=== PATIENT | female | born 1945 | race Caucasian/White ===

== ENCOUNTER → 2018-02-16 08:46 | Outpatient (CLI) | payer MEDICARE, OTHER, SELFPAY ==
--- NOTE | 2018-02-16 08:53 | XR_ITS ---
XR abdomen min 2V HISTORY: ITS.REASON: RT SIDE BACK PAIN W/SCIATICA ORDERING PHYSICIAN: Dominga Allen PATIENT AGE: 72 years COMPARISON: None TECHNIQUE: Upright and supine views of the abdomen and pelvis. FINDINGS: Nonspecific nonobstructive bowel gas pattern. No evidence of intestinal obstruction or free air. Dextroscoliosis of the thoracic lumbar spine measuring 26 degrees. Mild sclerosis left SI joint and mild degenerative changes of the hips. IMPRESSION: No acute finding
== END ==
PROVIDERS: PCP Internal Medicine Adolescent Medicine; Visit Provider Nurse Practitioner Family
DX: M54.41 Lumbago with sciatica, right side (principal)
CPT/HCPCS: 74019

== ENCOUNTER → 2018-02-24 09:32 | Outpatient (CLI) | payer MEDICARE, SELFPAY ==
[2018-02-24 12:43] LABS: Blood Urea Nitrogen 22 mg/dL (7-18); Creatinine,Serum 1.31 mg/dL (0.55-1.02); Estimated Glomerular Filt Rate 40 ml/min (>60); GFR (African American) 48 ML/MIN (>60)
== END ==
PROVIDERS: Visit Provider Nurse Practitioner Family
DX: R10.31 Right lower quadrant pain (principal)
CPT/HCPCS: 36415; 82565; 84520

== ENCOUNTER → 2018-02-26 09:38 | Outpatient (CLI) | payer MEDICARE, OTHER, SELFPAY ==
--- NOTE | 2018-02-26 10:15 | CT_ITS ---
CT abdomen pelvis w con Ordering Physician: Dominga Allen Patient Age: 72 years: Female HISTORY: ITS.REASON: RLQ pain RIGHT LOWER QUADRANT PAIN FOR 6 MONTHS TECHNIQUE: Helical CT scanning performed at abdomen/pelvis with IV contrast.. 75 cc Isovue-370. Oral contrast also utilized. Axial sagittal and coronal reconstructions performed on CT workstation. All CT scans at this facility used one or more dose reduction techniques , viz: automatic exposure control, ma/Kv adjustment per patient's size, (including targeted exam where dose matched to the indication; i.e. head); or iterative reconstruction technique COMPARISON :None available FINDINGS Lung bases. No acute findings. A 7 mm pleural-based nodular density at left CP angle axial image 15.. A 6 mm pleural-based nodular density right CP angle . These are nonspecific more likely benign lung nodules would benefit from follow-up chest within 4-6 months. Heart normal size with dense calcification mitral valve annulus Possible small slightly hiatal hernia. Abdomen. Liver. No focal lesion. Normal line liver overall but with generous right lobe measuring near 22 cm length Pancreas unremarkable. No retroperitoneal or mesenteric nor pelvic adenopathy. Gallbladder. No calcified stones but There appears to be some evident debris within the gallbladder. Possible noncalcified small stones or polyp.. Consider gallbladder ultrasound Spleen normal size. Adrenals unremarkable. Kidneys show normal enhancement. No obstruction. No calculi and Left kidney with 16 mm benign renal cyst. Also Tiny 7 mm cyst posterior upper pole left kidney. Right kidney is satisfactory. Normal right and left ureter. Pelvis. Urinary bladder unremarkable. Uterus normal size. No adnexal masses. Terminal ileum unremarkable. Appendix satisfactory. Colonic diverticulosis. Numerous small small diverticuli the sigmoid colon descending colon. Diverticulum at the right colon and near cecum with upper normal wall thickness. Most likely normal but noted Small bowel. No bowel dilatation or obstruction. Minimal fluid.. . 2 ventral hernias are seen in region of the umbilicus. When may actually be at the umbilicus with a 25 mm wide and 20 mm height hernia, abdominal wall defect seen leading towards umbilicus (or just above it in ( . The second hernia is just superior to this previously mentioned hernia. This more superior hernia abdominal wall defect, mouth measures 20 mm wide x10 millimeter high. Fat-containing hernia sac measuring 4 cm height . No inflammation or bowel loops are seen associated with these hernias. Osseous. Multilevel degenerative disc changes throughout the spine with generous levoscoliosis at the lower lumbar spine, most pronounced at L4/5 level where there is lateral offset of L4 on 5 and prominent spinal stenosis. Similar findings in 2009 but overall features have progressed. ...... IMPRESSION......... 1. No acute findings abdomen pelvis. Appendix normal. Terminal ileum unremarkable. No bowel dilatation or obstruction. 2. Gallbladder. Notable debris with possibly noncalcified stones gallbladder.-*Suggest gallbladder ultrasound 3. Diverticulosis throughout the colon. No evidence of diverticulitis. Upper normal wall thickness of the diverticuli at cecum,, but most likely normal. No significant diverticular inflammation 4. Incidental Fat-containing umbilical hernia, with a second small/moderate ventral hernia immediately above this. No inflammation. No bowel loops associated. --: Incidental observations 5. Small pleural-based nodular density right & left CP angle. Follow-up CT chest would a 6 months for these most likely benign features adequate 6... Probable benign less than 2 cm cyst at the left kid
--- NOTE | 2018-02-26 10:29 | HMH.ITSHM ---
SULFAME,HOXA,ASPRIIN,FUROSEMIDE,LOSARTIRN,FISH OIL,VITD ALLOPURIONOL,HYDROCODONE
== END ==
PROVIDERS: Family Provider Nurse Practitioner Family; PCP Internal Medicine Adolescent Medicine; Visit Provider Nurse Practitioner Family
DX: R10.31 Right lower quadrant pain (principal)
CPT/HCPCS: 74177; Q9967

== ENCOUNTER → 2018-03-05 07:31 | Outpatient (CLI) | payer MEDICARE, OTHER, SELFPAY ==
--- NOTE | 2018-03-05 08:00 | US_ITS ---
US gallbladder HISTORY: Right upper quadrant pain ITS.REASON: GB SLUDGE ORDERING PHYSICIAN: Dominga Allen PATIENT AGE: 72 years Comparison: None FINDINGS: PANCREAS: Unremarkable. No obvious mass or abnormal fluid collection. No ductal dilatation LIVER: No focal liver lesions demonstrated. Homogeneous echogenicity. No intrahepatic biliary ductal dilatation evident. There are diffuse increased echogenicity of the liver consistent with fatty liver. RIGHT KIDNEY: There is mild cortical thinning. Normal size and echogenicity. No hydronephrosis GALLBLADDER: Multiple gallstones present. No gallbladder wall thickening or pericholecystic fluid. Common bile duct is normal at 4 mm.. IMPRESSION: Cholelithiasis Fatty liver
== END ==
PROVIDERS: Family Provider Nurse Practitioner Family; PCP Internal Medicine Adolescent Medicine; Visit Provider Nurse Practitioner Family
DX: K82.8 Other specified diseases of gallbladder (principal)
CPT/HCPCS: 76705

== ENCOUNTER → 2018-03-14 10:06 | Outpatient (CLI) | payer MEDICARE, OTHER, SELFPAY ==
[2018-03-14 10:54] LABS: Basophils # 0.1 K/mm3 (0-0.2); Basophils % 1.1 % (0.1-2.0); Eosinophils # 0.3 K/mm3 (0.0-0.4); Eosinophils % 3.5 % (0.1-12.0); Hematocrit 45.9 % (37.0-47.0); Hemoglobin 14.4 g/dL (12.2-16.2); Lymphocytes # 2.1 K/mm3 (0.7-4.5); Lymphocytes % 24.6 K/mm3 (10-50); Mean Corpuscular HGB Conc 31.5 g/dL (31.8-35.4); Mean Corpuscular Hemoglobin 28.5 pg (27.0-31.2); Mean Corpuscular Volume 90.6 fl (81-99); Mean Platelet Volume 9.2 fl (7.4-10.4); Monocytes # 0.5 K/mm3 (0.1-1.0); Monocytes % 6.1 % (1.7-9.3); Neutrophils # 5.6 K/mm3 (1.8-7.8); Neutrophils % 64.7 % (37.0-80.0); Platelet Count 209 K/mm3 (142-424); Red Blood Count 5.06 M/mm3 (4.20-5.40); White Blood Count 8.6 K/mm3 (4.8-10.8)
[2018-03-14 11:04] LABS: Alanine Aminotransferase 34 U/L (12-78); Albumin Level 3.6 gm/dL (3.4-5.0); Albumin/Globulin Ratio 1.1 (1.1-1.8); Alkaline Phosphatase 101 U/L (46-116); Aspartate Amino Transferase 24 U/L (15-37); Bilirubin,Total 0.9 mg/dL (0.2-1.0); Blood Urea Nitrogen 17 mg/dL (7-18); Calcium 9.4 mg/dL (8.5-10.1); Carbon Dioxide 28 mmol/L (21.0-32.0); Chloride 107 mmol/L (98-107); Creatinine,Serum 1.08 mg/dL (0.55-1.02); Estimated Glomerular Filt Rate 50 ml/min (>60); GFR (African American) 60 ML/MIN (>60); Globulin 3.4 gm/dl (1.3-3.2); Glucose 113 mg/dL (74-106); Sodium 142 mmol/L (136-145)
== END ==
PROVIDERS: Visit Provider Surgery
DX: Z01.818 Encounter for other preprocedural examination (principal); K80.20 Calculus of gallbladder without cholecystitis without obstruction; K42.9 Umbilical hernia without obstruction or gangrene
CPT/HCPCS: 36415; 80053; 85025; 93005

== ENCOUNTER → 2018-07-12 12:14 | Outpatient (CLI) | payer MEDICARE, OTHER, SELFPAY ==
[2018-07-12 12:44] LABS: Basophils % 0.5 % (0.1-2.0); Eosinophils # 0.3 K/mm3 (0.0-0.4); Eosinophils % 3.7 % (0.1-12.0); Hematocrit 47.2 % (37.0-47.0); Hemoglobin 15.5 g/dL (12.2-16.2); Lymphocytes # 2.5 K/mm3 (0.7-4.5); Lymphocytes % 28.3 % (10-50); Mean Corpuscular HGB Conc 32.7 g/dL (31.8-35.4); Mean Corpuscular Hemoglobin 29.6 pg (27.0-31.2); Mean Corpuscular Volume 90.3 fl (81-99); Mean Platelet Volume 8.8 fl (7.4-10.4); Monocytes # 0.5 K/mm3 (0.1-1.0); Monocytes % 5.2 % (1.7-9.3); Neutrophils # 5.4 K/mm3 (1.8-7.8); Neutrophils % 62.3 % (37.0-80.0); Platelet Count 207 K/mm3 (142-424); Red Blood Count 5.23 M/mm3 (4.20-5.40); Red Cell Distribution Width 14.6 % (11.5-17.5); White Blood Count 8.7 K/mm3 (4.8-10.8)
[2018-07-12 14:10] LABS: Alanine Aminotransferase 27 U/L (12-78); Albumin Level 3.7 gm/dL (3.4-5.0); Alkaline Phosphatase 120 U/L (46-116); Amylase 60 U/L (25-125); Anion Gap 16.2 mEq/L (5-15); Aspartate Amino Transferase 24 U/L (15-37); Bilirubin,Total 0.8 mg/dL (0.2-1.0); Blood Urea Nitrogen 24 mg/dL (7-18); Calcium 9.2 mg/dL (8.5-10.1); Carbon Dioxide 27 mmol/L (21.0-32.0); Chloride 104 mmol/L (98-107); Creatinine,Serum 1.16 mg/dL (0.55-1.02); Estimated Glomerular Filt Rate 46 ml/min (>60); GFR (African American) 55 ML/MIN (>60); Globulin 3.6 gm/dl (1.3-3.2); Glucose 98 mg/dL (74-106); Lipase 214 u/L (73-393); Potassium 4.2 mmoL/L (3.5-5.1); Sodium 143 mmol/L (136-145); Total Protein,Serum 7.3 gm/dL (6.4-8.2)
== END ==
PROVIDERS: Visit Provider Nurse Practitioner Family
DX: R10.9 Unspecified abdominal pain (principal); K57.30 Diverticulosis of large intestine without perforation or abscess without bleeding
CPT/HCPCS: 36415; 80053; 82150; 83690; 85025

== ENCOUNTER → 2018-07-23 10:16 | Outpatient (CLI) | payer MEDICARE, OTHER, SELFPAY ==
--- NOTE | 2018-07-23 10:36 | CT_ITS ---
CT chest w con HISTORY: Follow-up lung nodule prior CT abdomen pelvis 02/26/2018. ITS.REASON: LUNG NODULES ORDERING PHYSICIAN: Dominga Allen PATIENT AGE: 72 years COMPARISON: 60 cc Isovue-370 IV contrast utilizing. SmartPrep. TECHNIQUE Technique: Axial images obtained. Sagittal and coronal reformatted images are also generated and reviewed. All CT scans at the facility use one or more dose reduction, viz: automated exposure control, ma/kV adjustment per patient size (including targeted exams where dose is matched to indication, i.e. head), or iterative reconstruction technique. FINDINGS: COMPARISON is made to previous CTA abdomen 02/26/2018. At the left lung base we again see a stable small 6. Remaining millimeter pleural-based nodule at the left CP angle. But no significant change. At the right lung base towards right CP angle. Again see a small 5. X 5.5 mm pleural-based nodule density. It is somewhat tapered towards its tip but I suspect it is related to scarring. No significant progression. On axial image 45 slightly more superiorly there is a tiny less than 4 mm pleural-based nodule posterior R UL. I suspect this is a stable feature as well in retrospect Continues superiorly there is a small a smaller 3.8 mm subpleural nodule anterior RML to on axial slice 38,, also seen on sagittal image 2627. May be related to scarring. The other density on this axial slice is a branching vessel and stable as well . On on axial image 29 there is a tiny 3 mm nodule superior most aspect RLL. This tiny nodule dense for size & may be partially calcified but cannot confirm calcium with density measurements. Tiny barely evident pleural-based 3 mm nodule at the periphery of the RUL axial image 29. Finally Extremely tiny densities pleural-based R UL axial image 18, & periphery of RML axial slice 42 . Central airways upper normal thickness. . Small calcified hilar nodes at posterior left sofia reflect old granulomatous disease. No significant hilar nor mediastinal adenopathy otherwise heart is normal size. There is very dense calcification in the region of the mitral valve reflecting mainly dense calcification at the mitral valve annulus. This is similar to previous study nicely seen on the CT employment law specialist view . moderate coronary artery calcification most evident throughout the LAD, with some minimal calcification at left main coronary artery. Upper abdomen. No significant findings. Partially imaged cyst mid left kidney at least 12 mm size. Adrenals unremarkable. Diffuse fatty changes liver. Osseous structures. No no lesions... Degenerative changes T-spine. Posterior midline spurring most evident at T6/7 and less evident at T4/5 , T3/4/ slightly indents thecal sac at midline.. Anterior marginal osteophytes. Mild degenerative changes throughout T-spine otherwise.Mild superior endplate cavity T11 likely reflects Schmorl's node. Other observations. There is a 12.5 mm right thyroid nodule with a small 7.2 mm left thyroid nodule thyroid gland appears more slightly enlarged perhaps towards the more generous inferior left lobe ------IMPRESSION---- 1.... The patient has scattered small pulmonary nodular densities bilaterally. Suspect Most likely small benign nodules but would benefit from a follow-up CT chest in 6 months to confirm stable. ... Previously noted lung nodules towards bases appear stable compared to CT abdomen 02/26/2018 .. The other tiny nodules seen elsewhere scattered elsewhere chest are small, measure less than 4 mm.. Some likely reflect developing granulomatous disease, with the others reflecting scarring,- but will be important to confirm stability to exclude possible more significant feature. 2.... Incidental observations: Bilateral thyroid nodules. Inf
== END ==
PROVIDERS: PCP Nurse Practitioner Family; Visit Provider Nurse Practitioner Family
DX: R91.1 Solitary pulmonary nodule (principal)
CPT/HCPCS: 71260; Q9967

== ENCOUNTER → 2018-08-10 09:58 | Outpatient (CLI) | payer MEDICARE, OTHER, SELFPAY ==
--- NOTE | 2018-08-10 10:03 | CA_ITS ---
PROCEDURE: 2-D M-mode and color Doppler study INDICATIONS FOR THE TEST: Chest pain COPD Heart Murmur Tobacco Smoking Palpitations Fatigue Syncope Edema HypertensionXDiabetes Mellitus Rheumatic Fever SOB ZIEGLER ObesityXXHyperlipidemiaX Family History HD Additional History CALCIFICATION OF MV BY CT TDS OBESITY PATIENT INFORMATION HEIGHT: 66 WEIGHT:260 GENDER: Female B/P:128/73 2-D/M-MODE INTERPRETATION: 2-D MEASUREMENTS OBSERVED VALUES IN CMS Right Ventricular Dimension (RVDd) 2.3 Interventricular Septum (Thickness)(IVsd) 1.0 Left Ventricular Internal Dimensions(LVIDd) 5.1 Left Ventricular Posterior Wall (Thickness)(LVPWd) 1.1 Aortic Root 3.4 Aortic Cusp Separation 1.1 Left Atrial Dimensions (LAD) 3.6 2D 1. Left atrium is mildly enlarged, left ventricle is normal size, mild concentric left ventricular hypertrophy, visually estimated ejection fraction over 65% with no regional wall motion abnormality. 2. The right atrium and right ventricle are normal size and contractility. 3. The aortic valve is thickened and calcified leaflet continue to display mobility. 4. The mitral valve has mitral annular calcification, which extends and both anterior and posterior mitral leaflet. 5. The tricuspid valve is grossly normal. 6. The pulmonic valve is poorly visualized. 7. No significant pericardial effusion noted. DOPPLER INTERROGATION: Doppler interrogation of the aortic, mitral and tricuspid valve is presence of mild mitral and tricuspid regurgitation, tricuspid regurgitation jet velocity is inadequate for calculation of the right ventricular systolic pressure, grade 1 diastolic dysfunction seen with tissue Doppler evidence of raised left atrial pressure. CONCLUSION: 1. Mildly enlarged left atrium, normal left ventricular size, mild concentric left ventricular hypertrophy, visually estimated ejection fraction of over 65% with no regional wall motion abnormality, grade 1 diastolic dysfunction seen with tissue Doppler evidence of raised left atrial pressure. 2. Thickened and calcified aortic valve without aortic stenosis aortic insufficiency. 3. Mild mitral and tricuspid regurgitation 4. No significant pericardial effusion noted.
--- NOTE | 2018-08-10 10:32 | US_ITS ---
US thyroid HISTORY: ITS.REASON: THYROID NODULE, feels like something stuck in the neck ORDERING PHYSICIAN: Dominga Allen PATIENT AGE: 72 years Comparison: 07/23/2018 FINDINGS: Right lobe: 4.5 x 2.5 x 1.8 cm. Nodule A, mid pole at 19 x 14 mm. There appears to be a partially calcified rim with low level echoes centrally. Left lobe: 4.5 x 2 x 1.6 cm. Small cyst in the upper pole and 5 mm. Hypoechoic nodule lower pole a 10 x 9 mm with good through transmission of sound and may be due to a complex cyst. There is some increased echogenicity along the posterior inferior aspect of this lesion consistent with a small mural nodule. Isthmus: 4 mm IMPRESSION: Mildly enlarged thyroid gland with bilateral complex nodules. 20 x 14 mm hypoechoic nodule mid polar region on the right 10 x 9 mm complex cystic nodule lower pole on the left Consider 6 month follow-up to confirm stability of the above-mentioned abnormalities
== END ==
PROVIDERS: PCP Internal Medicine Adolescent Medicine; Visit Provider Nurse Practitioner Family
DX: E04.1 Nontoxic single thyroid nodule; I34.0 Nonrheumatic mitral (valve) insufficiency
CPT/HCPCS: 76536; 93306

== ENCOUNTER → 2018-09-06 09:49 | Outpatient (CLI) | payer MEDICARE, OTHER, SELFPAY ==
--- NOTE | 2018-09-06 09:53 | US_ITS ---
FNA w guidance, US thyroid HISTORY: Dominant right thyroid nodule ITS.REASON: THYROID NODULE ORDERING PHYSICIAN: John Croft MD PATIENT AGE: 72 years COMPARISON: 08/10/2018 Prebiopsy ultrasound: Prebiopsy ultrasound performed for planning of the procedure. Appropriate site localized on the patient's neck for needle insertion. TECHNIQUE: Following obtaining informed consent, using aseptic technique and local anesthesia with buffered lidocaine, fine-needle aspiration was performed of the nodule of interest using sonographic guidance. 3 passes were made into the nodule with a 25-gauge needle. Specimen was given to cytology. The patient tolerated the procedure well without evidence of immediate complications and left the ultrasound suite in stable condition. CYTOLOGY:Negative for malignancy. Consistent with a benign follicular nodule IMPRESSION: Uneventful fine needle aspiration of the thyroid nodule on the right under sonographic guidance showing benign findings
== END ==
PROVIDERS: PCP Nurse Practitioner Family; Visit Provider Otolaryngology
DX: E04.1 Nontoxic single thyroid nodule (principal)
CPT/HCPCS: 10005; 10022; 76536; 88173

== ENCOUNTER → 2018-09-17 10:08 | Outpatient (CLI) | payer MEDICARE, OTHER, SELFPAY ==
--- NOTE | 2018-09-17 10:15 | XR_ITS ---
XR hip LT 2-3V w/pelvis HISTORY: Left hip pain ITS.REASON: ABD PAIN,OSTEOARTHRITIS ORDERING PHYSICIAN: Dominga Allen PATIENT AGE: 72 years COMPARISON: None FINDINGS: There are mild osteoarthritic changes of both hips as seen on the frontal view of the pelvis. No fracture or dislocation. No lytic or blastic change. Mild sclerosis left SI joint inferiorly IMPRESSION: Mild osteoarthritis of the hips
== END ==
PROVIDERS: PCP Internal Medicine Adolescent Medicine; Visit Provider Nurse Practitioner Family
DX: R10.32 Left lower quadrant pain (principal); M15.0 Primary generalized (osteo)arthritis
CPT/HCPCS: 73502

== ENCOUNTER → 2018-12-17 09:22 | Outpatient (CLI) | payer MEDICARE, OTHER, SELFPAY ==
[2018-12-17 09:46] LABS: Basophils # 0.1 K/mm3 (0-0.2); Basophils % 0.5 % (0.1-2.0); Eosinophils # 0.3 K/mm3 (0.0-0.4); Eosinophils % 2.7 % (0.1-12.0); Hematocrit 47.7 % (37.0-47.0); Lymphocytes # 2.1 K/mm3 (0.7-4.5); Mean Corpuscular HGB Conc 33.5 g/dL (31.8-35.4); Mean Corpuscular Hemoglobin 29.8 pg (27.0-31.2); Mean Corpuscular Volume 88.8 fl (81-99); Mean Platelet Volume 8.6 fl (7.4-10.4); Monocytes # 0.5 K/mm3 (0.1-1.0); Monocytes % 5.1 % (1.7-9.3); Neutrophils # 7.2 K/mm3 (1.8-7.8); Neutrophils % 70.7 % (37.0-80.0); Platelet Count 216 K/mm3 (142-424); Red Blood Count 5.37 M/mm3 (4.20-5.40); Red Cell Distribution Width 14.1 % (11.5-17.5); White Blood Count 10.1 K/mm3 (4.8-10.8)
[2018-12-17 12:06] LABS: Alanine Aminotransferase 27 U/L (12-78); Albumin/Globulin Ratio 1.1 (1.1-1.8); Alkaline Phosphatase 127 U/L (46-116); Anion Gap 14.6 mEq/L (5-15); Aspartate Amino Transferase 15 U/L (15-37); Bilirubin,Total 0.9 mg/dL (0.2-1.0); Blood Urea Nitrogen 28 mg/dL (7-18); Carbon Dioxide 27 mmol/L (21.0-32.0); Chloride 102 mmol/L (98-107); Chol/HDL Ratio 5.4 (1-3.5); Cholesterol 231 mg/dL (140-200); Creatinine,Serum 1.12 mg/dL (0.55-1.02); Estimated Glomerular Filt Rate 48 ml/min (>60); GFR (African American) 58 ML/MIN (>60); Globulin 3.7 gm/dl (1.3-3.2); Glucose 96 mg/dL (74-106); HDL Cholesterol 43 mg/dL (29-89); LDL Cholesterol 161 mg/dL (0-130); Potassium 4.6 mmoL/L (3.5-5.1); Sodium 139 mmol/L (136-145); Thyroid Stimulating Hormone 1.99 uIU/ml (0.358-3.740); Total Protein,Serum 7.7 gm/dL (6.4-8.2); Triglycerides 136 mg/dL (30-200); Uric Acid 4.7 mg/dL (2.6-7.2); VLDL Cholesterol 27 mg/dL (0-40)
[2018-12-19 06:57] LABS: Vitamin D 25 Hydroxy 34.6 ng/mL (30.0-100.0)
== END ==
PROVIDERS: PCP Nurse Practitioner Family; Visit Provider Nurse Practitioner Family
DX: R60.9 Edema, unspecified (principal); I10 Essential (primary) hypertension; E04.1 Nontoxic single thyroid nodule; E78.2 Mixed hyperlipidemia; E55.9 Vitamin D deficiency, unspecified; M10.9 Gout, unspecified; G47.33 Obstructive sleep apnea (adult) (pediatric)
CPT/HCPCS: 36415; 80053; 80061; 82652; 84443; 84550; 85025

== ENCOUNTER → 2019-01-09 07:55 | Outpatient (CLI) | payer MEDICARE, OTHER, SELFPAY ==
--- NOTE | 2019-01-09 08:30 | MM_ITS ---
MM Dig screening mamm BI w/CAD CAD Screening COMPARISON: None, previous mammograms have been purged. INDICATION: There is no personal or family history of breast cancer TECHNIQUE: Standard CC and MLO images were obtained. R2 CAD reviewed. FINDINGS: The breasts are composed primarily of fat with very minimal scattered fiber glandular densities in each breast. There are scattered benign-appearing microcalcifications in each breast. There is no suspicious lesion and there are no suspicious microcalcifications. IMPRESSION: Fatty type breast parenchyma with no suspicious lesion seen BI-RADS Category: 2 Benign Finding(s) RECOMMENDED FOLLOW-UP: 1YR - 1 YEAR FOLLOW-UP (A letter has been sent to the patient regarding results of the study.)
--- NOTE | 2019-01-09 09:00 | XR_ITS ---
XR DEXA axial skeleton HISTORY: ITS.REASON: POST MENOPAUSAL SCREENING ORDERING PHYSICIAN: Dominga Allen APRN PATIENT AGE: 73 years COMPARISON: 08/17/2015 FINDINGS: The BMD measured at the Left femoral neck is 0.805 g/cm squared with a T score of -1.7. This is considered Osteopenic according to the World Health Organization criteria. Fracture risk is Moderate. Treatment is advised. The L1 L4 density has a T score of 1.4 IMPRESSION: Osteopenia with moderate fracture risk. Treatment is advised. Suggest follow-up exam January 2021
== END ==
PROVIDERS: PCP Nurse Practitioner Family; Visit Provider Nurse Practitioner Family
DX: Z12.31 Encounter for screening mammogram for malignant neoplasm of breast (principal); Z13.820 Encounter for screening for osteoporosis; Z78.0 Asymptomatic menopausal state
CPT/HCPCS: 77067; 77080

== ENCOUNTER → 2019-02-28 08:37 | Outpatient (CLI) | payer MEDICARE, OTHER, SELFPAY ==
--- NOTE | 2019-02-28 08:39 | FL_ITS ---
FL barium enema ORDERING PHYSICIAN : Oli Soriano MD PATIENT AGE: 73 years GENDER: Female HISTORY:ITS.REASON: 3 mo follow up COMPARISON: None TECHNIQUE: Routine FINDINGS: Lie Detector Operator film shows right upper quadrant surgical clips from cholecystectomy and degenerative disc disease throughout the lumbar spine with marginal spurs and mild scoliosis. Barium filled the entire colon without difficulty with opacification of a normal-appearing appendix. There are scattered diverticula which are more numerous in the left side and sigmoid area. There are no areas of persistent narrowing. The willis appear to be normal and there are no filling defects. IMPRESSION: Colonic diverticulosis. Cholecystectomy. Lumbar spine chronic intervertebral osteochondrosis with secondary mild scoliosis.
== END ==
PROVIDERS: PCP Nurse Practitioner Family; Visit Provider Surgery
DX: Q43.8 Other specified congenital malformations of intestine (principal)
CPT/HCPCS: 74270

== ENCOUNTER → 2019-03-14 12:49 | Outpatient (CLI) | payer MEDICARE, OTHER, SELFPAY ==
--- NOTE | 2019-03-14 12:51 | US_ITS ---
US thyroid HISTORY: follow-up thyroid nodules ITS.REASON: Goiter ORDERING PHYSICIAN: John Croft MD PATIENT AGE: 73 years Comparison: 08/10/2018 FINDINGS: The right lobe is 3.6 x 2.4 x 2.1 cm. There is a 1. #1.3 cm somewhat ill-defined hypoechoic nodules mid aspect of the right lobe unchanged. There may be a peripheral calcified rim. A 4 mm hypoechoic nodule present in the mid polar region unchanged. The left lobe is 3.8 x 1.6 x 2.1 cm. There is a 6 mm mixed nodule in the upper pole unchanged. A subtle 15 mm nodules present in the mid polar region probably unchanged given the difference in scanning technique. 5 mm hypoechoic nodule present in the lower pole. A 10 mm mixed nodule present in the lower pole. Cannot determine if this nodule was present previously due to the difference in scanning technique. The isthmus is thickened at 8 mm. IMPRESSION: Multinodular goiter overall not significantly changed
== END ==
PROVIDERS: PCP Nurse Practitioner Family; Visit Provider Otolaryngology
DX: E01.0 Iodine-deficiency related diffuse (endemic) goiter (principal)
CPT/HCPCS: 76536

== ENCOUNTER → 2019-04-04 09:54 | Outpatient (CLI) | payer MEDICARE, OTHER, SELFPAY ==
--- NOTE | 2019-04-04 10:05 | CT_ITS ---
CT chest w con HISTORY: Follow-up lung nodule ITS.REASON: RT LUNG NODULE ORDERING PHYSICIAN: Dominga Allen APRN PATIENT AGE: 73 years COMPARISON: 07/23/2018 Technique: Contrast Used:75ml Optiray 350 Axial images were obtained. Sagittal, and coronal reformatted images are also generated and reviewed. All CT scans at the facility use one or more dose reduction, viz: automated exposure control, ma/kV adjustment per patient size (including targeted exams where dose is matched to indication, i.e. head), or iterative reconstruction technique. FINDINGS: Stable bilateral thyroid nodules. Extensive coronary artery calcification is noted. Normal heart size. No mediastinal or hilar mass. There is calcification of the mitral valve annulus. There is a small subpleural nodule in the right lower lobe laterally at 6 mm unchanged. 6 mm subpleural nodule left lung base laterally and 3 mm subpleural nodule left lung base posterior laterally unchanged. No change 4 mm nodule right middle lobe. No new nodules evident. No effusions or infiltrates. IMPRESSION: Stable small bilateral pulmonary nodules. No new nodules apparent. Coronary artery disease. Mitral valve annular calcifications
[2019-04-04 10:12] LABS: Blood Urea Nitrogen 18 mg/dL (7-18); Creatinine,Serum 0.99 mg/dL (0.55-1.02); Estimated Glomerular Filt Rate 55 ml/min (>60); GFR (African American) 66 ML/MIN (>60)
== END ==
PROVIDERS: PCP Internal Medicine Adolescent Medicine; Visit Provider Nurse Practitioner Family
DX: R91.1 Solitary pulmonary nodule (principal)
CPT/HCPCS: 36415; 71260; 82565; 84520; Q9967

== ENCOUNTER → 2019-04-15 06:17 | Outpatient (CLI) | payer MEDICARE, OTHER, SELFPAY ==
--- NOTE | 2019-04-15 06:24 | NM_ITS ---
APPROVED REPORT Furniture Mechanic: Lexiscan myocardial perfusion imaging Indication for test: Coronary artery disease, hypertension, chest pain Procedure: Patient received 0.4 mg of intravenous Lexiscan, resting heart rate was 57 bpm resting blood pressure 129/64, with Lexiscan maximum heart rate achieved was 86 bpm which is less than 85% of the maximum corrected heart rate in the blood pressure was 127/50. With Lexiscan patient denied any complaint of chest pain or shortness of breath. Electrocardiogram: Resting electrocardiogram shows sinus rhythm nonspecific ST-T changes. With Lexiscan there is less than 1.[address] segment depression noted from the baseline EKG. The EKG portion of the Lexiscan Myoview is nondiagnostic. Cardiac stress and resting SPECT images: Cardiac stress and resting SPECT images were obtained using technetium 99 Myoview 30.4 mCi at distress and 10.4 mCi at rest. Gated SPECT with analysis of segmental wall motion analysis and calculation of ejection fraction also done. Cardiac stress and resting SPECT images show uniform myocardial activity without segmental perfusion abnormality, computer derived ejection fraction is over 65% with no regional wall motion abnormality, right ventricle is normal size and contractility. Conclusion 1. The EKG portion of the Lexiscan Myoview is nondiagnostic. 2. No scintigraphic evidence of reversible ischemia seen, computer derived ejection fraction over 65% with no regional wall motion abnormality, right ventricle is normal size and contractility. 3. Normal Lexiscan Myoview study. Electronically signed by : Jean Marie Grewal, 04/18/2019 16:43:25
--- NOTE | 2019-04-15 07:09 | HMH.ITSHM ---
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 []FUROSEMIDE ALLOPURINOL LOSARTAN NORCO VITAMIN D FISH OIL ASA GAVILAX
== END ==
PROVIDERS: PCP Internal Medicine Adolescent Medicine; Visit Provider Nurse Practitioner Family
DX: R06.00 Dyspnea, unspecified (principal); I25.84 Coronary atherosclerosis due to calcified coronary lesion; I25.10 Atherosclerotic heart disease of native coronary artery without angina pectoris
CPT/HCPCS: 78452; 93017; A9502; J2785

== ENCOUNTER → 2019-05-02 12:44 | Outpatient (CLI) | payer MEDICARE, OTHER, SELFPAY ==
--- NOTE | 2019-05-02 12:51 | XR_ITS ---
PROCEDURE: XR FOOT RT MIN 3V CLINICAL INDICATION: THIRD TOE CELLULITIS Pain and swelling COMPARISON: No exams were available for comparison FINDINGS: There is some decreased density involving the tuft of the distal phalanx of the 3rd toe along the lateral aspect. This is of questionable clinical significance. Hammertoe deformity involves the 2nd toe. Mild osteoarthritic change of the 1st metatarsophalangeal joint and the tarsal metatarsal joint. Mild osteoarthritis involves the talar navicular joint. IMPRESSION: Osteoarthritic changes. Subtle decreased density involves the lateral aspect of the distal phalanx of the 3rd toe nonspecific. Cannot exclude the possibility of osteomyelitis although no cortical erosion is evident. Follow-up suggested Dictated by: Miguel Angel Swenson MD 05/02/2019 13:58 Signed by: <Electronically signed by Miguel Angel Swenson MD in [place]> 05/02/2019 13:58
== END ==
PROVIDERS: PCP Internal Medicine Adolescent Medicine; Visit Provider Nurse Practitioner Family
DX: L03.031 Cellulitis of right toe (principal)
CPT/HCPCS: 73630

== ENCOUNTER → 2019-05-07 10:23 | Outpatient (CLI) | payer MEDICARE, OTHER, SELFPAY ==
--- NOTE | 2019-05-07 10:27 | MR_ITS ---
PROCEDURE: MR FOOT RT WO CON CLINICAL INDICATION: CELLULITIS OF TOE OF RIGHT FOOT COMPARISON: XR FOOT RT MIN 3V from 05/02/2019 TECHNIQUE: Routine multiplanar multi echo sequences are performed without gadolinium enhancement. FINDINGS: There is a small focal area of increased STIR signal involving the distal phalanx of the 3rd toe. This is demonstrated on both the sagittal and the axial images. This is suspicious for an area of osteomyelitis. No obvious abscess. There is mild generalized subcutaneous edema. No fracture or other significant anomaly is evident. IMPRESSION: Increased STIR signal involves the distal phalanx of the 3rd toe corresponding to the radiographic abnormality suspicious for osteomyelitis Dictated by: Miguel Angel Swenson MD 05/13/2019 15:52 Electronically signed by Miguel Angel Swenson MD in [facility] 05/13/2019 15:52
== END ==
PROVIDERS: PCP Nurse Practitioner Family; Visit Provider Nurse Practitioner Family
DX: L03.031 Cellulitis of right toe (principal)
CPT/HCPCS: 73718

== ENCOUNTER → 2019-05-13 13:00 | Outpatient (CLI) | payer MEDICARE, OTHER, SELFPAY ==
[2019-05-13 14:05] LABS: Basophils # 0.1 K/mm3 (0-0.2); Basophils % 0.7 % (0.1-2.0); Eosinophils # 0.4 K/mm3 (0.0-0.4); Eosinophils % 4.2 % (0.1-12.0); Hematocrit 46.2 % (37.0-47.0); Hemoglobin 14.9 g/dL (12.2-16.2); Lymphocytes # 2.3 K/mm3 (0.7-4.5); Lymphocytes % 25.4 % (10-50); Mean Corpuscular HGB Conc 32.2 g/dL (31.8-35.4); Mean Corpuscular Hemoglobin 29.2 pg (27.0-31.2); Mean Corpuscular Volume 90.7 fl (81-99); Mean Platelet Volume 8.7 fl (7.4-10.4); Monocytes # 0.5 K/mm3 (0.1-1.0); Monocytes % 5.2 % (1.7-9.3); Neutrophils # 5.9 K/mm3 (1.8-7.8); Neutrophils % 64.5 % (37.0-80.0); Platelet Count 250 K/mm3 (142-424); Red Blood Count 5.09 M/mm3 (4.20-5.40); Red Cell Distribution Width 14.3 % (11.5-17.5); White Blood Count 9.2 K/mm3 (4.8-10.8)
[2019-05-13 14:32] LABS: Alanine Aminotransferase 27 U/L (12-78); Albumin Level 3.8 gm/dL (3.4-5.0); Albumin/Globulin Ratio 1.1 (1.1-1.8); Alkaline Phosphatase 109 U/L (46-116); Anion Gap 14.4 mEq/L (5-15); Aspartate Amino Transferase 20 U/L (15-37); Bilirubin,Total 0.6 mg/dL (0.2-1.0); Blood Urea Nitrogen 21 mg/dL (7-18); C-Reactive Protein 0.6 mg/dL (0.0-0.9); Calcium 9.6 mg/dL (8.5-10.1); Carbon Dioxide 27 mmol/L (21.0-32.0); Chloride 104 mmol/L (98-107); Creatinine,Serum 1.04 mg/dL (0.55-1.02); Estimated Glomerular Filt Rate 52 ml/min (>60); GFR (African American) 63 ML/MIN (>60); Globulin 3.4 gm/dl (1.3-3.2); Glucose 98 mg/dL (74-106); Potassium 4.4 mmoL/L (3.5-5.1); Sodium 141 mmol/L (136-145); Total Protein,Serum 7.2 gm/dL (6.4-8.2)
[2019-05-13 14:48] LABS: Free T4 (Free Thyroxine) 1.14 ng/dl (0.76-1.46); Thyroid Stimulating Hormone 2.53 uIU/ml (0.358-3.740)
[2019-05-13 15:35] LABS: Erythrocyte Sedimentation Rate 14 mm/hr (0-30)
== END ==
PROVIDERS: Otolaryngology; Visit Provider Podiatrist
DX: L08.9 Local infection of the skin and subcutaneous tissue, unspecified (principal); E01.0 Iodine-deficiency related diffuse (endemic) goiter; E04.9 Nontoxic goiter, unspecified
CPT/HCPCS: 36415; 80053; 84439; 84443; 85025; 85651; 86140

== ENCOUNTER 2019-05-15 12:13 | Outpatient (CLI) | payer MEDICARE, OTHER, SELFPAY ==
--- NOTE | 2019-05-15 12:25 | PC.NURSE ---
pt arrived just before 1200 for picc line placement and vancomycin infusion. reviewed poc for pt and referred pt to nurse placing the picc line, claudio schwartz rn. pt taken to procedure room for picc line placement, pharmacy notified of information for vancomycin dosing.
[2019-05-15 12:32] VITALS: BMI 42.3
--- NOTE | 2019-05-15 12:33 | XR_ITS ---
PROCEDURE: XR CHEST PORTABLE CLINICAL HISTORY: picc placement COMPARISON: CHESTW CT chest w con from 04/04/2019 FINDINGS: PICC line has been inserted by the left upper extremity approach. The tip is in the region of the confluence of the brachiocephalic veins. Unremarkable cardiovascular structures. Mitral valve annular calcification noted. Degenerative changes of the shoulders IMPRESSION: Left upper extremity PICC line tip in good position at the confluence of the brachiocephalic veins Dictated by: Miguel Angel Swenson MD 05/15/2019 13:05 Electronically signed by Miguel Angel Swenson MD in [place] 05/15/2019 13:05
[2019-05-15 12:55] VITALS: BP 130/58; PULSE 56; RESP 20; TEMP 36.6; O2SAT 97
[2019-05-15 13:25] VITALS: BP 126/47; PULSE 71; RESP 20; O2SAT 98
[2019-05-15 13:55] VITALS: BP 121/50; PULSE 69; RESP 20; O2SAT 97
[2019-05-15 14:25] VITALS: BP 118/49; PULSE 70; RESP 20; O2SAT 98
[2019-05-15 15:02] VITALS: BP 113/45; PULSE 63; RESP 20; O2SAT 97
--- NOTE | 2019-05-15 15:52 | P.CONPHA_ITS ---
- Pharmacy Consult Date: 05/15/19 Time: 15:49 Referring provider: DR. MATOS Reason for Consult:: VANCOMYCIN DOSING Allergies and ADEs:: Allergies Allergy/AdvReac Type Severity Reaction Status Date / Time No Known Allergies Allergy Verified 05/13/19 12:01 Home Medications:: Home Medications Medication Instructions Recorded Confirmed Type allopurinol 300 mg tablet 300 mg PO DAILY 90 Days #90 10/02/17 05/13/19 History furosemide 40 mg tablet 40 mg PO DAILY 90 Days #90 10/02/17 05/13/19 History hydrocodone 5 mg-acetaminophen 325 5 mg PO DAILY 30 Days #60 10/02/17 05/13/19 History mg tablet losartan 100 mg tablet 100 mg PO DAILY 90 Days #90 10/02/17 05/13/19 History Ergocalciferol (Vitamin D2) 400 unit PO DAILY 04/03/18 05/13/19 History [Vitamin D] [place]-3 Fatty Acids [Fish Oil] 300 mg PO DAILY 04/03/18 05/13/19 History aspirin 325 mg tablet 325 mg PO DAILY 12/25/18 05/13/19 History polyethylene glycol 3350 17 17 g PO DAILY #510 g 12/25/18 05/13/19 History gram/dose oral powder Height: 1.68 m Weight: 118.841 kg Medical History: Reports:: Hyperlipidemia, Hypertension, Lung Disease Denies:: Cancer, Diabetes Mellitus Type 1, Diabetes Mellitus Type 2, Internal Pacemaker, MRSA, Seizures Assessment and Plan - Assessment and plan all Dx Assessment and Plan for all problems:: BASED ON PATIENT'S FACTORS, RECOMMEND PATIENT START WITH VANCOMYCIN 2250 MG Q24H AT THIS TIME. WILL OBTAIN VANCOMYCIN TROUGH AND BMP ON 05/17/19 PRIOR TO DOSE.
== END 2019-05-15 15:02 | disposition home or self-care (01) ==
LOC: INF 12:13
PROVIDERS: Visit Provider Podiatrist
DX: L03.115 Cellulitis of right lower limb (principal)
CPT/HCPCS: 36569; 71045; 96365; 96366; C1751; J3370

== ENCOUNTER 2019-05-16 11:04 | Outpatient (CLI) | payer MEDICARE, OTHER, SELFPAY ==
[2019-05-16 11:08] VITALS: BP 106/41; PULSE 60; RESP 18; TEMP 36.6; O2SAT 95
[2019-05-16 11:35] VITALS: BP 109/56; PULSE 64; RESP 20; TEMP 36.7; O2SAT 96
[2019-05-16 12:05] VITALS: BP 112/60; PULSE 62; RESP 18; TEMP 36.6; O2SAT 96
[2019-05-16 12:35] VITALS: BP 110/52; PULSE 68; RESP 18
[2019-05-16 13:05] VITALS: BP 106/59; PULSE 64; RESP 20; TEMP 36.8; O2SAT 95
[2019-05-16 13:25] VITALS: BP 116/64; PULSE 65; RESP 18; TEMP 36.6; O2SAT 96
== END 2019-05-16 13:25 | disposition home or self-care (01) ==
LOC: INF 11:04
PROVIDERS: Visit Provider Podiatrist
DX: L03.115 Cellulitis of right lower limb (principal)
CPT/HCPCS: 96365; 96366; J3370

== ENCOUNTER 2019-05-17 08:20 | Outpatient (CLI) | payer MEDICARE, OTHER, SELFPAY ==
[2019-05-17 08:22] VITALS: BMI 42.3
[2019-05-17 09:32] LABS: Anion Gap 15.8 mEq/L (5-15); Blood Urea Nitrogen 25 mg/dL (7-18); Calcium 9.6 mg/dL (8.5-10.1); Carbon Dioxide 25 mmol/L (21.0-32.0); Chloride 104 mmol/L (98-107); Creatinine Clearance Estimated 44 mL/min (50-200); Creatinine,Serum 1.04 mg/dL (0.55-1.02); Estimated Glomerular Filt Rate 52 ml/min (>60); GFR (African American) 63 ML/MIN (>60); Glucose 121 mg/dL (74-106); Potassium 3.8 mmoL/L (3.5-5.1); Sodium 141 mmol/L (136-145); Vancomycin,Trough 17.6 mcg/ml (10.0-20.0)
[2019-05-17 09:48] VITALS: BP 105/61; PULSE 62; RESP 18; TEMP 36.8; O2SAT 99
[2019-05-17 10:33] VITALS: BP 110/59; PULSE 65; RESP 20; TEMP 36.7; O2SAT 98
[2019-05-17 11:10] VITALS: BP 112/62; PULSE 69; RESP 18; O2SAT 98
[2019-05-17 11:40] VITALS: BP 104/56; PULSE 62; RESP 18; TEMP 36.7; O2SAT 97
[2019-05-17 12:00] VITALS: BP 114/60; PULSE 65; RESP 18; TEMP 36.6; O2SAT 97
--- NOTE | 2019-05-17 12:54 | P.CONPHA_ITS ---
- Pharmacy Consult Date: 05/17/19 Time: 12:53 Referring provider: DR. MATOS Reason for Consult:: VANCOMYCIN TROUGH LEVEL Allergies and ADEs:: Allergies Allergy/AdvReac Type Severity Reaction Status Date / Time No Known Allergies Allergy Verified 05/17/19 08:44 Home Medications:: Home Medications Medication Instructions Recorded Confirmed Type allopurinol 300 mg tablet 300 mg PO DAILY 90 Days #90 10/02/17 05/17/19 History furosemide 40 mg tablet 40 mg PO DAILY 90 Days #90 10/02/17 05/17/19 History hydrocodone 5 mg-acetaminophen 325 5 mg PO DAILY 30 Days #60 10/02/17 05/17/19 History mg tablet losartan 100 mg tablet 100 mg PO DAILY 90 Days #90 10/02/17 05/17/19 History Ergocalciferol (Vitamin D2) 400 unit PO DAILY 04/03/18 05/17/19 History [Vitamin D] [place]-3 Fatty Acids [Fish Oil] 300 mg PO DAILY 04/03/18 05/17/19 History aspirin 325 mg tablet 325 mg PO DAILY 12/25/18 05/17/19 History polyethylene glycol 3350 17 17 g PO DAILY #510 g 12/25/18 05/17/19 History gram/dose oral powder Height: 1.68 m Weight: 118.841 kg Laboratory Results:: Laboratory Results - last 24 hr 05/17/19 08:20: Sodium 141, Potassium 3.8, Chloride 104, Carbon Dioxide 25, Anion Gap 15.8 H, BUN 25 H, Creatinine 1.04 H, Estimated Creat Clear 44, Estimated GFR 52 L, Est GFR ( Amer) 63, Glucose 121 H, Calcium 9.6, Vancomycin Trough 17.6 Medical History: Reports:: Hyperlipidemia, Hypertension, Lung Disease Denies:: Cancer, Diabetes Mellitus Type 1, Diabetes Mellitus Type 2, Internal Pacemaker, MRSA, Seizures Assessment and Plan - Assessment and plan all Dx Assessment and Plan for all problems:: BASED ON VANCOMYCIN TROUGH LEVEL AND PATIENT FACTORS, RECOMMEND GIVING VANC OMYCIN 2250 MG IV TODAY, THEN DECREASE TO VANCOMYCIN 2 GM IV Q24H. PHARMACY WILL CONTINUE TO MONITOR AND ADJUST APPROPRIATE.
== END 2019-05-17 12:00 | disposition home or self-care (01) ==
LOC: INF 08:20
PROVIDERS: Visit Provider Podiatrist
DX: L03.115 Cellulitis of right lower limb (principal)
CPT/HCPCS: 80048; 80202; 96365; 96366; J3370

== ENCOUNTER 2019-05-18 08:22 | Outpatient (CLI) | payer MEDICARE, OTHER, SELFPAY ==
[2019-05-18 08:45] VITALS: BP 115/49; PULSE 56; RESP 18; TEMP 36.6; O2SAT 96
[2019-05-18 11:40] VITALS: BP 120/52; PULSE 58; RESP 16; O2SAT 96
== END 2019-05-18 12:30 | disposition home or self-care (01) ==
LOC: INF 08:23
PROVIDERS: PCP Nurse Practitioner Family; Visit Provider Podiatrist
DX: L03.115 Cellulitis of right lower limb (principal)
CPT/HCPCS: 96365; 96366; J3370

== ENCOUNTER → 2019-05-19 07:26 | Outpatient (CLI) | payer MEDICARE, OTHER, SELFPAY ==
[2019-05-19 08:38] VITALS: BP 107/33; PULSE 55; RESP 18; TEMP 36.5; O2SAT 95
== END ==
PROVIDERS: PCP Nurse Practitioner Family; Visit Provider Podiatrist
DX: L03.115 Cellulitis of right lower limb (principal)
CPT/HCPCS: 96365; 96366; J3370

== ENCOUNTER 2019-05-20 08:14 | Outpatient (CLI) | payer MEDICARE, OTHER, SELFPAY ==
[2019-05-20 08:16] VITALS: BMI 93.2
[2019-05-20 08:44] LABS: Anion Gap 11.9 mEq/L (5-15); Blood Urea Nitrogen 20 mg/dL (7-18); Calcium 9.2 mg/dL (8.5-10.1); Carbon Dioxide 28 mmol/L (21.0-32.0); Chloride 104 mmol/L (98-107); Creatinine Clearance Estimated 46 mL/min (50-200); Creatinine,Serum 1.01 mg/dL (0.55-1.02); Estimated Glomerular Filt Rate 54 ml/min (>60); GFR (African American) 65 ML/MIN (>60); Glucose 107 mg/dL (74-106); Potassium 3.9 mmoL/L (3.5-5.1); Sodium 140 mmol/L (136-145); Vancomycin,Trough 18.9 mcg/ml (10.0-20.0)
--- NOTE | 2019-05-20 09:06 | HMH.PHACONS ---
- Pharmacy Consult Date: 05/20/19 Time: 09:06 Referring provider: KEYLA Reason for Consult:: VANCOMYCIN THERAPY Allergies and ADEs:: Allergies Allergy/AdvReac Type Severity Reaction Status Date / Time No Known Allergies Allergy Verified 05/17/19 08:44 Home Medications:: Home Medications Medication Instructions Recorded Confirmed Type allopurinol 300 mg tablet 300 mg PO DAILY 90 Days #90 10/02/17 05/17/19 History furosemide 40 mg tablet 40 mg PO DAILY 90 Days #90 10/02/17 05/17/19 History hydrocodone 5 mg-acetaminophen 325 5 mg PO DAILY 30 Days #60 10/02/17 05/17/19 History mg tablet losartan 100 mg tablet 100 mg PO DAILY 90 Days #90 10/02/17 05/17/19 History Ergocalciferol (Vitamin D2) 400 unit PO DAILY 04/03/18 05/17/19 History [Vitamin D] [place]-3 Fatty Acids [Fish Oil] 300 mg PO DAILY 04/03/18 05/17/19 History aspirin 325 mg tablet 325 mg PO DAILY 12/25/18 05/17/19 History polyethylene glycol 3350 17 17 g PO DAILY #510 g 12/25/18 05/17/19 History gram/dose oral powder Height: 1.68 m Weight: 262 kg Laboratory Results:: Laboratory Results - last 24 hr 05/20/19 08:22: Sodium 140, Potassium 3.9, Chloride 104, Carbon Dioxide 28, Anion Gap 11.9, BUN 20 H, Creatinine 1.01, Estimated Creat Clear 46, Estimated GFR 54 L, Est GFR ( Amer) 65, Glucose 107 H, Calcium 9.2, Vancomycin Trough 18.9 Medical History: Reports:: Hyperlipidemia, Hypertension, Lung Disease Denies:: Cancer, Diabetes Mellitus Type 1, Diabetes Mellitus Type 2, Internal Pacemaker, MRSA, Seizures Assessment and Plan - Assessment and plan all Dx Assessment and Plan for all problems:: VANCOMYCIN TROUGH TODAY = 18.9. WILL CONTINUE VANCOMYCIN 2,000MG DAILY
[2019-05-20 09:30] VITALS: BP 116/69; PULSE 54; RESP 18; TEMP 36.6; O2SAT 95
[2019-05-20 10:00] VITALS: BP 124/69; PULSE 58; RESP 20; TEMP 36.7; O2SAT 96
[2019-05-20 10:30] VITALS: BP 118/64; PULSE 60; RESP 18
[2019-05-20 11:00] VITALS: BP 121/65; PULSE 59; RESP 20; TEMP 36.6; O2SAT 96
[2019-05-20 11:30] VITALS: BP 116/70; PULSE 61; RESP 18
[2019-05-20 11:45] VITALS: BP 125/72; PULSE 54; RESP 18; TEMP 36.6; O2SAT 97
== END 2019-05-20 11:50 | disposition home or self-care (01) ==
LOC: INF 08:14
PROVIDERS: Visit Provider Podiatrist
DX: L03.115 Cellulitis of right lower limb (principal)
CPT/HCPCS: 80048; 80202; 96365; 96366; J3370

== ENCOUNTER 2019-05-21 08:37 | Outpatient (CLI) | payer MEDICARE, OTHER, SELFPAY ==
[2019-05-21 09:00] VITALS: BP 108/63; PULSE 57; RESP 18; TEMP 36.3; O2SAT 100
[2019-05-21 09:30] VITALS: BP 112/69; PULSE 59; RESP 18; O2SAT 99
[2019-05-21 10:00] VITALS: BP 117/64; PULSE 55; RESP 18; O2SAT 100
[2019-05-21 10:30] VITALS: BP 115/66; PULSE 56; RESP 18; O2SAT 99
[2019-05-21 11:00] VITALS: BP 128/75; PULSE 54; RESP 18; O2SAT 98
== END 2019-05-21 11:00 | disposition home or self-care (01) ==
LOC: INF 08:37
PROVIDERS: PCP Nurse Practitioner Family; Visit Provider Podiatrist
DX: L03.115 Cellulitis of right lower limb (principal)
CPT/HCPCS: 96365; 96366; J3370

== ENCOUNTER 2019-05-22 08:13 | Outpatient (CLI) | payer MEDICARE, OTHER, SELFPAY ==
[2019-05-22 08:38] VITALS: BP 108/61; PULSE 64; RESP 18; O2SAT 95
[2019-05-22 10:30] VITALS: BP 116/60; PULSE 51; RESP 18; O2SAT 98
== END 2019-05-22 10:40 | disposition home or self-care (01) ==
LOC: INF 08:13
PROVIDERS: Visit Provider Podiatrist
DX: L03.115 Cellulitis of right lower limb (principal)
CPT/HCPCS: 96365; 96366; J3370

== ENCOUNTER 2019-05-23 08:06 | Outpatient (CLI) | payer MEDICARE, OTHER, SELFPAY ==
[2019-05-23 08:13] VITALS: BP 113/59; PULSE 60; RESP 18; TEMP 36.7; O2SAT 95
[2019-05-23 08:40] VITALS: BP 126/68; PULSE 64; RESP 18; TEMP 36.6; O2SAT 97
[2019-05-23 09:10] VITALS: BP 118/65; PULSE 60; RESP 20; TEMP 36.6; O2SAT 98
[2019-05-23 09:40] VITALS: BP 112/72; PULSE 71; RESP 18
[2019-05-23 10:05] VITALS: BP 119/68; PULSE 62; RESP 18; TEMP 36.6; O2SAT 98
[2019-05-23 10:20] VITALS: BP 116/70; PULSE 62; RESP 20; TEMP 36.6
== END 2019-05-23 10:30 | disposition home or self-care (01) ==
LOC: INF 08:06
PROVIDERS: Visit Provider Podiatrist
DX: L03.115 Cellulitis of right lower limb (principal)
CPT/HCPCS: 96365; 96366; J3370

== ENCOUNTER 2019-05-24 08:15 | Outpatient (CLI) | payer MEDICARE, OTHER, SELFPAY ==
[2019-05-24 08:26] VITALS: BMI 42.3
[2019-05-24 08:54] LABS: Anion Gap 14.2 mEq/L (5-15); Blood Urea Nitrogen 34 mg/dL (7-18); Calcium 8.8 mg/dL (8.5-10.1); Carbon Dioxide 25 mmol/L (21.0-32.0); Chloride 105 mmol/L (98-107); Creatinine Clearance Estimated 35 mL/min (50-200); Creatinine,Serum 1.32 mg/dL (0.55-1.02); Estimated Glomerular Filt Rate 39 ml/min (>60); GFR (African American) 48 ML/MIN (>60); Glucose 102 mg/dL (74-106); Potassium 4.2 mmoL/L (3.5-5.1); Sodium 140 mmol/L (136-145)
[2019-05-24 08:58] LABS: Vancomycin,Trough 21.4 mcg/ml (10.0-20.0)
--- NOTE | 2019-05-24 09:17 | P.CONPHA_ITS ---
- Pharmacy Consult Date: 05/24/19 Time: 09:15 Referring provider: DR. MATOS Reason for Consult:: VANCOMYCIN TROUGH LEVEL Allergies and ADEs:: Allergies Allergy/AdvReac Type Severity Reaction Status Date / Time No Known Allergies Allergy Verified 05/23/19 08:49 Home Medications:: Home Medications Medication Instructions Recorded Confirmed Type allopurinol 300 mg tablet 300 mg PO DAILY 90 Days #90 10/02/17 05/23/19 History furosemide 40 mg tablet 40 mg PO DAILY 90 Days #90 10/02/17 05/23/19 History hydrocodone 5 mg-acetaminophen 325 5 mg PO DAILY 30 Days #60 10/02/17 05/23/19 History mg tablet losartan 100 mg tablet 100 mg PO DAILY 90 Days #90 10/02/17 05/23/19 History Ergocalciferol (Vitamin D2) 400 unit PO DAILY 04/03/18 05/23/19 History [Vitamin D] [place]-3 Fatty Acids [Fish Oil] 300 mg PO DAILY 04/03/18 05/23/19 History aspirin 325 mg tablet 325 mg PO DAILY 12/25/18 05/23/19 History polyethylene glycol 3350 17 17 g PO DAILY #510 g 12/25/18 05/23/19 History gram/dose oral powder Height: 1.68 m Weight: 118.841 kg Laboratory Results:: Laboratory Results - last 24 hr 05/24/19 08:27: Sodium 140, Potassium 4.2, Chloride 105, Carbon Dioxide 25, Anion Gap 14.2, BUN 34 H, Creatinine 1.32 H, Estimated Creat Clear 35, Estimated GFR 39 L, Est GFR ( Amer) 48 L, Glucose 102, Calcium 8.8, Vancomycin Trough 21.4 H Medical History: Reports:: Hyperlipidemia, Hypertension, Lung Disease Denies:: Cancer, Diabetes Mellitus Type 1, Diabetes Mellitus Type 2, Internal Pacemaker, MRSA, Seizures Assessment and Plan - Assessment and plan all Dx Assessment and Plan for all problems:: BASED ON PATIENT FACTORS AND VANCOMYCIN TROUGH LEVEL, RECOMMEND HOLDING DOSE TODAY AND LOWERING DOSE STARTING TOMORROW ON VANCOMYCIN 1750 MG IV Q24H. PHARMACY WILL CONTINUE TO MONITOR AND ADJUST APPROPRIATE.
== END 2019-05-24 09:10 | disposition home or self-care (01) ==
LOC: INF 08:24
PROVIDERS: Visit Provider Podiatrist
DX: L03.115 Cellulitis of right lower limb (principal)
CPT/HCPCS: 80048; 80202

== ENCOUNTER → 2019-05-25 08:19 | Outpatient (CLI) | payer MEDICARE, OTHER, SELFPAY ==
[2019-05-25 08:35] VITALS: BP 128/52; PULSE 55; RESP 18; TEMP 36.5; O2SAT 95; BMI 41.9
[2019-05-25 11:20] VITALS: BP 132/65; PULSE 56; RESP 18; TEMP 36.7; O2SAT 98
== END ==
PROVIDERS: PCP Nurse Practitioner Family; Visit Provider Podiatrist
DX: L03.115 Cellulitis of right lower limb (principal)
CPT/HCPCS: 96365; 96366; J3370

== ENCOUNTER → 2019-05-26 08:05 | Outpatient (CLI) | payer MEDICARE, OTHER, SELFPAY ==
[2019-05-26 08:34] VITALS: BP 115/56; PULSE 55; RESP 18; TEMP 36.5; O2SAT 96; BMI 41.9
== END ==
PROVIDERS: PCP Nurse Practitioner Family; Visit Provider Podiatrist
DX: L08.9 Local infection of the skin and subcutaneous tissue, unspecified (principal); L84 Corns and callosities; M86.671 Other chronic osteomyelitis, right ankle and foot
CPT/HCPCS: 96365; 96366; J3370

== ENCOUNTER 2019-05-27 08:14 | Outpatient (CLI) | payer MEDICARE, OTHER, SELFPAY ==
[2019-05-27 08:32] VITALS: BP 118/61; PULSE 54; RESP 18; TEMP 36.3; O2SAT 95
[2019-05-27 09:02] VITALS: BP 121/64; PULSE 56; RESP 18; O2SAT 96
[2019-05-27 09:32] VITALS: BP 119/69; PULSE 59; RESP 18; O2SAT 95
[2019-05-27 10:02] VITALS: BP 122/66; PULSE 57; RESP 18; O2SAT 96
[2019-05-27 10:35] VITALS: BP 114/62; PULSE 58; RESP 18; O2SAT 96
== END 2019-05-27 10:35 | disposition home or self-care (01) ==
LOC: INF 08:14
PROVIDERS: Visit Provider Podiatrist
DX: L08.9 Local infection of the skin and subcutaneous tissue, unspecified (principal); L84 Corns and callosities; M86.671 Other chronic osteomyelitis, right ankle and foot
CPT/HCPCS: 96365; 96366; J3370

== ENCOUNTER 2019-05-28 08:13 | Outpatient (CLI) | payer MEDICARE, OTHER, SELFPAY ==
[2019-05-28 08:15] VITALS: BMI 42.3
[2019-05-28 08:42] LABS: Anion Gap 15.7 mEq/L (5-15); Blood Urea Nitrogen 28 mg/dL (7-18); Calcium 9.4 mg/dL (8.5-10.1); Carbon Dioxide 25 mmol/L (21.0-32.0); Chloride 103 mmol/L (98-107); Creatinine Clearance Estimated 45 mL/min (50-200); Creatinine,Serum 1.02 mg/dL (0.55-1.02); Estimated Glomerular Filt Rate 53 ml/min (>60); GFR (African American) 64 ML/MIN (>60); Glucose 107 mg/dL (74-106); Potassium 3.7 mmoL/L (3.5-5.1); Sodium 140 mmol/L (136-145)
[2019-05-28 09:12] VITALS: BP 143/85; PULSE 58; RESP 18; TEMP 36.6; O2SAT 97
[2019-05-28 09:40] VITALS: BP 139/76; PULSE 59; RESP 20; TEMP 36.6; O2SAT 98
[2019-05-28 10:35] VITALS: BP 140/82; PULSE 57; RESP 18; TEMP 36.6; O2SAT 98
[2019-05-28 11:20] VITALS: BP 142/63; PULSE 54; RESP 18; O2SAT 99
== END 2019-05-28 11:20 | disposition home or self-care (01) ==
LOC: INF 08:13
PROVIDERS: Visit Provider Podiatrist
DX: L08.9 Local infection of the skin and subcutaneous tissue, unspecified (principal); M86.671 Other chronic osteomyelitis, right ankle and foot; L84 Corns and callosities
CPT/HCPCS: 80048; 80202; 96365; 96366; J3370

== ENCOUNTER 2019-05-29 08:19 | Outpatient (CLI) | payer MEDICARE, OTHER, SELFPAY ==
[2019-05-29 08:50] VITALS: BP 111/69; PULSE 53; RESP 18; O2SAT 95
[2019-05-29 11:00] VITALS: BP 138/60; PULSE 52; RESP 18; O2SAT 95
== END 2019-05-29 11:00 | disposition home or self-care (01) ==
LOC: INF 08:19
PROVIDERS: Visit Provider Podiatrist
DX: L08.9 Local infection of the skin and subcutaneous tissue, unspecified (principal); L84 Corns and callosities; M86.671 Other chronic osteomyelitis, right ankle and foot
CPT/HCPCS: 96365; 96366; J3370

== ENCOUNTER 2019-05-30 08:09 | Outpatient (CLI) | payer MEDICARE, OTHER, SELFPAY ==
[2019-05-30 08:15] VITALS: BP 108/58; PULSE 63; RESP 18; O2SAT 93
[2019-05-30 10:30] VITALS: BP 104/68; PULSE 58; RESP 18; O2SAT 97
== END 2019-05-30 10:30 | disposition home or self-care (01) ==
LOC: INF 08:09
PROVIDERS: Visit Provider Podiatrist
DX: L08.9 Local infection of the skin and subcutaneous tissue, unspecified (principal); L84 Corns and callosities; M86.671 Other chronic osteomyelitis, right ankle and foot
CPT/HCPCS: 96365; 96366; J3370

== ENCOUNTER 2019-05-31 08:14 | Outpatient (CLI) | payer MEDICARE, OTHER, SELFPAY ==
[2019-05-31 08:38] VITALS: BP 126/76; PULSE 58; RESP 18; TEMP 36.4; O2SAT 98
[2019-05-31 09:00] VITALS: BP 132/79; PULSE 62; RESP 18; TEMP 36.6; O2SAT 97
[2019-05-31 09:30] VITALS: BP 118/69; PULSE 59; RESP 20; O2SAT 97
[2019-05-31 10:00] VITALS: BP 116/72; PULSE 60; RESP 18; TEMP 36.7; O2SAT 98
[2019-05-31 10:30] VITALS: BP 122/68; PULSE 58; RESP 18; TEMP 36.6; O2SAT 97
[2019-05-31 11:00] VITALS: BP 119/69; PULSE 60; RESP 20; TEMP 36.7; O2SAT 96
== END 2019-05-31 11:00 | disposition home or self-care (01) ==
LOC: INF 08:14
PROVIDERS: Visit Provider Podiatrist
DX: L08.9 Local infection of the skin and subcutaneous tissue, unspecified (principal); L84 Corns and callosities; M86.671 Other chronic osteomyelitis, right ankle and foot
CPT/HCPCS: 96365; 96366; J3370

== ENCOUNTER 2019-06-01 08:09 | Outpatient (CLI) | payer MEDICARE, OTHER, SELFPAY ==
[2019-06-01 08:35] VITALS: BP 133/77; PULSE 58; RESP 20; TEMP 36.7; O2SAT 95; BMI 42.0
[2019-06-01 09:43] LABS: Anion Gap 15.6 mEq/L (5-15); Blood Urea Nitrogen 23 mg/dL (7-18); Calcium 8.6 mg/dL (8.5-10.1); Carbon Dioxide 24 mmol/L (21.0-32.0); Chloride 107 mmol/L (98-107); Creatinine Clearance Estimated 45 mL/min (50-200); Creatinine,Serum 1.02 mg/dL (0.55-1.02); Estimated Glomerular Filt Rate 53 ml/min (>60); GFR (African American) 64 ML/MIN (>60); Glucose 116 mg/dL (74-106); Sodium 142 mmol/L (136-145); Vancomycin,Trough 17.1 mcg/ml (10.0-20.0)
[2019-06-01 09:47] LABS: Potassium 4.6 mmoL/L (3.5-5.1)
--- NOTE | 2019-06-01 09:54 | HMH.PHACONS ---
- Pharmacy Consult Date: 06/01/19 Time: 09:54 Referring provider: DR. MATOS Reason for Consult:: VANCOMYCIN LEVEL Allergies and ADEs:: Allergies Allergy/AdvReac Type Severity Reaction Status Date / Time No Known Allergies Allergy Verified 05/28/19 10:48 Home Medications:: Home Medications Medication Instructions Recorded Confirmed Type allopurinol 300 mg tablet 300 mg PO DAILY 90 Days #90 10/02/17 05/30/19 History furosemide 40 mg tablet 40 mg PO DAILY 90 Days #90 10/02/17 05/30/19 History hydrocodone 5 mg-acetaminophen 325 5 mg PO DAILY 30 Days #60 10/02/17 05/30/19 History mg tablet losartan 100 mg tablet 100 mg PO DAILY 90 Days #90 10/02/17 05/30/19 History Ergocalciferol (Vitamin D2) 400 unit PO DAILY 04/03/18 05/30/19 History [Vitamin D] [place]-3 Fatty Acids [Fish Oil] 300 mg PO DAILY 04/03/18 05/30/19 History aspirin 325 mg tablet 325 mg PO DAILY 12/25/18 05/30/19 History polyethylene glycol 3350 17 17 g PO DAILY #510 g 12/25/18 05/30/19 History gram/dose oral powder Height: 1.68 m Weight: 118.84 kg Laboratory Results:: Laboratory Results - last 24 hr 06/01/19 08:30: Sodium 142, Potassium 4.6, Chloride 107, Carbon Dioxide 24, Anion Gap 15.6 H, BUN 23 H, Creatinine 1.02, Estimated Creat Clear 45, Estimated GFR 53 L, Est GFR ( Amer) 64, Glucose 116 H, Calcium 8.6, Vancomycin Trough 17.1 Medical History: Reports:: Hyperlipidemia, Hypertension, Lung Disease Denies:: Cancer, Diabetes Mellitus Type 1, Diabetes Mellitus Type 2, Internal Pacemaker, MRSA, Seizures Assessment and Plan - Assessment and plan all Dx Assessment and Plan for all problems:: CONTINUE WITH CURRENT DOSE AND INTERVAL OF VANCOMYCIN 1750 MG Q24H AT THIS TIME.
[2019-06-01 12:43] VITALS: BP 125/80; PULSE 57; RESP 18; O2SAT 97
== END 2019-06-01 12:10 | disposition hospice, home (50) ==
LOC: INF 08:10
PROVIDERS: PCP Nurse Practitioner Family; Visit Provider Podiatrist
DX: L08.9 Local infection of the skin and subcutaneous tissue, unspecified (principal); L84 Corns and callosities; M86.671 Other chronic osteomyelitis, right ankle and foot
CPT/HCPCS: 80048; 80202; 96365; 96366; J3370

== ENCOUNTER 2019-06-02 08:31 | Outpatient (CLI) | payer MEDICARE, OTHER, SELFPAY ==
[2019-06-02 08:36] VITALS: BP 104/64; PULSE 59; RESP 16; O2SAT 95; BMI 42.0
== END 2019-06-02 10:27 | disposition home or self-care (01) ==
PROVIDERS: PCP Family Medicine; Visit Provider Podiatrist
DX: L08.9 Local infection of the skin and subcutaneous tissue, unspecified (principal); L84 Corns and callosities; M86.671 Other chronic osteomyelitis, right ankle and foot
CPT/HCPCS: 96365; 96366; J3370

== ENCOUNTER 2019-06-03 08:34 | Outpatient (CLI) | payer MEDICARE, OTHER, SELFPAY ==
[2019-06-03 08:36] VITALS: BP 126/69; PULSE 56; RESP 18; TEMP 36.6; O2SAT 97
[2019-06-03 09:00] VITALS: BP 118/72; PULSE 60; RESP 16; TEMP 36.6; O2SAT 98
[2019-06-03 09:30] VITALS: BP 122/68; PULSE 59; RESP 18; TEMP 36.6; O2SAT 97
[2019-06-03 10:00] VITALS: BP 119/72; PULSE 60; RESP 18; TEMP 36.6; O2SAT 96
[2019-06-03 10:30] VITALS: BP 116/70; PULSE 58; RESP 20; TEMP 36.7; O2SAT 97
[2019-06-03 10:45] VITALS: BP 124/75; PULSE 61; RESP 18; TEMP 36.6; O2SAT 98
== END 2019-06-03 10:45 | disposition home or self-care (01) ==
LOC: INF 08:34
PROVIDERS: PCP Family Medicine; Visit Provider Podiatrist
DX: L08.9 Local infection of the skin and subcutaneous tissue, unspecified (principal); L84 Corns and callosities; M86.671 Other chronic osteomyelitis, right ankle and foot
CPT/HCPCS: 96365; 96366; J3370

== ENCOUNTER 2019-06-04 08:16 | Outpatient (CLI) | payer MEDICARE, OTHER, SELFPAY ==
[2019-06-04 08:18] VITALS: BMI 42.3
[2019-06-04 08:35] VITALS: BP 121/69; PULSE 59; RESP 18; TEMP 36.6; O2SAT 97
[2019-06-04 08:40] LABS: Basophils # 0.1 K/mm3 (0-0.2); Basophils % 0.7 % (0.1-2.0); Eosinophils # 0.4 K/mm3 (0.0-0.4); Eosinophils % 4.2 % (0.1-12.0); Hematocrit 42.1 % (37.0-47.0); Hemoglobin 13.2 g/dL (12.2-16.2); Lymphocytes # 2.1 K/mm3 (0.7-4.5); Lymphocytes % 21.8 % (10-50); Mean Corpuscular HGB Conc 31.4 g/dL (31.8-35.4); Mean Corpuscular Hemoglobin 28.4 pg (27.0-31.2); Mean Corpuscular Volume 90.6 fl (81-99); Mean Platelet Volume 9.3 fl (7.4-10.4); Monocytes # 0.7 K/mm3 (0.1-1.0); Monocytes % 6.6 % (1.7-9.3); Neutrophils # 6.6 K/mm3 (1.8-7.8); Neutrophils % 66.8 % (37.0-80.0); Platelet Count 210 K/mm3 (142-424); Red Blood Count 4.65 M/mm3 (4.20-5.40); Red Cell Distribution Width 15.1 % (11.5-17.5); White Blood Count 9.8 K/mm3 (4.8-10.8)
[2019-06-04 08:54] LABS: C-Reactive Protein 0.3 mg/dL (0.0-0.9)
[2019-06-04 09:00] VITALS: BP 118/74; PULSE 60; RESP 18; TEMP 36.6; O2SAT 98
[2019-06-04 09:30] VITALS: BP 122/69; PULSE 58; RESP 20; TEMP 36.6; O2SAT 97
[2019-06-04 09:30] LABS: Erythrocyte Sedimentation Rate 19 mm/hr (0-30)
[2019-06-04 10:00] VITALS: BP 119/72; PULSE 60; RESP 18; TEMP 36.6; O2SAT 98
[2019-06-04 10:50] VITALS: BP 129/74; PULSE 59; RESP 18; TEMP 36.6; O2SAT 97
--- NOTE | 2019-06-04 11:07 | XR_ITS ---
PROCEDURE: XR FOOT WT BEARING RT 3V CLINICAL INDICATION: pain, OM third toe COMPARISON: FTL3 FOOT-LT-3 VIEWS from 10/21/2013 XR FOOT RT MIN 3V from 05/02/2019 FINDINGS: Bone density is normal. There are stable areas of narrowed joint spaces in the tarsal area with marginal spurs especially superiorly at the talonavicular joint. There are stable posterior and plantar calcaneal spurs. There are no areas of cortical destruction or periosteal reaction. There is a very small linear lucent line possible subtle fracture at the lateral proximal corner of the proximal phalanx of the 3rd digit. IMPRESSION: Possible subtle nondisplaced fracture from the lateral proximal corner of the proximal phalanx 3rd digit. Stable degenerative changes. No plain film evidence for acute osteomyelitis. Dictated by: Daniel Darling 06/04/2019 11:55 Electronically signed by Daniel Darling in [facility] 06/04/2019 11:55
== END 2019-06-04 10:45 | disposition home or self-care (01) ==
LOC: INF 08:16
PROVIDERS: Visit Provider Podiatrist
DX: M86.671 Other chronic osteomyelitis, right ankle and foot (principal); L08.9 Local infection of the skin and subcutaneous tissue, unspecified; L84 Corns and callosities
CPT/HCPCS: 73630; 85025; 85651; 86140; 96365; 96366; J3370

== ENCOUNTER 2019-06-05 08:08 | Outpatient (CLI) | payer MEDICARE, OTHER, SELFPAY ==
[2019-06-05 08:55] VITALS: BP 102/56; PULSE 54; RESP 18; O2SAT 95
[2019-06-05 11:05] VITALS: BP 126/75; PULSE 54; RESP 18; O2SAT 97
== END 2019-06-05 11:05 | disposition home or self-care (01) ==
LOC: INF 08:08
PROVIDERS: Visit Provider Podiatrist
DX: L08.9 Local infection of the skin and subcutaneous tissue, unspecified; L84 Corns and callosities; M86.671 Other chronic osteomyelitis, right ankle and foot
CPT/HCPCS: 96365; 96366; J3370

== ENCOUNTER 2019-06-06 08:14 | Outpatient (CLI) | payer MEDICARE, OTHER, SELFPAY ==
[2019-06-06 08:16] VITALS: BMI 42.3
[2019-06-06 08:31] VITALS: BP 119/68; PULSE 61; RESP 18; TEMP 36.7; O2SAT 98
[2019-06-06 08:52] LABS: Anion Gap 11.9 mEq/L (5-15); Blood Urea Nitrogen 26 mg/dL (7-18); Calcium 9.2 mg/dL (8.5-10.1); Carbon Dioxide 28 mmol/L (21.0-32.0); Chloride 106 mmol/L (98-107); Creatinine Clearance Estimated 43 mL/min (50-200); Creatinine,Serum 1.07 mg/dL (0.55-1.02); Estimated Glomerular Filt Rate 50 ml/min (>60); GFR (African American) 61 ML/MIN (>60); Glucose 120 mg/dL (74-106); Potassium 3.9 mmoL/L (3.5-5.1); Sodium 142 mmol/L (136-145); Vancomycin,Trough 19.7 mcg/ml (10.0-20.0)
[2019-06-06 09:00] VITALS: BP 122/74; PULSE 58; RESP 18; O2SAT 97
[2019-06-06 09:30] VITALS: BP 118/72; PULSE 60; RESP 20; TEMP 36.6; O2SAT 98
[2019-06-06 10:00] VITALS: BP 124/69; PULSE 59; RESP 18; O2SAT 98
[2019-06-06 10:30] VITALS: BP 118/64; PULSE 61; RESP 18; TEMP 36.6; O2SAT 97
[2019-06-06 10:50] VITALS: BP 121/69; PULSE 59; RESP 18; TEMP 36.7; O2SAT 98
== END 2019-06-06 10:50 | disposition home or self-care (01) ==
LOC: INF 08:14
PROVIDERS: Visit Provider Podiatrist
DX: M86.671 Other chronic osteomyelitis, right ankle and foot (principal); L08.9 Local infection of the skin and subcutaneous tissue, unspecified; L84 Corns and callosities
CPT/HCPCS: 80048; 80202; 96365; 96366; J3370

== ENCOUNTER 2019-06-07 08:00 | Outpatient (CLI) | payer MEDICARE, OTHER, SELFPAY ==
--- NOTE | 2019-06-07 08:18 | HMH.PHACONS ---
- Pharmacy Consult Date: 06/07/19 Time: 08:18 Referring provider: DR. MATOS Reason for Consult:: VANCOMYCIN TROUGH LEVEL Allergies and ADEs:: Allergies Allergy/AdvReac Type Severity Reaction Status Date / Time No Known Allergies Allergy Verified 06/06/19 11:17 Home Medications:: Home Medications Medication Instructions Recorded Confirmed Type allopurinol 300 mg tablet 300 mg PO DAILY 90 Days #90 10/02/17 06/06/19 History furosemide 40 mg tablet 40 mg PO DAILY 90 Days #90 10/02/17 06/06/19 History hydrocodone 5 mg-acetaminophen 325 5 mg PO DAILY 30 Days #60 10/02/17 06/06/19 History mg tablet losartan 100 mg tablet 100 mg PO DAILY 90 Days #90 10/02/17 06/06/19 History Ergocalciferol (Vitamin D2) 400 unit PO DAILY 04/03/18 06/06/19 History [Vitamin D] [place]-3 Fatty Acids [Fish Oil] 300 mg PO DAILY 04/03/18 06/06/19 History aspirin 325 mg tablet 325 mg PO DAILY 12/25/18 06/06/19 History polyethylene glycol 3350 17 17 g PO DAILY #510 g 12/25/18 06/06/19 History gram/dose oral powder Height: 1.68 m Weight: 118 kg Laboratory Results:: SRCR=1.07 VANCOMYCIN TROUGH LEVEL=19.7 Medical History: Reports:: Hyperlipidemia, Hypertension, Lung Disease Denies:: Cancer, Diabetes Mellitus Type 1, Diabetes Mellitus Type 2, Internal Pacemaker, MRSA, Seizures Assessment and Plan - Assessment and plan all Dx Assessment and Plan for all problems:: BASED ON VANCOMYCIN TROUGH LEVEL AND PATIENT FACTORS, RECOMMEND DECREASING DOSE TO VANCOMYCIN 1500 MG IV Q24H. PHARMACY WILL CONTINUE TO MONITOR DAILY AND ADJUST APPROPRIATE.
[2019-06-07 08:40] VITALS: BP 111/49; PULSE 57; RESP 20; TEMP 36.9; O2SAT 95
[2019-06-07 09:10] VITALS: BP 112/52; PULSE 68; RESP 20; TEMP 36.9; O2SAT 97
[2019-06-07 10:00] VITALS: BP 112/74; PULSE 68; RESP 20; TEMP 36.9; O2SAT 95
[2019-06-07 10:40] VITALS: BP 112/74; PULSE 68; RESP 20; TEMP 36.9; O2SAT 95
== END 2019-06-07 10:45 | disposition home or self-care (01) ==
LOC: INF 08:40
PROVIDERS: Visit Provider Podiatrist
DX: M86.671 Other chronic osteomyelitis, right ankle and foot (principal); L08.9 Local infection of the skin and subcutaneous tissue, unspecified; L84 Corns and callosities
CPT/HCPCS: 96365; 96366; J3370

== ENCOUNTER → 2019-06-08 08:03 | Outpatient (CLI) | payer MEDICARE, OTHER, SELFPAY ==
[2019-06-08 08:19] VITALS: BP 123/66; PULSE 54; RESP 18; TEMP 36.5; O2SAT 95; BMI 41.9
[2019-06-08 11:13] VITALS: BP 128/70; PULSE 62; RESP 16; TEMP 36.7; O2SAT 95
== END ==
PROVIDERS: PCP Nurse Practitioner Family; Visit Provider Podiatrist
DX: M86.671 Other chronic osteomyelitis, right ankle and foot (principal); L08.9 Local infection of the skin and subcutaneous tissue, unspecified; L84 Corns and callosities
CPT/HCPCS: 96365; 96366; J3370

== ENCOUNTER → 2019-06-09 07:59 | Outpatient (CLI) | payer MEDICARE, OTHER, SELFPAY ==
[2019-06-09 08:35] VITALS: BP 120/78; PULSE 60; RESP 18; TEMP 36.7; O2SAT 96; BMI 41.9
[2019-06-09 10:43] VITALS: BP 153/75; PULSE 75; RESP 16; TEMP 36.7; O2SAT 98
== END ==
PROVIDERS: PCP Nurse Practitioner Family; Visit Provider Podiatrist
DX: M86.671 Other chronic osteomyelitis, right ankle and foot (principal); L08.9 Local infection of the skin and subcutaneous tissue, unspecified; L84 Corns and callosities
CPT/HCPCS: 96365; 96366; J3370

== ENCOUNTER 2019-06-10 08:11 | Outpatient (CLI) | payer MEDICARE, OTHER, SELFPAY ==
[2019-06-10 08:14] VITALS: BMI 42.3
[2019-06-10 08:36] LABS: Anion Gap 12.2 mEq/L (5-15); Blood Urea Nitrogen 26 mg/dL (7-18); Calcium 9.2 mg/dL (8.5-10.1); Carbon Dioxide 28 mmol/L (21.0-32.0); Chloride 106 mmol/L (98-107); Creatinine Clearance Estimated 42 mL/min (50-200); Estimated Glomerular Filt Rate 49 ml/min (>60); GFR (African American) 59 ML/MIN (>60); Glucose 96 mg/dL (74-106); Potassium 4.2 mmoL/L (3.5-5.1); Sodium 142 mmol/L (136-145)
[2019-06-10 09:26] LABS: Vancomycin,Trough 16.9 mcg/ml (10.0-20.0)
--- NOTE | 2019-06-10 09:38 | HMH.PHACONS ---
- Pharmacy Consult Date: 06/10/19 Time: 09:38 Referring provider: DR. MATOS Reason for Consult:: VANCOMYCIN TROUGH LEVEL Allergies and ADEs:: Allergies Allergy/AdvReac Type Severity Reaction Status Date / Time No Known Allergies Allergy Verified 06/06/19 11:17 Home Medications:: Home Medications Medication Instructions Recorded Confirmed Type allopurinol 300 mg tablet 300 mg PO DAILY 90 Days #90 10/02/17 06/07/19 History furosemide 40 mg tablet 40 mg PO DAILY 90 Days #90 10/02/17 06/07/19 History hydrocodone 5 mg-acetaminophen 325 5 mg PO DAILY 30 Days #60 10/02/17 06/07/19 History mg tablet losartan 100 mg tablet 100 mg PO DAILY 90 Days #90 10/02/17 06/07/19 History Ergocalciferol (Vitamin D2) 400 unit PO DAILY 04/03/18 06/07/19 History [Vitamin D] [place]-3 Fatty Acids [Fish Oil] 300 mg PO DAILY 04/03/18 06/07/19 History aspirin 325 mg tablet 325 mg PO DAILY 12/25/18 06/07/19 History polyethylene glycol 3350 17 17 g PO DAILY #510 g 12/25/18 06/07/19 History gram/dose oral powder Height: 1.68 m Weight: 118.841 kg Laboratory Results:: Laboratory Results - last 24 hr 06/10/19 08:20: Sodium 142, Potassium 4.2, Chloride 106, Carbon Dioxide 28, Anion Gap 12.2, BUN 26 H, Creatinine 1.10 H, Estimated Creat Clear 42, Estimated GFR 49 L, Est GFR ( Amer) 59, Glucose 96, Calcium 9.2 06/10/19 08:20: Vancomycin Trough 16.9 Medical History: Reports:: Hyperlipidemia, Hypertension, Lung Disease Denies:: Cancer, Diabetes Mellitus Type 1, Diabetes Mellitus Type 2, Internal Pacemaker, MRSA, Seizures Assessment and Plan - Assessment and plan all Dx Assessment and Plan for all problems:: BASED ON VANCOMYCIN TROUGH LEVEL AND PATIENT FACTORS, RECOMMEND CONTINUING VANCOMYCIN 1500 MG IV Q24H. PHARMACY WILL CONTINUE TO FOLLOW AND ADJUST APPROPRIATE.
[2019-06-10 09:47] VITALS: BP 126/73; PULSE 59; RESP 18; TEMP 36.7; O2SAT 97
[2019-06-10 10:15] VITALS: BP 114/56; PULSE 60; RESP 20; TEMP 36.6; O2SAT 98
[2019-06-10 10:45] VITALS: BP 122/69; PULSE 59; RESP 18; O2SAT 97
[2019-06-10 11:15] VITALS: BP 118/64; PULSE 60; RESP 18; TEMP 36.7; O2SAT 98
[2019-06-10 11:50] VITALS: BP 125/75; PULSE 57; RESP 18; TEMP 36.6; O2SAT 97
== END 2019-06-10 11:55 | disposition home or self-care (01) ==
LOC: INF 08:11
PROVIDERS: Visit Provider Podiatrist
DX: M86.671 Other chronic osteomyelitis, right ankle and foot (principal); L08.9 Local infection of the skin and subcutaneous tissue, unspecified; L84 Corns and callosities
CPT/HCPCS: 80048; 80202; 96365; 96366; J3370

== ENCOUNTER 2019-06-11 08:07 | Outpatient (CLI) | payer MEDICARE, OTHER, SELFPAY ==
[2019-06-11 08:29] VITALS: BMI 41.9
[2019-06-11 08:43] VITALS: BP 97/56; PULSE 84; RESP 20; TEMP 36.1; O2SAT 94
[2019-06-11 11:10] VITALS: BP 99/78; PULSE 58; RESP 20; TEMP 36.1; O2SAT 98
== END 2019-06-11 11:11 | disposition home or self-care (01) ==
LOC: INF 08:07
PROVIDERS: Visit Provider Podiatrist
DX: M86.671 Other chronic osteomyelitis, right ankle and foot (principal); L08.9 Local infection of the skin and subcutaneous tissue, unspecified; L84 Corns and callosities
CPT/HCPCS: 96365; 96366; J3370

== ENCOUNTER 2019-06-12 08:17 | Outpatient (CLI) | payer MEDICARE, OTHER, SELFPAY ==
[2019-06-12 08:31] VITALS: BP 120/67; PULSE 63; RESP 18; TEMP 36.4; O2SAT 96
[2019-06-12 09:05] VITALS: BP 122/70; PULSE 64; RESP 18; TEMP 36.6; O2SAT 97
[2019-06-12 09:35] VITALS: BP 118/74; PULSE 59; RESP 16; TEMP 36.7; O2SAT 98
[2019-06-12 10:05] VITALS: BP 123/68; PULSE 60; RESP 18; TEMP 36.6; O2SAT 97
[2019-06-12 10:30] VITALS: BP 119/69; PULSE 61; RESP 16; TEMP 36.6; O2SAT 98
[2019-06-12 13:22] VITALS: BP 125/65; PULSE 62; RESP 18; TEMP 36.7; O2SAT 97
== END 2019-06-12 10:55 | disposition home or self-care (01) ==
LOC: INF 08:17
PROVIDERS: Visit Provider Podiatrist
DX: M86.671 Other chronic osteomyelitis, right ankle and foot (principal); L08.9 Local infection of the skin and subcutaneous tissue, unspecified; L84 Corns and callosities
CPT/HCPCS: 96365; 96366; J3370

== ENCOUNTER 2019-06-13 08:08 | Outpatient (CLI) | payer MEDICARE, OTHER, SELFPAY ==
[2019-06-13 08:14] VITALS: BP 112/83; PULSE 60; RESP 18; TEMP 36.6; O2SAT 97
[2019-06-13 08:40] VITALS: BP 124/70; PULSE 59; RESP 18; TEMP 36.6; O2SAT 98
[2019-06-13 09:10] VITALS: BP 118/69; PULSE 58; RESP 16; TEMP 36.6; O2SAT 98
[2019-06-13 09:40] VITALS: BP 115/67; PULSE 62; RESP 18; TEMP 36.6; O2SAT 97
[2019-06-13 10:10] VITALS: BP 112/63; PULSE 60; RESP 18; TEMP 36.7; O2SAT 98
[2019-06-13 10:30] VITALS: BP 122/69; PULSE 59; RESP 18; TEMP 36.7; O2SAT 97
== END 2019-06-13 10:45 | disposition home or self-care (01) ==
LOC: INF 08:08
PROVIDERS: Visit Provider Podiatrist
DX: M86.671 Other chronic osteomyelitis, right ankle and foot (principal)
CPT/HCPCS: 96365; 96366; J3370

== ENCOUNTER → 2019-06-13 11:34 | Outpatient (CLI) | payer MEDICARE, OTHER, SELFPAY ==
--- NOTE | 2019-06-13 11:45 | XR_ITS ---
PROCEDURE: XR FOOT WT BEARING RT 3V CLINICAL INDICATION: osteomyelitis of 3rd toe COMPARISON: FTL3 FOOT-LT-3 VIEWS from 10/21/2013 XR FOOT RT MIN 3V from 05/02/2019 XR FOOT WT BEARING RT 3V from 06/04/2019 FINDINGS: A faint lucency is once again noted involving the proximal and lateral aspect of the proximal phalanx of the 3rd toe this could represent a nondisplaced fracture and is not significantly changed. There is pes planus with osteoarthritic change of the tibiotalar joint anteriorly and the subtalar joint in the mid and anterior aspect as well as osteoarthritis of the talonavicular joint and navicular cuneiform joint. No bony lytic changes are evident. There is hammertoe deformity of the 2nd toe IMPRESSION: Osteoarthritis with pes planus and possible fracture at the proximal phalanx of the 3rd toe. No bony destructive process evident with no significant change Dictated by: Miguel Angel Swenson MD 06/13/2019 16:48 Electronically signed by Miguel Angel Swenson MD in [facility] 06/13/2019 16:48
[2019-06-13 13:09] LABS: C-Reactive Protein < 0.2 mg/dL (0.0-0.9)
[2019-06-13 17:00] LABS: Erythrocyte Sedimentation Rate 15 mm/hr (0-30)
== END ==
PROVIDERS: Visit Provider Podiatrist
DX: M86.671 Other chronic osteomyelitis, right ankle and foot (principal); L08.9 Local infection of the skin and subcutaneous tissue, unspecified; L84 Corns and callosities
CPT/HCPCS: 36415; 73630; 85651; 86140; 96365; 96366; J3370

== ENCOUNTER 2019-06-14 08:00 | Outpatient (CLI) | payer MEDICARE, OTHER, SELFPAY ==
[2019-06-14 08:40] VITALS: BP 123/54; PULSE 60; RESP 18; TEMP 36.6
[2019-06-14 09:10] VITALS: BP 132/71; PULSE 63; RESP 18
[2019-06-14 09:40] VITALS: BP 106/53; PULSE 50; RESP 18
[2019-06-14 10:10] VITALS: BP 111/59; PULSE 52; RESP 18
[2019-06-14 10:40] VITALS: BP 109/61; PULSE 52; RESP 18
== END 2019-06-14 11:00 | disposition home or self-care (01) ==
LOC: INF 08:11
PROVIDERS: Visit Provider Podiatrist
DX: M86.671 Other chronic osteomyelitis, right ankle and foot (principal); L08.9 Local infection of the skin and subcutaneous tissue, unspecified; L84 Corns and callosities
CPT/HCPCS: 96365; 96366; J3370

== ENCOUNTER → 2019-07-11 09:58 | Outpatient (CLI) | payer MEDICARE, OTHER, SELFPAY ==
[2019-07-11 11:10] LABS: Alanine Aminotransferase 24 U/L (12-78); Albumin Level 3.6 gm/dL (3.4-5.0); Albumin/Globulin Ratio 1.2 (1.1-1.8); Alkaline Phosphatase 101 U/L (46-116); Anion Gap 12.5 mEq/L (5-15); Aspartate Amino Transferase 18 U/L (15-37); Bilirubin,Total 0.9 mg/dL (0.2-1.0); Blood Urea Nitrogen 21 mg/dL (7-18); Calcium 8.9 mg/dL (8.5-10.1); Carbon Dioxide 27 mmol/L (21.0-32.0); Chloride 107 mmol/L (98-107); Chol/HDL Ratio 5.3 (1-3.5); Cholesterol 184 mg/dL (140-200); Creatinine,Serum 1.08 mg/dL (0.55-1.02); Estimated Glomerular Filt Rate 50 ml/min (>60); GFR (African American) 60 ML/MIN (>60); Globulin 3.1 gm/dl (1.3-3.2); Glucose 108 mg/dL (74-106); HDL Cholesterol 35 mg/dL (29-89); LDL Cholesterol 115 mg/dL (0-130); Potassium 4.5 mmoL/L (3.5-5.1); Sodium 142 mmol/L (136-145); Total Protein,Serum 6.7 gm/dL (6.4-8.2); Triglycerides 168 mg/dL (30-200); Uric Acid 5.1 mg/dL (2.6-7.2); VLDL Cholesterol 34 mg/dL (0-40)
== END ==
PROVIDERS: Visit Provider Nurse Practitioner Family
DX: I10 Essential (primary) hypertension (principal); E78.2 Mixed hyperlipidemia; M10.9 Gout, unspecified
CPT/HCPCS: 36415; 80053; 80061; 84550

== ENCOUNTER → 2019-07-29 13:39 | Outpatient (CLI) | payer MEDICARE, OTHER, SELFPAY ==
--- NOTE | 2019-07-29 13:42 | CA_ITS ---
APPROVED REPORT Left Lower Extremity Venous Study for DVT. Cigarette Catcher: XENIA MurphyT Indications Lower Extremity Pain: Lower Extremity Edema: Left PT DROPPED PIECE OF WOOD ON LOWER LATERAL CALF, HAS LARGE KNOT WITH BRUISING Risk Factors Trauma Vein Imaging CFV (L): compressive, spontaneous, phasic, augmentation FEM (L): compressive, spontaneous, phasic, augmentation POP (L): compressive, spontaneous, phasic, augmentation PTV (L): Compressible GSV (L): Compressible Peroneals (L):Compressible GAS (L): Compressible Findings No evidence of DVT seen left lower extremity. No evidence of SVT seen left lower extremity. 6.3 cm complex lesion seen in area of patient complaint left lower lateral calf probable hematoma. Conclusion No evidence of DVT seen left lower extremity. No evidence of SVT seen left lower extremity. 6.3 cm complex lesion seen in area of patient complaint left lower lateral calf probable hematoma. Electronically signed by : Miguel Angel Swenson MD 07/31/2019 14:14:43
== END ==
PROVIDERS: PCP Nurse Practitioner Family; Visit Provider Nurse Practitioner Family
DX: M79.662 Pain in left lower leg (principal); R60.0 Localized edema
CPT/HCPCS: 93971

== ENCOUNTER → 2019-08-21 12:58 | Outpatient (CLI) | payer MEDICARE, OTHER, SELFPAY ==
--- NOTE | 2019-08-21 12:58 | US_ITS ---
PROCEDURE: US THYROID CLINICAL INDICATION: thyroid nodule Follow-up thyroid nodules COMPARISON: THY US thyroid from 03/14/2019 FINDINGS: Right lobe: 3.3 x 1.6 x 1.9 cm there is a 15 x 13 mm hypoechoic nodule in the mid polar region. This does not appear significantly changed. 4 mm hypoechoic nodule mid polar region unchanged. Left lobe: 3.9 x 2 x 1.7 cm. 3 mm hypoechoic nodule upper pole unchanged. Ill-defined 13 x 11 mm isoechoic nodule mid polar region unchanged, ill-defined 12 x 9 mm isoechoic nodule lower pole unchanged. 9 x 6 mm hypoechoic nodule lower lower pole not readily demonstrated previously and may actually be part of the 12 x 9 mm nodule. Isthmus: Unremarkable Additional findings: IMPRESSION: Multiple nodules once again noted. The larger nodules are unchanged. There is a questionable new 9 x 6 mm hypoechoic nodule in the lower pole on the left. Continued follow-up suggested Dictated by: Miguel Angel Swenson MD 08/22/2019 15:02 Electronically signed by Miguel Angel Swenson MD in [facility] 08/22/2019 15:02
== END ==
PROVIDERS: PCP Nurse Practitioner Family; Visit Provider Otolaryngology
DX: E01.0 Iodine-deficiency related diffuse (endemic) goiter (principal)
CPT/HCPCS: 76536

== ENCOUNTER → 2019-11-07 09:21 | Outpatient (CLI) | payer MEDICARE, OTHER, SELFPAY ==
[2019-11-07 11:02] LABS: Basophils # 0.1 K/mm3 (0-0.2); Basophils % 0.6 % (0.1-2.0); Eosinophils # 0.3 K/mm3 (0.0-0.4); Eosinophils % 2.7 % (0.1-12.0); Hematocrit 45.7 % (37.0-47.0); Hemoglobin 14.6 g/dL (12.2-16.2); Lymphocytes # 1.8 K/mm3 (0.7-4.5); Lymphocytes % 19.7 % (10-50); Mean Corpuscular Hemoglobin 28.6 pg (27.0-31.2); Mean Corpuscular Volume 89.5 fl (81-99); Mean Platelet Volume 9.1 fl (7.4-10.4); Monocytes # 0.5 K/mm3 (0.1-1.0); Monocytes % 5.3 % (1.7-9.3); Neutrophils # 6.5 K/mm3 (1.8-7.8); Neutrophils % 71.7 % (37.0-80.0); Platelet Count 207 K/mm3 (142-424); White Blood Count 9.1 K/mm3 (4.8-10.8)
[2019-11-07 12:06] LABS: Chol/HDL Ratio 7.3 (1-3.5); Cholesterol 203 mg/dl (140-200); HDL Cholesterol 28 mg/dl (40-60); Triglycerides 246 mg/dl (30-150); Uric Acid 5.2 mg/dl (2.5-6.2); VLDL Cholesterol 49 mg/dL (0-40)
[2019-11-07 12:17] LABS: Direct LDL Cholesterol 119.59 mg/dL (100-129)
[2019-11-08 10:32] LABS: Vitamin D 25 Hydroxy 37.2 ng/mL (30.0-100.0)
[2019-11-08 12:24] LABS: Chloride 104 mmol/L (98-107); Potassium 5.4 mmoL/L (3.5-5.1); Sodium 138 mmol/L (136-145)
[2019-11-08 12:27] LABS: Alanine Aminotransferase 19 U/L (12-78); Albumin Level 3.9 g/dl (3.5-5.0); Albumin/Globulin Ratio 1.4 (1.1-1.8); Alkaline Phosphatase 95 U/L (38-126); Anion Gap 10.4 mEq/L (5-15); Aspartate Amino Transferase 25 U/L (14-36); Bilirubin,Total 0.8 mg/dl (0.2-1.3); Blood Urea Nitrogen 27 mg/dl (7-17); Calcium 9.6 mg/dl (8.4-10.2); Carbon Dioxide 29 mmol/L (22.0-30.0); Estimated Glomerular Filt Rate 61 ml/min (>60); GFR (African American) 74 ML/MIN (>60); Globulin 2.8 g/dL (1.3-3.2); Glucose 101 mg/dl (74-100); Total Protein,Serum 6.7 g/dl (6.3-8.2)
== END ==
PROVIDERS: Visit Provider Nurse Practitioner Family
DX: I10 Essential (primary) hypertension (principal); E78.2 Mixed hyperlipidemia; E55.9 Vitamin D deficiency, unspecified; M10.9 Gout, unspecified
CPT/HCPCS: 36415; 80053; 80061; 82652; 84550; 85025

== ENCOUNTER → 2020-02-12 13:52 | Outpatient (CLI) | payer MEDICARE, OTHER, SELFPAY ==
--- NOTE | 2020-02-12 14:00 | US_ITS ---
PROCEDURE: US THYROID CLINICAL INDICATION: thyroid nodule Follow-up thyroid nodules COMPARISON: US THYROID from 08/21/2019 FINDINGS: Right lobe: 3.1 x 2 x 2.4 cm there is diffuse heterogeneous echogenicity. 14 mm hypoechoic nodule mid polar region with some peripheral rim like calcification unchanged. Mixed nodule medial aspect mid polar area at 1 cm unchanged Left lobe: 3.8 x 1.8 x 1.6 cm. 5 mm cyst upper pole. Mixed nodule 10 x 13 mm mid polar region unchanged. 9 mm hypoechoic nodule lower pole probably unchanged given difference in scanning technique Isthmus: Thickened 1 cm Additional findings: IMPRESSION: Stable bilateral thyroid nodules. One year follow-up recommended Dictated by: Miguel Angel Swenson MD 02/13/2020 16:31 Electronically signed by Miguel Angel Swenson MD in [facility] 02/13/2020 16:31
== END ==
PROVIDERS: PCP Nurse Practitioner Family; Visit Provider Otolaryngology
DX: E04.9 Nontoxic goiter, unspecified (principal)
CPT/HCPCS: 76536

== ENCOUNTER → 2020-02-12 15:02 | Outpatient (CLI) | payer MEDICARE, OTHER, SELFPAY ==
[2020-02-12 15:58] LABS: Free T4 (Free Thyroxine) 1.16 ng/dl (0.78-2.19)
[2020-02-12 16:13] LABS: Thyroid Stimulating Hormone 2.21 uIU/mL (0.465-4.68)
== END ==
PROVIDERS: Visit Provider Otolaryngology
DX: E04.9 Nontoxic goiter, unspecified (principal)
CPT/HCPCS: 36415; 76536; 84439; 84443

== ENCOUNTER → 2020-05-07 08:44 | Outpatient (CLI) | payer MEDICARE, OTHER, SELFPAY ==
[2020-05-07 10:12] LABS: Alanine Aminotransferase 24 U/L (12-78); Anion Gap 13.3 mEq/L (5-15); Aspartate Amino Transferase 29 U/L (14-36); Blood Urea Nitrogen 31 mg/dl (7-17); Calcium 9.9 mg/dl (8.4-10.2); Carbon Dioxide 27 mmol/L (22.0-30.0); Chloride 105 mmol/L (98-107); Estimated Glomerular Filt Rate 61 ml/min (>60); GFR (African American) 74 ML/MIN (>60); Glucose 114 mg/dl (74-100); Potassium 4.3 mmoL/L (3.5-5.1); Sodium 141 mmol/L (136-145); Uric Acid 6.2 mg/dl (2.5-6.2)
[2020-05-07 10:13] LABS: Albumin Level 4.1 g/dl (3.5-5.0); Albumin/Globulin Ratio 1.5 (1.1-1.8); Alkaline Phosphatase 107 U/L (38-126); Chol/HDL Ratio 5.3 (1-3.5); Cholesterol 187 mg/dl (140-200); Globulin 2.7 g/dL (1.3-3.2); HDL Cholesterol 35 mg/dl (40-60); Total Protein,Serum 6.8 g/dl (6.3-8.2); Triglycerides 176 mg/dl (30-150); VLDL Cholesterol 35 mg/dL (0-40)
[2020-05-07 10:23] LABS: Direct LDL Cholesterol 116.58 mg/dL (100-129)
[2020-05-07 10:27] LABS: 25-OH Vitamin D, Total 53.6 ng/mL (30-100)
== END ==
PROVIDERS: Visit Provider Nurse Practitioner Family
DX: I10 Essential (primary) hypertension (principal); E78.2 Mixed hyperlipidemia; E55.9 Vitamin D deficiency, unspecified; M10.9 Gout, unspecified
CPT/HCPCS: 36415; 80053; 80061; 82306; 84550

== ENCOUNTER → 2020-08-07 12:49 | Outpatient (CLI) | payer MEDICARE, OTHER, SELFPAY ==
--- NOTE | 2020-08-07 12:50 | US_ITS ---
PROCEDURE: US THYROID CLINICAL INDICATION: thyroid nodule COMPARISON: US US THYROID from 08/21/2019 US US THYROID from 02/12/2020 FINDINGS: The right lobe is 3.9 x 1.9 x 2.2 cm. There is a 17 x 13 mm hypoechoic nodule in the lower pole. There is some peripheral calcification. The nodule has increased in size previously measuring 14 mm. This is a TR level 4 nodule which is increased in size. Ultrasound-guided FNA suggested. There is a 5 mm hypoechoic nodule in the mid polar region unchanged. The left lobe is 3.4 x 1.8 x 1.5 cm with a 10 x 8 mm hypoechoic nodule in the mid polar region unchanged. IMPRESSION: TR level 4 nodule in the right 17 x 13 mm increased in size. Suggest ultrasound-guided FNA. Dictated by: Miguel Angel Swenson MD 08/07/2020 17:10 Miguel Angel Swenson MD in [facility] 08/07/2020 17:12
== END ==
PROVIDERS: PCP Nurse Practitioner Family; Visit Provider Otolaryngology
DX: E04.1 Nontoxic single thyroid nodule (principal)
CPT/HCPCS: 76536

== ENCOUNTER → 2020-08-07 12:53 | Outpatient (CLI) | payer MEDICARE, OTHER, SELFPAY ==
[2020-08-07 15:21] LABS: Free T4 (Free Thyroxine) 1.27 ng/dl (0.78-2.19)
[2020-08-07 15:35] LABS: Thyroid Stimulating Hormone 1.47 uIU/mL (0.465-4.68)
[2020-08-11 12:37] LABS: Thyroid Peroxidase Antibodies <9 IU/mL (0-34)
[2020-08-11 17:59] LABS: Thyroid Stimulating Immunoglob <0.10 IU/L (0.00-0.55)
== END ==
PROVIDERS: Visit Provider Otolaryngology
DX: E04.1 Nontoxic single thyroid nodule (principal)
CPT/HCPCS: 36415; 76536; 84439; 84443; 84445; 86376

== ENCOUNTER → 2020-08-20 09:35 | Outpatient (CLI) | payer MEDICARE, OTHER, SELFPAY ==
--- NOTE | 2020-08-20 09:38 | US_ITS ---
PROCEDURE: US BIOPSY THYROID CLINICAL INDICATION: R THYROID NODULE Dominant right thyroid nodule COMPARISON: US US THYROID from 08/07/2020 TECHNIQUE: Pre biopsy ultrasound confirms the presence of a partially calcified nodule in the right lobe of the thyroid gland which was targeted for biopsy. Following obtaining informed consent, using aseptic technique and local anesthesia with buffered lidocaine, fine-needle aspiration was performed of the nodule of interest using sonographic guidance. 3 passes were made into the nodule with a 21 gauge needle. Specimen was given to cytology. The patient tolerated the procedure well without evidence of immediate complications and left the ultrasound suite in stable condition. FINDINGS: CYTOLOGY: Negative for malignant cells. Benign follicular nodule IMPRESSION: Uneventful ultrasound-guided FNA of the right thyroid nodule showing benign findings. Dictated by: Miguel Angel Swenson MD 08/21/2020 15:53 Miguel Angel Swenson MD in [facility] 08/21/2020 15:53
== END ==
PROVIDERS: PCP Nurse Practitioner Family; Visit Provider Otolaryngology
DX: E04.1 Nontoxic single thyroid nodule (principal)
CPT/HCPCS: 10005; 76942; 88173; 88305

== ENCOUNTER → 2020-09-23 17:55 | Outpatient (CLI) | payer MEDICARE, OTHER, SELFPAY | PROVIDERS: Visit Provider Nurse Practitioner | DX: L84 Corns and callosities (principal); M79.672 Pain in left foot; B95.8 Unspecified staphylococcus as the cause of diseases classified elsewhere | CPT/HCPCS: 87070; 87077; 87186; 87205 ==

== ENCOUNTER → 2020-11-19 10:09 | Outpatient (CLI) | payer MEDICARE, OTHER, SELFPAY ==
[2020-11-19 11:33] LABS: Alanine Aminotransferase 15 U/L (12-78); Albumin Level 4.6 g/dl (3.5-5.0); Albumin/Globulin Ratio 1.3 (1.1-1.8); Alkaline Phosphatase 119 U/L (38-126); Anion Gap 12.6 mEq/L (5-15); Aspartate Amino Transferase 26 U/L (14-36); Bilirubin,Total 0.9 mg/dl (0.2-1.3); Blood Urea Nitrogen 30 mg/dl (7-17); Calcium 10.2 mg/dl (8.4-10.2); Carbon Dioxide 30 mmol/L (22.0-30.0); Chloride 105 mmol/L (98-107); Chol/HDL Ratio 5.7 (1-3.5); Cholesterol 249 mg/dl (140-200); Estimated Glomerular Filt Rate 54 ml/min (>60); GFR (African American) 65 ML/MIN (>60); Globulin 3.5 g/dL (1.3-3.2); Glucose 103 mg/dl (74-100); HDL Cholesterol 44 mg/dl (40-60); Potassium 4.6 mmoL/L (3.5-5.1); Sodium 143 mmol/L (136-145); Total Protein,Serum 8.1 g/dl (6.3-8.2); Triglycerides 192 mg/dl (30-150); VLDL Cholesterol 38 mg/dL (0-40)
[2020-11-19 11:36] LABS: Hemoglobin A1C 5.5 % (4.0-6.0)
[2020-11-19 11:50] LABS: 25-OH Vitamin D, Total 39.1 ng/mL (30-100)
[2020-11-19 12:04] LABS: Thyroid Stimulating Hormone 2.17 uIU/mL (0.465-4.68)
[2020-11-19 12:14] LABS: Basophils # 0.1 K/mm3 (0-0.2); Basophils % 0.6 % (0.1-2.0); Eosinophils # 0.3 K/mm3 (0.0-0.4); Eosinophils % 3.9 % (0.1-12.0); Hemoglobin 15.4 g/dL (12.2-16.2); Lymphocytes # 2.4 K/mm3 (0.7-4.5); Lymphocytes % 27.6 % (10-50); Mean Corpuscular HGB Conc 32.1 g/dL (31.8-35.4); Mean Corpuscular Hemoglobin 29.5 pg (27.0-31.2); Mean Corpuscular Volume 91.8 fl (81-99); Mean Platelet Volume 8.9 fl (7.4-10.4); Monocytes # 0.5 K/mm3 (0.1-1.0); Monocytes % 5.1 % (1.7-9.3); Neutrophils # 5.4 K/mm3 (1.8-7.8); Neutrophils % 62.7 % (37.0-80.0); Platelet Count 186 K/mm3 (142-424); Red Blood Count 5.23 M/mm3 (4.20-5.40); Red Cell Distribution Width 14.3 % (11.5-17.5); White Blood Count 8.7 K/mm3 (4.8-10.8)
== END ==
PROVIDERS: Visit Provider Nurse Practitioner Family
DX: I10 Essential (primary) hypertension (principal); E78.2 Mixed hyperlipidemia; E04.1 Nontoxic single thyroid nodule; E55.9 Vitamin D deficiency, unspecified; R73.9 Hyperglycemia, unspecified; M10.9 Gout, unspecified
CPT/HCPCS: 36415; 80053; 80061; 82306; 83036; 84443; 85025

== ENCOUNTER → 2020-12-07 12:58 | Outpatient (CLI) | payer MEDICARE, OTHER, SELFPAY ==
--- NOTE | 2020-12-07 12:59 | US_ITS ---
PROCEDURE: US THYROID CLINICAL INDICATION: hx nodules COMPARISON: US US THYROID from 08/07/2020 US US BIOPSY THYROID from 08/20/2020 FINDINGS: Right lobe: 4.1 x 1.9 x 1.7 cm. 1.6 x 1.4 cm hypoechoic nodule is present in the mid aspect of the right lobe of the thyroid gland and does not appear significantly changed compared to the previous exam. There is peripheral calcification with decreased echogenicity centrally. A 5 mm hypoechoic nodules present in the mid polar region anteriorly unchanged. Left lobe: 3.8 x 1.8 x 1.6 cm. 1 cm ill-defined hypoechoic nodule present in the mid polar region unchanged.. IMPRESSION: Overall no change in the bilateral thyroid nodules Dictated by: Miguel Angel Swenson MD 12/07/2020 15:18 Miguel Angel Swenson MD in [facility] 12/07/2020 15:18
== END ==
PROVIDERS: PCP Nurse Practitioner Family; Visit Provider Otolaryngology
DX: E04.9 Nontoxic goiter, unspecified (principal)
CPT/HCPCS: 76536

== ENCOUNTER → 2021-03-04 09:37 | Outpatient (CLI) | payer MEDICARE, OTHER, SELFPAY ==
--- NOTE | 2021-03-04 09:43 | CT_ITS ---
PROCEDURE: CT ABDOMEN PELVIS WO CON CLINICAL INDICATION: UMBILICAL HERNIA W/O OBSTRUCTION/GANGRENE COMPARISON: CT [id number] CT abdomen pelvis w con from 02/26/2018 TECHNIQUE: Axial images obtained with sagittal and coronal reformats. All CT scans at the facility use one or more dose reduction, viz: automated exposure control, ma/kV adjustment per patient size (including targeted exams where dose is matched to indication, i.e. head), or iterative reconstruction technique. FINDINGS: LOWER THORAX: There are coronary artery calcifications. Small subpleural stable nodular opacities are present. Mitral valve annular calcifications. ABDOMEN & PELVIS: The liver, spleen, adrenal glands, pancreas, and right kidney have an unremarkable appearance. Prior cholecystectomy. There is a small left renal cyst at 3.5 cm. This previously measured 1.9 cm. No intestinal obstruction or free air. Unremarkable appearing appendix. There is diffuse colonic diverticulosis. No evidence of diverticulitis. There is a medium sized ventral abdominal wall hernia which contains fat. The orifice is 2 cm above the umbilicus. There is a small umbilical hernia also containing fat. No evidence of bowel involvement. No stranding of the fat within the hernia. Degenerative changes are present in the lumbar spine with mild lumbar curvature convex right. IMPRESSION: No acute finding. Ventral abdominal wall hernia 2 cm superior to the umbilicus containing fat. This hernia orifice is 4 cm in with. The hernia has increased in size compared to the previous exam. There is a small umbilical hernia just inferior to this region containing fat. Diffuse colonic diverticulosis without diverticulitis Dictated by: Miguel Angel Swenson MD 03/04/2021 15:47 Miguel Angel Swenson MD in [facility] 03/04/2021 15:47
== END ==
PROVIDERS: PCP Nurse Practitioner Family; Visit Provider Nurse Practitioner Family
DX: K42.9 Umbilical hernia without obstruction or gangrene (principal); K43.9 Ventral hernia without obstruction or gangrene
CPT/HCPCS: 74176

== ENCOUNTER 2021-04-02 17:02 | Observation (INO) | payer MEDICARE, OTHER, SELFPAY ==
[2021-04-02 17:04] VITALS: BP 127/48; PULSE 102; RESP 16; TEMP 36.4; O2SAT 98; BMI 37.1
[2021-04-02 17:38] LABS: Chloride 104 mmol/L (98-107); Sodium 139 mmol/L (136-145)
[2021-04-02 17:41] LABS: Alanine Aminotransferase 25 U/L (12-78); Albumin Level 4.2 g/dl (3.5-5.0); Albumin/Globulin Ratio 1.3 (1.1-1.8); Alkaline Phosphatase 119 U/L (38-126); Aspartate Amino Transferase 31 U/L (14-36); Bilirubin,Total 1.1 mg/dl (0.2-1.3); Blood Urea Nitrogen 20 mg/dl (7-17); Carbon Dioxide 25 mmol/L (22.0-30.0); Creatinine Clearance Estimated 79 mL/min (50-200); Estimated Glomerular Filt Rate 54 ml/min (>60); GFR (African American) 65 ML/MIN (>60); Globulin 3.3 g/dL (1.3-3.2); Total Protein,Serum 7.5 g/dl (6.3-8.2)
[2021-04-02 17:42] LABS: Calcium 9.7 mg/dl (8.4-10.2); Glucose 132 mg/dl (74-100); Lipase 107 U/L (23-300)
[2021-04-02 17:46] LABS: Basophils # 0.1 K/mm3 (0-0.2); Basophils % 0.3 % (0.1-2.0); Eosinophils # 0.1 K/mm3 (0.0-0.4); Eosinophils % 0.5 % (0.1-12.0); Hematocrit 45.3 % (37.0-47.0); Hemoglobin 15.4 g/dL (12.2-16.2); Lymphocytes # 1.2 K/mm3 (0.7-4.5); Lymphocytes % 5.5 % (10-50); Mean Corpuscular HGB Conc 34.1 g/dL (31.8-35.4); Mean Corpuscular Hemoglobin 30.2 pg (27.0-31.2); Mean Corpuscular Volume 88.5 fl (81-99); Monocytes # 0.8 K/mm3 (0.1-1.0); Monocytes % 3.7 % (1.7-9.3); Neutrophils # 19.8 K/mm3 (1.8-7.8); Platelet Count 191 K/mm3 (142-424); Red Blood Count 5.12 M/mm3 (4.20-5.40); Red Cell Distribution Width 14.2 % (11.5-17.5)
[2021-04-02 17:48] LABS: MANUAL DIFFERENTIAL MANUAL DIFFERENTIAL (MANUAL DIFF)
--- NOTE | 2021-04-02 18:03 | CT_ITS ---
PROCEDURE INFORMATION: Exam: CT Abdomen And Pelvis With Contrast Exam date and time: 04/02/2021 6:03 PM Age: 75 years old Clinical indication: Abdominal pain; Localized; Lower; Prior surgery; Surgery date: 6+ months; Surgery type: Gallbladder; Additional info: Pain, ventral vs umbilical hernia TECHNIQUE: Imaging protocol: Computed tomography of the abdomen and pelvis with contrast. Radiation optimization: All CT scans at this facility use at least one of these dose optimization techniques: automated exposure control; mA and/or kV adjustment per patient size (includes targeted exams where dose is matched to clinical indication); or iterative reconstruction. Contrast material: ISOVUE; Contrast volume: 60 ml; Contrast route: IV; COMPARISON: CT ABDOMEN PELVIS WO CON 03/04/2021 9:45 AM FINDINGS: Heart: Mitral annular calcifications noted. Liver: Normal. No mass. Gallbladder and bile ducts: Status post cholecystectomy. Pancreas: Normal. No ductal dilation. Spleen: Calcified granulomata in the spleen. Adrenal glands: Normal. No mass. Kidneys and ureters: Hypodensities in the kidneys are again seen, which cannot be further characterized, but are most likely cysts. Stomach and bowel: A few scattered colonic diverticula are seen. Appendix: No evidence of appendicitis. Intraperitoneal space: Unremarkable. No free air. No significant fluid collection. Vasculature: Coronary artery calcifications are seen. Lymph nodes: Unremarkable. No enlarged lymph nodes. Urinary bladder: Unremarkable as visualized. Reproductive: Unremarkable as visualized. Bones/joints: Unremarkable. No acute fracture. Soft tissues: Fat containing ventral hernia noted above the umbilicus. No significant change. Neck is about 4 x 4 cm. Sac is about 8 x 5 cm. Tiny periumbilical hernia as well contains fat. Lung bases: A 3 mm nodule seen in the left base is unchanged. Motion limits exam. IMPRESSION: No acute intra-abdominal pathology. No significant change.
--- NOTE | 2021-04-02 18:04 | HMH.EDGENADL ---
ED Disposition Clinical Impression: Sepsis Qualifiers: Sepsis type: sepsis due to unspecified organism Sepsis acute organ dysfunction status: unspecified Qualified Code(s): A41.9 - Sepsis, unspecified organism Abdominal pain Qualifiers: Abdominal location: periumbilical Qualified Code(s): R10.33 - Periumbilical pain Ventral hernia Qualifiers: Obstruction and gangrene presence: without obstruction or gangrene Qualified Code(s): K43.9 - Ventral hernia without obstruction or gangrene Disposition: Admitted As Inpatient Condition on Discharge: Good Referrals: Dominga Allen APRN [Primary Care Provider] - Time of Disposition: 19:39 - Critical Care Critical Care Time: No Attestation: On 04/02/21, the high probability of a clinically significant, sudden or life threatening deterioration of the following system(s) required my full and direct attention, intervention and personal management. The time I documented below is in addition to time spent performing reported procedures but includes the following listed in this critical care notation. Medical Decision Making - Medical Records Medical records reviewed: Yes: I reviewed the patient's medical records. - Juan Jose Inquiry Pt receiving controlled substance: No Vital Signs: 04/02/21 17:04 Temperature 97.5 F L Temperature Source Oral Pulse Rate [Radial] 102 H Respiratory Rate 16 Blood Pressure [Right Arm] 127/48 L Blood Pressure Mean [Right Arm] 74 Blood Pressure Position [Right Arm] Sitting 02 Sat by Pulse Oximetry 98 Oxygen Delivery Method Room Air - Lab Data Lab results reviewed: Yes: I reviewed the patient's lab results. Lab Results 04/02/21 17:25: WBC 22.0 H*, RBC 5.12, Hgb 15.4, Hct 45.3, MCV 88.5, MCH 30.2, MCHC 34.1, RDW 14.2, Plt Count 191, MPV 9.0, Neut % (Auto) 90.0 H, Lymph % (Auto) 5.5 L, [place] % (Auto) 3.7, Eos % (Auto) 0.5, Baso % (Auto) 0.3, Neut # (Auto) 19.8 H, Lymph # (Auto) 1.2, [place] # (Auto) 0.8, Eos # (Auto) 0.1, Baso # (Auto) 0.1, Total Counted 100, Neutrophils % (Manual) 84 H, Lymphocytes % (Manual) 11, Monocytes % (Manual) 5, Platelet Estimate Normal, RBC Morphology Normal 04/02/21 17:25: Sodium 139, Potassium 4.0, Chloride 104, Carbon Dioxide 25, Anion Gap 14.0, BUN 20 H, Creatinine 1.00, Estimated Creat Clear 79, Estimated GFR 54 L, Est GFR ( Amer) 65, Glucose 132 H, Calcium 9.7, Total Bilirubin 1.1, AST 31, ALT 25, Alkaline Phosphatase 119, Total Protein 7.5, Albumin 4.2, Globulin 3.3 H, Albumin/Globulin Ratio 1.3 04/02/21 17:25: Lipase 107 04/02/21 17:58: Lactate 2.2 H Result diagrams: 04/02/21 17:25 04/02/21 17:25 Orders (Tests/Meds): ED MEDICATIONS Generic Name Dose Route Start Last Admin Trade Name Freq PRN Reason Stop Dose Admin Piperacillin Sod/Tazobactam 100 mls @ 200 mls/hr 04/02/21 18:15 04/02/21 18:43 Sod 4.5 gm/ Sodium Chloride IV 04/16/21 18:14 200 mls/hr Q8H SKY Administration Protocol Lactated Ringer's 1,780 mls @ 890 mls/hr 04/02/21 19:29 Lactated Ringer's 1000 Ml Bag 30 ml/kg infuse over 2 hr (1780 ml) 04/02/21 21:28 IV .Q2H ONE Sodium Chloride 10 ml 04/02/21 18:47 Sodium Chloride 0.9% 10ml Syr (Rad Only) IV 05/02/21 18:46 NEEDED PRN Maintain IV Site Discontinued Medications Generic Name Dose Route Start Last Admin Trade Name Freq PRN Reason Stop Dose Admin Metronidazole 500 mg in 100 mls @ 100 mls/hr 04/02/21 18:09 04/02/21 18:12 Flagyl 500mg/100ml Ivpb IV 04/02/21 19:08 100 mls/hr ONCE ONE Administration Protocol Iopamidol 75 ml 04/02/21 18:47 04/02/21 18:49 Iopamidol-370 (76%);100ml Bottle IV 04/02/21 18:48 75 ml ONCE ONE Administration ORDERS Category Date Time Status Urinalysis and Microscopic Stat Lab 04/02/21 17:28 Ordered Blood Culture Stat Micro 04/02/21 17:58 Received Medical Decision Narrative: 75yo F evaluated for abdominal pain. Differential diagnosis includes was limited to: Strangulat
[2021-04-02 18:15] LABS: Lymphocytes % 11 % (10-50); Monocytes % 5 % (2-9); Neutrophils % 84 % (42-76); Platelet Estimate Normal; RBC Morphology Normal; Total Cells Counted 100
[2021-04-02 18:19] LABS: Lactic Acid 2.2 mmol/L (0.7-2.1)
[2021-04-02 19:07] VITALS: BP 145/79; PULSE 99
[2021-04-02 19:30] VITALS: BP 150/74; PULSE 93; RESP 20; O2SAT 98
--- NOTE | 2021-04-02 19:40 | XR_ITS ---
PROCEDURE INFORMATION: Exam: XR Chest Exam date and time: 04/02/2021 7:40 PM Age: 75 years old Clinical indication: Other: Sepsis TECHNIQUE: Imaging protocol: XR of the chest. Views: 1 view. COMPARISON: CR XR CHEST PORTABLE 05/15/2019 12:40 PM FINDINGS: Lungs: Unremarkable. No consolidation. Pleural spaces: Unremarkable. No pleural effusion. No pneumothorax. Heart/Mediastinum: Unremarkable. No cardiomegaly. Bones/joints: Unremarkable. IMPRESSION: No acute findings.
[2021-04-02 19:42] LABS: Coronavirus 19, PCR Not Detected (NotDetected); Influenza A, PCR Not Detected (NotDetected); Influenza B, PCR Not Detected (NotDetected)
[2021-04-02 19:45] VITALS: BMI 36.9
[2021-04-02 20:00] VITALS: BP 122/62; PULSE 79; RESP 18; TEMP 37.6; O2SAT 94; O2SAT 95
[2021-04-02 20:10] LABS: Microscopic, Urine URINE MICROSCOPIC (MICROSCOPIC)
[2021-04-02 20:12] LABS: Appearance,Urine CLEAR (Clear); Bilirubin,Urine Negative (Negative); Blood, Urine 1+ (Negative); Color,Urine YELLOW (Yellow); Glucose,Urine (UA) Negative (Negative); Ketones,Urine Negative (Negative); Leukocyte Esterase,Urine TRACE (Negative); Nitrate,Urine POSITIVE (Negative); Protein,Urine TRACE (Negative); Urobilinogen,Urine 0.2 EU/dl (0.2)
--- NOTE | 2021-04-02 20:16 | PC.NURSE ---
Attempted to call report on pt, Dilcia Viveros RN will call back.
--- NOTE | 2021-04-02 20:31 | PC.NURSE ---
PT ARRIVED TO FLOOR VIA W/C FROM ED W/STAFF 2030
[2021-04-02 20:32] VITALS: BP 145/78; PULSE 95; RESP 20; TEMP 36.6; O2SAT 97
--- NOTE | 2021-04-02 20:32 | PC.NURSE ---
Gave report to Al Mcclellan RN. Med-Surg staff here to transport pt via wheelchair
[2021-04-02 21:32] LABS: Reflex Lactic Add Lactic Reflex
[2021-04-02 22:11] LABS: Lactic Acid Follow Up (RFLX 1) 3.4 mmol/L (0.7-2.1)
[2021-04-02 23:49] LABS: Reflex Lactic (2 hrs) Add Lactic Reflex
[2021-04-03 00:22] LABS: Lactic Acid Follow up (RFLX 2) 1.9 mmol/L (0.7-2.1)
[2021-04-03 04:00] VITALS: BP 109/66; PULSE 68; RESP 20; TEMP 36.8; O2SAT 92
[2021-04-03 06:52] LABS: Basophils # 0.1 K/mm3 (0-0.2); Basophils % 0.3 % (0.1-2.0); Eosinophils % 0.2 % (0.1-12.0); Hematocrit 39.7 % (37.0-47.0); Lymphocytes # 2.8 K/mm3 (0.7-4.5); Lymphocytes % 14.3 % (10-50); Mean Corpuscular HGB Conc 33.5 g/dL (31.8-35.4); Mean Corpuscular Hemoglobin 30.1 pg (27.0-31.2); Mean Corpuscular Volume 89.8 fl (81-99); Mean Platelet Volume 8.9 fl (7.4-10.4); Monocytes # 0.9 K/mm3 (0.1-1.0); Monocytes % 4.6 % (1.7-9.3); Neutrophils # 15.6 K/mm3 (1.8-7.8); Neutrophils % 80.5 % (37.0-80.0); Platelet Count 162 K/mm3 (142-424); Red Blood Count 4.42 M/mm3 (4.20-5.40); Red Cell Distribution Width 14.2 % (11.5-17.5); White Blood Count 19.4 K/mm3 (4.8-10.8)
[2021-04-03 06:55] LABS: Anion Gap 11.9 mEq/L (5-15); Blood Urea Nitrogen 18 mg/dl (7-17); Calcium 8.8 mg/dl (8.4-10.2); Carbon Dioxide 26 mmol/L (22.0-30.0); Chloride 106 mmol/L (98-107); Creatinine Clearance Estimated 79 mL/min (50-200); Estimated Glomerular Filt Rate 61 ml/min (>60); GFR (African American) 74 ML/MIN (>60); Glucose 109 mg/dl (74-100); Potassium 3.9 mmoL/L (3.5-5.1); Sodium 140 mmol/L (136-145)
[2021-04-03 06:56] LABS: Hemoglobin 13.3 g/dL (12.2-16.2)
[2021-04-03 06:57] LABS: MANUAL DIFFERENTIAL MANUAL DIFFERENTIAL (MANUAL DIFF)
--- NOTE | 2021-04-03 07:35 | HMH.HP ---
*Admission Date: 04/02/21 *Chief complaint: Lower abdominal pain and nausea along with weakness *History of present illness: 75-year-old white female who struggles with obesity, several other medical problems, suddenly had the onset of lower abdominal pain in both lower quadrants and the very superficial aspect of her pannus yesterday when she got up from a chair. Had intractable pain, nausea, feeling of abdominal swelling and perhaps a low-grade fever but she is not sure about that. No stool changes, but as the pain did not resolve over the next several hours she came to the emergency department. Work-up in the emergency department revealed that she actually met criteria for sepsis with leukocytosis, elevated lactic acid and source of infection with dirty urine sediment. Concerned about hernia prompted CT scan of the abdomen and pelvis which was read as negative, but her exam is certainly suspicious for small lower abdominal wall hernia and she was admitted to hospital both for treatment of sepsis and surgical consultation for lower abdominal pain. This morning she states she feels somewhat better but continues to have low-grade dull pain in both lower quadrants. [facility] History I have reviewed the patient's past medical history: Yes Medical History: Reports:: Hyperlipidemia, Hypertension, Lung Disease Denies:: Cancer, Diabetes Mellitus Type 1, Diabetes Mellitus Type 2, Internal Pacemaker, MRSA, Seizures *Have you ever received a pneumonia vaccine?: Yes *Have you received a flu vaccine this season?: Yes Other Medical History: Reports: Arthritis, Other. Denies: Blood Transfusion Reaction Laterality Cases: Bilateral: Other Other Surgeries: Yes: Cholecystectomy, Colonoscopy, Other. No: Pacemaker Amputation: No Fractures: Yes (lt ankle fx repair (2010), lt ankle revision (2016)) - *Social History Last grade of school completed: High school graduate Smoking Status: Never smoker Alcohol Intake: never Substance Use Type: denies use *Occupational Status:: retired Housing: house Household Members: family *Travel in the last 8 weeks: None Family Hx:: No significant family history Review of Systems - Review of Systems Review of systems:: pertinent systems reviewed and negative unless documented below Meds Home Medications Medication Instructions Recorded Confirmed Type allopurinol 300 mg tablet 300 mg PO DAILY 90 Days #90 10/02/17 04/02/21 History furosemide 40 mg tablet 40 mg PO DAILY 90 Days #90 10/02/17 04/02/21 History Ergocalciferol (Vitamin D2) 400 unit PO DAILY 04/03/18 04/02/21 History [Vitamin D] [place]-3 Fatty Acids [Fish Oil] 300 mg PO DAILY 04/03/18 04/02/21 History aspirin 325 mg tablet 325 mg PO DAILY 12/25/18 04/02/21 History polyethylene glycol 3350 17 17 g PO DAILY #510 g 12/25/18 04/02/21 History gram/dose oral powder ciclopirox 8 % topical solution 1 applic TOPICAL DAILY 90 Days 12/09/20 04/02/21 Rx #6.6 ml hydrocodone 5 mg-acetaminophen 325 1 tab PO QID tab 12/17/20 04/02/21 History mg tablet losartan 100 mg tablet 100 mg PO DAILY tab 12/17/20 04/02/21 History Allergies Allergy/AdvReac Type Severity Reaction Status Date / Time No Known Allergies Allergy Verified 03/09/21 10:51 Exam Vital signs and Labs for Last 24 Hours: Temp Pulse Resp BP Pulse Ox 98.3 F 68 20 109/66 L 92 L 04/03/21 04:00 04/03/21 04:00 04/03/21 04:00 04/03/21 04:00 04/03/21 04:00 Laboratory Results - last 24 hr 04/02/21 17:25: WBC 22.0 H*, RBC 5.12, Hgb 15.4, Hct 45.3, MCV 88.5, MCH 30.2, MCHC 34.1, RDW 14.2, Plt Count 191, MPV 9.0, Neut % (Auto) 90.0 H, Lymph % (Auto) 5.5 L, [place] % (Auto) 3.7, Eos % (Auto) 0.5, Baso % (Auto) 0.3, Neut # (Auto) 19.8 H, Lymph # (Auto) 1.2, [place] # (Auto) 0.8, Eos # (Auto) 0.1, Baso # (Auto) 0.1, Total Counted 100, Neutrophils % (Manual) 84 H, Lymphocytes % (Manual) 11, Monocytes % (Manual) 5, Platelet Estimate Normal, RBC Morphology Normal 04/02/21 17:25: Sodium 139, [place]
[2021-04-03 07:37] VITALS: BP 112/58; PULSE 66; RESP 17; TEMP 36.9; O2SAT 94
[2021-04-03 08:13] LABS: Eosinophils % 1 % (0-3); Lymphocytes % 16 % (10-50); Monocytes % 6 % (2-9); Neutrophils % 77 % (42-76); Platelet Estimate Normal; RBC Morphology Normal; Total Cells Counted 100
--- NOTE | 2021-04-03 08:20 | HMH.PHAVTE ---
[facility] Pharmacy VTE Monitoring - Patient Demographics Admission date: 04/02/21 Report Date: 04/03/21 Time: 08:20 Allergies/Adverse Reactions: Patient Allergies No Known Allergies Allergy (Verified 03/09/21 10:51) Height: 1.68 m Weight: 104.326 kg Patient Problems: Current Active Problems Sepsis (Acute) Abdominal pain (Acute) Ventral hernia (Acute) Morbid obesity with BMI of 40.0-44.9, adult (Acute) - VTE Risk Labs: VTE Related Lab Results Hgb 13.3 g/dL (12.2-16.2) D 04/03/21 06:20 Hct 39.7 % (37.0-47.0) 04/03/21 06:20 Plt Count 162 K/mm3 (142-424) 04/03/21 06:20 BUN 18 mg/dl (7-17) H 04/03/21 06:20 Creatinine 0.90 mg/dl (0.52-1.04) 04/03/21 06:20 Estimated Creat Clear 79 mL/min (50-200) 04/03/21 06:20 - Prophylaxis VTE Prophylaxis Ordered?: Yes Types of VTE Prophylaxis: TEDS Knee High, Pharmacological Location of Applied Device: Bilateral Lower Extremeties Pharmacologic Type: Enoxaparin
--- NOTE | 2021-04-03 12:13 | HMH.GSCON ---
*Admission Date: 04/02/21 *Reason for consult:: Ventral hernia with abdominal pain *History of present illness: Patient is a 75-year-old female from [facility] with several medical conditions. She had previously undergone laparoscopic cholecystectomy by Dr. Soriano 3 years ago. At that time she had a known umbilical hernia based on CT scan. Yesterday afternoon she had sudden onset of lower abdominal pain. She presented to the emergency department where she was seen and evaluated. She was found to have criteria for sepsis with leukocytosis and above normal lactate. She underwent CT scan of the abdomen and pelvis which was read as no acute process . She was admitted for inpatient management. Surgical consultation was obtained for the abdominal pain and clinical hernia. Patient states that she is feeling somewhat better. Review of Systems - Review of Systems Review of systems:: pertinent systems reviewed and negative unless documented below [facility] History I have reviewed the patient's past medical history: Yes Medical History: Reports:: Hyperlipidemia, Hypertension, Lung Disease Denies:: Cancer, Diabetes Mellitus Type 1, Diabetes Mellitus Type 2, Internal Pacemaker, MRSA, Seizures *Have you ever received a pneumonia vaccine?: Yes *Have you received a flu vaccine this season?: Yes Other Medical History: Reports: Arthritis, Other. Denies: Blood Transfusion Reaction Laterality Cases: Bilateral: Other Other Surgeries: Yes: Cholecystectomy, Colonoscopy, Other. No: Pacemaker Amputation: No Fractures: Yes (lt ankle fx repair (2010), lt ankle revision (2016)) - *Social History Last grade of school completed: High school graduate Smoking Status: Never smoker Alcohol Intake: never Substance Use Type: denies use *Occupational Status:: retired Housing: house Household Members: family *Travel in the last 8 weeks: None Family Hx:: No significant family history Meds Home Medications Medication Instructions Recorded Confirmed Type allopurinol 300 mg tablet 300 mg PO DAILY 90 Days #90 10/02/17 04/02/21 History furosemide 40 mg tablet 40 mg PO DAILY 90 Days #90 10/02/17 04/02/21 History Ergocalciferol (Vitamin D2) 400 unit PO DAILY 04/03/18 04/02/21 History [Vitamin D] [place]-3 Fatty Acids [Fish Oil] 300 mg PO DAILY 04/03/18 04/02/21 History aspirin 325 mg tablet 325 mg PO DAILY 12/25/18 04/02/21 History polyethylene glycol 3350 17 17 g PO DAILY #510 g 12/25/18 04/02/21 History gram/dose oral powder hydrocodone 5 mg-acetaminophen 325 1 tab PO QID tab 12/17/20 04/02/21 History mg tablet losartan 100 mg tablet 100 mg PO DAILY tab 12/17/20 04/02/21 History Allergies Allergy/AdvReac Type Severity Reaction Status Date / Time No Known Allergies Allergy Verified 03/09/21 10:51 Exam Vital signs and Labs for Last 24 Hours: Temp Pulse Resp BP Pulse Ox 98.5 F 66 17 112/58 L 94 L 04/03/21 07:37 04/03/21 07:37 04/03/21 07:37 04/03/21 07:37 04/03/21 07:37 Laboratory Results - last 24 hr 04/02/21 17:25: WBC 22.0 H*, RBC 5.12, Hgb 15.4, Hct 45.3, MCV 88.5, MCH 30.2, MCHC 34.1, RDW 14.2, Plt Count 191, MPV 9.0, Neut % (Auto) 90.0 H, Lymph % (Auto) 5.5 L, [place] % (Auto) 3.7, Eos % (Auto) 0.5, Baso % (Auto) 0.3, Neut # (Auto) 19.8 H, Lymph # (Auto) 1.2, [place] # (Auto) 0.8, Eos # (Auto) 0.1, Baso # (Auto) 0.1, Total Counted 100, Neutrophils % (Manual) 84 H, Lymphocytes % (Manual) 11, Monocytes % (Manual) 5, Platelet Estimate Normal, RBC Morphology Normal 04/02/21 17:25: Sodium 139, Potassium 4.0, Chloride 104, Carbon Dioxide 25, Anion Gap 14.0, BUN 20 H, Creatinine 1.00, Estimated Creat Clear 79, Estimated GFR 54 L, Est GFR ( Amer) 65, Glucose 132 H, Calcium 9.7, Total Bilirubin 1.1, AST 31, ALT 25, Alkaline Phosphatase 119, Total Protein 7.5, Albumin 4.2, Globulin 3.3 H, Albumin/Globulin Ratio 1.3 04/02/21 17:25: Lipase 107 04/02/21 17:58: Lactate 2.2 H 04/02/21 19:05: SARS-CoV-2 (PCR) Not detected, Influenza A Untype
[2021-04-03 15:19] VITALS: BP 115/60; PULSE 69; RESP 17; TEMP 36.8; O2SAT 95
--- NOTE | 2021-04-03 16:11 | HMH.PHAINT ---
MEDICATION RECONCILIATION COMPLETED ON PATIENT USING EXTERNAL FILL HISTORY FROM PHARMACY. -SARAH CORTEZ, JAVID
--- NOTE | 2021-04-03 19:44 | PC.NURSE ---
Pt is up to chair at this time. Meds given per mar. VSS. Pt is alert and oriented x 4. Pt denies pain/discomfort. NAD. BS x 4, s1,s2. BS x4. Dr. Ruiz did round on pt this shift. Dr. Resendiz notified of plan for outpatient services and did allow pt to have a reg diet. Pt has tolerated well thus far.
[2021-04-03 19:50] VITALS: BP 110/69; PULSE 67; RESP 16; TEMP 36.6; O2SAT 96
[2021-04-03 20:00] VITALS: O2SAT 96
[2021-04-04 04:00] VITALS: BP 139/75; PULSE 71; RESP 17; TEMP 36.8; O2SAT 95
[2021-04-04 04:49] VITALS: BMI 37.1
--- NOTE | 2021-04-04 06:31 | PC.NURSE ---
patient voiced no concerns this shift. No s/s of acute distress noted, call light within reach, bed at lowest level for safety, will continue to monitor.
--- NOTE | 2021-04-04 07:38 | HMH.DCSUM ---
General - General Admission date:: 04/02/21 Discharge date: 04/04/21 HPI HPI: 75-year-old white female who struggles with obesity, several other medical problems, suddenly had the onset of lower abdominal pain in both lower quadrants and the very superficial aspect of her pannus yesterday when she got up from a chair. Had intractable pain, nausea, feeling of abdominal swelling and perhaps a low-grade fever but she is not sure about that. No stool changes, but as the pain did not resolve over the next several hours she came to the emergency department. Work-up in the emergency department revealed that she actually met criteria for sepsis with leukocytosis, elevated lactic acid and source of infection with dirty urine sediment. Concerned about hernia prompted CT scan of the abdomen and pelvis which was read as negative, but her exam is certainly suspicious for small lower abdominal wall hernia and she was admitted to hospital both for treatment of sepsis and surgical consultation for lower abdominal pain. This morning she states she feels somewhat better but continues to have low-grade dull pain in both lower quadrants. Hospital Course Hospital Course: Patient was admitted, sepsis was treated with antibiotics and fluids appropriately. Patient's white count improved, lactate normalized and this morning she was feeling much better and sitting up on the side of the bed eating breakfast vigorously. Surgical consult reviewed and appreciated. Patient continues have some pain when she coughs but no other abdominal pain, nausea or vomiting. She notes that the recent antibiotic administration made her skin flushed, and the seem seems to be the Flagyl that was administered. Urine culture is growing gram-negative rods, species identified at this point. Patient is ready for discharge with normal vital signs, improved/normalized/improving metabolic/infectious disease indicators. We will discharge her home with Levaquin therapy, other medications remain the same, she will follow-up in our office on she will need a repeat CBC and BMP at that point. She will make an outpatient appoint with surgery for follow-up of the slightly enlarged ventral hernia. Objective Vital signs: Temp Pulse Resp BP Pulse Ox 98.2 F 71 17 139/75 95 04/04/21 04:00 04/04/21 04:00 04/04/21 04:00 04/04/21 04:00 04/04/21 04:00 no acute distress, morbidly obese - *Routine HEENT Exam Head: Present: normocephalic Eye: Present: EOMI, PERRL ENT: Present: mucous membranes moist - *Routine Neck Exam Present: supple - *Routine Respiratory Exam Present: CTA bilaterally - *Routine Cardiovascular Exam Present: RRR - *Routine Abdominal Exam Present: soft, normoactive bowel sounds, tenderness (Tenderness across lower abdomen as previously described.) - *Routine Extremities Exam Absent: cyanosis, clubbing, edema - *Routine Skin Exam Present: warm. Absent: rash - Detailed Eye Exam Eyelids: Bilateral normal inspection Results Labs on day of discharge: Labs from last 24 hours 04/03/21 04/02/21 06:20 20:01 Total Counted 100 Neutrophils % (Manual) 77 H Lymphocytes % (Manual) 16 Monocytes % (Manual) 6 Eosinophils % (Manual) 1 Platelet Estimate Normal RBC Morphology Normal Urine Color Yellow Urine Appearance Clear Urine pH 7.0 Ur Specific [employer] 1.010 Urine Protein Trace Urine Glucose (UA) Negative Urine Ketones Negative Urine Blood 1+ Urine Nitrate Positive Urine Bilirubin Negative Urine Urobilinogen 0.2 Ur Leukocyte Esterase Trace Urine RBC 5-10 Urine WBC 10-20 Ur Squamous Epith Cells 5-10 Preliminary micro results at discharge 04/02/21 20:01 Urine Culture - Preliminary Urine,Clean Catch Gram Negative Rods DS: Diagnosis - Discharge Diagnosis (1) Abdominal pain Status: Acute (2) Sepsis Status: Resolved (3) Morbid obesity with B
[2021-04-04 08:00] VITALS: BP 144/71; PULSE 68; RESP 20; TEMP 36.8; O2SAT 93
== END 2021-04-04 10:35 | disposition home or self-care (01) ==
LOC: ER 19:40 → 2ND 20:28
PROVIDERS: Admitting Provider Family Medicine; Emergency Provider Family Medicine; PCP Nurse Practitioner Family; Visit Provider Internal Medicine Adolescent Medicine
DX: R10.9 Unspecified abdominal pain (principal); Z20.822 Contact with and (suspected) exposure to COVID-19; E66.01 Morbid (severe) obesity due to excess calories; Z68.41 Body mass index [BMI] 40.0-44.9, adult; J44.9 Chronic obstructive pulmonary disease, unspecified; I10 Essential (primary) hypertension; E78.5 Hyperlipidemia, unspecified; N39.0 Urinary tract infection, site not specified; Z79.899 Other long term (current) drug therapy
CPT/HCPCS: G0378; 36415; 71045; 74177; 80048; 80053; 81001; 83605; 83690; 85007; 85025; 87040; 87086; 87088; 87186; 96365; 96366; 99284; J2405; J2543; Q9967; U0003

== ENCOUNTER → 2021-05-27 11:01 | Outpatient (CLI) | payer MEDICARE, OTHER, SELFPAY ==
[2021-05-27 13:10] LABS: Alanine Aminotransferase 15 U/L (12-78); Albumin/Globulin Ratio 1.5 (1.1-1.8); Alkaline Phosphatase 104 U/L (38-126); Anion Gap 13.8 mEq/L (5-15); Aspartate Amino Transferase 24 U/L (14-36); Bilirubin,Total 0.8 mg/dl (0.2-1.3); Blood Urea Nitrogen 22 mg/dl (7-17); Calcium 9.8 mg/dl (8.4-10.2); Carbon Dioxide 28 mmol/L (22.0-30.0); Chloride 105 mmol/L (98-107); Chol/HDL Ratio 6.2 (1-3.5); Cholesterol 212 mg/dl (140-200); Estimated Glomerular Filt Rate 61 ml/min (>60); GFR (African American) 74 ML/MIN (>60); Globulin 2.6 g/dL (1.3-3.2); Glucose 107 mg/dl (74-100); HDL Cholesterol 34 mg/dl (40-60); Potassium 4.8 mmoL/L (3.5-5.1); Sodium 142 mmol/L (136-145); Total Protein,Serum 6.6 g/dl (6.3-8.2); Triglycerides 206 mg/dl (30-150); Uric Acid 5.2 mg/dl (2.5-6.2); VLDL Cholesterol 41 mg/dL (0-40)
== END ==
PROVIDERS: Visit Provider Nurse Practitioner Family
DX: I10 Essential (primary) hypertension (principal); E78.2 Mixed hyperlipidemia; M10.9 Gout, unspecified
CPT/HCPCS: 36415; 80053; 80061; 84550

== ENCOUNTER 2021-05-29 16:06 | Emergency (ER) | payer MEDICARE, OTHER, SELFPAY ==
--- NOTE | 2021-05-29 16:14 | PC.NURSE ---
observed pt and advised all beds were full at moment and we would get to her as soon as possible.
[2021-05-29 16:51] VITALS: BP 127/62; PULSE 81; RESP 18; TEMP 36.9; O2SAT 96; BMI 40.6
--- NOTE | 2021-05-29 17:54 | HMH.EDGENADL ---
ED Disposition Clinical Impression: Arm bruise Qualifiers: Encounter type: initial encounter Laterality: right Qualified Code(s): S40.021A - Contusion of right upper arm, initial encounter Disposition: Home, Self-Care Condition on Discharge: Good Instructions: DI for Hematoma (Bruise) Additional Instructions: Ice and elevate arm to reduce swelling. The bruise will take several weeks to go away. The bruise may spread down towards your forearm and hand over time due to gravity. This is natural. Referrals: Dominga Allen APRN [Primary Care Provider] - - Critical Care Critical Care Time: No Attestation: On 05/29/21, the high probability of a clinically significant, sudden or life threatening deterioration of the following system(s) required my full and direct attention, intervention and personal management. The time I documented below is in addition to time spent performing reported procedures but includes the following listed in this critical care notation. Medical Decision Making - Juan Jose Inquiry Pt receiving controlled substance: No Vital Signs: 05/29/21 16:51 Temperature 98.4 F Temperature Source Oral Pulse Rate [Apical] 81 Respiratory Rate 18 Blood Pressure [Right Arm] 127/62 Blood Pressure Mean [Right Arm] 83 Blood Pressure Source [Right Arm] Automatic Cuff Blood Pressure Position [Right Arm] Sitting 02 Sat by Pulse Oximetry 96 Oxygen Delivery Method Room Air Medical Decision Narrative: The patient has ecchymosis and perhaps small hematoma formation of her arm, likely due to tourniquet causing rupture of a vein. No findings to suggest DVT. No findings to suggest compartment syndrome. Neurovascular is intact throughout. General Adult HPI - General Chief complaint: Extremity Injury, Upper Stated complaint: R arm bruised from blood draw 05/27 Time Seen by Provider: 05/29/21 17:55 Mode of Arrival: Ambulatory Limitations: No Limitations Description of Symptoms (Recalled from ER Triage Doc. by RN): patient states she had a lab draw 2 days ago and she has significant swelling and bruising above the area of the lab draw. Patient states that the area isnt painful. - History of Present Illness HPI narrative: Patient had blood drawn from her right antecubital fossa on , 2 days ago. She has a small bruise where she had the needle puncture, but noticed a bruise in her right biceps area before she went to bed at night which has increased in size since then. She says it does not hurt. She is not on any blood thinners. She has no numbness or weakness. She says she called aakash Gregory, her primary care, and they advised her to come to the emergency room to have it checked. - Related Data Home Medications Medication Instructions Recorded Confirmed furosemide 40 mg tablet 40 mg PO DAILY 90 Days #90 10/02/17 04/02/21 aspirin 325 mg tablet 325 mg PO DAILY 12/25/18 04/02/21 polyethylene glycol 3350 17 17 g PO DAILY #510 g 12/25/18 04/02/21 gram/dose oral powder hydrocodone 5 mg-acetaminophen 325 1 tab PO QIDP PRN tab 12/17/20 04/03/21 mg tablet losartan 100 mg tablet 100 mg PO DAILY tab 12/17/20 04/02/21 allopurinoL [Allopurinol 300mg 300 mg PO DAILY 04/03/21 04/03/21 tablet] Previous Rx's Medication Instructions Recorded levoFLOXacin [Levaquin 500mg 500 mg PO DAILY #7 tab 04/04/21 tab] Allergies Allergy/AdvReac Type Severity Reaction Status Date / Time No Known Allergies Allergy Verified 03/09/21 10:51 [facility] History - Hepatitis A Screen Drug use history?: No High risk sexual behaviors?: No History of sexually transmitted infection?: No Currently employed?: No Childcare worker?: No Do you have indoor plumbing?: Yes Do you have electricity?: Yes Attestation statement:: This patient has been screened for Hepatitis A risk factors. I have reviewed the patient's past medical history: Yes Medical History: Reports:: Hyperlipidemia, Hypertension, Lung
[2021-05-29 18:40] VITALS: BP 96/49; PULSE 69; RESP 20; O2SAT 99
[2021-05-29 18:48] VITALS: BP 94/50; PULSE 78; RESP 18; TEMP 36.9; O2SAT 98
== END 2021-05-29 18:50 | disposition home or self-care (01) ==
PROVIDERS: Emergency Provider Emergency Medicine; PCP Nurse Practitioner Family
DX: S40.021A Contusion of right upper arm, initial encounter (principal); I10 Essential (primary) hypertension; J44.9 Chronic obstructive pulmonary disease, unspecified; Z79.899 Other long term (current) drug therapy
CPT/HCPCS: 99281

== ENCOUNTER → 2021-08-19 08:32 | Outpatient (CLI) | payer MEDICARE, OTHER, SELFPAY ==
--- NOTE | 2021-08-19 08:39 | XR_ITS ---
PROCEDURE: XR ANKLE RT MIN 3V CLINICAL INDICATION: PAIN IN RT ANKLE AND JOINTS OF RT FOOT, OTHER CHRONIC PAIN COMPARISON: CR ANKL3 ANKLE-LT-3 VIEWS from 08/12/2015 CR XR FOOT WT BEARING RT 3V from 06/13/2019 FINDINGS: There are degenerative changes with hypertrophic changes medial and lateral malleolus changes with the medial and lateral talus. The ankle mortise is well preserved. The talar dome unremarkable appearance. A small calcaneal. Small anterior osteophyte at tibia. 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 Fracture or dislocation. IMPRESSION: Degenerative changes as described above Dictated by: Miguel Angel Swenson MD 08/19/2021 12:26 Miguel Angel Swenson MD in [place] 08/19/2021 12:26
== END ==
PROVIDERS: PCP Nurse Practitioner Family; Visit Provider Nurse Practitioner Family
DX: M25.571 Pain in right ankle and joints of right foot (principal); G89.29 Other chronic pain
CPT/HCPCS: 73610

== ENCOUNTER → 2021-10-28 14:35 | Outpatient (CLI) | payer MEDICARE, OTHER, SELFPAY ==
--- NOTE | 2021-10-28 14:49 | XR_ITS ---
FINAL REPORT CLINICAL HISTORY: pain FINDINGS: LEFT FOOT 3 simulated weightbearing views were obtained. Extensive orthopedic hardware is present. A sideplate and screws secure the distal fibula. There is a screw securing the posterior subtalar joint. There are side plates and screws securing the intertarsal joints medially and laterally. On the lateral view there appears to be a mild pes planus deformity. There is no acute fracture or dislocation. There is no soft tissue abnormality. IMPRESSION: Postoperative changes as described with no acute bony abnormality. Reviewed, Interpreted and Dictated by Tito Barraza MD Transcribed by Blanca Urbina Authenticated by Tito Barraza MD on 10/28/2021 04:52:04 PM [facility]
--- NOTE | 2021-10-28 14:49 | XR_ITS ---
FINAL REPORT CLINICAL HISTORY: pain COMPARISON: June 13, 2019 FINDINGS: RIGHT FOOT 3 simulated weight-bearing views were obtained. There is no acute fracture or dislocation. There are mild and moderate hypertrophic changes over the dorsal intertarsal joints. There is a small plantar spur. There is no soft tissue abnormality. IMPRESSION: Mild and moderate hypertrophic changes as described. Reviewed, Interpreted and Dictated by Tito Barraza MD Transcribed by Blanca Urbina Authenticated by Tito Barraza MD on 10/28/2021 04:52:20 PM [facility]
== END ==
PROVIDERS: PCP Nurse Practitioner Family; Visit Provider Podiatrist
DX: M79.672 Pain in left foot (principal); M79.671 Pain in right foot
CPT/HCPCS: 73630

== ENCOUNTER 2021-11-01 11:39 | Outpatient (RCR) | payer MEDICARE, OTHER, SELFPAY | END 2021-11-01 12:24 | disposition home or self-care (01) | LOC: PT 11:39 | PROVIDERS: Visit Provider Nurse Practitioner Family | DX: M84.374A Stress fracture, right foot, initial encounter for fracture (principal) | CPT/HCPCS: 97760 ==

== ENCOUNTER 2021-11-30 08:00 | Outpatient (RCR) | payer MEDICARE, OTHER, SELFPAY ==
--- NOTE | 2021-10-06 10:49 | HMH.PTOPWND ---
Rehab Outpt Wound Evaluation Rehab OP Wound Evaluation Start: 10/06/21 09:05 Freq: Status: Active Protocol: Document 10/06/21 10:42 PEDRO (Rec: 10/06/21 10:49 PHOKAREN [id number]) Electronically Signed By Curtis Epstein, PT 10/06/21 10:42 Subjective/History History History Pt is 76 yowf who presents with c/o B LE edema, worsening x ~ 5 yrs. She reports increased edema whenever her legs are in a dependent position. She also reports edema decreases when her legs are elevated. She reports increased charlton with walking in the R foot. She also has hx of L ankle ORIF (2011) and revision (2016). Subjective Subjective She reports 8/10 pain in the R foot with walking. 1/4 palpation tenderness in the L gaitor area. B lower legs with shiny skin and 2+ pitting edema. Lymphedema Eval Classification of Lymphedema Secondary Lymphedema Yes Stemmer's sign Stemmer's Sign yes Stage of Lymphedema Lymphedema stages Stage II (Pitting edema, increased fibrosis w/ decreased pitting) Skin Changes Dry Skin Yes Taut, Shiny Skin Yes Redness Yes Discoloration of Skin Yes: hemosiderin staining Other Changes Yes Pain Scale Pain Scale (0-10) 8 Affected Extremities Areas Affected by Lymphedema/Edema Right Lower Extremity,Left Lower Extremity Manual Lymphatic Drainage Treatment Area MLD Treatment Area Right Lower Extremity,Left Lower Extremity Wound Problems/Impairments Impairments Problems/Impairmments Palpation Tenderness,Impaired Range of Motion,Impaired Strength,Impaired Endurance, Impaired Transfers,Impaired Gait Pattern,Impaired Walking, Impaired Standing,Impaired Household Care,Impaired Stair Climbing,Impaired Stepping on Uneven Surface,Impaired Recreational Activities, Increased Edema,Lymphedema Present,Subjective C/O Pain,
--- NOTE | 2021-11-02 08:43 | HMH.RHREAS ---
Rehab Reassessment Rehab OP Re-assessment Start: 11/02/21 08:38 Freq: Status: Active Protocol: Document 11/02/21 08:39 PHOKAREN (Rec: 11/02/21 08:43 PHORNE [id number]) Electronically Signed By Curtis Epstein, PT 11/02/21 08:39 Rehab Re-assessment Subjective Subjective Pt reports she has less tenderness and swelling in her legs, but continues to have pain with walking. DPM has diagnosed her with stress reaction in her R foot. Objective Objective Notes Circumferential measurements: R LE total -9.1 cm since IE. L LE total +0.5 cm since IE. Palpation tenderness: 0/4 tenderness to palpation in B LE gaitor area this date. Edema: 1+ pitting edema noted to B ankles Assessment Progress Assessment Progressing as Expected Assessment Notes Pt has improved with pitting edema, but some remains around ankles B. Pt has less tenderness, but significant change in status due to diagnosis of stress reaction in the R foot requiring offloading with cam walker. She continues to need further edema reduction. Patient goals met ST,2,3,4,5 Goals Not Met LT,2,3,4,5,6,7 Revised Goals none Plan Plan Continue per initial POC. Frequency of Therapy 1-2 x/wk Duration of therapy 4 wks Time and Billing Re-Eval Time 15 Re-Eval Billing Units 1 PHYSICIAN CERTIFICATION: I certify the specified therapy services for Anastasiia Khan are required, authorized, and reviewed every 30 days.
== END 2021-11-30 08:05 | disposition home or self-care (01) ==
LOC: PT 08:00
PROVIDERS: PCP Nurse Practitioner Family; Visit Provider Podiatrist
DX: R60.0 Localized edema (principal)
CPT/HCPCS: 97110; 97140; 97162; 97164; 97760

== ENCOUNTER → 2021-11-30 13:59 | Outpatient (CLI) | payer MEDICARE, OTHER, SELFPAY ==
--- NOTE | 2021-11-30 14:00 | US_ITS ---
FINAL REPORT CLINICAL HISTORY: follow up for thyroid nodules COMPARISON: August 07, 2020 FINDINGS: THYROID ULTRASOUND Sonographic images of the thyroid was obtained. The right lobe of the thyroid measures 3.0 x 2.0 x 1.3 cm. The left lobe of the thyroid measures 3.6 x 1.9 x 1.6 cm. The isthmus measures 6 mm and is heterogeneous. There is a right mid lobe measuring 1.6 x 1.1 by 1.1 cm which is solid and hypoechoic, TI-RADS 4. This nodule previously measured 1.2 cm so it is presumably is larger today. There is a 2nd right mid lobe nodule measuring 0.4 x 0.5 x 0.4 cm which is solid and hypoechoic, TI-RADS 4. This is not significantly changed from previous. There is a left mid lobe nodule measuring 1.2 x 1.0 x 1.0 cm which is solid and isoechoic, TI-RADS 3. This is similar to the previous. There is a 2nd nodule in the lower left lobe measuring 0.8 x 0.8 x 0.7 cm which is similar to the prior, TI-RADS 3. IMPRESSION: Interval enlargement of right mid lobe nodule. A biopsy of this lesion may be difficult due to patient body habitus. Consider follow-up ultrasound in 6 months. Reviewed, Interpreted and Dictated by Ede Lorenzo III, MD Transcribed by Blanca Urbina Authenticated by Ede Lorenzo III, MD on 12/01/2021 10:45:09 AM [facility]
== END ==
PROVIDERS: PCP Nurse Practitioner Family; Visit Provider Nurse Practitioner Family
DX: E04.9 Nontoxic goiter, unspecified (principal)
CPT/HCPCS: 76536

== ENCOUNTER → 2021-12-25 09:44 | Outpatient (CLI) | payer MEDICARE, OTHER, SELFPAY | PROVIDERS: Visit Provider Surgery | DX: Z01.812 Encounter for preprocedural laboratory examination (principal); Z11.52 Encounter for screening for COVID-19; Z12.11 Encounter for screening for malignant neoplasm of colon | CPT/HCPCS: C9803; U0003; U0005 ==

== ENCOUNTER 2021-12-28 08:16 | Day surgery (SDC) | payer MEDICARE, OTHER, SELFPAY ==
[2021-12-22 14:34] VITALS: BMI 40.3
[2021-12-28 09:40] VITALS: BP 173/76; PULSE 60; RESP 18; TEMP 36.3; O2SAT 97
--- NOTE | 2021-12-28 10:08 | HMH.SCOPE ---
- Procedure: Date: 12/28/21 Patient Date of :: 1945 Procedure Performed:: Colonoscopy Indications:: History of colon polyps. Last colonoscopy in November 2018 revealed a hyperplastic polyp at 30 cm. Her bowel preparation was moderate and she had fairly severe spasticity/tortuosity. Scattered diverticulosis confirmed. Visualization of the right colon was very limited. A follow-up barium enema revealed no filling defects/mass lesions. Performing Provider:: Oli Soriano MD Referring Provider:: . Sedation:: Monitored anesthesia care Procedure:: After informed consent was obtained the patient was taken to the endoscopy suite. Sedation ensued after the patient was transferred to the left lateral decubitus position. Pulse, blood pressure, and oxygen saturation were monitored throughout the procedure. Digital rectal exam revealed no significant abnormality. The colonoscope was placed in position. The entire colon was evaluated. The colonoscope was carefully removed and the patient was transferred to recovery in stable condition. Please see findings and specimens below for detail. Findings:: Bowel preparation moderate Scattered diverticulosis Fairly significant lack of relaxation Elongated/tortuous colon Limited visualization of right colon once again noted Specimens:: None Recommendations:: Repeat colonoscopy in 2-3 years secondary to persistent limitations in visualization of right colon. Note that she has had a fairly recent barium enema that revealed no significant abnormalities. Consideration of colonoscopy by the gastroenterology service. Complications:: No immediate Estimated blood obtained (mL): 0
[2021-12-28 10:12] VITALS: O2SAT 97
--- NOTE | 2021-12-28 10:13 | HMH.ANESCL ---
[facility] Anesthesia Checklist - Patient Identification Patient Identification: Arm Band - Structural Data Admitted From: Home Planned Operative Procedure/s: colonoscopy Consent for Planned Operative Procedure(s) Verified: Yes Verified Documents: Surgical Consent, History and Physical - NPO Status Verified Time NPO: 00:00 - Additional verifications Anesthesia Reactions: No Hx Blood Transfusions: Yes Blood Transfusion Reaction: No - Airway Assessment C-Spine Mobility Assessed: Yes (mp2) TMJ Mobility Assessed: Yes Dentition: Good Dentition - Neurological Assessment Level of Consciousness: Awake, Alert - Anesthesia Plan Anesthesia Risk discussed: Yes Anesthesia Plan: Verified ASA Class: III Anesthesia Type: MAC [facility] History I have reviewed the patient's past medical history: Yes Medical History: Reports:: Hyperlipidemia, Hypertension, Lung Disease Denies:: Cancer, Diabetes Mellitus Type 1, Diabetes Mellitus Type 2, Internal Pacemaker, MRSA, Seizures *Have you ever received a pneumonia vaccine?: Yes *Have you received a flu vaccine this season?: No Other Medical History: Reports: Arthritis, Other. Denies: Blood Transfusion Reaction Anesthesia experience/problems:: nac Laterality Cases: Bilateral: Cataract, Other Other Surgeries: Yes: Cholecystectomy, Colonoscopy, Other. No: Pacemaker Amputation: No Fractures: Yes (lt ankle fx repair (2011), lt ankle revision (2016)) - *Social History Last grade of school completed: High school graduate Smoking Status: Never smoker Alcohol Intake: never Substance Use Type: denies use *Occupational Status:: retired Housing: house Household Members: family *Travel in the last 8 weeks: None Family Hx:: No significant family history
[2021-12-28 10:40] VITALS: BP 114/65; PULSE 64; RESP 16; TEMP 36.8; O2SAT 100
[2021-12-28 10:50] VITALS: BP 116/66; PULSE 55; RESP 18; TEMP 36.8; O2SAT 96
[2021-12-28 11:00] VITALS: BP 113/61; PULSE 53; RESP 18; TEMP 36.8; O2SAT 94
[2021-12-28 11:10] VITALS: BP 109/73; PULSE 52; RESP 18; TEMP 36.8; O2SAT 98
== END 2021-12-28 11:10 | disposition home or self-care (01) ==
LOC: OUTP 08:17
PROVIDERS: PCP Nurse Practitioner Family; Visit Provider Surgery
PROC: 0DJD8ZZ Inspection of Lower Intestinal Tract, Via Natural or Artificial Opening Endoscopic (ICD-10-PCS; principal; 2021-12-28 10:30)
DX: Z12.11 Encounter for screening for malignant neoplasm of colon (principal); K56.2 Volvulus; K57.30 Diverticulosis of large intestine without perforation or abscess without bleeding; K58.9 Irritable bowel syndrome, unspecified; Z86.010 Personal history of colon polyps; E66.9 Obesity, unspecified; Z68.41 Body mass index [BMI] 40.0-44.9, adult; Z79.82 Long term (current) use of aspirin; Z79.899 Other long term (current) drug therapy
CPT/HCPCS: G0105

== ENCOUNTER → 2022-02-22 10:31 | Outpatient (CLI) | payer MEDICARE, OTHER, SELFPAY ==
[2022-02-22 10:38] LABS: MANUAL DIFFERENTIAL MANUAL DIFFERENTIAL (MANUAL DIFF); Microscopic, Urine URINE MICROSCOPIC (MICROSCOPIC)
[2022-02-22 11:27] LABS: Basophils # 0.1 K/mm3 (0-0.2); Basophils % 1.4 % (0.1-2.0); Eosinophils # 0.2 K/mm3 (0.0-0.4); Eosinophils % 2.1 % (0.1-12.0); Hematocrit 45.3 % (37.0-47.0); Hemoglobin 14.9 g/dL (12.2-16.2); Lymphocytes # 2.2 K/mm3 (0.7-4.5); Lymphocytes % 21.1 % (10-50); Mean Corpuscular Volume 93.8 fl (81-99); Mean Platelet Volume 9.7 fl (7.4-10.4); Monocytes # 0.5 K/mm3 (0.1-1.0); Monocytes % 4.5 % (1.7-9.3); Neutrophils # 7.4 K/mm3 (1.8-7.8); Neutrophils % 70.8 % (37.0-80.0); Platelet Count 232 K/mm3 (142-424); Red Blood Count 4.83 M/mm3 (4.20-5.40); Red Cell Distribution Width 14.8 % (11.5-17.5); White Blood Count 10.5 K/mm3 (4.8-10.8)
[2022-02-22 11:31] LABS: Appearance,Urine SL CLOUDY (Clear); Bilirubin,Urine Negative (Negative); Blood, Urine TRACE-I (Negative); Color,Urine YELLOW (Yellow); Glucose,Urine (UA) Negative (Negative); Ketones,Urine Negative (Negative); Leukocyte Esterase,Urine 1+ (Negative); Nitrate,Urine POSITIVE (Negative); PH,Urine 6.5 (5.0-8.5); Protein,Urine Negative (Negative); Specific Gravity, Urine 1.015 (1.005-1.030); Urobilinogen,Urine 0.2 EU/dl (0.2)
[2022-02-22 11:42] LABS: Bacteria,Urine 4+ /lpf; Squamous Epithelial Cell,Urine Occasional #/hpf (0-5)
[2022-02-22 11:46] LABS: Eosinophils % 2 % (0-3); Lymphocytes % 21 % (10-50); Monocytes % 4 % (2-9); Neutrophils % 73 % (42-76); Total Cells Counted 100
[2022-02-22 11:47] LABS: Platelet Estimate Normal; RBC Morphology Normal
[2022-02-22 12:06] LABS: Blood Urea Nitrogen 19 mg/dl (7-17); Carbon Dioxide 29 mmol/L (22.0-30.0); Chloride 104 mmol/L (98-107); Estimated Glomerular Filt Rate 70 ml/min (>60); GFR (African American) 84 ML/MIN (>60); Glucose 106 mg/dl (74-100); Sodium 141 mmol/L (136-145)
== END ==
PROVIDERS: Visit Provider Surgery
DX: K43.9 Ventral hernia without obstruction or gangrene (principal); Z01.812 Encounter for preprocedural laboratory examination; Z20.822 Contact with and (suspected) exposure to COVID-19; N39.0 Urinary tract infection, site not specified; B96.20 Unspecified Escherichia coli [E. coli] as the cause of diseases classified elsewhere
CPT/HCPCS: 36415; 80048; 81001; 85007; 85014; 85018; 85048; 85049; 87086; 87088; 87186; C9803; U0003; U0005

== ENCOUNTER 2022-03-02 07:05 | Emergency (ER) | payer MEDICARE, OTHER, SELFPAY ==
[2022-03-02 07:06] VITALS: BP 137/58; PULSE 72; RESP 20; TEMP 37.4; O2SAT 95; BMI 40.3
--- NOTE | 2022-03-02 07:11 | PC.NURSE ---
pt ambulatory to restroom with assistance of her cane; no complications
--- NOTE | 2022-03-02 07:16 | PC.NURSE ---
pt ambulatory back to ED room 7 with assistance of cane, onto ED stretcher without complications. Family at BS. pt hooked to monitor and given a warm blanket. NAPOLEON Negron at BS to triage
[2022-03-02 07:23] LABS: Microscopic, Urine URINE MICROSCOPIC (MICROSCOPIC)
[2022-03-02 07:24] LABS: Appearance,Urine CLEAR (Clear); Bilirubin,Urine Negative (Negative); Blood, Urine TRACE-I (Negative); Color,Urine YELLOW (Yellow); Glucose,Urine (UA) Negative (Negative); Ketones,Urine Negative (Negative); Leukocyte Esterase,Urine Negative (Negative); Nitrate,Urine Negative (Negative); Protein,Urine TRACE (Negative); Specific Gravity, Urine 1.025 (1.005-1.030); Urobilinogen,Urine 0.2 EU/dl (0.2)
[2022-03-02 07:39] LABS: Bacteria,Urine Trace /lpf; WBC,Urine Occasional #/hpf (0-3)
--- NOTE | 2022-03-02 07:47 | PC.NURSE ---
PT TOLERATED IV START, FAMILY AT BEDSIDE. NO NEEDS AT THIS TIME
[2022-03-02 07:50] VITALS: BP 111/50; PULSE 69; O2SAT 94
[2022-03-02 07:55] LABS: Basophils % 0.4 % (0.1-2.0); Eosinophils # 0.7 K/mm3 (0.0-0.4); Eosinophils % 10.4 % (0.1-12.0); Hematocrit 40.1 % (37.0-47.0); Hemoglobin 13.5 g/dL (12.2-16.2); Lymphocytes # 0.6 K/mm3 (0.7-4.5); Lymphocytes % 9.8 % (10-50); Mean Corpuscular HGB Conc 33.6 g/dL (31.8-35.4); Mean Corpuscular Hemoglobin 29.9 pg (27.0-31.2); Mean Corpuscular Volume 88.9 fl (81-99); Mean Platelet Volume 9.1 fl (7.4-10.4); Monocytes # 0.3 K/mm3 (0.1-1.0); Monocytes % 5.4 % (1.7-9.3); Neutrophils # 4.6 K/mm3 (1.8-7.8); Platelet Count 180 K/mm3 (142-424); Red Blood Count 4.52 M/mm3 (4.20-5.40); Red Cell Distribution Width 14.4 % (11.5-17.5); White Blood Count 6.3 K/mm3 (4.8-10.8)
--- NOTE | 2022-03-02 07:55 | PC.NURSE ---
DR. GARNETT AT BEDSIDE
[2022-03-02 07:59] LABS: Chloride 105 mmol/L (98-107); Sodium 136 mmol/L (136-145)
[2022-03-02 08:00] LABS: Potassium 4.1 mmoL/L (3.5-5.1)
[2022-03-02 08:02] LABS: Alanine Aminotransferase 27 U/L (12-78); Albumin Level 3.6 g/dl (3.5-5.0); Albumin/Globulin Ratio 1.3 (1.1-1.8); Alkaline Phosphatase 91 U/L (38-126); Anion Gap 10.1 mEq/L (5-15); Aspartate Amino Transferase 33 U/L (14-36); Bilirubin,Total 0.5 mg/dl (0.2-1.3); Blood Urea Nitrogen 20 mg/dl (7-17); Calcium 8.9 mg/dl (8.4-10.2); Carbon Dioxide 25 mmol/L (22.0-30.0); Creatinine Clearance Estimated 53 mL/min (50-200); Estimated Glomerular Filt Rate 31 ml/min (>60); GFR (African American) 38 ML/MIN (>60); Globulin 2.8 g/dL (1.3-3.2); Glucose 122 mg/dl (74-100); Total Protein,Serum 6.4 g/dl (6.3-8.2)
[2022-03-02 08:03] LABS: Lactic Acid 1.5 mmol/L (0.7-2.1)
--- NOTE | 2022-03-02 08:05 | ECG_ITS ---
APPROVED REPORT Exam: Resting ECG HR:67 bpm ECG Measurements Heart Rate 67 AXES OR 168 P 37 QRSd 89 QRS 22 QT 396 T 11 QTc 412 Conclusion SINUS RHYTHM LOW QRS VOLTAGE IN PRECORDIAL LEADS [QRS DEFLECTION < 1.0 mV IN CHEST LEADS] BORDERLINE ECG UNCONFIRMED REPORT Electronically signed by : Nolan Resendiz MD 03/02/2022 17:27:08
--- NOTE | 2022-03-02 08:05 | PC.NURSE ---
pt given another warm blanket and has no other needs at this time; NAPOLEON Negron at BS
--- NOTE | 2022-03-02 08:10 | HMH.EDGENADL ---
ED Disposition Clinical Impression: Acute kidney injury, Dehydration, Recent urinary tract infection Disposition: Home, Self-Care Condition on Discharge: Good Instructions: DI for Dehydration -- Adult, Acute Kidney Injury Additional Instructions: You have been evaluated for dehydration, decreased oral intake. Please stay hydrated. Okay to stop Bactrim. Take all other medications as prescribed. Follow-up with your primary care doctor in the next few days for repeat labs including creatinine. Return to the emergency department for any new or worsening symptoms. Referrals: Dominga Allen APRN [Primary Care Provider] - Time of Disposition: 09:42 - Critical Care Critical Care Time: No Attestation: On 03/02/22, the high probability of a clinically significant, sudden or life threatening deterioration of the following system(s) required my full and direct attention, intervention and personal management. The time I documented below is in addition to time spent performing reported procedures but includes the following listed in this critical care notation. Medical Decision Making - Medical Records Medical records reviewed: Yes: I reviewed the patient's medical records. - Juan Jose Inquiry Pt receiving controlled substance: No Vital Signs: 03/02/22 07:06 03/02/22 07:50 03/02/22 08:17 Temperature 99.4 F Temperature Source Oral Pulse Rate 69 68 Pulse Rate [Brachial] 72 Respiratory Rate 20 Blood Pressure 111/50 L 105/53 L Blood Pressure [Right Arm] 137/58 L Blood Pressure Mean 66 70 Blood Pressure Mean [Right Arm] 84 Blood Pressure Source [Right Arm] Automatic Cuff Blood Pressure Position [Right Arm] Sitting 02 Sat by Pulse Oximetry 95 94 L 95 Oxygen Delivery Method Room Air Room Air Room Air 03/02/22 08:46 03/02/22 09:17 Temperature Temperature Source Pulse Rate 67 Pulse Rate [Brachial] Respiratory Rate Blood Pressure 113/51 L 108/50 L Blood Pressure [Right Arm] Blood Pressure Mean 66 61 Blood Pressure Mean [Right Arm] Blood Pressure Source [Right Arm] Blood Pressure Position [Right Arm] 02 Sat by Pulse Oximetry 98 96 Oxygen Delivery Method Room Air - Lab Data Lab Results 03/02/22 07:15: Urine Color Yellow, Urine Appearance Clear, Urine pH 6.0, Ur Specific [place] 1.025, Urine Protein Trace, Urine Glucose (UA) Negative, Urine Ketones Negative, Urine Blood Trace-i, Urine Nitrate Negative, Urine Bilirubin Negative, Urine Urobilinogen 0.2, Ur Leukocyte Esterase Negative, Urine RBC None, Urine WBC Occasional, Ur Squamous Epith Cells 5-10, Urine Bacteria Trace 03/02/22 07:25: WBC 6.3, RBC 4.52, Hgb 13.5, Hct 40.1, MCV 88.9, MCH 29.9, MCHC 33.6, RDW 14.4, Plt Count 180, MPV 9.1, Neut % (Auto) 74.0, Lymph % (Auto) 9.8 L, Motley % (Auto) 5.4, Eos % (Auto) 10.4, Baso % (Auto) 0.4, Neut # (Auto) 4.6, Lymph # (Auto) 0.6 L, Motley # (Auto) 0.3, Eos # (Auto) 0.7 H, Baso # (Auto) 0.0 03/02/22 07:25: Sodium 136, Potassium 4.1, Chloride 105, Carbon Dioxide 25, Anion Gap 10.1, BUN 20 H, Creatinine 1.60 H, Estimated Creat Clear 53, Estimated GFR 31 L, Est GFR ( Amer) 38 L, Glucose 122 H, Calcium 8.9, Total Bilirubin 0.5, AST 33, ALT 27, Alkaline Phosphatase 91, Total Protein 6.4, Albumin 3.6, Globulin 2.8, Albumin/Globulin Ratio 1.3 03/02/22 07:25: Lactate 1.5 03/02/22 08:00: SARS-CoV-2 (PCR) Not detected, Influenza A Untype (PCR) Not detected, Influenza Type B (PCR) Not detected Result diagrams: 03/02/22 07:25 03/02/22 07:25 Orders (Tests/Meds): ED MEDICATIONS Generic Name Dose Route Start Last Admin Trade Name Freq PRN Reason Stop Dose Admin Sodium Chloride 10 ml 03/02/22 07:46 Sodium Chloride 0.9% 10ml Flush Syringe IV 04/01/22 07:45 NEEDED PRN Maintain IV Site Discontinued Medications Generic Name Dose Route Start Last Admin Trade Name Freq PRN Reason Stop Dose Admin Sodium Chloride 1,000 mls @ 999 mls/hr 03/02/22 08:15 03/02/22 08:07 S
[2022-03-02 08:17] VITALS: BP 105/53; PULSE 68; O2SAT 95
--- NOTE | 2022-03-02 08:30 | PC.NURSE ---
PT RESTING WITH EYES CLOSED, FAMILY AT BEDSIDE
[2022-03-02 08:46] VITALS: BP 113/51; O2SAT 98
[2022-03-02 09:17] VITALS: BP 108/50; PULSE 67; O2SAT 96
[2022-03-02 09:26] LABS: Coronavirus 19, PCR Not Detected (NotDetected); Influenza A, PCR Not Detected (NotDetected); Influenza B, PCR Not Detected (NotDetected)
--- NOTE | 2022-03-02 09:38 | INFXCTL.NOTE ---
PT PROVIDED CRACKERS AND WATER, NO FURTHER NEEDS. FAMILY AT BEDSIDE
--- NOTE | 2022-03-02 10:14 | PC.NURSE ---
called lab to check the status of covid swab. spoke with farooq who stated 5 minutes left on the swab.
--- NOTE | 2022-03-02 10:18 | PC.NURSE ---
RN at the bedside for d/c instructions and IV d/c
[2022-03-02 10:26] VITALS: BP 106/55; PULSE 65; RESP 18; TEMP 37.2; O2SAT 95
== END 2022-03-02 10:30 | disposition home or self-care (01) ==
PROVIDERS: Emergency Medicine; Emergency Provider Emergency Medicine; PCP Nurse Practitioner Family
DX: Z87.440 Personal history of urinary (tract) infections (principal); N17.9 Acute kidney failure, unspecified; E86.0 Dehydration; Z79.82 Long term (current) use of aspirin; Z79.51 Long term (current) use of inhaled steroids; E78.5 Hyperlipidemia, unspecified; I10 Essential (primary) hypertension; J98.4 Other disorders of lung; M19.90 Unspecified osteoarthritis, unspecified site; G47.33 Obstructive sleep apnea (adult) (pediatric); M10.9 Gout, unspecified
CPT/HCPCS: 80053; 81001; 83605; 85025; 87040; 93005; 96365; 99284; C9803; U0003; U0005

== ENCOUNTER → 2022-03-16 09:56 | Outpatient (CLI) | payer MEDICARE, OTHER, SELFPAY | PROVIDERS: PCP Nurse Practitioner Family; Visit Provider Surgery | DX: Z01.812 Encounter for preprocedural laboratory examination (principal); Z20.822 Contact with and (suspected) exposure to COVID-19; K43.9 Ventral hernia without obstruction or gangrene | CPT/HCPCS: C9803; U0003; U0005 ==

== ENCOUNTER 2022-03-17 06:46 | Day surgery (SDC) | payer MEDICARE, OTHER, SELFPAY ==
[2022-02-22 08:33] VITALS: BMI 40.3
--- NOTE | 2022-02-22 13:06 | SUR.PREOP ---
Today's UA results reported to David and left phone message for JEFRY in Dr. Soriano's office
[2022-03-15 16:22] VITALS: BMI 40.3
[2022-03-17] VITALS (10 sets, daily range): BP systolic 104–123; BP diastolic 55–82; PULSE 62–94; RESP 18–20; TEMP 36.2; O2SAT 92–97
--- NOTE | 2022-03-17 07:55 | P.PN_ITS ---
[facility] Anesthesia Checklist - Patient Identification Patient Identification: Arm Band, Verbal (Name & ) - Structural Data Admitted From: Home Planned Operative Procedure/s: Laparascopic Hernia Repair Consent for Planned Operative Procedure(s) Verified: Yes Verified Documents: Surgical Consent - NPO Status Verified Time NPO: 00:00 - Chart Verification Results Verified: CBC, BMP - Additional verifications Anesthesia Reactions: No Hx Blood Transfusions: Yes Blood Transfusion Reaction: No - Airway Assessment C-Spine Mobility Assessed: Yes TMJ Mobility Assessed: Yes Dentition: Good Dentition - Neurological Assessment Level of Consciousness: Awake, Alert, Appropriate - Anesthesia Plan Anesthesia Risk discussed: Yes ASA Class: II Anesthesia Type: General [facility] History I have reviewed the patient's past medical history: Yes Medical History: Reports:: Hyperlipidemia, Hypertension, Lung Disease Denies:: Cancer, Diabetes Mellitus Type 1, Diabetes Mellitus Type 2, Internal Pacemaker, MRSA, Seizures *Have you ever received a pneumonia vaccine?: No *Have you received a flu vaccine this season?: No Other Medical History: Reports: Arthritis, Other. Denies: Blood Transfusion Reaction Anesthesia experience/problems:: none Laterality Cases: Bilateral: Cataract, Other Other Surgeries: Yes: Cholecystectomy, Colonoscopy, Other. No: Pacemaker Amputation: No Fractures: Yes (lt ankle fx repair (2011), lt ankle revision (2016)) - *Social History Last grade of school completed: High school graduate Smoking Status: Never smoker Alcohol Intake: never Substance Use Type: denies use *Occupational Status:: retired Housing: house Household Members: family *Travel in the last 8 weeks: None Family Hx:: No significant family history
--- NOTE | 2022-03-17 10:20 | HMH.OPNOTE ---
Date of procedure: 03/17/22 Pre-op Diagnosis:: Supraumbilical hernia with incarcerated omentum Umbilical hernia Post-op Diagnosis:: Same Procedure performed:: Laparoscopic-assisted open repair of supraumbilical hernia (with mesh) and primary umbilical hernia repair Surgeon:: Oli Soriano MD TRAVEL REGISTERED NURSE ICU:: Ramila Jurado Anesthesia: GETA Estimated blood loss (mL): 25 Operative findings:: 4 cm supraumbilical defect with incarcerated omentum 2 cm umbilical defect Supraumbilical defect repaired with 8 cm Ventralex (to include primary closure overlying Ventralex) Umbilical defect primarily repaired with 0 Ethibond Operative note:: After informed consent was obtained the patient was taken to the operating room and placed in the supine position. General anesthesia was induced and her abdomen was prepped and draped in a sterile fashion. After infiltration local anesthetic a stab incision was made in the left upper quadrant. A Veress needle was placed in position. The abdomen was insufflated and a 5 mm optical trocar was placed along the left flank. An additional 5 mm trocar was placed in the left lower quadrant and an additional 5 mm trocar was placed at the Veress insertion site. Inspection revealed a complex defect above the umbilicus with incarcerated omentum. A defect at the umbilicus was also visualized. The incarcerated omentum was carefully taken down laparoscopically utilizing blunt dissection and harmonic zenaida. The decision to proceed with laparoscopic-assisted open repair was then made. An incision overlying each defect was then made in a longitudinal fashion. The hernia sacs at both sites were dissected free utilizing a combination of blunt dissection and electrocautery. The hernia sacs were transected with electrocautery and passed off for pathologic evaluation. The 4 cm supraumbilical defect was repaired utilizing an 8 cm Ventralex mesh that was secured circumferentially with 0 Ethibond. Primary repair of the mesh was incorporated as part of this closure. The umbilical defect was repaired primarily with 0 Ethibond. Reinspection laparoscopically revealed the mesh to be in good position. Circumferential tacks were placed. Pneumoperitoneum was then released and the trocars were removed. Skin was reapproximated with alexx. Dressings were applied and the patient was transferred to recovery in stable condition after extubation. Condition: stable Disposition: PACU Specimens:: Hernia sac Complications:: No immediate
--- NOTE | 2022-03-17 10:35 | P.PN_ITS ---
[facility] Anesthesia Record Part I Intake, IV Amount: 1,000 Estimated blood loss (mL): 25 Urine output (mL): 0 Blood Pressure: 104/55 SaO2: 96 Pulse Rate: 84 Respiratory Rate: 20 Temperature: 97.1 F Patient is:: Drowsy, Oral/Nasal airway Stable to PACU at:: 10:30
--- NOTE | 2022-03-18 09:44 | HMH.ANESII ---
[facility] Anesthesia Record Part II Discharge Time: 11:00 Destination: Surgical Day Care (OP Surgery) PACU nurse assessment reviewed?: Yes Patient Condition:: Good Anesthesia Complications:: None Swallowing reflex intact?: Yes Cyanosis?: No Blood Pressure: 117/68 Pulse Rate: 70 Temperature: 97.2 F Mental Status: Alert & Oriented Pain level:: 0 Nausea and/or vomitting:: None Intake, IV Amount: 0
[2022-03-18 09:45] VITALS: BP 117/68; PULSE 70; TEMP 36.2
== END 2022-03-17 11:52 | disposition home or self-care (01) ==
LOC: OR 06:48
PROVIDERS: PCP Nurse Practitioner Family; Visit Provider Surgery
PROC: 0WQF4ZZ Repair Abdominal Wall, Percutaneous Endoscopic Approach (ICD-10-PCS; principal; 2022-03-17 08:30)
DX: K43.6 Other and unspecified ventral hernia with obstruction, without gangrene (principal); K42.9 Umbilical hernia without obstruction or gangrene; I10 Essential (primary) hypertension; E78.5 Hyperlipidemia, unspecified; J98.4 Other disorders of lung
CPT/HCPCS: 49561; 49568; 88302; 96374; C1781; J2405

== ENCOUNTER → 2022-03-24 14:46 | Outpatient (CLI) | payer MEDICARE, OTHER, SELFPAY ==
--- NOTE | 2022-03-24 14:52 | XR_ITS ---
FINAL REPORT CLINICAL HISTORY: LEFT SIDED CHEST PAIN. DYSPNEA UNSPECIFIED COMPARISON: 04/02/2021 FINDINGS: TWO-VIEW CHEST The heart size is normal. The mediastinum is normal. There is mild left base atelectasis or scar, stable. The right lung is clear. There is no pneumothorax. IMPRESSION: Left base atelectasis or scar, stable. Reviewed, Interpreted and Dictated by Ede Lorenzo III, MD Transcribed by Melina Ch Authenticated and [facility]
[2022-03-24 15:36] LABS: Basophils % 0.2 % (0.1-2.0); Eosinophils # 0.4 K/mm3 (0.0-0.4); Hematocrit 39.9 % (37.0-47.0); Hemoglobin 13.3 g/dL (12.2-16.2); Lymphocytes # 1.6 K/mm3 (0.7-4.5); Lymphocytes % 11.6 % (10-50); Mean Corpuscular HGB Conc 33.4 g/dL (31.8-35.4); Monocytes # 0.9 K/mm3 (0.1-1.0); Monocytes % 6.6 % (1.7-9.3); Neutrophils # 10.8 K/mm3 (1.8-7.8); Neutrophils % 78.6 % (37.0-80.0); Platelet Count 217 K/mm3 (142-424); Red Blood Count 4.43 M/mm3 (4.20-5.40); Red Cell Distribution Width 14.2 % (11.5-17.5); White Blood Count 13.8 K/mm3 (4.8-10.8)
[2022-03-24 16:04] LABS: D-Dimer 1.54 ug/mL (0.0-0.5)
[2022-03-24 16:23] LABS: Chloride 103 mmol/L (98-107); Sodium 137 mmol/L (136-145)
[2022-03-24 16:25] LABS: Alanine Aminotransferase 17 U/L (12-78); Alkaline Phosphatase 117 U/L (38-126); Aspartate Amino Transferase 24 U/L (14-36); Blood Urea Nitrogen 16 mg/dl (7-17); Estimated Glomerular Filt Rate 70 ml/min (>60); GFR (African American) 84 ML/MIN (>60)
[2022-03-24 16:26] LABS: Albumin Level 3.8 g/dl (3.5-5.0); Albumin/Globulin Ratio 1.4 (1.1-1.8); Calcium 9.5 mg/dl (8.4-10.2); Carbon Dioxide 27 mmol/L (22.0-30.0); Globulin 2.7 g/dL (1.3-3.2); Glucose 133 mg/dl (74-100); Total Protein,Serum 6.5 g/dl (6.3-8.2)
== END ==
PROVIDERS: PCP Nurse Practitioner Family; Visit Provider Nurse Practitioner Family
DX: R07.9 Chest pain, unspecified (principal)
CPT/HCPCS: 36415; 71046; 80053; 85025; 85378

== ENCOUNTER 2022-03-24 15:46 | Inpatient (IN) | payer MEDICARE, OTHER, SELFPAY ==
[2022-03-24] VITALS (13 sets, daily range): BP systolic 98–139; BP diastolic 50–84; PULSE 60–89; RESP 16–34; TEMP 36.9–37.1; O2SAT 92–98; BMI 41.9; BMI 41.8
--- NOTE | 2022-03-24 15:57 | PC.NURSE ---
pt to room 4 via wheelchair from doctors office staff. family at bedside
--- NOTE | 2022-03-24 16:04 | PC.NURSE ---
pt from [facility], pt in stretcher as comfortable as can
--- NOTE | 2022-03-24 16:32 | PC.NURSE ---
lab called for blood collection
--- NOTE | 2022-03-24 16:45 | PC.NURSE ---
lab at BS at this time
--- NOTE | 2022-03-24 16:48 | PC.NURSE ---
pt asking about outpt covid swab results that were done by orders from PCP. Result not in system at this time. Contacted lab, reports pts swab is in the next batch to go on the analyzer and they will be able to add a new batch soon. Updated pt and family member on this.
--- NOTE | 2022-03-24 16:56 | HMH.EDGENADL ---
ED Disposition Clinical Impression: Pulmonary embolism on left Disposition: Admitted As Inpatient Condition on Discharge: Fair Referrals: Dominga Allen APRN [Primary Care Provider] - - Critical Care Critical Care Time: No Attestation: On 03/24/22, the high probability of a clinically significant, sudden or life threatening deterioration of the following system(s) required my full and direct attention, intervention and personal management. The time I documented below is in addition to time spent performing reported procedures but includes the following listed in this critical care notation. Medical Decision Making - Medical Records Medical records reviewed: Yes: I reviewed the patient's medical records. - Juan Jose Inquiry Pt receiving controlled substance: No Vital Signs: 03/24/22 16:00 03/24/22 16:01 03/24/22 16:31 Temperature 98.8 F Temperature Source Oral Pulse Rate 66 67 Pulse Rate [Left Radial] 73 Respiratory Rate 20 16 16 Blood Pressure 118/51 L 114/62 Blood Pressure [Right Arm] 139/59 L Blood Pressure Mean 73 70 Blood Pressure Mean [Right Arm] 85 02 Sat by Pulse Oximetry 93 L 96 92 L Oxygen Delivery Method Room Air Room Air Room Air 03/24/22 17:00 03/24/22 17:30 03/24/22 18:00 Temperature Temperature Source Pulse Rate 60 77 79 Pulse Rate [Left Radial] Respiratory Rate 18 17 Blood Pressure 111/54 L 112/75 121/79 Blood Pressure [Right Arm] Blood Pressure Mean 64 Blood Pressure Mean [Right Arm] 02 Sat by Pulse Oximetry 96 93 L 94 L Oxygen Delivery Method 03/24/22 18:30 Temperature Temperature Source Pulse Rate 74 Pulse Rate [Left Radial] Respiratory Rate 17 Blood Pressure 110/84 Blood Pressure [Right Arm] Blood Pressure Mean Blood Pressure Mean [Right Arm] 02 Sat by Pulse Oximetry 93 L Oxygen Delivery Method - Lab Data Lab Results 03/24/22 16:40: WBC 14.8 H, RBC 4.19 L, Hgb 12.7, Hct 37.6, MCV 89.7, MCH 30.3, MCHC 33.7, RDW 14.3, Plt Count 201, MPV 9.0, Neut % (Auto) 79.2, Lymph % (Auto) 11.4, [place] % (Auto) 6.1, Eos % (Auto) 2.8, Baso % (Auto) 0.5, Neut # (Auto) 11.7 H, Lymph # (Auto) 1.7, [place] # (Auto) 0.9, Eos # (Auto) 0.4, Baso # (Auto) 0.1 03/24/22 16:40: Sodium 136, Potassium 3.6, Chloride 104, Carbon Dioxide 26, Anion Gap 9.6, BUN 16, Creatinine 0.80, Estimated Creat Clear 44, Estimated GFR 70, Est GFR ( Amer) 84, Glucose 133 H, Calcium 9.2, Total Bilirubin 1.0, AST 23, ALT 16, Alkaline Phosphatase 108, Troponin I < 0.01, Total Protein 6.6, Albumin 3.6, Globulin 3.0, Albumin/Globulin Ratio 1.2 03/24/22 19:21: Urine Color Yellow, Urine Appearance Clear, Urine pH 6.0, Ur Specific [place] <= 1.005, Urine Protein Negative, Urine Glucose (UA) Negative, Urine Ketones Negative, Urine Blood Negative, Urine Nitrate Negative, Urine Bilirubin Negative, Urine Urobilinogen 0.2, Ur Leukocyte Esterase Negative Result diagrams: 03/24/22 16:40 03/24/22 16:40 Orders (Tests/Meds): ED MEDICATIONS Discontinued Medications Generic Name Dose Route Start Last Admin Trade Name Freq PRN Reason Stop Dose Admin Iopamidol 70 ml 03/24/22 18:42 03/24/22 18:43 Iopamidol-370 (76%);100ml Bottle IV 03/24/22 18:43 70 ml ONCE ONE Administration Sodium Chloride 40 ml 03/24/22 18:42 03/24/22 18:43 0.9 % Sodium Chloride 50 Ml Vial IV 03/24/22 18:43 40 ml ONCE ONE Administration Sodium Chloride 10 ml 03/24/22 18:42 03/24/22 18:43 Sodium Chloride 0.9% 10ml Syr (Rad Only) IV 03/24/22 18:43 10 ml ONCE ONE Administration ORDERS Category Date Time Status Rapid PCR Covid and Flu A/B Stat Lab 03/24/22 15:15 Received Troponin I Q3H Lab 03/24/22 19:35 Received Troponin I Q3H Lab 03/24/22 22:30 Ordered UA [Urinalysis and Microscopic] Stat Lab 03/24/22 19:21 Results - CT Data CT Scan: Chest Time Received: 19:[address] Reviewed: Yes: I have reviewed the patient's CT results, I have viewed the radiologist's in
[2022-03-24 16:57] LABS: Basophils # 0.1 K/mm3 (0-0.2); Basophils % 0.5 % (0.1-2.0); Eosinophils # 0.4 K/mm3 (0.0-0.4); Eosinophils % 2.8 % (0.1-12.0); Hematocrit 37.6 % (37.0-47.0); Hemoglobin 12.7 g/dL (12.2-16.2); Lymphocytes # 1.7 K/mm3 (0.7-4.5); Lymphocytes % 11.4 % (10-50); Mean Corpuscular HGB Conc 33.7 g/dL (31.8-35.4); Mean Corpuscular Hemoglobin 30.3 pg (27.0-31.2); Mean Corpuscular Volume 89.7 fl (81-99); Monocytes # 0.9 K/mm3 (0.1-1.0); Monocytes % 6.1 % (1.7-9.3); Neutrophils # 11.7 K/mm3 (1.8-7.8); Neutrophils % 79.2 % (37.0-80.0); Platelet Count 201 K/mm3 (142-424); Red Blood Count 4.19 M/mm3 (4.20-5.40); Red Cell Distribution Width 14.3 % (11.5-17.5); White Blood Count 14.8 K/mm3 (4.8-10.8)
[2022-03-24 16:59] LABS: Chloride 104 mmol/L (98-107); Potassium 3.6 mmoL/L (3.5-5.1); Sodium 136 mmol/L (136-145)
[2022-03-24 17:01] LABS: Blood Urea Nitrogen 16 mg/dl (7-17); Creatinine Clearance Estimated 44 mL/min (50-200); Estimated Glomerular Filt Rate 70 ml/min (>60); GFR (African American) 84 ML/MIN (>60)
[2022-03-24 17:02] LABS: Alanine Aminotransferase 16 U/L (12-78); Albumin Level 3.6 g/dl (3.5-5.0); Albumin/Globulin Ratio 1.2 (1.1-1.8); Alkaline Phosphatase 108 U/L (38-126); Anion Gap 9.6 mEq/L (5-15); Aspartate Amino Transferase 23 U/L (14-36); Calcium 9.2 mg/dl (8.4-10.2); Carbon Dioxide 26 mmol/L (22.0-30.0); Glucose 133 mg/dl (74-100); Total Protein,Serum 6.6 g/dl (6.3-8.2)
--- NOTE | 2022-03-24 17:09 | CT_ITS ---
PROCEDURE INFORMATION: Exam: CTA Chest With Contrast Exam date and time: 03/24/2022 6:22 PM Age: 76 years old Clinical indication: Pain; Chest pressure; Prior surgery; Additional info: Pleuritic pain TECHNIQUE: Imaging protocol: Computed tomographic angiography of the chest with contrast. 3D rendering (Not supervised by radiologist): MIP and/or 3D reconstructed images were created by the technologist. Radiation optimization: All CT scans at this facility use at least one of these dose optimization techniques: automated exposure control; mA and/or kV adjustment per patient size (includes targeted exams where dose is matched to clinical indication); or iterative reconstruction. Contrast material: ISOVUE 370; Contrast volume: 70 ml; Contrast route: INTRAVENOUS (IV); COMPARISON: CHESTW CT chest w con 04/04/2019 10:45 AM FINDINGS: Pulmonary arteries: Left lower lobe pulmonary emboli, clots within central and segmental branches greatest in the posterior left lower lobe. Aorta: No thoracic aortic aneurysm. No evidence of dissection in the chest. Atherosclerotic calcified plaques. Thyroid: A complex 1.8 cm right thyroid nodule with some rim calcifications series 5, image 18. Lungs: Some patchy ground-glass opacities in both lungs, which could be mild ground-glass edema or pneumonia. A 6 mm lateral right basilar pulmonary nodule coronal series 1001, image 46. However, this is stable compared with previous exam from 04/04/2019, see series 3, image 56, no further follow-up indicated. Dependent atelectasis in the posterior lower lungs. This is greatest at the posterolateral left lung base. Small wedge-shaped posterior left basilar airspace opacities which could be atelectasis or areas of infarction related to PE. Pleural spaces: Trace left pleural effusion. No pneumothorax. Heart: Mild cardiomegaly. Minimal pericardial effusion. Multiple coronary artery calcifications. Mitral annular calcifications. Heart RV/LV ratio: RV/LV ratio approximate 0.8, within normal limits. There is no significant reflux of contrast into the IVC and hepatic veins to suggest acute right heart strain. Lymph nodes: No significantly enlarged lymph nodes by short axis criteria. Spleen: Borderline splenomegaly 12.6 cm. Kidneys and ureters: Hypoattenuating renal cortical lesions are likely cysts, largest approximate 4.3 cm in the left kidney series 5, image 121 with simple appearance. No suspicious appearing lesions requiring follow-up on this limited exam, kidneys are incompletely imaged. Bones/joints: There are spinal degenerative changes, with multilevel disc narrrowing and spondylosis. Chronic T11 vertebral compression fracture compared with the prior CT from 2019. No acute appearing fracture or high-grade listhesis, as visualized. Prominent acromioclavicular arthritis and bilateral shoulder arthritis. Soft tissues: There are no soft tissue masses or fluid collections. IMPRESSION: 1. Acute pulmonary emboli, with prominent central and segmental emboli in the left lower lobe. 2. Mild cardiomegaly, coronary artery disease. No CT findings of acute right heart strain. 3. Patchy subsegmental atelectasis greatest at the left lung base, trace left pleural effusion. 4. Mild patchy bilateral ground-glass opacities which could be slight edema or pneumonia. 5. A complex 1.8 cm right thyroid nodule, which can be followed up non emergently per ACR guidelines below. 6. A 6 mm right basilar pulmonary nodule has remained stable since prior CT dating back to 04/04/2019; no further follow-up indicated. (Reference: Natasha) 7. Additional nonemergency and chronic findi
[2022-03-24 17:19] LABS: Troponin I < 0.01 ng/ml (0.00-0.034)
--- NOTE | 2022-03-24 17:56 | PC.NURSE ---
attempted to IV access, was unsuccesful. ER MD going to look with ultrasound
--- NOTE | 2022-03-24 17:56 | PC.NURSE ---
CT delayed due to having difficulty starting IV; aware
--- NOTE | 2022-03-24 18:19 | PC.NURSE ---
Dr. Calix was able to get line started; radiology notified patient is ready.
--- NOTE | 2022-03-24 18:41 | PC.NURSE ---
pt back from CT with systems testing laboratory technician via stretcher.
[2022-03-24 19:27] LABS: Microscopic, Urine URINE MICROSCOPIC (MICROSCOPIC)
[2022-03-24 19:31] LABS: Coronavirus 19, PCR Not Detected (NotDetected); Influenza A, PCR Not Detected (NotDetected); Influenza B, PCR Not Detected (NotDetected)
[2022-03-24 19:34] LABS: Appearance,Urine CLEAR (Clear); Bilirubin,Urine Negative (Negative); Blood, Urine Negative (Negative); Color,Urine YELLOW (Yellow); Glucose,Urine (UA) Negative (Negative); Ketones,Urine Negative (Negative); Leukocyte Esterase,Urine Negative (Negative); Nitrate,Urine Negative (Negative); Protein,Urine Negative (Negative); Specific Gravity, Urine <= 1.005 (1.005-1.030); Urobilinogen,Urine 0.2 EU/dl (0.2)
--- NOTE | 2022-03-24 19:35 | PC.NURSE ---
Pt ambulatory to bathroom with minimal assistance and use of cane. Pt back to bed and resting. No other needs at this time. Call light withing reach.
--- NOTE | 2022-03-24 19:51 | PC.NURSE ---
paged dr galeas for call for dr harrison
[2022-03-24 20:10] LABS: Troponin I < 0.01 ng/ml (0.00-0.034)
--- NOTE | 2022-03-24 20:30 | PC.NURSE ---
attempt to call report, unable to access receiving nurse. spoke with charge nurse anabelle and states she will have nurse return call.
--- NOTE | 2022-03-24 21:04 | PC.NURSE ---
PT ARRIVED TO FLOOR VIA W/C FROM ED W/STAFF @ 2103
[2022-03-24 21:08] LABS: Bacteria,Urine 1+ /lpf; WBC,Urine Occasional #/hpf (0-3)
[2022-03-24 23:37] LABS: Troponin I < 0.01 ng/ml (0.00-0.034)
[2022-03-25] VITALS: BP 122/55; PULSE 60; PULSE 63; RESP 18; TEMP 36.9; O2SAT 96
[2022-03-25 04:00] VITALS: BP 123/58; PULSE 65; PULSE 70; RESP 18; TEMP 37; O2SAT 97
--- NOTE | 2022-03-25 04:00 | PC.NURSE ---
pt admitted this shift, pt has slept well through the night, VSS, 02 at 2L pnc with sats 95-97%; lung sounds diminished, pt s/p umbilical hernia repair couple weeks ok and still has alexx to umbilicus, pt a&o x4; telemetry reveals sinus rythm, no other issues or concerns noted, VSS. pt complains of pain under left rib cage rated 7-8 and medicated twice through the night.
[2022-03-25 06:32] LABS: Basophils % 0.3 % (0.1-2.0); Eosinophils # 0.6 K/mm3 (0.0-0.4); Hematocrit 35.1 % (37.0-47.0); Hemoglobin 11.6 g/dL (12.2-16.2); Lymphocytes # 1.8 K/mm3 (0.7-4.5); Lymphocytes % 15.4 % (10-50); Mean Corpuscular HGB Conc 33.1 g/dL (31.8-35.4); Mean Corpuscular Volume 90.8 fl (81-99); Mean Platelet Volume 8.7 fl (7.4-10.4); Monocytes # 0.9 K/mm3 (0.1-1.0); Monocytes % 7.9 % (1.7-9.3); Neutrophils # 8.4 K/mm3 (1.8-7.8); Neutrophils % 71.4 % (37.0-80.0); Platelet Count 184 K/mm3 (142-424); Red Blood Count 3.87 M/mm3 (4.20-5.40); Red Cell Distribution Width 14.1 % (11.5-17.5); White Blood Count 11.7 K/mm3 (4.8-10.8)
[2022-03-25 07:03] LABS: Anion Gap 9.7 mEq/L (5-15); Blood Urea Nitrogen 14 mg/dl (7-17); Calcium 8.3 mg/dl (8.4-10.2); Carbon Dioxide 26 mmol/L (22.0-30.0); Chloride 105 mmol/L (98-107); Creatinine Clearance Estimated 44 mL/min (50-200); Estimated Glomerular Filt Rate 97 ml/min (>60); GFR (African American) 117 ML/MIN (>60); Glucose 116 mg/dl (74-100); Potassium 3.7 mmoL/L (3.5-5.1); Sodium 137 mmol/L (136-145)
--- NOTE | 2022-03-25 07:28 | P.CONPHA_ITS ---
[facility] Pharmacy VTE Monitoring - Patient Demographics Admission date: 03/25/22 Report Date: 03/25/22 Time: 07:28 Allergies/Adverse Reactions: Patient Allergies No Known Allergies Allergy (Verified 02/22/22 08:32) Height: 1.68 m Weight: 118 kg Patient Problems: Current Active Problems Pulmonary embolism on left (Acute) - VTE Risk Labs: VTE Related Lab Results Hgb 11.6 g/dL (12.2-16.2) L 03/25/22 06:17 Hct 35.1 % (37.0-47.0) L 03/25/22 06:17 Plt Count 184 K/mm3 (142-424) 03/25/22 06:17 BUN 14 mg/dl (7-17) 03/25/22 06:17 Creatinine 0.60 mg/dl (0.52-1.04) D 03/25/22 06:17 Estimated Creat Clear 44 mL/min (50-200) 03/25/22 06:17 Was VTE Risk Assessment Performed: Yes VTE Score: 3 VTE Risk Level: Low Risk Clinical Trial Participant: No - Prophylaxis VTE Prophylaxis Ordered?: Yes Types of VTE Prophylaxis: TEDS Knee High, Pharmacological (XARELTO)
[2022-03-25 08:00] VITALS: BP 117/65; PULSE 64; PULSE 69; RESP 18; TEMP 36.6; O2SAT 95
--- NOTE | 2022-03-25 08:14 | HMH.HP ---
*Admission Date: 03/24/22 *Chief complaint: Chest pain/dyspnea *History of present illness: 76-year-old white female with recent surgical procedure who had been doing well, lives at home with her sisters, but was afflicted with her ongoing obesity and somewhat poor mobility given her significant orthopedic and arthritis complaints who came to our office yesterday with a chief complaint of several weeks of dyspnea and chest pain the day before. She did breathless and had slightly diminished O2 saturations. She was admitted to hospital after the ER found that she had a left-sided pulmonary embolus. No evidence of right heart strain on CT scan. Responded very nicely to oxygen. [facility] History I have reviewed the patient's past medical history: Yes Medical History: Reports:: Hyperlipidemia, Hypertension, Lung Disease Denies:: Cancer, Diabetes Mellitus Type 1, Diabetes Mellitus Type 2, Internal Pacemaker, MRSA, Seizures *Have you ever received a pneumonia vaccine?: Yes *Have you received a flu vaccine this season?: No Other Medical History: Reports: Arthritis, Cataracts, Thyroid Disease, Other. Denies: Blood Transfusion Reaction Laterality Cases: Bilateral: Cataract, Other Other Surgeries: Yes: Cholecystectomy, Colonoscopy, Hernia Repair (umbilical), Other. No: Pacemaker Amputation: No Fractures: Yes (lt ankle fx repair (2011), lt ankle revision (2016)) - *Social History Last grade of school completed: High school graduate Smoking Status: Never smoker Alcohol Intake: never Substance Use Type: denies use *Occupational Status:: retired, disabled Housing: house Household Members: family *Travel in the last 8 weeks: None Family Hx:: No significant family history Review of Systems - Review of Systems Review of systems:: pertinent systems reviewed and negative unless documented below - *Neurologic Denies headache(s) Meds Home Medications Medication Instructions Recorded Confirmed Type furosemide 40 mg tablet 40 mg PO DAILY 90 Days #90 10/02/17 03/24/22 History aspirin 325 mg tablet 325 mg PO DAILY 12/25/18 03/24/22 History hydrocodone 5 mg-acetaminophen 325 1 tab PO QIDP PRN tab 12/17/20 03/24/22 History mg tablet losartan 100 mg tablet 100 mg PO DAILY tab 12/17/20 03/24/22 History allopurinoL [Allopurinol 300mg 300 mg PO DAILY 04/03/21 03/24/22 History tablet] Psyllium Husk [Metamucil] 0.52 gm PO DAILY 03/15/22 03/24/22 History Cholecalciferol (Vitamin D3) 2,000 unit PO DAILY 03/17/22 03/24/22 History [Vitamin D3 1,000 Unit Cap] [place]-3 Fatty Acids/Fish Oil 1 each PO DAILY 03/17/22 03/24/22 History [[place] 3 Fish Oil Softgel] Mag Hydrox/Aluminum Hyd/Simeth 1.7 each PO DAILY 03/24/22 03/24/22 History [Maalox Maximum Strength Susp] Allergies Allergy/AdvReac Type Severity Reaction Status Date / Time No Known Allergies Allergy Verified 02/22/22 08:32 Exam Vital signs and Labs for Last 24 Hours: Temp Pulse Resp BP Pulse Ox 98.6 F 70 18 123/58 L 97 03/25/22 04:00 03/25/22 04:00 03/25/22 04:00 03/25/22 04:00 03/25/22 04:00 Laboratory Results - last 24 hr 03/24/22 15:15: SARS-CoV-2 (PCR) Not detected, Influenza A Untype (PCR) Not detected, Influenza Type B (PCR) Not detected 03/24/22 16:40: WBC 14.8 H, RBC 4.19 L, Hgb 12.7, Hct 37.6, MCV 89.7, MCH 30.3, MCHC 33.7, RDW 14.3, Plt Count 201, MPV 9.0, Neut % (Auto) 79.2, Lymph % (Auto) 11.4, [place] % (Auto) 6.1, Eos % (Auto) 2.8, Baso % (Auto) 0.5, Neut # (Auto) 11.7 H, Lymph # (Auto) 1.7, [place] # (Auto) 0.9, Eos # (Auto) 0.4, Baso # (Auto) 0.1 03/24/22 16:40: Sodium 136, Potassium 3.6, Chloride 104, Carbon Dioxide 26, Anion Gap 9.6, BUN 16, Creatinine 0.80, Estimated Creat Clear 44, Estimated GFR 70, Est GFR ( Amer) 84, Glucose 133 H, Calcium 9.2, Total Bilirubin 1.0, AST 23, ALT 16, Alkaline Phosphatase 108, Troponin I < 0.01, Total Protein 6.6, Albumin 3.6, Globulin 3.0, Albumin/Globulin Ratio 1.2 03/24/22 19:21: Urine Color Yellow, Urine
--- NOTE | 2022-03-25 08:21 | CA_ITS ---
FINAL REPORT CLINICAL HISTORY: PE,SOA,OBESITY FINDINGS: Color Doppler, duplex Doppler and compression sonography of the bilateral lower extremities was performed. There is no evidence of deep venous thrombosis from the level of the groin to the calf. The deep veins are patent and compressible. IMPRESSION: No evidence of deep venous thrombosis bilateral lower extremities. Reviewed, Interpreted and Dictated by Ede Lorenzo III, MD Transcribed by Melina Ch Authenticated and [facility]
--- NOTE | 2022-03-25 08:21 | CA_ITS ---
APPROVED REPORT EXAM: Comprehensive 2D, Doppler, and color-flow Echocardiogram Liquid Fertilizer Servicer: Oralia Allison RVT Ht: 5 ft 6 in Wt: 260lbs BSA: 2.24 BP: 123/58 mmHg Indications: PE,SOA,OBESITY,CAD,HTN,HLD TDS-PT BODY HABITUS 2D Dimensions IVSd 0.64 cm F: 0.6-1.0 LVEF (Visual) 63.20 % PWd 0.80 cm F: 0.6 - 1.0 LA Volume 43.00 mL LVDd 4.07 cm F: 3.9 - 5.3 LA Volume Index 19.28 mL/m2 (M/F) 16-34 LVDs 2.69 cm F: 2.2 - 3.5 LVOT 2.92 cm (M/F) 1.5-2.5 M-Mode Dimensions LA Diam 4.98 cm (1.9-4.0) Ao Diam 3.43 cm (2.0-3.7) TAPSE 2.71 (<1.7) LV Diastology E Decel Time 250.00 (160-240 msec) E/A Ratio 0.9 MED E' 9.60 (< 7 cm/sec) E'/MED E' Ratio 12.50 (>14) LAT E' 8.20 (<10 cm/sec) E/LAT E' Ratio 14.63 (>14) Aortic Valve AO Peak GR. 11.80 mmHg Mitral Valve MV E Max Chris. 120.00 (40-130 cm/s) MV A Velocity 127.00 (40-130 cm/s) E/A Ratio 0.94 MV Decel. Time 250.00 (160-240 ms) MV PHT 73.00 ms Pulmonary Valve PV Peak Velocity 69.00 (50-150 cm/s) Tricuspid Valve TR P. Velocity 287.00 cm/s RAP Estimate 10.00 mmHg RVSP 43.00 mmHg Left Ventricle Left atrium is mildly enlarged, left ventricle is normal size mild concentric left ventricular hypertrophy, estimated ejection fraction 55% with no regional wall motion abnormality, grade 1 diastolic dysfunction seen without tissue Doppler evidence of raise left atrial pressure. Right Ventricle Right atrium and right ventricle are mildly enlarged with normal contractility. Aortic Valve Aortic valve is thickened and calcified without Doppler evidence of aortic stenosis or aortic insufficiency. Mitral Valve Mitral valve has mitral annular calcification that extends with anterior posterior mitral leaflet, there is no mitral stenosis, there is mild mitral regurgitation. Tricuspid Valve Tricuspid valve is grossly normal, there is mild tricuspid regurgitation, tricuspid regurgitation jet velocity is inadequate for calculation of the right ventricular systolic pressure. Pulmonic Valve Pulmonic valve is poorly visualized. Great Vessels Aortic root is normal size. Inferior vena cava is mildly dilated with normal inspiratory collapse. Pericardium No significant pericardial effusion noted. Conclusion 1. Biatrial enlargement, normal left ventricular size, preserved left ventricular systolic function, estimated ejection fraction 55% with no regional wall motion abnormality, grade 1 diastolic dysfunction seen without tissue Doppler evidence of raise left atrial pressure. 2. Mildly enlarged right ventricle with normal contractility. 3. Mild mitral and tricuspid regurgitation, tricuspid regurgitation jet velocity is inadequate for calculation of the right ventricular systolic pressure. 4. No significant pericardial effusion. 5. Inferior vena cava is mildly dilated with normal inspiratory collapse. Electronically signed by : Jean Marie Grewal MD 03/25/2022 15:32:41
--- NOTE | 2022-03-25 10:18 | HMH.PHAINT ---
home medication list verified using list from dr harrison's office
--- NOTE | 2022-03-25 10:30 | HMH.CNCARD ---
History of Present Illness Consult date: 03/25/22 Requesting physician: Nolan Resendiz Consult reason: chest pain Chief complaint: chest pain Additional Medical History:: Past medical hx Recent hernia repair obesity limited mobility due to obesity and arthritis HTN HLD Lung disease History of present illness: 76 year old white female with above past medical hx presented to ED yesterday from pcp office with complaint of left lower chest pain x 2 days and dyspnea x a few weeks. Reported pain as stabbing and sharp, worse with deep breathing. Patient recently underwent hernia repair with no post op complications, however, has had limited mobility. ED findings as follows: WBC 14.8, Hgb 12.7, creatinine 0.80, serial trops negative, and cta of chest was positive for prominent central and segmental emboli of left lower lung, negative for right heart strain. Patient was started on xarelto and is currently resting comfortably on NC. Denies pain or soa upon examination. [facility] History Medical History: Reports:: Hyperlipidemia, Hypertension, Lung Disease Denies:: Cancer, Diabetes Mellitus Type 1, Diabetes Mellitus Type 2, Internal Pacemaker, MRSA, Seizures *Have you ever received a pneumonia vaccine?: Yes *Have you received a flu vaccine this season?: No Other Medical History: Reports: Arthritis, Cataracts, Thyroid Disease, Other. Denies: Blood Transfusion Reaction Laterality Cases: Bilateral: Cataract, Other Other Surgeries: Yes: Cholecystectomy, Colonoscopy, Hernia Repair (umbilical), Other. No: Pacemaker Amputation: No Fractures: Yes (lt ankle fx repair (2011), lt ankle revision (2016)) - *Social History Last grade of school completed: High school graduate Smoking Status: Never smoker Alcohol Intake: never Substance Use Type: denies use *Occupational Status:: retired, disabled Housing: house Household Members: family *Travel in the last 8 weeks: None Family Hx:: No significant family history Meds Home Medications Medication Instructions Recorded Confirmed Type furosemide 40 mg tablet 40 mg PO DAILY 90 Days #90 10/02/17 03/24/22 History aspirin 325 mg tablet 325 mg PO DAILY 12/25/18 03/24/22 History hydrocodone 5 mg-acetaminophen 325 1 tab PO QIDP PRN tab 12/17/20 03/24/22 History mg tablet losartan 100 mg tablet 100 mg PO DAILY tab 12/17/20 03/24/22 History allopurinoL [Allopurinol 300mg 300 mg PO DAILY 04/03/21 03/24/22 History tablet] Cholecalciferol (Vitamin D3) 2,000 unit PO DAILY 03/17/22 03/24/22 History [Vitamin D3 1,000 Unit Cap] [place]-3 Fatty Acids/Fish Oil 2 cap PO DAILY 03/17/22 03/25/22 History [[place] 3 Fish Oil Softgel] [id number]/Sod Sulf,Bicarb,Cl/KCl 17 gm PO DAILY 03/25/22 03/25/22 History [Peg-3350 and Electrolytes Soln] Psyllium Husk/Aspartame [Metamucil 1 packet PO DAILY 03/25/22 03/25/22 History Fiber Singles Packet] Allergies Allergy/AdvReac Type Severity Reaction Status Date / Time No Known Allergies Allergy Verified 02/22/22 08:32 Exam Vital signs and Labs for Last 24 Hours: Temp Pulse Resp BP Pulse Ox 97.9 F 69 18 117/65 95 03/25/22 08:00 03/25/22 08:00 03/25/22 08:00 03/25/22 08:00 03/25/22 08:00 Laboratory Results - last 24 hr 03/24/22 15:15: SARS-CoV-2 (PCR) Not detected, Influenza A Untype (PCR) Not detected, Influenza Type B (PCR) Not detected 03/24/22 16:40: WBC 14.8 H, RBC 4.19 L, Hgb 12.7, Hct 37.6, MCV 89.7, MCH 30.3, MCHC 33.7, RDW 14.3, Plt Count 201, MPV 9.0, Neut % (Auto) 79.2, Lymph % (Auto) 11.4, [place] % (Auto) 6.1, Eos % (Auto) 2.8, Baso % (Auto) 0.5, Neut # (Auto) 11.7 H, Lymph # (Auto) 1.7, [place] # (Auto) 0.9, Eos # (Auto) 0.4, Baso # (Auto) 0.1 03/24/22 16:40: Sodium 136, Potassium 3.6, Chloride 104, Carbon Dioxide 26, Anion Gap 9.6, BUN 16, Creatinine 0.80, Estimated Creat Clear 44, Estimated GFR 70, Est GFR ( Amer) 84, Glucose 133 H, Calcium 9.2, Total Bilirubin 1.0, AST 23, ALT 16, Alkaline Phosphatase 108, Troponin I < 0.01
[2022-03-25 12:00] VITALS: BP 131/70; PULSE 66; RESP 18; TEMP 36.6; O2SAT 93
--- NOTE | 2022-03-25 13:33 | PC.NURSE ---
Removed every other staple, and placed steri strips. Told to do so by Dr. Soriano.
[2022-03-25 13:38] VITALS: BMI 41.8
--- NOTE | 2022-03-25 13:46 | HMH.PTEV ---
Physical Therapy Evaluation Rehab PT IP Evaluation Start: 03/25/22 08:21 Freq: ONCE Status: Active Protocol: Document 03/25/22 13:43 PHOKAREN (Rec: 03/25/22 13:46 PHORNE [id number]) Subjective/History History History 76 yowf adm to [facility] with increased SOA and found to have PE. She reports she lives with family, no step to enter the home and is generally independent with all mobility, only using a cane outside her home. Subjective Subjective Currently no c/o, It only bothers me if I take a deep breath. Rehab PT IP Eval Objective Appearance Patient Behavior Appropriate Patient Orientation Person,Place,Time Difficulty following instructions none Speech Pattern Clear Ambulation Patient Able to Ambulate Yes Ambulation Observation IP General Gait Pattern Observation No Deviations/Normal Ambulation Distance (feet) 30 Ambulation Assistive Device Straight Cane Ambulation Ability Independent Balance Ability to Arise Able, uses arms to help Sitting Balance Steady, safe Standing Balance Steady, wide stance Dynamic Sitting Balance Ability Good Dynamic Standing Balance Ability Good Transfers Bed Transfer Ability Independent Chair Transfer Ability Independent Sit to Stand Bed Transfer Ability Independent Sit to Stand Chair Transfer Ability Independent Rehab PT IP prob,goals,plan Problems Date of Evaluation: 03/25/22 Discharge Plan PT Discharge Plan Pt is independent with all mobility at this time and is appropriate to return home once medically stable. G -code Required No Eval Complexity Eval Charge Codes 65226 - Moderate Complexity PHYSICIAN CERTIFICATION: I certify the specified therapy services for Anastasiia Khan are required, authorized, and reviewed every 30 days.
--- NOTE | 2022-03-25 13:56 | HMH.OTEV ---
OT Inpatient Evaluation Rehab OT IP Evaluation Start: 03/25/22 08:21 Freq: ONCE Status: Complete Protocol: Document 03/25/22 13:51 [facility] (Rec: 03/25/22 13:56 [facility] [id number]) Rehab OT IP Assessment Subjective History Pt oriented x 3 on arrival. Pt agreeable to engage in therapy evaluation. Pt admitted via ED on 03/24/22 due to Pulmonary embolism. Pt reports prior to being in the hospital she lived with her sister and her neice. pt claims she was independent with all ADLs and IADLs. She used a cane during abmulation when out in public. She lives in a one story home with a ramp to enter (no steps). Subjective It only bothers me if I take a deep breath. Pt resting in bed on arrival. Pt completed bed mobility and went from supine to sitting at eob with sba. Pt donned her tennis shoes while sitting at eob with sba. Pt stood from eob and engaged in functional transfer to chair with sba. Pt sat down in chair with sba. Pt was left with call velázquez and all other needs in reach. Objective Patient Orientation Person,Place,Birthday Upper Extremity Gross ROM WFL Bed Mobility bed mobility-scooting,bed mobility - supine/sit,bed mobility - rolling Assist Level Supervision/Stand by Transfer Training Sit/Stand Transfer Assist Level Supervision/Stand by Chair Transfer Ability Supervision/Stand by Chair Transfer Technique Sit to/from Ambulatory Chair Transfer Assistive Devices None Lower Body Dressing Ability Standby Assistance Rehab OT IP prob,goals,plan Problems Date of Evaluation: 03/25/22 Rehab Potential Rehab Potential Innapropriate for Skilled Therapy Equipment Needs Assistive Devices None / NA Discharge Plan OT Discharge Plan At this time, pt appears to be at her baseline with functional transfers an
--- NOTE | 2022-03-28 08:33 | HMH.DCSUM ---
General - General Admission date:: 03/24/22 Discharge date: 03/25/22 HPI HPI: 76-year-old white female with recent surgical procedure who had been doing well, lives at home with her sisters, but was afflicted with her ongoing obesity and somewhat poor mobility given her significant orthopedic and arthritis complaints who came to our office yesterday with a chief complaint of several weeks of dyspnea and chest pain the day before. She did breathless and had slightly diminished O2 saturations. She was admitted to hospital after the ER found that she had a left-sided pulmonary embolus. No evidence of right heart strain on CT scan. Responded very nicely to oxygen. Hospital Course Hospital Course: Patient was admitted, was placed on oxygen and initiated on anticoagulation therapy. CT scan of chest showed no evidence of right heart strain. Given her oxygen requirement ordered an echocardiogram which showed normal wall motion abnormalities and ejection fraction and again, no evidence of right heart strain. Over the next day had been an inpatient she was able to go off oxygen and felt better. Dopplers of her legs were negative. PT/OT evaluated her and felt that she did not need services and she was completely independent. As result she was discharged with a sample pack of Xarelto 15 mg twice daily, she will come back to see me in the next week and we will discuss tapering up to a standard dose for ongoing anticoagulation/PE therapy over the next months. Given her recent surgery this is not an unprovoked PE and she should be able to come off anticoagulation in 3 to 4 months. Objective Vital signs: Temp Pulse Resp BP Pulse Ox 98 F 66 18 131/70 93 L 03/25/22 12:00 03/25/22 12:00 03/25/22 12:00 03/25/22 12:00 03/25/22 12:00 no acute distress - *Routine HEENT Exam Head: Present: normocephalic Eye: Present: EOMI, PERRL ENT: Present: mucous membranes moist - *Routine Neck Exam Present: supple - *Routine Respiratory Exam Present: CTA bilaterally - *Routine Cardiovascular Exam Present: RRR - *Routine Abdominal Exam Present: soft, normoactive bowel sounds. Absent: tenderness - *Routine Extremities Exam Absent: cyanosis, clubbing, edema - *Routine Skin Exam Present: warm. Absent: rash - Detailed Eye Exam Eyelids: Bilateral normal inspection DS: Diagnosis - Discharge Diagnosis (1) Pulmonary embolism on left Status: Acute (2) HTN (hypertension) Status: Acute Discharge Plan - Patient Discharge Instructions ACTIVITY: Continue current activity, Ambulate as tolerated DIET: regular diet Patient Instructions: Pulmonary Embolism, DI for Pulmonary Embolism, DI for Respiratory Failure, Respiratory Failure - Follow up Plan Follow up with: Nolan Resendiz MD [Staff Physician] - 03/30/22 9:45 am (03/30/22 at 0945) Disposition: Home, Self-Care Condition at discharge:: Stable Home Medications: Home Medications Medication Instructions Recorded Confirmed Type furosemide 40 mg tablet 40 mg PO DAILY 90 Days #90 10/02/17 03/24/22 History aspirin 325 mg tablet 325 mg PO DAILY 12/25/18 03/24/22 History hydrocodone 5 mg-acetaminophen 325 1 tab PO QIDP PRN tab 12/17/20 03/24/22 History mg tablet losartan 100 mg tablet 100 mg PO DAILY tab 12/17/20 03/24/22 History allopurinoL [Allopurinol 300mg 300 mg PO DAILY 04/03/21 03/24/22 History tablet] Burns-3 Fatty Acids/Fish Oil 2 cap PO DAILY 03/17/22 03/25/22 History [Burns 3 Fish Oil Softgel] Cholecalciferol (Vitamin D3) 1,000 unit PO DAILY 03/25/22 Rx [Vitamin D3 1,000 Unit Cap] Docusate Sodium [Docusate Sodium 100 mg PO DAILY cap 03/25/22 Rx 100mg Cap] [id number]/Sod Sulf,Bicarb,Cl/KCl 17 gm PO DAILY 03/25/22 03/25/22 History [Peg-3350 and Electrolytes Soln] Psyllium Husk/Aspartame [Metamucil 1 packet PO DAILY 03/25/22 03/25/22 History Fiber Singles Packet] Rivaroxaban [Xarelto 15mg tablet] 15 mg PO
--- NOTE | 2022-03-28 15:08 | CARE MANAGER ---
Attempted post-discharge phone interview, no answer.
== END 2022-03-25 15:20 | disposition home or self-care (01) | DRG 176 ==
LOC: ER 19:56 → 2ND 03-25 01:46
PROVIDERS: Admitting Provider Family Medicine; Emergency Provider Emergency Medicine; PCP Nurse Practitioner Family; Visit Provider Internal Medicine Adolescent Medicine
DX: I26.99 Other pulmonary embolism without acute cor pulmonale (principal); Z79.899 Other long term (current) drug therapy; Z20.822 Contact with and (suspected) exposure to COVID-19; I10 Essential (primary) hypertension; E78.5 Hyperlipidemia, unspecified; M19.90 Unspecified osteoarthritis, unspecified site; R60.0 Localized edema
CPT/HCPCS: 36415; 71046; 71275; 80048; 80053; 81001; 84484; 85025; 85378; 93306; 93970; 97162; 97166; 99285; C9803; Q9967; U0003; U0005

== ENCOUNTER → 2022-08-08 09:20 | Outpatient (CLI) | payer MEDICARE, OTHER, SELFPAY ==
--- NOTE | 2022-08-08 09:24 | XR_ITS ---
FINAL REPORT CLINICAL HISTORY: RT ANKLE AND JOINT PAIN FINDINGS: RIGHT ANKLE Three views of the right ankle were obtained. There is no acute fracture or dislocation. There are mild and moderate degenerative changes. There are calcaneal spurs. There is soft tissue swelling. There is a chronic calcification inferior to the lateral malleolus. There is soft tissue calcification in the lateral lower leg. IMPRESSION: Mild and moderate degenerative changes with calcaneal spurs. No acute bony abnormality. Reviewed, Interpreted and Dictated by Ede Lorenzo III, MD Transcribed by Blanca Urbina Authenticated and [facility]
--- NOTE | 2022-08-08 09:24 | XR_ITS ---
FINAL REPORT CLINICAL HISTORY: RT ANKLE AND JOINT PAIN FINDINGS: RIGHT FOOT Three views of the right foot demonstrate no acute fracture or dislocation. There is hallux valgus deformity. There are mild and moderate degenerative changes. The soft tissues are unremarkable. IMPRESSION: Mild and moderate degenerative changes with hallux valgus deformity. No acute bony abnormality. Reviewed, Interpreted and Dictated by Ede Lorenzo III, MD Transcribed by Blanca Urbina Authenticated and [facility]
== END ==
PROVIDERS: PCP Nurse Practitioner Family; Visit Provider Nurse Practitioner Family
DX: M25.571 Pain in right ankle and joints of right foot (principal)
CPT/HCPCS: 73610; 73630

== ENCOUNTER → 2022-09-19 08:54 | Outpatient (CLI) | payer MEDICARE, OTHER, SELFPAY ==
--- NOTE | 2022-09-19 09:00 | XR_ITS ---
FINAL REPORT TECHNIQUE: Bone densitometry calculations of the lumbar spine and left hip were obtained. CLINICAL HISTORY: . SCREENING, POST MENOPAUSAL FINDINGS: DEXA BONE DENSITY AXIAL SKELETON Using L1-4, the bone mineral density of the spine is 1.268 g/cm2, corresponding to T-score of 2.0 and a Z-score of 4.6. Using the left hip, the bone mineral density of the femoral neck is 0.729 g/cm2, corresponding to a T-score of -1.1 and a Z-score of 1.1. FRAX 10 year fracture risk is 1.6% for a hip fracture and 9.7% for a major osteoporotic fracture. NOTE: T-score: Standard deviation compared with peak bone mass of young adult mean. *Following the recommendations of the International Society of Bone densitometry, classification of hip BMD is based on the lower of two T-scores; total hip or femoral neck. IMPRESSION: Bone mineral density of the lumbar spine within the range of normal. Bone mineral density of the left hip within the range of osteopenia. FRAX as above. Reviewed, Interpreted and Dictated by Chichi Ryan MD Transcribed by Blanca Urbina Authenticated and . [facility]
== END ==
PROVIDERS: PCP Nurse Practitioner Family; Visit Provider Nurse Practitioner Family
DX: Z78.0 Asymptomatic menopausal state (principal)
CPT/HCPCS: 77080

== ENCOUNTER → 2022-10-12 20:04 | Outpatient (CLI) | payer MEDICARE, OTHER, SELFPAY | PROVIDERS: PCP Nurse Practitioner Family; Visit Provider Specialist | DX: R09.02 Hypoxemia; R06.83 Snoring; G47.30 Sleep apnea, unspecified | CPT/HCPCS: 95811 ==

== ENCOUNTER 2022-11-14 19:49 | Emergency (ER) | payer MEDICARE, OTHER, SELFPAY ==
[2022-11-14 19:49] VITALS: BP 114/68; PULSE 58; RESP 20; TEMP 36.8; O2SAT 97; BMI 43.9
[2022-11-14 20:01] VITALS: BP 131/55; PULSE 56; O2SAT 97
--- NOTE | 2022-11-14 20:02 | XR_ITS ---
PROCEDURE INFORMATION: Exam: XR Left Knee Exam date and time: 11/14/2022 8:26 PM Age: 77 years old Clinical indication: Injury or trauma; Fall; Blunt trauma; Knee; Left; Additional info: Fall, pain TECHNIQUE: Imaging protocol: Radiologic exam of the left knee. Views: 3 views. COMPARISON: EXTLLWO CT EXT.LOWER-LT-W/O CONTRAST 02/09/2016 1:27 PM FINDINGS: Bones/joints: Comminuted fracture of the distal femur metaphysis with posterior angulation of the distal fracture components noted. Possible intra-articular extension noted on the lateral view. No other fracture seen. Advanced tricompartmental degenerative changes. Joint effusion with fat fluid level compatible with possible intra-articular extension. Soft tissues: Normal. IMPRESSION: Distal femur fracture with possible intra-articular extension and associated joint effusion with fat fluid level.
--- NOTE | 2022-11-14 20:04 | HMH.EDFALL ---
Discharge Plan Disposition Patient Disposition: Xfer Short-Term Hosp Prescriptions Prescriptions: No Action hydrocodone-acetaminophen 5-325 mg tablet 1 tab PO QIDP PRN (Reason: Moderate Pain) Label Comments: TAKE ONE TABLET BY MOUTH FOUR TIMES DAILY NEEDED MAY CAUSE DROWSINESS losartan 100 mg tablet 100 mg PO DAILY Label Comments: TAKE ONE TABLET BY MOUTH EVERY DAY furosemide 40 mg tablet 40 mg PO DAILY 90 Days Qty: 90 Label Comments: diclofenac sodium 1 % gel 4 g topical QID PRN (Reason: pain ) 30 Days Qty: 100 2RF Rx Instructions: apply to single, ankle, foot; for foot includes sole/toes/top of foot polyethylene glycol 3350 [Miralax] 17 gram/dose powder 17 g PO DAILY aspirin 325 mg tablet 325 mg PO DAILY cholecalciferol (vitamin D3) 50 mcg (2,000 unit) capsule 50 mcg PO DAILY Fish Oil 900 mg-360 mg- 455 mg-1,000 mg capsule See Rx Instructions PO .COMPLEX Rx Instructions: orally daily; nitroglycerin [Nitrostat] 0.4 mg tablet, sublingual 0.4 mg sublingual Q5M PRN (Reason: chest pain) Qty: 20 0RF Rx Instructions: do not exceed 3 doses per episode allopurinol 300 MG tablet 300 mg PO DAILY Citrucel 500 mg Tablet 500 mg PO DAILY Referrals Follow up/Referrals: Dominga Allen APRN [Primary Care Provider] - See instructions Clinical Impressions Clinical Impression: Femur fracture, left Discharge ED Provider: Jethro (ED),Chicho Mauricio [facility] General Chief Complaint: Fall Stated Complaint: Fall/knee pain Time Seen by Provider: 11/14/22 20:04 Mode of Arrival: EMS Source of Information: Patient, EMS and Medical Record Limitations: No Limitations Description of Symptoms (Recalled from ER Triage Doc. by RN): Pt c/o L knee pain after fall this evening. She reports she heard & felt a pop to the left knee. She denies hitting her heard or any other injury. States she fell d/t tripping. She does report a hx of sciatic issues to R leg and takes chronic pain medication for this and arthritis. Pulses and manager material to LLE are WNL. History of Present Illness HPI Narrative: stepped off and felt pop lt knee with swelling and unable to bear wt - no other c/o - has hx of pul emboli in past - not on anti-coag complaint: fall Onset (ago): hour(s) Fall from: other (stepping off porch ) Fall witnessed: yes, by family Place fall occurred: home Loss of consciousness: none Prolonged down time: no Symptoms prior to fall: none Severity: moderate Associated symptoms (after fall): unable to walk Related Data Home Medications Medication Instructions Recorded Confirmed furosemide 40 mg tablet 40 mg PO DAILY Fluid 90 days ##90 10/02/17 11/14/22 hydrocodone 5 mg-acetaminophen 325 1 tab PO QIDP PRN Moderate Pain 12/17/20 11/14/22 mg tablet losartan 100 mg tablet 100 mg PO DAILY Hypertension 12/17/20 11/14/22 allopurinol 300 mg tablet 300 mg PO DAILY gout 04/03/21 11/14/22 polyethylene glycol 3350 17 17 g PO DAILY constipation 08/30/22 11/14/22 gram/dose oral powder (Miralax) aspirin 325 mg tablet 325 mg PO DAILY CAD 10/25/22 11/14/22 cholecalciferol (vitamin D3) 50 50 mcg PO DAILY Supplement 10/25/22 11/14/22 mcg (2,000 unit) capsule omega-3 900 mg-dha 360 mg-epa 455 See Rx Instructions PO .COMPLEX 10/25/22 11/14/22 mg-fish oil 1,000 mg capsule (Fish Supplement Oil) methylcellulose (laxative) 500 mg 500 mg PO DAILY constipation 11/14/22 11/14/22 tablet (Citrucel) Previous Rx's Medication Instructions Recorded diclofenac sodium 1 % topical gel 4 g topical QID PRN pain 30 days 10/26/22 #100 grams nitroglycerin 0.4 mg sublingual 0.4 mg sublingual Q5M PRN chest 11/04/22 tablet (Nitrostat) pain #20 tabs Allergies Allergy/AdvReac Type Severity Reaction Status Date / Time No Known Allergies Allergy Verified 11/09/22 08:47 [facility] Disclaimer: The information contained in this section may have b
--- NOTE | 2022-11-14 20:12 | XR_ITS ---
PROCEDURE INFORMATION: Exam: XR Chest Exam date and time: 11/14/2022 8:32 PM Age: 77 years old Clinical indication: Injury or trauma; Fall; Blunt trauma (contusions or hematomas) TECHNIQUE: Imaging protocol: Radiologic exam of the chest. Views: 1 view. COMPARISON: CR XR CHEST 2V 03/24/2022 3:04 PM FINDINGS: Lungs: Unremarkable. No consolidation. Pleural spaces: Unremarkable. No pleural effusion. No pneumothorax. Heart/Mediastinum: Unremarkable. No cardiomegaly. Bones/joints: Unremarkable. IMPRESSION: No acute findings.
--- NOTE | 2022-11-14 20:12 | XR_ITS ---
PROCEDURE INFORMATION: Exam: XR Pelvis Exam date and time: 11/14/2022 8:32 PM Age: 77 years old Clinical indication: Injury or trauma; Fall; Blunt trauma (contusions or hematomas); Does not apply; Pelvic region TECHNIQUE: Imaging protocol: Radiologic exam of the pelvis. Views: 1 or 2 view. COMPARISON: CT ABDOMEN PELVIS W CON 04/02/2021 6:41 PM FINDINGS: Bones/joints: Degenerative changes of both hips and SI joints. No acute fracture. Soft tissues: Unremarkable. IMPRESSION: No acute abnormality.
--- NOTE | 2022-11-14 20:21 | PC.NURSE ---
XR is at bedside at this time
--- NOTE | 2022-11-14 20:43 | CT_ITS ---
PROCEDURE INFORMATION: Exam: CT Left Lower Extremity Without Contrast, Knee Exam date and time: 11/14/2022 7:48 PM Age: 77 years old Clinical indication: Abnormal findings; Abnormal imaging study; Additional info: Fall, abn XR TECHNIQUE: Imaging protocol: CT of the left lower extremity without contrast was performed. Exam focused on the knee. 3D rendering (Not supervised by radiologist): MIP and/or 3D reconstructed images were created by the technologist. Radiation optimization: All CT scans at this facility use at least one of these dose optimization techniques: automated exposure control; mA and/or kV adjustment per patient size (includes targeted exams where dose is matched to clinical indication); or iterative reconstruction. REPORTING DATA: Count of CT and Cardiac NM exams in prior 12 months: This patient has received [address] and 0 known cardiac nuclear medicine studies in the 12 months prior to the current study. COMPARISON: EXTLLWO CT EXT.LOWER-LT-W/O CONTRAST 02/09/2016 1:27 PM and left knee x-ray 11/14/2022 FINDINGS: Bones/joints: Markedly comminuted fracture of the distal femur metaphysis with posterior angulation and medial displacement of the major distal fracture components. A associated vertically oriented fracture line is noted at extends through the femur epiphysis to the articular margin. No other fracture or dislocation seen. Advanced degenerative changes are noted. A small to moderate size high dense suprapatellar joint effusion compatible with hemarthrosis noted. Soft tissues: Normal. Other findings: No other findings. IMPRESSION: Comminuted distal femur fracture with intra-articular extension and associated hemarthrosis.
[2022-11-14 20:56] VITALS: BP 128/55; PULSE 59; O2SAT 95
--- NOTE | 2022-11-14 20:58 | PC.NURSE ---
pt back from ct scan, giving pain medications at this time
[2022-11-14 21:20] LABS: Chloride 106 mmol/L (98-107); Potassium 4.1 mmoL/L (3.5-5.1); Sodium 142 mmol/L (136-145)
[2022-11-14 21:23] LABS: Alanine Aminotransferase 18 U/L (12-78); Albumin Level 4.3 g/dl (3.5-5.0); Albumin/Globulin Ratio 1.4 (1.1-1.8); Alkaline Phosphatase 110 U/L (38-126); Anion Gap 13.1 mEq/L (5-15); Aspartate Amino Transferase 32 U/L (14-36); Bilirubin,Total 0.6 mg/dl (0.2-1.3); Blood Urea Nitrogen 25 mg/dl (7-17); Carbon Dioxide 27 mmol/L (22.0-30.0); Creatinine Clearance Estimated 31 mL/min (50-200); Estimated Glomerular Filt Rate 43 ml/min (>60); GFR (African American) 53 ML/MIN (>60); Total Protein,Serum 7.3 g/dl (6.3-8.2)
[2022-11-14 21:24] LABS: Calcium 9.2 mg/dl (8.4-10.2); Glucose 126 mg/dl (74-100)
--- NOTE | 2022-11-14 21:24 | PC.NURSE ---
Dr. Morelos s/w Dr. Haile (orthopedic on-call)
[2022-11-14 21:29] LABS: Coronavirus 19, PCR Not Detected (NotDetected); Influenza A, PCR Not Detected (NotDetected); Influenza B, PCR Not Detected (NotDetected)
[2022-11-14 21:35] VITALS: BP 121/52; PULSE 60; O2SAT 94
[2022-11-14 21:36] VITALS: BP 121/52; PULSE 60; RESP 16; TEMP 36.8; O2SAT 95
[2022-11-14 21:38] LABS: Basophils # 0.1 K/mm3 (0-0.2); Basophils % 0.5 % (0.1-2.0); Eosinophils # 0.2 K/mm3 (0.0-0.4); Eosinophils % 1.4 % (0.1-12.0); Hematocrit 44.1 % (37.0-47.0); Hemoglobin 14.4 g/dL (12.2-16.2); Lymphocytes # 1.8 K/mm3 (0.7-4.5); Mean Corpuscular HGB Conc 32.6 g/dL (31.8-35.4); Mean Corpuscular Hemoglobin 29.8 pg (27.0-31.2); Mean Corpuscular Volume 91.3 fl (81-99); Mean Platelet Volume 9.8 fl (7.4-10.4); Monocytes # 0.6 K/mm3 (0.1-1.0); Monocytes % 3.9 % (1.7-9.3); Neutrophils # 12.4 K/mm3 (1.8-7.8); Neutrophils % 82.3 % (37.0-80.0); Platelet Count 213 K/mm3 (142-424); Red Blood Count 4.83 M/mm3 (4.20-5.40); Red Cell Distribution Width 14.2 % (11.5-17.5); White Blood Count 15.1 K/mm3 (4.8-10.8)
[2022-11-14 21:39] LABS: MANUAL DIFFERENTIAL MANUAL DIFFERENTIAL (MANUAL DIFF)
--- NOTE | 2022-11-14 21:46 | PC.NURSE ---
Rounded on patient, no needs voiced at this time.
[2022-11-14 21:47] LABS: NT Pro Brain Natriuretic Pep. 229 pg/mL (0-450)
--- NOTE | 2022-11-14 21:49 | PC.NURSE ---
Dr. Morelos s/w transfer center. They asked for images to be power shared, this was completed and they will call back.
--- NOTE | 2022-11-14 21:54 | PC.NURSE ---
Dr. Morelos s/w transfer center team
[2022-11-14 22:10] LABS: Lymphocytes % 12 % (10-50); Monocytes % 2 % (2-9); Neutrophils % 86 % (42-76); Platelet Estimate Normal; RBC Morphology Normal; Total Cells Counted 100
--- NOTE | 2022-11-14 22:13 | PC.NURSE ---
EMS contacted for transport. Will arrive shortly
[2022-11-14 22:19] VITALS: BP 121/53; PULSE 60; RESP 16; TEMP 36.6; O2SAT 98
--- NOTE | 2022-11-14 22:28 | PC.NURSE ---
[facility] at bedside to transport pt to
== END 2022-11-14 22:26 | disposition short-term general hospital (02) ==
PROVIDERS: Emergency Provider Emergency Medicine; PCP Nurse Practitioner Family
DX: S72.302A Unspecified fracture of shaft of left femur, initial encounter for closed fracture (principal); W01.0XXA Fall on same level from slipping, tripping and stumbling without subsequent striking against object, initial encounter; Y92.019 Unspecified place in single-family (private) house as the place of occurrence of the external cause; M54.41 Lumbago with sciatica, right side; I10 Essential (primary) hypertension; Z82.3 Family history of stroke; Z82.49 Family history of ischemic heart disease and other diseases of the circulatory system; Z20.822 Contact with and (suspected) exposure to COVID-19; R06.09 Other forms of dyspnea; Z86.711 Personal history of pulmonary embolism; Z86.79 Personal history of other diseases of the circulatory system
CPT/HCPCS: 29515; 71045; 72170; 73562; 73700; 80053; 83880; 85007; 85025; 96361; 96374; 96375; 99285; C9803; J2405; U0003; U0005

== ENCOUNTER → 2023-01-09 12:39 | Outpatient (CLI) | payer MEDICARE, OTHER, SELFPAY ==
--- NOTE | 2023-01-09 12:40 | US_ITS ---
FINAL REPORT TECHNIQUE: Sonographic images of the thyroid were obtained. CLINICAL HISTORY: hx goiter FINDINGS: THYROID ULTRASOUND Exam is technically difficult due to patient condition. The right thyroid gland is poorly visualized measuring 2.6 x 2.4 x 1.7 cm. The parenchyma shows normal echogenicity. Previously described right lobe nodule is no longer present, probably related to technique. The left thyroid gland is poorly visualized measuring 2.8 x 2.1 x 1.3 cm. The parenchyma shows normal echogenicity. There is an 8 mm, ill-defined, hypoechoic nodule in the left lobe which previously measured 7 mm. This has not significantly changed. Previously described isoechoic nodule in the left lobe is no longer evident. IMPRESSION: Thyroid nodules not well seen on current exam probably due to patient body habitus. Left thyroid nodule, slightly enlarged from the prior exam consistent with a TI-RADS 4 nodule. Twelve month follow-up is recommended based on prior ultrasound findings. Reviewed, Interpreted and Dictated by Shyann Murrell MD Transcribed by Racheal Kumar Authenticated and [facility]
== END ==
PROVIDERS: PCP Nurse Practitioner Family; Visit Provider Otolaryngology
DX: E04.9 Nontoxic goiter, unspecified (principal)
CPT/HCPCS: 76536

== ENCOUNTER 2023-08-17 10:00 | Outpatient (RCR) | payer MEDICARE, OTHER, SELFPAY ==
--- NOTE | 2023-06-22 12:41 | HMH.PTOPEV ---
PT Outpatient Evaluation Rehab PT Outpatient Evaluation Start: 06/22/23 09:01 Freq: Status: Active Protocol: Document 06/22/23 09:02 [facility] (Rec: 06/22/23 10:09 [facility] [id number]) E-signed By Peter Aguilar, PT Outpatient Therapy Subjective History Subjective History Pt. is a 77 year old female who presents to [facility] in [place] for the initial evaluation this date(06/22/23) w/ c/o subacute and intermittent RLE foot/ankle/ knee sharp P!, weakness, and giving out of insidious onset since February 2023. Pt. reports symptoms worsen when I stand and twist on that knee. Pt. describes symptoms as a sharp and shooting P! that originates in the palmar surface of the MTPs that shoot superior to the knee along the posterior and posterolateral aspect of calf. Pt. also vocalizes symptoms worsening w/ getting into/out of her vehicle. Pt. denies numbness/tingling into the RLE , however, vocalizes having a history of sciatica in the RLE . Pt. denies having any recent diagnostic imaging of the RLE knee. Pt. reports having symptom relief, it's the only thing that helps, w/ gel injections, w/ the most recent injection being in February or March per pt. report. Pt. RTMD in 3 months. Pt. reports fracturing her LLE knee that resulted in surgery and spending two months in [place] to rehabilitate the LLE knee post-surgically in the summer months of 2022. Pt. reports initially noticing s/s of the RLE secondary to compensation from the LLE knee . Current medications include Allopurinol, fluid pill,
== END 2023-08-22 10:26 | disposition home or self-care (01) ==
LOC: PT 10:00
PROVIDERS: PCP Nurse Practitioner Family; Visit Provider Nurse Practitioner Family
DX: M17.11 Unilateral primary osteoarthritis, right knee (principal)
CPT/HCPCS: 97010; 97014; 97110; 97163; 97164; 97530; G0283

== ENCOUNTER 2023-11-02 16:07 | Outpatient (CLI) | payer MEDICARE, OTHER, SELFPAY ==
--- NOTE | 2023-11-02 16:13 | XR_ITS ---
PROCEDURE INFORMATION: Exam: XR Left Femur Exam date and time: 11/02/2023 4:22 PM Age: 78 years old Clinical indication: Pain; Thigh; Prior surgery; Surgery date: 6+ months; Surgery type: Left femur November 2022; Additional info: Closed fracture of lt femur/ lt anterior knee pain TECHNIQUE: Imaging protocol: Radiologic exam of the left femur. Views: 2 views. Total images: 5 COMPARISON: CR XR KNEE LT 3V 11/02/2023 4:22 PM FINDINGS: Bones/joints: Intramedullary soraida present within the femur without evidence of complications. Fracture of the distal femur noted. Degenerative changes of the left hip in the. Soft tissues: No soft tissue swelling. Vasculature: Mild atherosclerotic disease. IMPRESSION: 1. Intramedullary soraida present within the femur without evidence of complications. 2. Fracture of the distal femur noted. 3. Degenerative changes of the left hip in the.
--- NOTE | 2023-11-02 16:13 | XR_ITS ---
PROCEDURE INFORMATION: Exam: XR Left Knee Exam date and time: 11/02/2023 4:22 PM Age: 78 years old Clinical indication: Pain; Prior surgery; Surgery date: 6+ months; Surgery type: Left femur November 2022; Patient HX: States knee makes a clicking noise when walking; Additional info: Closed fracture of lt femur/lt anterior knee pain TECHNIQUE: Imaging protocol: Radiologic exam of the left knee. Views: 3 views. Total images: 6 COMPARISON: CR XR KNEE LT 3V 11/14/2022 8:26 PM FINDINGS: Bones/joints: Postoperative changes of the distal femur with intramedullary soraida and screws in place. Comminuted fracture of the distal femur noted. [id number] degenerative changes of the knee. Soft tissues: No soft tissue swelling. IMPRESSION: 1. Postoperative changes of the distal femur with intramedullary soraida and screws in place. 2. Comminuted fracture of the distal femur noted. 3. [id number] degenerative changes of the knee.
== END 2023-11-02 23:59 ==
PROVIDERS: PCP Internal Medicine Adolescent Medicine; Visit Provider Nurse Practitioner Family
DX: M25.562 Pain in left knee (principal); Z87.81 Personal history of (healed) traumatic fracture
CPT/HCPCS: 73552; 73562

== ENCOUNTER 2024-01-30 10:29 | Outpatient (CLI) | payer MEDICARE, OTHER, SELFPAY ==
--- NOTE | 2024-01-30 10:29 | US_ITS ---
FINAL REPORT TECHNIQUE: Real-time grayscale and color ultrasound of the thyroid was performed. CLINICAL HISTORY: nodules COMPARISON: 01/09/2023 FINDINGS: The thyroid gland measures 41 x 21 x 15 mm on the right and 42 x 21 x 15 mm on the left. The isthmus measures 3 mm. The parenchyma is unremarkable . Nodules: There are multiple bilateral nodules. The largest on the right measures 1.2 cm, complex. The largest on the left measures 1.3 cm, hypoechoic, taller than wide, and increased in size, TR 5. IMPRESSION: Left TR 5 nodule. Recommend biopsy per TI-RADS criteria. Reviewed, Interpreted and Dictated by Tito Barraza MD Transcribed by Yissel Mcnamara Authenticated and [facility]
== END 2024-01-30 23:59 | disposition home or self-care (01) ==
LOC: RAD 10:29
PROVIDERS: PCP Nurse Practitioner Family; Visit Provider Nurse Practitioner
DX: E04.9 Nontoxic goiter, unspecified (principal)
CPT/HCPCS: 76536

== ENCOUNTER 2024-02-19 10:00 | Outpatient (RCR) | payer MEDICARE, OTHER, SELFPAY | END 2024-03-04 14:45 | disposition home or self-care (01) | LOC: PT 10:00 | PROVIDERS: Visit Provider Orthopaedic Surgery | DX: M25.561 Pain in right knee (principal) | CPT/HCPCS: 97010; 97014; 97110; 97163; 97530; G0283 ==

== ENCOUNTER 2024-03-21 13:26 | Outpatient (CLI) | payer MEDICARE, OTHER, SELFPAY ==
--- NOTE | 2024-03-21 13:59 | XR_ITS ---
FINAL REPORT CLINICAL HISTORY: ankle pain FINDINGS: RIGHT ANKLE SERIES Three views were obtained. There are multiple chronic appearing avulsion fractures at the tip of the medial malleolus. There is severe soft tissue swelling over the medial malleolus. The ankle mortise is intact with mild degenerative changes. IMPRESSION: Multiple chronic appearing avulsion fractures at the tip of the medial malleolus. Given soft tissue swelling, MRI should be considered to assess for a more acute injury. Authenticated and [facility]
== END 2024-03-21 23:59 | disposition home or self-care (01) ==
LOC: RAD 13:27
PROVIDERS: PCP Nurse Practitioner Family; Visit Provider Podiatrist
DX: M25.571 Pain in right ankle and joints of right foot (principal)
CPT/HCPCS: 73610

== ENCOUNTER 2024-04-19 07:44 | Outpatient (CLI) | payer MEDICARE, OTHER, SELFPAY ==
--- NOTE | 2024-04-19 07:45 | US_ITS ---
FINAL REPORT CLINICAL HISTORY: LT THYROID NODULE BX FNA -- MARYCHUY EPPS FINDINGS: ULTRASOUND GUIDED THYROID BIOPSY HISTORY: Left thyroid nodule/mass. TECHNIQUE: Informed consent was obtained from the patient. Limited sonographic evaluation of thyroid gland was performed to localize lesion of interest. The neck was prepped in a routine sterile fashion and locally anesthetized with 1% lidocaine. FNA was performed with 25-gauge needle under direct sonographic visualization. Four FNA passes were made. Cytology is pending. The nodule was technically difficult to biopsy due to location and depth. Procedure was well tolerated. CONCLUSION: Successful thyroid fine needle aspiration of a left thyroid nodule. Nodule was technically difficult to biopsy due to location and depth. Reviewed, Interpreted and Dictated by Ede Lorenzo III, MD Transcribed by Sariah Hernández PA-C Authenticated and [facility]
== END 2024-04-19 23:59 | disposition home or self-care (01) ==
LOC: RAD 07:45
PROVIDERS: PCP Nurse Practitioner Family; Visit Provider Nurse Practitioner
DX: E04.1 Nontoxic single thyroid nodule (principal)
CPT/HCPCS: 10005; 88173; 88305

== ENCOUNTER 2024-04-20 10:28 | Outpatient (CLI) | payer MEDICARE, OTHER, SELFPAY ==
[2024-04-20 11:32] LABS: Free T4 (Free Thyroxine) 1.26 ng/dl (0.78-2.19)
[2024-04-20 11:46] LABS: Thyroid Stimulating Hormone 0.94 uIU/mL (0.465-4.68)
== END 2024-04-20 23:59 | disposition home or self-care (01) ==
LOC: LAB 10:29
PROVIDERS: PCP Nurse Practitioner Family; Visit Provider Nurse Practitioner
DX: E04.1 Nontoxic single thyroid nodule (principal)
CPT/HCPCS: 36415; 84439; 84443

== ENCOUNTER 2024-12-16 08:47 | Outpatient (CLI) | payer MEDICARE, SELFPAY ==
--- OUTSIDE RECORDS SUMMARY | 2024-12-16 08:50 | XMS_ITS ---
Care Plan - [facility], [facility] Created on: December 16, 2024 Anastasiia Khan : 1945 Sex: Female Author Organization [facility], [facility] Address [address] [place] [address] Phone Care Team Providers Care Occupational Safety And Health Manager Name Role Phone Jose Eduardo MUNOZ, Andres Acevedo Unavailable + [phone] Dominga Allen APRN Unavailable Torrie vailable
--- OUTSIDE RECORDS SUMMARY | 2024-12-16 08:50 | XMS_ITS | Clinical Summary ---
Author Organization [facility] , [facility] Address [address] [place] [address] Phone Care Team Providers Care Border Patrol Agent Name Role Phone Andres Whitt MD Unavailable + [phone] Dominga Allen APRN Unavailable Torrie vailable Reason for Visit and Chief Complaint The Chief Complaint is: 4-6 week po Problems Includes: Problems addressed during this encounter and other active Problems All Visits Onset Date Resolved Date Provider Condition S tatus Joint Pain in the Right Knee 11/14/2023 Meli EPPS Active Last Documented On 4 11:04AM ; [facility] Pain in the Left Foot 05/03/2016 Isaias Zepeda DPM Active Last Documented On 6 10:39AM ; [facility] Pain in the Left Lower Leg Near the Ankle 05/03/2016 Isaias Zepeda DPM Active Last Documented On 6 10:39AM ; [facility], [facility] Plan of Treatment - Patient screened for future fall risk: documentation of any fall with injury in past year - Last Documented On 02/29/2024 12:42PM ; [facility], [facility] Fall Risk Assessment: This patient has been identified as a fall risk. Balance/gait along with postural blood pressure, vision and home fall hazards have been assessed. Medications have been reviewed, and recommendations made with regard to contributing factors for future falls. Plan of care: Consideration of vitamin D supplementation along with balance and strength training with consideration for formal physical therapy has been discussed with the patient. - Last Documented On 02/29/2024 12:42PM ; [facility], [facility] Patient is very pleased with the progress. We discussed she has significantly flat feet ankles bilaterally. This deformity could shorten the life span of her total knee arthroplasty. Recommend referral to Dr. Rangel for evaluation of feet and ankles, consideration of bracing. - Last Documented On 02/29/2024 12:42PM ; [facility], [facility] Instructions to patient Lose weight Last Documented On 4 10:23AM ; [facility], [facility] Assessments Includes: Assessments from this encounter Findings - Overweight - Last Documented On 02/29/2024 12:42PM ; [facility], [facility] 10 weeks status post right TKA - Last Documented On 02/29/2024 12:42PM ; [facility], [facility] Instructions Includes: Instructions from this encounter Instructions to patient Lose weight Last Documented On 4 10:23AM ; [facility], [facility] Medical Equipment - Implanted Devices Includes: Current Devices No Medical Equipment Recorded Medications Includes: Medications discussed during this encounter and other current Medications Current Medications (continue as prescribed) Luebbering-3 Fish Oil 500 MG Oral Capsule, conventional 08/2024 Provider: Diagnosis: Last Documented On 4 11:08AM By Padmini Corey ; [facility], [facility] MiraLax 17 GM/SCOOP Oral Powder 11/14/2023 Provider: Diagnosis: Last Documented On 4 11:08AM By Padmini Corey ; [facility], [facility] Furosemide 20 MG Oral Tablet 11/14/2023 Provider: Diagnosis: Last Documented On 4 11:06AM By Padmini Corey ; [facility], [facility] EQL Vitamin D3 50 MCG (1999 [place]) Oral Capsule, conventi onal 11/14/2023 Provider: Diagnosis: Last Documented On 4 11:07AM By Padmini Corey ; [facility], [facility] Active-Ketoprofen 5% External Cream 10/18/2023 Provi sierra: Diagnosis: Last Documented On 4 3:09PM By Kailyn Olivo ; [facility], [facility] Yue Aspirin 325 MG Oral Tablet 05/17/2023 Provider : Diagnosis: Last Documented On 3 1:50PM By Jennifer Yi ; [facility], [facility] Allopurinol 300 MG Oral Tablet 05/15/2023 Provider: Dominga Allen APRN Diagnosis: Last Documented On 3 10:04PM By Jennifer Yi ; [facility] HYDROcodone-Acetaminophen 5-325 MG Oral Tablet 023 Provider: SYLVIA OCHOA MD Diagnosis: Last Documented On 3 10:04PM By Jennifer Yi ; [facility] Losartan Potassium 25 MG Oral Tablet 02/28/2023 Prov ider: Dominga Allen APRN Diagnosis: Last Documented On 4 3:08PM By Kailyn Olivo ; [facility] Past Medications on file traMADol HCl 50 MG Oral Tablet 12/01/2023 - 12/06/2023 Provider: Andres carrillo MD Diagnosis: 1-2 po q 4-6h Last Documented On 4 11:26AM By José Miguel Whitt ; [facility] Eliquis 2.5 MG Oral Tablet 12/01/2023 - 03/02/2024 Provider: Andres carrillo MD Diagnosis: twice a day Last Documented On 4 11:26AM By José Miguel Whitt ; [facility] Meloxicam 15 MG Oral Tablet 12/01/2023 - 12/31/2023 Provider: Andres carrillo MD Diagnosis: once a day Last Documented On 4 11:26AM By José Miguel Whitt ; [facility] oxyCODONE HCl 5 MG Oral Tablet 12/01/2023 - 12/06/2023 Provider: Andres carrillo MD Diagnosis: 1-2 po q 4-6h Last Documented On 4 11:26AM By José Miguel Whitt ; [facility] Cefadroxil 500 MG Oral Capsule 12/01/2023 - 12/04/2023 Provider: Andres carrillo MD Diagnosis: twice a day Last Documented On 4 11:26AM By José Miguel Whitt ; [facility] Acetaminophen 500 MG Oral Tablet 12/01/2023 - 12/31/2023 Provider: Andres Whitt MD Diagnosis: 2 three times a day Last Documented On 4 11:26AM By José Miguel Whitt ; [facility], [facility] Colace 100 MG Oral Capsule 12/01/2023 - 02/29/2024 Provider: Andres carrillo MD Diagnosis: 1-2 tabs daily Last Documented On 4 11:26AM By José Miguel Whitt ; [facility], [facility] Ondansetron HCl 4 MG Oral Tablet 12/01/2023 - 12/06/2023 Provider: Andres Whitt MD Diagnosis: [id number] Last Documented On 4 11:26AM By José Miguel Whitt ; [facility], [facility] Tranexamic Acid 650 MG Oral Tablet 12/01/2023 - 12/05/2023 Provider: Andres carrillo MD Diagnosis: as directed TAKE 3 TABLETS O NE TIME A DAY BEGINNING THE EVENING OF SURGERY FOR FOUR DAYS Last Documented On 4 11:26AM By José Miguel Whitt ; [facility], [facility] Medications Administered Includes: Administered Medications from this encounter No Administered Medications Recorded Vital Signs Includes: Vital Signs from this encounter Vital Name 02/29/2024 10:23A Height (in) 62 Weight (lb) 220 Body Mass Index 40.2 Body Surface Area 2 Note: as Last Documented: On 02/29/2024 10:24A M ; [facility] Results Includes: Results discussed during this encounter No Results Recorded For Specified Dates History of Present Illness Includes: History of Present Illness from this encounter GUEVARA Khan is a 78 year old female. - Allergy list reviewed - Problem list reviewed - Medication list reviewed - - Review of medications documented Social History Description Last Updated Tobacco non-user 05/17/2023 Last Documented On 4 10:23AM ; [facility], [facility] Not exercising regularly 08/16/2019 Last Documented On 4 10:23AM ; [facility], [facility] Smoking Status Unknown Medical History Includes: Medical History addressed during this encounter Description Last Updated Arthritic joint problems 08/16/2019 Last Documented On 4 10:23AM ; [facility] Intermittent hypertension , Gout, dyslip idemia 05/03/2016 Last Documented On 4 10:23AM ; [facility] A recent immunization for pneumococcal p neumonia 05/03/2016 Last Documented On 4 10:23AM ; [facility], [facility] left ankle sx 05/03/2016 Last Documented On 4 10:23AM ; [facility], [facility] Family History Includes: Family History addressed during this encounter Description Last Updated Family history of hypertension 9 Last Documented On 4 10:23AM ; [facility], [facility] Maternal history of hyperten daniela / paternal, sororal, fraternal history as well 05/03/2016 Last Documented On 4 10:23AM ; [facility], [facility] stroke/seizure 05/03/2016 Last Documented On 4 10:23AM ; [facility], [facility] Paternal history of family history of ca ncer 05/03/2016 Last Documented On 4 10:23AM ; [facility], [facility] Review of Systems Includes: Review of Systems from this encounter No Review of Systems Recorded Mental Status Includes: Mental Status from this encounter No Mental Status Recorded Functional Status Includes: Functional Status from this encounter No Functional Status Recorded Physical Exam Includes: Physical Exam from this encounter Allergies Includes: Active Allergies No Known Allergies Encounters Encounter Provider Location Date Check-In Time Check-Out Time Diagnosis [facility] 4 10:23AM 11:23AM Overweight Insurance Includes: Active Insurance Policies Plan Name Member ID Group # Subscriber Relationship Effect tuyet Dates 1 - Medicare Part [facility] [id number] Anastasiia Khan Self 09/04/2009 - Unknown 2 - [facility] [id number] Anastasiia L Erin Self 09/04/2015 - Unknown Clinical Notes Includes: Clinical Notes from this encounter * Progress note Date Encounter Last Documented by 02/29/2024 Post Op Last documented on 02/29/2024; 12:42 PM, Endy Blevins PA-C; [facility], [facility] Active Problems & Conditions - Joint Pain in the Right Knee - Pain in the Left Foot - Pain in the Left Lower Leg Near the Ankle Chief Complaint The Chief Complaint is: 4-6 week po. Referred Here Referred by. History of Present Illness Anastasiia Khan is a 78 year old female. - Allergy list reviewed - Problem list reviewed - Medication list reviewed - - Review of medications documented Current Medication - Active-Ketoprofen 5% External Cream 0 days, 0 refills - Allopurinol 300 MG Oral Tablet 90 days, 0 refills - Yue Aspirin 325 MG Oral Tablet 0 days, 0 refills - Eliquis 2.5 MG Oral Tablet twice a day, 92 days, 0 refills - EQL Vitamin D3 50 MCG (1999 [place]) Oral Capsule, conventional take as directed 0 days, 0 refills - Furosemide 20 MG Oral Tablet take as directed 0 days, 0 refills - HYDROcodone-Acetaminophen 5-325 MG Oral Tablet 30 days, 0 refills - Losartan Potassium 25 MG Oral Tablet 90 days, 0 refills - MiraLax 17 GM/SCOOP Oral Powder take as directed 0 days, 0 refills - Luebbering-3 Fish Oil 500 MG Oral Capsule, conventional take as directed 0 days, 0 refills Past Medical/Surgical History Reported: Medical: Arthritic joint problems. Intermittent hypertension, Gout, dyslipidemia. Immunization History: Recent immunization for pneumococcal pneumonia. Left ankle sx. Social History Tobacco use: Tobacco non-user. Habits: Not exercising regularly. Allergies - No Known Allergies Family History Systemic hypertension Paternal: Cancer Maternal: Systemic hypertension / paternal, sororal, fraternal history as well Stroke/seizure Physical Findings - Vitals taken 02/29/2024 10:23 am as Height 62 in Weight 220 lbs Body Mass Index 40.2 kg/m2 Body Surface Area 2 m2 Incision well healed Mild residual swelling Knee extension 0- Knee flexion 138- TA/Gastroc/Quad firing Sensation intact to light touch throughout Palpable pulses DP/PT Assessment - Overweight 10 weeks status post right TKA Counseling/Education - Tobacco non-user - Use of tobacco assessment performed - Lose weight Plan - Patient screened for future fall risk: documentation of any fall with injury in past year Fall Risk Assessment: This patient has been identified as a fall risk. Balance/gait along with postural blood pressure, vision and home fall hazards have been assessed. Medications have been reviewed, and recommendations made with regard to contributing factors for future falls. Plan of care: Consideration of vitamin D supplementation along with balance and strength training with consideration for formal physical therapy has been discussed with the patient. Patient is very pleased with the progress. We discussed she has significantly flat feet ankles bilaterally. This deformity could shorten the life span of her total knee arthroplasty. Recommend referral to Dr. Rangel for evaluation of feet and ankles, consideration of bracing. Notes This dictation was done with voice recognition software and may contain errors and omissions. Care Team - Dominga Allen APRN
--- NOTE | 2024-12-16 08:51 | XR_ITS ---
FINAL REPORT CLINICAL HISTORY: SWELLING/CALLUS OF TOE, DECREASED PEDAL PULSES 3rd toe, bottom FINDINGS: RIGHT FOOT Three views demonstrate no acute fracture or dislocation. The joint spaces appear normal. A moderate plantar spur is noted. There is a small Nery deformity. There are hammertoe deformities of the 2nd through 5th digits. There is soft tissue swelling over the dorsum of the foot. IMPRESSION: Chronic changes and soft tissue swelling with no acute bony abnormality. Reviewed, Interpreted and Dictated by Tito Barraza MD Transcribed by Racheal Kumar Authenticated and [facility]
--- OUTSIDE RECORDS SUMMARY | 2024-12-16 08:51 | XMS_ITS | Clinical Summary ---
Author Organization [facility] Address [address] [place] [address] Phone Care Team Providers Care Crime Lab Technician Name Role Phone Andres Whitt MD Unavailable + [phone] Dominga Allen APRN Unavailable Torrie vailable Reason for Visit and Chief Complaint Post Op Problems Includes: Problems addressed during this encounter and other active Problems All Visits Onset Date Resolved Date Provider Condition S tatus Joint Pain in the Right Knee 11/14/2023 Meli EPPS Active Last Documented On 4 11:04AM ; [facility] Pain in the Left Foot 05/03/2016 Isaias Zepeda DPM Active Last Documented On 6 10:39AM ; [facility], [facility] Pain in the Left Lower Leg Near the Ankle 05/03/2016 Isaias Zepeda DPM Active Last Documented On 6 10:39AM ; [facility], [facility] Plan of Treatment Overall the patient is pleased with the progress, we discussed the importance of following postop protocols closely as she is still at risk for permanent knee stiffness, dissatisfaction. We will plan for follow-up 4 weeks - Last Documented On 12/21/2023 3:19PM ; [facility] Pending Tests Order Diagnosis Results Due Ordering P rovider Therapy - Physical Therapy Knee 12/21/23 Endy Blevins PA-C Last Documented On 4 3:18PM ; [facility] Assessments Includes: Assessments from this encounter Findings Two weeks status post right TKA - Last Documented On 12/21/2023 3:19PM ; [facility] Medical Equipment - Implanted Devices Includes: Current Devices No Medical Equipment Recorded Medications Includes: Medications discussed during this encounter and other current Medications Current Medications (continue as prescribed) Benedicta-3 Fish Oil 500 MG Oral Capsule, conventional 08/2024 Provider: Diagnosis: Last Documented On 4 11:08AM By Padmini Corey ; [facility], [facility] MiraLax 17 GM/SCOOP Oral Powder 11/14/2023 Provider: Diagnosis: Last Documented On 4 11:08AM By Padmini Corey ; [facility] Furosemide 20 MG Oral Tablet 11/14/2023 Provider: Diagnosis: Last Documented On 4 11:06AM By Padmini Corey ; [facility], [facility] EQL Vitamin D3 50 MCG (1999) Oral Capsule, conventi onal 11/14/2023 Provider: Diagnosis: Last Documented On 4 11:07AM By Padmini Corey ; [facility], [facility] Active-Ketoprofen 5% External Cream 10/18/2023 Provi sierra: Diagnosis: Last Documented On 4 3:09PM By Kailyn Olivo ; [facility], [facility] Yue Aspirin 325 MG Oral Tablet 05/17/2023 Provider : Diagnosis: Last Documented On 3 1:50PM By Jennifer Yi ; [facility], [facility] Allopurinol 300 MG Oral Tablet 05/15/2023 Provider: Dominga Allen APRN Diagnosis: Last Documented On 3 10:04PM By Jennifer Yi ; [facility], [facility] HYDROcodone-Acetaminophen 5-325 MG Oral Tablet 023 Provider: SYLVIA OCHOA MD Diagnosis: Last Documented On 3 10:04PM By Jennifer Yi ; [facility], [facility] Losartan Potassium 25 MG Oral Tablet 02/28/2023 Prov ider: Dominga Allen APRN Diagnosis: Last Documented On 4 3:08PM By Kailyn Olivo ; [facility], [facility] Medications Administered Includes: Administered Medications from this encounter No Administered Medications Recorded Results Includes: Results discussed during this encounter No Results Recorded For Specified Dates History of Present Illness Includes: History of Present Illness from this encounter No History of Present Illness Recorded Social History No Social History Recorded - Smoking Status Unknown Procedures and Surgical History Includes: Procedures from this encounter Procedures Code Diagnosis Performing Provider Service Location Service Date X-RAY EXAM OF KNEE 3 VIEWS (RIGHT) 82148 Unilateral primary osteoarthritis, right knee, Presence of right artificial knee joint Endy Blevins PA-C [facility] 12/21/2023 Last Documented On 4 2:11PM ; [facility] Medical History Includes: Medical History addressed during this encounter No Medical History Recorded Family History Includes: Family History addressed during this encounter No Family History Recorded Review of Systems Includes: Review of Systems from this encounter No Review of Systems Recorded Mental Status Includes: Mental Status from this encounter No Mental Status Recorded Functional Status Includes: Functional Status from this encounter No Functional Status Recorded Physical Exam Includes: Physical Exam from this encounter Allergies Includes: Active Allergies No Known Allergies Encounters Encounter Provider Location Date Check-In Time Check- Out Time Diagnosis Post Op Endy Blevins PA-C [facility] 4 2:07PM 3:16PM Insurance Includes: Active Insurance Policies Plan Name Member ID Group # Subscriber Relationship Effect tuyet Dates 1 - Medicare Part B [facility] [id number] Anastasiia Eduardo Erin Self 09/04/2009 - Unknown 2 - [id number] Anastasiia Khan Self 09/04/2015 - Unknown Clinical Notes Includes: Clinical Notes from this encounter * Progress note Date Encounter Last Documented by 12/21/2023 Post Op Last documented on 12/21/2023; 3:19 PM, Endy Blevins PA-C; [facility] Physical Findings Incision well healed without erythema/purulence/drainage Mild residual swelling Knee extension 0? Knee flexion 115? TA/Gastroc/Quad firing Sensation intact to light touch throughout Palpable pulses DP/PT Tests Three-view x-ray right knee taken today demonstrates well-appearing TKA Assessment Two weeks status post right TKA Plan StartCited - Other Therapy/Physical Therapy: Knee Instructions: See PT order attached EndCited Overall the patient is pleased with the progress, we discussed the importance of following postop protocols closely as she is still at risk for permanent knee stiffness, dissatisfaction. We will plan for follow-up 4 weeks
--- OUTSIDE RECORDS SUMMARY | 2024-12-16 08:51 | XMS_ITS | Clinical Summary ---
Author Organization [facility] , [facility] Address [address] [place] [address] Phone Care Team Providers Care Noodle Press Operator Name Role Phone Andres Whitt MD Unavailable + [phone] Dominga Allen APRN Unavailable Torrie vailable Reason for Visit and Chief Complaint Post Op Problems Includes: Problems addressed during this encounter and other active Problems All Visits Onset Date Resolved Date Provider Condition S tatus Joint Pain in the Right Knee 11/14/2023 Meli EPPS Active Last Documented On 4 11:04AM ; [facility] Pain in the Left Foot 05/03/2016 Isaias Zepeda DPM Active Last Documented On 6 10:39AM ; [facility] Pain in the Left Lower Leg Near the Ankle 05/03/2016 Isaias Zepeda DPM Active Last Documented On 6 10:39AM ; [facility], [facility] Plan of Treatment - Patient screened for future fall risk: documentation of any fall with injury in past year - Last Documented On 01/18/2024 2:23PM ; [facility], [facility] Fall Risk Assessment: This patient has [...] with the patient. - Last Documented On 01/18/2024 2:23PM ; [facility], [facility] Overall the patient is pleased with the progress, we discussed the importance of continued strengthening in patients with increasing activities and we will plan for follow-up 4-6 weeks for three-month interval exam - Last Documented On 01/18/2024 2:23PM ; [facility] Pending Tests Order Diagnosis Results Due Ordering P roingris Therapy - Physical Therapy Knee Overweight 01/18/24 Endy Blevins PA-C Last Documented On 4 2:22PM ; [facility] Instructions to patient Lose weight Last Documented On 4 1:36PM ; [facility] Assessments Includes: Assessments from this encounter Findings - Overweight - Last Documented On 01/18/2024 2:23PM ; [facility] 6 weeks status post right TKA - Last Documented On 01/18/2024 2:23PM ; [facility] Instructions Includes: Instructions from this encounter Instructions to patient Lose weight Last Documented On 4 1:36PM ; [facility] Medical Equipment - Implanted Devices Includes: Current Devices No Medical Equipment Recorded Medications Includes: Medications discussed during this encounter and other current Medications Current Medications (continue as prescribed) [place]-3 Fish Oil 500 MG Oral Capsule, conventional 08/2024 Provider: Diagnosis: Last Documented On 4 11:08AM By Padmini Corey ; [facility] MiraLax 17 GM/SCOOP Oral Powder 11/14/2023 Provider: Diagnosis: Last Documented On 4 11:08AM By Padmini Corey ; [facility] Furosemide 20 MG Oral Tablet 11/14/2023 Provider: Diagnosis: Last Documented On 4 11:06AM By Padmini Corey ; [facility] EQL Vitamin D3 50 MCG (2000 UT) Oral Capsule, conventi onal 11/14/2023 Provider: Diagnosis: Last Documented On 4 11:07AM By Padmini Corey ; [facility] Active-Ketoprofen 5% External Cream 10/18/2023 Provi sierra: Diagnosis: Last Documented On 4 3:09PM By Kailyn Olivo ; [facility] Yue Aspirin 325 MG Oral Tablet 05/17/2023 Provider : Diagnosis: Last Documented On 3 1:50PM By Jennifer Yi ; [facility] Allopurinol 300 MG Oral Tablet 05/15/2023 Provider: Dominga Allen APRN Diagnosis: Last Documented On 3 10:04PM By Jennifer Yi ; [facility] HYDROcodone-Acetaminophen 5-325 MG Oral Tablet 023 Provider: SYLVIA OCHOA MD Diagnosis: Last Documented On 3 10:04PM By Jennifer Yi ; [facility] Losartan Potassium 25 MG Oral Tablet 02/28/2023 Prov ider: Dominga Allen APRN Diagnosis: Last Documented On 4 3:08PM By Kailyn Olivo ; [facility] Past Medications on file traMADol HCl 50 MG Oral Tablet 12/01/2023 - 12/06/2023 Provider: Andres carrillo MD Diagnosis: 1-2 po q 4-6h Last Documented On 4 11:26AM By José Miguel Whitt ; [facility] Eliquis 2.5 MG Oral Tablet 12/01/2023 - 03/02/2024 Provider: Andres carrillo MD Diagnosis: twice a day Last Documented On 4 11:26AM By José Miguel Whitt ; [facility] Meloxicam 15 MG Oral Tablet 12/01/2023 - 12/31/2023 Provider: Andres carrillo MD Diagnosis: once a day Last Documented On 4 11:26AM By José Miguel Whitt ; [facility] oxyCODONE HCl 5 MG Oral Tablet 12/01/2023 - 12/06/2023 Provider: Andres carrillo MD Diagnosis: 1-2 po q 4-6h Last Documented On 4 11:26AM By José Miguel Whitt ; [facility] Cefadroxil 500 MG Oral Capsule 12/01/2023 - 12/04/2023 Provider: Andres carrillo MD Diagnosis: twice a day Last Documented On 4 11:26AM By José Miguel Whitt ; [facility] Acetaminophen 500 MG Oral Tablet 12/01/2023 - 12/31/2023 Provider: Andres Whitt MD Diagnosis: 2 three times a day Last Documented On 4 11:26AM By José Miguel Whitt ; [facility] Colace 100 MG Oral Capsule 12/01/2023 - 02/29/2024 Provider: Andres carrillo MD Diagnosis: 1-2 tabs daily Last Documented On 4 11:26AM By José Miguel Whitt ; [facility] Ondansetron HCl 4 MG Oral Tablet 12/01/2023 - 12/06/2023 Provider: Andres Whitt MD Diagnosis: [id number] Last Documented On 4 11:26AM By José Miguel Whitt ; [facility] Tranexamic Acid 650 MG Oral Tablet 12/01/2023 - 12/05/2023 Provider: Andres carrillo MD Diagnosis: as directed TAKE 3 TABLETS O NE TIME A DAY BEGINNING THE EVENING OF SURGERY FOR FOUR DAYS Last Documented On 4 11:26AM By José Miguel Whitt ; [facility] Medications Administered Includes: Administered Medications from this encounter No Administered Medications Recorded Vital Signs Includes: Vital Signs from this encounter Vital Name 01/18/2024 01:36P Height (in) 62 Weight (lb) 220 Body Mass Index 40.2 Body Surface Area 2 Note: ab Last Documented: On 01/18/2024 1:36PM ; [facility] Results Includes: Results discussed during this [...] Tobacco non-user 05/17/2023 Last Documented On 4 1:36PM ; [facility] Not exercising regularly 08/16/2019 Last Documented On 4 1:36PM ; [facility] Smoking Status Unknown Medical History Includes: Medical History addressed during this encounter Description Last Updated Arthritic joint problems 08/16/2019 Last Documented On 4 1:36PM ; [facility] Intermittent hypertension , Gout, dyslip idemia 05/03/2016 Last Documented On 4 1:36PM ; [facility] A recent immunization for pneumococcal p neumonia 05/03/2016 Last Documented On 4 1:36PM ; [facility], [facility] left ankle sx 05/03/2016 Last Documented On 4 1:36PM ; [facility], [facility] Family History Includes: Family History addressed during this encounter Description Last Updated Family history of hypertension Last Documented On 4 1:36PM ; [facility] Maternal history of hyperten daniela / paternal, sororal, fraternal history as well 05/03/2016 Last Documented On 4 1:36PM ; [facility], [facility] stroke/seizure 05/03/2016 Last Documented On 4 1:36PM ; [facility] Paternal history of family history of ca ncer 05/03/2016 Last Documented On 4 1:36PM ; [facility], [facility] Review of Systems Includes: Review of [...] Time Check-Out Time Diagnosis Post [facility] 4 1:38PM 2:22PM Overweight Insurance Includes: Active Insurance Policies Plan Name Member ID Group # Subscriber Relationship Effect tuyet Dates 1 - Medicare Part B [facility] [id number] Anastasiia Benoitp Self 09/04/2009 - Unknown 2 - [facility] Indemnity [id number] Anastasiia Eduardo [facility] Self 09/04/2015 - Unknown Clinical Notes Includes: Clinical Notes from this encounter * Progress note Date Encounter Last Documented by 01/18/2024 Post Op Last documented on 01/18/2024; 2:23 PM, Endy Blevins PA-C; [facility], [facility] Active Problems & Conditions - Joint Pain in the Right Knee - Pain in the Left Foot - Pain in the Left Lower Leg Near the Ankle Referred Here Referred by. History of Present [...] Oral Tablet 0 days, 0 refills - Colace 100 MG Oral Capsule 1-2 tabs daily, 30 days, 2 refills - Eliquis 2.5 MG Oral Tablet twice a day, 92 days, 0 refills - EQL Vitamin D3 50 MCG (2000 UT) Oral Capsule, conventional take as directed 0 days, 0 refills - Furosemide 20 MG Oral Tablet take as directed 0 days, 0 refills - HYDROcodone-Acetaminophen 5-325 MG Oral Tablet 30 days, 0 refills - Losartan Potassium 25 MG Oral Tablet 90 days, 0 refills - MiraLax 17 GM/SCOOP Oral Powder take as directed 0 days, 0 refills - [place]-3 Fish Oil 500 MG Oral Capsule, conventional [...] well Stroke/seizure Physical Findings - Vitals taken 01/18/2024 01:36 pm ab Height 62 in Weight 220 lbs Body Mass Index 40.2 kg/m2 Body Surface Area 2 m2 Incision well healed Mild residual swelling Knee extension 0- Knee flexion 130- TA/Gastroc/Quad firing Sensation intact to light touch throughout Palpable pulses DP/PT Assessment - Overweight 6 weeks status post right TKA Counseling/Education - Tobacco non-user - Use of tobacco assessment performed - Lose weight Plan StartCited - Overweight Therapy/Physical Therapy: Knee Instructions: See PT order attached EndCited - Patient screened for future fall risk: [...] therapy has been discussed with the patient. Overall the patient is pleased with the progress, we discussed the importance of continued strengthening in patients with increasing activities and we will plan for follow-up 4-6 weeks for three-month interval exam Notes This dictation was done with voice recognition software and may contain errors and omissions. Care Team - Dominga Allen APRN
--- OUTSIDE RECORDS SUMMARY | 2024-12-16 08:51 | XMS_ITS | Clinical Summary ---
Author [facility] Address [address] [place] [address] Phone Care Team Providers Care Bowling Alley Manager Name Role Phone Andres Whitt MD Unavailable + [phone] Dominga Allen APRN Unavailable Torrie vailable Reason for Visit and Chief Complaint [Patient Encounter] Problems Includes: Problems addressed during this encounter and other active Problems All Visits Onset Date Resolved Date Provider Condition S tatus Joint Pain in the Right Knee 11/14/2023 Meli EPPS Active Last Documented On 4 11:04AM ; [facility], [facility] Pain in the Left Foot 05/03/2016 Isaias Zepeda DPM Active Last Documented On 6 10:39AM ; [facility], [facility] Pain in the Left Lower Leg Near the Ankle 05/03/2016 Isaias Zepeda DPM Active Last Documented On 6 10:39AM ; [facility], [facility] Plan of Treatment No Plan of Treatment Recorded Assessments Includes: Assessments from this encounter No Assessments Recorded Medical Equipment - Implanted Devices Includes: Current Devices No Medical Equipment Recorded Medications Includes: Medications discussed during this encounter and other current Medications Current Medications (continue as prescribed) [place]-3 Fish Oil 500 MG Oral Capsule, conventional 08/2024 Provider: Diagnosis: Last Documented On 4 11:08AM By Padmini Corey ; [facility] MiraLax 17 GM/SCOOP Oral Powder 11/14/2023 Provider: Diagnosis: Last Documented On 4 11:08AM By Padmini Corey ; [facility] Furosemide 20 MG Oral Tablet 11/14/2023 Provider: Diagnosis: Last Documented On 4 11:06AM By Padmini Corey ; [facility] EQL Vitamin D3 50 MCG (1999 UT) Oral Capsule, conventi onal 11/14/2023 Provider: Diagnosis: Last Documented On 4 11:07AM By Padmini Corey ; [facility] Active-Ketoprofen 5% External Cream 10/18/2023 Provi sierra: Diagnosis: Last Documented On 4 3:09PM By Kailyn Olivo ; [facility] Yue Aspirin 325 MG Oral Tablet 05/17/2023 Provider : Diagnosis: Last Documented On 3 1:50PM By Jennifer Yi ; [facility] Allopurinol 300 MG Oral Tablet 05/15/2023 Provider: Dominga Allen APRN Diagnosis: Last Documented On 3 10:04PM By Jennifer Yi ; [facility] HYDROcodone-Acetaminophen 5-325 MG Oral Tablet 023 Provider: SYLVIA OCHOA MD Diagnosis: Last Documented On 3 10:04PM By Jennifer Yi ; [facility] Losartan Potassium 25 MG Oral Tablet 02/28/2023 Prov ider: Dominga Allen APRN Diagnosis: Last Documented On 4 3:08PM By Kailyn Olivo ; [facility] Medications Administered Includes: Administered Medications from this [...] Diagnosis Performing Provider Service Location Service Date Home Health Certification [id number] Unilateral primary osteoarthritis, right knee Andres Whitt MD [facility] 01/22/2024 Last Documented On 4 2:49PM ; [facility] Medical History Includes: Medical History addressed during [...] Exam Includes: Physical Exam from this encounter No Physical Exam Recorded Allergies Includes: Active Allergies No Known Allergies Encounters Encounter Provider Location Date Check-In Time Check-Out Time Diagnosis [Patient Encounter] Andres Whitt MD [facility] 01/22/20 24 2:48PM 11:59PM Insurance Includes: Active Insurance Policies Plan Name Member ID Group # Subscriber Relationship Effect tuyet Dates 1 - Medicare Part B [facility] [id number] Anastasiia Khan Self 09/04/2009 - Unknown 2 - [facility] Indemnity [id number] Anastasiia Khan Self 09/04/2015 - Unknown Clinical Notes Includes: Clinical Notes from this encounter No Clinical Notes Recorded
--- OUTSIDE RECORDS SUMMARY | 2024-12-16 08:51 | XMS_ITS ---
Author Organization [facility] Address [address] [place] [address] Phone Care Team Providers Care Cell Installer Name Role Phone Andres Whitt MD Unavailable + [phone] Dominga Allen APRN Unavailable Torrie vailable Problems Includes: Active, inactive, and resolved Problems All Visits Onset Date Resolved Date Provider Condition S tatus Joint Pain in the Right Knee 11/14/2023 Meli EPPS Active Last Documented On 4 11:04AM ; [facility] Joint Pain in Both Knees 11/29/2016 Isaias Rogers Jatinder soraida DPM Inactive Last Documented On 3 10:03PM ; [facility] Pain in the Left Foot 05/03/2016 Isaias Rogers Katelyn DPM Active Last Documented On 6 10:39AM ; [facility] Pain in the Left Lower Leg Near the Ankle 05/03/2016 Isaias S Katelyn DPM Active Last Documented On 6 10:39AM ; [facility] Plan of Treatment Findings Encounter Date Patient screened for future fall risk: documentation of any fall with injury in past year Post Op with Endy Blevins PA-C 02/29/2024 Last Documented On 4 12:42PM ; [facility] Patient screened for future fall risk: documentation of any fall with injury in past year Post Op with Endy Blevins PA-C 01/18/2024 Last Documented On 4 2:23PM ; [facility] Referrals To Diagnosis Consult with Vascular Note: Dr. Kirk Harmon Last Documented On 9 10:23AM ; [facility] Instructions to patient Lose weight Last Documented On 4 10:23AM ; [facility] Lose weight Last Documented On 4 1:36PM ; [facility] Lose weight Last Documented On 4 3:10PM ; [facility] Lose weight Last Documented On 3 1:22PM ; [facility] Lose weight Last Documented On 3 10:05PM ; [facility] Instructions for patient see PCP for BP and weight managment Last Documented On 9 1:26PM ; [facility] Lose weight Last Documented On 9 1:26PM ; [facility] Instructions for patient see PCP for BP and weight managment Last Documented On 7 2:38PM ; [facility] Lose weight Last Documented On 7 2:38PM ; [facility] Instructions for patient see PCP for BP and weight managment Last Documented On 7 12:53PM ; [facility] Lose weight Last Documented On 7 12:53PM ; [facility] Instructions for patient see PCP for BP and weight managment Last Documented On 7 1:01PM ; [facility] Lose weight Last Documented On 7 1:01PM ; [facility] Instructions for patient see PCP for BP and weight managment Last Documented On 7 12:49PM ; [facility] Lose weight Last Documented On 7 1:00PM ; [facility] Instructions for patient see PCP for BP and weight managment Last Documented On 7 1:06PM ; [facility] Instructions for patient to see pcp for weight loss plan Last Documented On 7 2:15PM ; [facility] Lose weight Last Documented On 7 2:15PM ; [facility] Instructions for patient to see pcp for weight loss plan and bp control Last Documented On 7 1:04PM ; [facility] Lose weight Last Documented On 7 1:04PM ; [facility] Instructions for patient to see pcp for weight loss plan and bp control Last Documented On 6 1:06PM ; [facility] Lose weight Last Documented On 6 1:06PM ; [facility] Instructions for patient to see pcp for weight loss plan and bp control Last Documented On 6 10:26AM ; [facility] Lose weight Last Documented On 6 10:24AM ; [facility] Instructions for patient to see pcp for weight loss plan Last Documented On 6 10:59AM ; [facility] Lose weight Last Documented On 6 10:59AM ; [facility] Instructions for patient to see pcp for weight loss plan Last Documented On 6 11:04AM ; [facility] Lose weight Last Documented On 6 10:59AM ; [facility] Instructions for patient to see pcp for weight loss plan and BP Last Documented On 6 9:54AM ; [facility] Lose weight Last Documented On 6 9:54AM ; [facility] Instructions for patient to see pcp for weight loss plan and BP Last Documented On 6 10:50AM ; [facility] Lose weight Last Documented On 6 10:50AM ; [facility] Assessments Includes: Assessments for all patient encounters Findings Encounter Date Overweight Post Op with Endy Blevins PA-C 02/29/2024 Last Documented On 4 12:42PM ; [facility] Overweight Post Op with Endy Blevins PA-C 01/18/2024 Last Documented On 4 2:23PM ; [facility] Overweight Physician Specified with Endy Blevins PA-C 10/18/2023 Last Documented On 4 4:00PM ; [facility] Overweight Physician Specified with Isaias Zepeda DPM 05/17/2023 Last Documented On 3 2:21PM ; [facility] Overweight Intake with Isaias Zepeda DPM 0 05/16/2023 Last Documented On 3 10:24PM ; [facility] Instructions Includes: Instructions for all patient encounters Instructions to patient Lose weight Last Documented On 4 10:23AM ; [facility] Lose weight Last Documented On 4 1:36PM ; [facility] Lose weight Last Documented On 4 3:10PM ; [facility] Lose weight Last Documented On 3 1:22PM ; [facility] Lose weight Last Documented On 3 10:05PM ; [facility] Instructions for patient see PCP for BP and weight managment Last Documented On 9 1:26PM ; [facility] Lose weight Last Documented On 9 1:26PM ; [facility] Instructions for patient see PCP for BP and weight managment Last Documented On 7 2:38PM ; [facility] Lose weight Last Documented On 7 2:38PM ; [facility] Instructions for patient see PCP for BP and weight managment Last Documented On 7 12:53PM ; [facility] Lose weight Last Documented On 7 12:53PM ; [facility] Instructions for patient see PCP for BP and weight managment Last Documented On 7 1:01PM ; [facility] Lose weight Last Documented On 7 1:01PM ; [facility] Instructions for patient see PCP for BP and weight managment Last Documented On 7 12:49PM ; [facility] Lose weight Last Documented On 7 1:00PM ; [facility] Instructions for patient see PCP for BP and weight managment Last Documented On 7 1:06PM ; [facility] Instructions for patient to see pcp for weight loss plan Last Documented On 7 2:15PM ; [facility] Lose weight Last Documented On 7 2:15PM ; [facility] Instructions for patient to see pcp for weight loss plan and bp control Last Documented On 7 1:04PM ; [facility] Lose weight Last Documented On 7 1:04PM ; [facility] Instructions for patient to see pcp for weight loss plan and bp control Last Documented On 6 1:06PM ; [facility] Lose weight Last Documented On 6 1:06PM ; [facility] Instructions for patient to see pcp for weight loss plan and bp control Last Documented On 6 10:26AM ; [facility] Lose weight Last Documented On 6 10:24AM ; [facility] Instructions for patient to see pcp for weight loss plan Last Documented On 6 10:59AM ; [facility] Lose weight Last Documented On 6 10:59AM ; [facility] Instructions for patient to see pcp for weight loss plan Last Documented On 6 11:04AM ; [facility] Lose weight Last Documented On 6 10:59AM ; [facility] Instructions for patient to see pcp for weight loss plan and BP Last Documented On 6 9:54AM ; [facility] Lose weight Last Documented On 6 9:54AM ; [facility] Instructions for patient to see pcp for weight loss plan and BP Last Documented On 6 10:50AM ; [facility] Lose weight Last Documented On 6 10:50AM ; [facility] Medical Equipment - Implanted Devices Includes: Current and historical Devices No Medical Equipment Recorded Medications Includes: Current and historical Medications Current Medications (continue as prescribed) Whiteford-3 Fish Oil 500 MG Oral Capsule, conventional 08/2024 Provider: Diagnosis: Last Documented On 11:08AM By Padmini Corey ; [facility] MiraLax 17 GM/SCOOP Oral Powder 11/14/2023 Provider: Diagnosis: Last Documented On 4 11:08AM By aPdmini Corey ; [facility] Furosemide 20 MG Oral Tablet 11/14/2023 Provider: Diagnosis: Last Documented On 4 11:06AM By Padmini Corey ; [facility] EQL Vitamin D3 50 MCG (2000 UT) Oral Capsule, conventi onal 11/14/2023 Provider: Diagnosis: Last Documented On 4 11:07AM By Padmini Corey ; [facility] Active-Ketoprofen 5% External Cream 10/18/2023 Provi sierra: Diagnosis: Last Documented On 4 3:09PM By Kailyn Olivo ; [facility] Yue Aspirin 325 MG Oral Tablet 05/17/2023 Provider : Diagnosis: Last Documented On 3 1:50PM By Jennifer Yi ; [facility] Allopurinol 300 MG Oral Tablet 05/15/2023 Provider: Dominga Allen APRN Diagnosis: Last Documented On 3 10:04PM By Jennifer Yi ; [facility] HYDROcodone-Acetaminophen 5-325 MG Oral Tablet 023 Provider: SYLVIA OCHOA MD Diagnosis: Last Documented On 3 10:04PM By Jennifer Yi ; [facility] Losartan Potassium 25 MG Oral Tablet 02/28/2023 Prov ider: Dominga Allen APRN Diagnosis: Last Documented On 4 3:08PM By Kailyn Olivo ; [facility] Past Medications on file traMADol HCl 50 MG Oral Tablet 12/01/2023 - 12/06/2023 Provider: Andres carrillo MD Diagnosis: 1-2 po q 4-6h Last Documented On 4 11:26AM By José Miguel Whitt ; [facility] Eliquis 2.5 MG Oral Tablet 12/01/2023 - 03/02/2024 Provider: Andres carrillo MD Diagnosis: twice a day Last Documented On 4 11:26AM By José Miguel Whitt ; [facility] Meloxicam 15 MG Oral Tablet 12/01/2023 - 12/31/2023 Provider: Andres carrillo MD Diagnosis: once a day Last Documented On 11:26AM By José Miguel Whitt ; [facility] oxyCODONE HCl 5 MG Oral Tablet 12/01/2023 - 12/06/2023 Provider: Andres carrillo MD Diagnosis: 1-2 po q 4-6h Last Documented On 11:26AM By José Miguel Whitt ; [facility] Cefadroxil 500 MG Oral Capsule 12/01/2023 - 12/04/2023 Provider: Andres carrillo MD Diagnosis: twice a day Last Documented On 11:26AM By José Miguel Whitt ; [facility] Acetaminophen 500 MG Oral Tablet 12/01/2023 - 12/31/2023 Provider: Andres Whitt MD Diagnosis: 2 three times a day Last Documented On 11:26AM By José Miguel Whitt ; [facility] Colace 100 MG Oral Capsule 12/01/2023 - 02/29/2024 Provider: Andres carrillo MD Diagnosis: 1-2 tabs daily Last Documented On 11:26AM By José Miguel Whitt ; [facility] Ondansetron HCl 4 MG Oral Tablet 12/01/2023 - 12/06/2023 Provider: Andres Whitt MD Diagnosis: [id number] Last Documented On 11:26AM By José Miguel Whitt ; [facility] Tranexamic Acid 650 MG Oral Tablet 12/01/2023 - 12/05/2023 Provider: Andres carrillo MD Diagnosis: as directed TAKE 3 TABLETS O NE TIME A DAY BEGINNING THE EVENING OF SURGERY FOR FOUR DAYS Last Documented On 11:26AM By José Miguel Whitt ; [facility] Furosemide 20 MG Oral Tablet 05/15/2023 - 11/14/2023 Provider: Dominga nichols APRN Diagnosis: Last Documented On 11:05AM By Padmini Corey ; [facility] Losartan Potassium 25 MG Oral Tablet 02/28/2023 - 10/18/2023 Provider: Dominga nichols APRN Diagnosis: Last Documented On 4 3:09PM By Kailyn Olivo ; [facility] Animi-3/Vitamin D 1 MG Oral Capsule 08/16/2019 - 05/16 Provider: Diagnosis: Last Documented On 3 10:03PM By Jennifer Yi ; [facility] GaviLAX Oral Powder 08/16/2019 - 05/16/2023 Provider: Diagnosis: Last Documented On 3 10:03PM By Jennifer Yi ; [facility] Losartan Potassium 100 MG Oral Tablet 08/16/2019 - 08/2023 Provider: Diagnosis: Last Documented On 3 10:03PM By Jennifer Yi ; [facility] Acetaminophen 325 MG Oral Capsule 08/16/2019 - 023 Provider: Diagnosis: Last Documented On 3 10:03PM By Jennifer Yi ; [facility] Furosemide 20 MG Oral Tablet 08/16/2019 - 05/16/2023 P roscoeder: Diagnosis: Last Documented On 3 10:03PM By Jennifer Yi ; [facility] EQL Fish Oil 1000 MG Oral Capsule 08/16/2019 - 023 Provider: Diagnosis: Last Documented On 3 10:04PM By Jennifer Yi ; [facility] Yue Advanced Aspirin Ex St 500 MG Oral Tablet 08/16/2019 - 05/16/2023 Provider: Diagnosis: Last Documented On 3 10:03PM By Jennifer Yi ; [facility] Allopurinol 300 MG Oral Tablet 07/09/2019 - 05/16/2023 Provider: Diagnosis: Last Documented On 3 10:03PM By Jennifer Yi ; [facility] Percocet 7.5-325 MG Tablet 05/10/2016 - 08/16/2019 Pro vider: Isaias Zepeda DPM Diagnosis: 1-2 po q 4-6h Last Documented On 9 1:27PM By Britni Ashby ; [facility] Percocet 7.5-325 MG Tablet 05/04/2016 - 08/16/2019 Pro vider: Isaias Zepeda DPM Diagnosis: 1-2 po q 4-6h Last Documented On 9 1:27PM By Britni Ashby ; [facility] Vitamin D3 1000 UNIT Capsule, conventional 05/03/2016 - 08/01/2016 Provider: Diagnosis: Last Documented On 6 10:24AM By December Lionel ; [facility] Calcium 250 MG Capsule, conventional 05/03/2016 - 07/06 Provider: Diagnosis: Last Documented On 6 10:24AM By Li Lionel ; [facility] Guymon 7.5-325 MG Tablet 05/03/2016 - 08/01/2016 Provid er: Diagnosis: Last Documented On 6 10:24AM By December Lionel ; [facility] Lasix 40 MG Tablet 05/03/2016 - 08/01/2016 Provider: Diagnosis: Last Documented On 6 10:24AM By December Lionel ; [facility] Aspirin 325 MG Tablet 05/03/2016 - 08/01/2016 Provider : Diagnosis: Last Documented On 6 10:23AM By December Lionel ; [facility] Losartan Potassium 100 MG Tablet 05/03/2016 - 08/16/20 19 Provider: Diagnosis: Last Documented On 9 1:27PM By Britni Ashby ; [facility] Allopurinol 300 MG Tablet 05/03/2016 - 08/01/2016 Prov ider: Diagnosis: Last Documented On 6 10:24AM By December Lionel ; [facility] Fish Oil 1000 MG Capsule, conventional 05/03/2016 - Provider: Diagnosis: Last Documented On 6 10:24AM By December Lionel ; [facility] Medications Administered Includes: Administered Medications in patient's chart No Administered Medications Recorded Vital Signs Includes: Vital Signs from 12/17/2023 through 12/16/2024 Vital Name 02/29/2024 10:23A 01/18/2024 01:36P 12/20 03:13P Height (in) 62 62 62 Weight (lb) 220 220 220 Body Mass Index 40.2 40.2 40.2 Body Surface Area 2 2 2 Note: as ab tm Last Documented: On 02/29/2024 10:24A M ; [facility] On 01/18/2024 1:36PM ; [facility] On 12/21/2023 3:13PM ; [facility] Results Includes: Results from 12/17/2023 through 12/16/2024 No Results Recorded For Specified Dates History of Present Illness History of Present Illness not supported for this document type No History of Present Illness Recorded Social History Description Last Updated Tobacco non-user 05/17/2023 Last Documented On 3 2:21PM ; [facility] No recent change in diet 05/17/2023 Last Documented On 3 2:21PM ; [facility] Not a current smoker. 05/17/2023 Last Documented On 3 2:21PM ; [facility] Not exercising regularly 08/16/2019 Last Documented On 9 2:04PM ; [facility] No caffeine use 05/03/2016 Last Documented On 6 5:23PM ; [facility] No recent change in diet 05/03/2016 Last Documented On 6 5:23PM ; [facility] Not a current smoker 05/03/2016 Last Documented On 6 5:23PM ; [facility] Not using alcohol 05/03/2016 Last Documented On 6 5:23PM ; [facility] Not using drugs 05/03/2016 Last Documented On 6 5:23PM ; [facility] No tobacco use 05/03/2016 Last Documented On 6 5:23PM ; [facility] Smoking status : Never smoker 05/03/2016 Last Documented On 6 5:23PM ; [facility] Procedures and Surgical History Includes: Procedures from 12/17/2023 through 12/16/2024 Procedures Code Diagnosis Performing Provider Service Location Service Date Home Health Certification [id number] Unilateral primary osteoarthritis, right knee Andres Whitt MD [facility] Home Health 01/22/2024 Last Documented On 4 2:49PM ; [facility] X-RAY EXAM OF KNEE 3 VIEWS (RIGHT) 53237 Unilateral primary osteoarthritis, right knee, Presence of right artificial knee joint Endy Blevins PA-C [facility] 12/21/2023 Last Documented On 4 2:11PM ; [facility] Medical History Includes: Medical History in patient's chart Description Last Updated Arthritic joint problems 08/16/2019 Last Documented On 9 2:04PM ; [facility] Intermittent hypertension , Gout, dyslip idemia 05/03/2016 Last Documented On 6 5:23PM ; [facility] A recent immunization for pneumococcal p neumonia 05/03/2016 Last Documented On 6 5:23PM ; [facility] left ankle sx 05/03/2016 Last Documented On 6 5:23PM ; [facility] Family History Includes: Family History in patient's chart Description Last Updated Family history of hypertension 9 Last Documented On 9 2:04PM ; [facility] Maternal history of hyperten daniela / paternal, sororal, fraternal history as well 05/03/2016 Last Documented On 6 5:23PM ; [facility] stroke/seizure 05/03/2016 Last Documented On 6 5:23PM ; [facility] Paternal history of family history of ca ncer 05/03/2016 Last Documented On 6 5:23PM ; [facility] Review of Systems Review of Systems not supported for this document type No Review of Systems Recorded Mental Status No Mental Status Recorded Functional Status No Functional Status Recorded Physical Exam Physical Exam not supported for this document type No Physical Exam Recorded Immunizations Includes: Immunizations in patient's chart Vaccine Dose # Date Site Reaction(s) Status Source PCV (Pneumovax 23) 1 06/04/2015 Complete ( Reported) Patient Last Documented On 6 10:51AM ; [facility] Allergies Includes: Active, inactive, and resolved Allergies No Known Allergies Encounters Includes: Encounters from 12/17/2023 through 12/16/2024 Encounter Provider Location Date Check-In Time Check-Out Time Diagnosis Post Op Endy Blevins PA-C [facility] 024 10:23AM 11:23AM Overweight [Patient Encounter] Andres Whitt MD [facility] Home Health 024 01/18/2024 2:48PM 01/18/2024 11:59PM Post Op Endy Blevins PA-C [facility] 024 1:38PM 2:22PM Overweight Post Op Endy Blevins PA-C [facility] 024 2:07PM 3:16PM Insurance Includes: Active Insurance Policies Plan Name Member ID Group # Subscriber Relationship Effect tuyet Dates 1 - Medicare Part B [facility] [id number] Anastasiia Khan Self 09/04/2009 - Unknown 2 - [facility] Indemnity [id number] Anastasiia Khan Self 09/04/2015 - Unknown Clinical Notes Includes: Signed Clinical Notes starting from 08/18/2022 * Progress note Date Encounter Last Documented by 02/29/2024 Post Op Last documented on 02/29/2024; 12:42 PM, Endy Blevins PA-C; [facility] Active Problems & Conditions - Joint [...] as directed 0 days, 0 refills - Whiteford-3 Fish Oil 500 MG Oral Capsule, conventional [...] omissions. Care Team - Dominga Allen APRN * Progress note Date Encounter Last Documented by 01/18/2024 Post Op Last documented on 01/18/2024; 2:23 PM, Endy Blevins PA-C; [facility] Active Problems & Conditions - Joint Pain [...] as directed 0 days, 0 refills - Whiteford-3 Fish Oil 500 MG Oral Capsule, conventional [...] omissions. Care Team - Dominga Allen APRN * Progress note Date Encounter Last Documented by 12/21/2023 Post Op Last documented on 12/21/2023; 3:19 PM, Endy Blevins PA-C; [facility] Physical Findings Incision well healed without erythema/purulence/drainage [...]
--- OUTSIDE RECORDS SUMMARY | 2024-12-16 08:51 | XMS_ITS | Clinical Summary ---
Author [facility] Address [address] [address] Phone Care Team Providers Care Artist Mannequin Coloring Name Role Phone Jose Eduardo MUNOZ, Andres Acevedo Unavailable U navailable Tiffany MCDONALD, Dominga Yoon Unavailable Torrie vailable Reason for Visit and Chief Complaint Polar Care Problems Includes: Problems addressed during this encounter and other active Problems All Visits Onset Date Resolved Date Provider Condition S tatus Joint Pain in the Right Knee 11/14/2023 Meli EPPS Active Last Documented On 4 11:04AM ; [facility], [facility] Pain in the Left Foot 05/03/2016 Isaias Zepeda DPM Active Last Documented On 6 10:39AM ; [facility], [facility] Pain in the Left Lower Leg Near the Ankle 05/03/2016 Isaias Zepeda DPM Active Last Documented On 6 10:39AM ; [facility], [facility] Plan of Treatment No Plan of Treatment Recorded Assessments Includes: Assessments from this encounter No Assessments Recorded Medical Equipment - Implanted Devices Includes: Current Devices No Medical Equipment Recorded Medications Includes: Medications discussed during this encounter and other current Medications Current Medications (continue as prescribed) [place]-3 Fish Oil 500 MG Oral Capsule, conventional 08/2024 Provider: Diagnosis: Last Documented On 4 11:08AM By Padmini Corey ; [facility] MiraLax 17 GM/SCOOP Oral Powder 11/14/2023 Provider: Diagnosis: Last Documented On 4 11:08AM By Padmini Corey ; [facility] Furosemide 20 MG Oral Tablet 11/14/2023 Provider: Diagnosis: Last Documented On 4 11:06AM By Padmini Corey ; [facility] EQL Vitamin D3 50 MCG (1999 [place]) Oral Capsule, heenati onal 11/14/2023 Provider: Diagnosis: Last Documented On 4 11:07AM By Padmini Corey ; [facility] Active-Ketoprofen 5% External Cream 10/18/2023 Provi sierra: Diagnosis: Last Documented On 4 3:09PM By Kailyn Olivo ; [facility] Yue Aspirin 325 MG Oral Tablet 05/17/2023 Provider : Diagnosis: Last Documented On 3 1:50PM By Jennifer Yi ; [facility] Allopurinol 300 MG Oral Tablet 05/15/2023 Provider: Dominga Allen APRN Diagnosis: Last Documented On 3 10:04PM By Jennifer Yi ; [facility] HYDROcodone-Acetaminophen 5-325 MG Oral Tablet 023 Provider: SYLVIA OCHOA MD Diagnosis: Last Documented On 3 10:04PM By Jennifer Yi ; [facility] Losartan Potassium 25 MG Oral Tablet 02/28/2023 Prov ider: Dominga Allen APRN Diagnosis: Last Documented On 4 3:08PM By Kailyn Olivo ; [facility], [facility] Medications Administered Includes: Administered Medications from this encounter No Administered Medications Recorded Vital Signs Includes: Vital Signs from this encounter Vital Name 12/21/2023 03:13P Height (in) 62 Weight (lb) 220 Body Mass Index 40.2 Body Surface Area 2 Note: tm Last Documented: On 12/21/2023 3:13PM ; [facility] Results Includes: Results discussed during this encounter No Results Recorded For Specified Dates History of Present Illness Includes: History of Present Illness from this encounter No History of Present Illness Recorded Social History No Social History Recorded - Smoking Status Unknown Medical History Includes: Medical [...] Location Date Check-In Time Check-Out Time Diagnosis Polar Care Andres Whitt MD [facility] 12/07/2023 3:02PM 11:59PM Insurance Includes: Active Insurance Policies Plan Name Member ID Group # Subscriber Relationship Effect tuyet Dates 1 - Medicare Part B [facility] [id number] Anastasiia Khan Self 09/04/2009 - Unknown 2 - [facility] Indemnity [id number] Anastasiia Khan Self 09/04/2015 - Unknown Clinical Notes Includes: Clinical Notes from this encounter No Clinical Notes Recorded
== END 2024-12-16 23:59 | disposition home or self-care (01) ==
LOC: RAD 08:48
PROVIDERS: PCP Nurse Practitioner Family; Visit Provider Nurse Practitioner Family
DX: M79.89 Other specified soft tissue disorders (principal); R09.89 Other specified symptoms and signs involving the circulatory and respiratory systems; L84 Corns and callosities
CPT/HCPCS: 73630

== ENCOUNTER 2024-12-19 09:54 | Outpatient (CLI) | payer MEDICARE, SELFPAY ==
--- NOTE | 2024-12-19 | US_ITS ---
FINAL REPORT CLINICAL HISTORY: HTN, ulcer on 3 digit RLE FINDINGS: BILATERAL ANKLE BRACHIAL INDICES Pressure indices are as follows are: RIGHT LOWER EXTREMITY Ankle brachial pressure index: 1.2 Toe brachial pressure index: 1.0 COMMENTS: Normal LEFT LOWER EXTREMITY Ankle brachial pressure index: 1.1 Toe brachial pressure index: 1.1 COMMENTS: Normal IMPRESSION: No evidence of significant obstructive peripheral vascular disease of the lower extremities. Reviewed, Interpreted and Dictated by Tito Barraza MD Transcribed by Racheal Kumar Authenticated and [facility]
--- OUTSIDE RECORDS SUMMARY | 2024-12-19 09:59 | XMS_ITS ---
Care Plan - [facility], [facility] Created on: December 19, 2024 Anastasiia Khan : 1945 Sex: Female Author Organization [facility], [facility] Address [address] [place] [address] Phone Care Team Providers Care Paper Products Inspector Name Role Phone Jose Eduardo MUNOZ, Andres Acevedo Unavailable + [phone] Dominga Allen APRN Unavailable Torrie vailable
--- OUTSIDE RECORDS SUMMARY | 2024-12-19 09:59 | XMS_ITS | Clinical Summary ---
Author [facility] , [facility] Address [address] [place] [address] Phone Care Team Providers Care Head Start Assistant Teacher Name Role Phone Andres Whitt MD Unavailable + [phone] Dominga Allen APRN Unavailable Torrie vailable Reason for Visit and Chief Complaint Post Op Problems Includes: Problems addressed during this encounter and other active Problems All Visits Onset Date Resolved Date Provider Condition S tatus Joint Pain in the Right Knee 11/14/2023 Meli EPPS Active Last Documented On 4 11:04AM ; [facility] Pain in the Left Foot 05/03/2016 Isaias Zepeda DPM Active Last Documented On 6 10:39AM ; [facility], [facility] Pain in the Left Lower Leg Near the Ankle 05/03/2016 Isaias Zepeda DPM Active Last Documented On 6 10:39AM ; [facility], [facility] Plan of Treatment Overall the patient is pleased with the progress, we discussed the importance of following postop protocols closely as she is still at risk for permanent knee stiffness, dissatisfaction. We will plan for follow-up 4 weeks - Last Documented On 12/21/2023 3:19PM ; [facility] Pending Tests Order Diagnosis Results Due Ordering P rovider Therapy - Physical Therapy Knee 12/21/23 Endy Blevins PA-C Last Documented On 4 3:18PM ; [facility] Assessments Includes: Assessments from this encounter Findings Two weeks status post right TKA - Last Documented On 12/21/2023 3:19PM ; [facility] Medical Equipment - Implanted Devices Includes: Current Devices No Medical Equipment Recorded Medications Includes: Medications discussed during this encounter and other current Medications Current Medications (continue as prescribed) [place]-3 Fish Oil 500 MG Oral Capsule, conventional 08/2024 Provider: Diagnosis: Last Documented On 4 11:08AM By Padmini Corey ; [facility], [facility] MiraLax 17 GM/SCOOP Oral Powder 11/14/2023 Provider: Diagnosis: Last Documented On 4 11:08AM By Padmini Corey ; [facility] Furosemide 20 MG Oral Tablet 11/14/2023 Provider: Diagnosis: Last Documented On 4 11:06AM By Padmini Corey ; [facility], [facility] EQL Vitamin D3 50 MCG (1999) Oral Capsule, conventi onal 11/14/2023 Provider: Diagnosis: Last Documented On 4 11:07AM By Padmini Corey ; [facility], [facility] Active-Ketoprofen 5% External Cream 10/18/2023 Provi sierra: Diagnosis: Last Documented On 4 3:09PM By Kailyn Olivo ; [facility], [facility] Yue Aspirin 325 MG Oral Tablet 05/17/2023 Provider : Diagnosis: Last Documented On 3 1:50PM By Jennifer Yi ; [facility], [facility] Allopurinol 300 MG Oral Tablet 05/15/2023 Provider: Dominga Allen APRN Diagnosis: Last Documented On 3 10:04PM By Jennifer Yi ; [facility], [facility] HYDROcodone-Acetaminophen 5-325 MG Oral Tablet 023 Provider: SYLVIA OCHOA MD Diagnosis: Last Documented On 3 10:04PM By Jennifer Yi ; [facility], [facility] Losartan Potassium 25 MG Oral Tablet 02/28/2023 Prov ider: Dominga Allen APRN Diagnosis: Last Documented On 4 3:08PM By Kailyn Olivo ; [facility], [facility] Medications Administered Includes: Administered Medications from [...] X-RAY EXAM OF KNEE 3 VIEWS (RIGHT) 52120 Unilateral primary osteoarthritis, right knee, Presence of right artificial knee joint Endy Blevins PA-C [facility] 12/21/2023 Last Documented On 4 2:11PM ; [facility] Medical History Includes: Medical History addressed during [...] Time Diagnosis Post Op Endy Blevins PA-C [facility] 4 2:07PM 3:16PM Insurance Includes: Active Insurance Policies Plan Name Member ID Group # Subscriber Relationship Effect tuyet Dates 1 - Medicare Part B [facility] [id number] Anastasiia Eduardo Erin Self 09/04/2009 - Unknown 2 - [facility] [id number] Anastasiia Khan Self 09/04/2015 - Unknown Clinical Notes Includes: Clinical Notes from this encounter * Progress note Date Encounter Last Documented by 12/21/2023 Post Op Last documented on 12/21/2023; 3:19 PM, Endy Blevins PA-C; [facility] Physical Findings Incision well healed without erythema/purulence/drainage [...]
--- OUTSIDE RECORDS SUMMARY | 2024-12-19 09:59 | XMS_ITS | Clinical Summary ---
Author [facility] Address [address] [place] [address] Phone Care Team Providers Care Patient Registration Specialist Name Role Phone Jose Eduardo MUNOZ, Andres [...] Documented On 4 11:04AM ; [facility], [facility] Pain in the Left Foot 05/03/2016 Isaias Zepeda DPM Active Last Documented On 6 10:39AM ; [facility], [facility] Pain in the Left Lower Leg Near the Ankle 05/03/2016 Isaias Zepeda DPM Active Last Documented On 6 10:39AM ; [facility], [facility] Plan of Treatment No Plan of Treatment Recorded Assessments Includes: Assessments from this encounter No Assessments Recorded Medical Equipment - Implanted Devices Includes: Current Devices No Medical Equipment Recorded Medications Includes: Medications discussed during this encounter and other current Medications Current Medications (continue as prescribed) [place]-3 Fish Oil 500 MG Oral Capsule, conventional 08/2024 Provider: Diagnosis: Last Documented On 4 11:08AM By Padmiin Corey ; [facility] MiraLax 17 GM/SCOOP Oral Powder 11/14/2023 Provider: Diagnosis: Last Documented On 4 11:08AM By Padmini Corey ; [facility] Furosemide 20 MG Oral Tablet 11/14/2023 Provider: Diagnosis: Last Documented On 4 11:06AM By Padmini Corey ; [facility] EQL Vitamin D3 50 MCG (1999 [place]) Oral Capsule, heenati onal 11/14/2023 Provider: Diagnosis: Last Documented On 4 11:07AM By Padmini Corey ; [facility] Active-Ketoprofen 5% External Cream 10/18/2023 Provi sierra: Diagnosis: Last Documented On 4 3:09PM By Kailyn Olivo ; [facility] Yue Aspirin 325 MG Oral Tablet 05/17/2023 Provider : Diagnosis: Last Documented On 3 1:50PM By Jennifer Yi ; [facility] Allopurinol 300 MG Oral Tablet 05/15/2023 Provider: Dominga Allen APRN Diagnosis: Last Documented On 3 10:04PM By Jennifer Yi ; [facility] HYDROcodone-Acetaminophen 5-325 MG Oral Tablet 023 Provider: SYLVIA OCHOA MD Diagnosis: Last Documented On 3 10:04PM By Jennifer Yi ; [facility] Losartan Potassium 25 MG Oral Tablet 02/28/2023 Prov ider: Dominga Allen APRN Diagnosis: Last Documented On 4 3:08PM By Kailyn Olivo ; [facility], [facility] Medications Administered Includes: Administered Medications from this encounter No Administered Medications Recorded Vital Signs Includes: Vital Signs from this encounter Vital Name 12/21/2023 03:13P Height (in) 62 Weight (lb) 220 Body Mass Index 40.2 Body Surface Area 2 Note: tm Last Documented: On 12/21/2023 3:13PM ; [facility] Results Includes: Results discussed [...] tuyet Dates 1 - Medicare Part B [facility] [id number] Anastasiia Khan Self 09/04/2009 - Unknown 2 - [facility] Indemnity [id number] Anastasiia Khan Self 09/04/2015 - Unknown Clinical Notes Includes: Clinical Notes from this encounter No Clinical Notes Recorded
--- OUTSIDE RECORDS SUMMARY | 2024-12-19 09:59 | XMS_ITS | Clinical Summary ---
Author Organization [facility] , [facility] Address [address] [place] [address] Phone Care Team Providers Care Mortgage Loan Underwriter Name Role Phone Andres Whitt MD Unavailable + [phone] Dominga Allen APRN Unavailable Torrie vailable Reason for Visit and Chief Complaint Post Op Problems Includes: Problems addressed during this encounter and other active Problems All Visits Onset Date Resolved Date Provider Condition S tatus Joint Pain in the Right Knee 11/14/2023 Meli EPPS Active Last Documented On 4 11:04AM ; [facility] Left Foot 05/03/2016 Isaias Zepeda DPM Active Last Documented On 6 10:39AM ; [facility] Pain in the Left Lower Leg Near the Ankle 05/03/2016 Isaias Zepeda DPM Active Last Documented On 6 10:39AM ; [facility] Plan of Treatment - Patient screened for future fall risk: documentation of any fall with injury in past year - Last Documented On 01/18/2024 2:23PM ; [facility] Fall Risk Assessment: This patient has been [...] - Last Documented On 01/18/2024 2:23PM ; [facility] Overall the patient is pleased with the progress, we discussed the importance of continued strengthening in patients with increasing activities and we will plan for follow-up 4-6 weeks for three-month interval exam - Last Documented On 01/18/2024 2:23PM ; [facility], [facility] Pending Tests Order Diagnosis Results Due Ordering P roingris Therapy - Physical Therapy Knee Overweight 01/18/24 Endy Blevins PA-C Last Documented On 4 2:22PM ; [facility], [facility] Instructions to patient Lose weight Last Documented On 4 1:36PM ; [facility], [facility] Assessments Includes: Assessments from this encounter Findings - Overweight - Last Documented On 01/18/2024 2:23PM ; [facility], [facility] 6 weeks status post right TKA - Last Documented On 01/18/2024 2:23PM ; [facility] Instructions Includes: Instructions from this encounter Instructions to patient Lose weight Last Documented On 4 1:36PM ; [facility], [facility] Medical Equipment - Implanted Devices Includes: Current Devices No Medical Equipment Recorded Medications Includes: Medications discussed during this encounter and other current Medications Current Medications (continue as prescribed) [place]-3 Fish Oil 500 MG Oral Capsule, conventional 08/2024 Provider: Diagnosis: Last Documented On 4 11:08AM By Padmini Corey ; [facility], [facility] MiraLax 17 GM/SCOOP Oral Powder 11/14/2023 Provider: Diagnosis: Last Documented On 4 11:08AM By Padmini Corey ; [facility], [facility] Furosemide 20 MG Oral Tablet 11/14/2023 Provider: Diagnosis: Last Documented On 4 11:06AM By Padmini Corey ; [facility], [facility] EQL Vitamin D3 50 MCG (2000 [place]) Oral Capsule, conventi onal 11/14/2023 Provider: Diagnosis: Last Documented On 4 11:07AM By Padmini Corey ; [facility], [facility] Active-Ketoprofen 5% External Cream 10/18/2023 Provi sierra: Diagnosis: Last Documented On 4 3:09PM By Kailyn Olivo ; [facility], [facility] Yue Aspirin 325 MG Oral Tablet 05/17/2023 Provider : Diagnosis: Last Documented On 3 1:50PM By Jennifer Yi ; [facility] Allopurinol 300 MG Oral Tablet 05/15/2023 Provider: Dominga Allen APRN Diagnosis: Last Documented On 3 10:04PM By Jennifer Yi ; [facility] HYDROcodone-Acetaminophen 5-325 MG Oral Tablet 023 Provider: SYLVIA OCHOA MD Diagnosis: Last Documented On 3 10:04PM By Jennifer Yi ; [facility] Losartan Potassium 25 MG Oral Tablet 02/28/2023 Prov ider: Dominga Allen APRN Diagnosis: Last Documented On 4 3:08PM By Kailyn Olivo ; [facility] Past Medications on file traMADol HCl 50 MG Oral Tablet 12/01/2023 - 12/06/2023 Provider: nAdres carrillo MD Diagnosis: 1-2 po q 4-6h Last Documented On 4 11:26AM By José Miguel Whitt ; [facility] Eliquis 2.5 MG Oral Tablet 12/01/2023 - 03/02/2024 Provider: Andres carrillo MD Diagnosis: twice a day Last Documented On 4 11:26AM By José Miguel Whitt ; [facility] Meloxicam 15 MG Oral Tablet 12/01/2023 - 12/31/2023 Provider: Andres carrillo MD Diagnosis: once a day Last Documented On 4 11:26AM By José Miguel Whitt ; [facility] oxyCODONE HCl 5 MG Oral Tablet 12/01/2023 - 12/06/2023 Provider: Andres carrillo MD Diagnosis: 1-2 po q 4-6h Last Documented On 4 11:26AM By José Miguel Whitt ; [facility] Cefadroxil 500 MG Oral Capsule 12/01/2023 - 12/04/2023 Provider: Andres carrillo MD Diagnosis: twice a day Last Documented On 4 11:26AM By José Miguel Whitt ; [facility] Acetaminophen 500 MG Oral Tablet 12/01/2023 - 12/31/2023 Provider: Andres Whitt MD Diagnosis: 2 three times a day Last Documented On 4 11:26AM By José Miguel Whitt ; [facility] Colace 100 MG Oral Capsule 12/01/2023 - 02/29/2024 Provider: Andres carrillo MD Diagnosis: 1-2 tabs daily Last Documented On 4 11:26AM By José Miguel Whitt ; [facility] Ondansetron HCl 4 MG Oral Tablet 12/01/2023 - 12/06/2023 Provider: Andres Whitt MD Diagnosis: [id number] Last Documented On 4 11:26AM By José Miguel Whitt ; [facility] Tranexamic Acid 650 MG Oral Tablet 12/01/2023 - 12/05/2023 Provider: Andres carrillo MD Diagnosis: as directed TAKE 3 TABLETS O NE TIME A DAY BEGINNING THE EVENING OF SURGERY FOR FOUR DAYS Last Documented On 4 11:26AM By José Miguel Whitt ; [facility] Medications Administered Includes: Administered Medications from this encounter No Administered Medications Recorded Vital Signs Includes: Vital Signs from this encounter Vital Name 01/18/2024 01:36P Height (in) 62 Weight (lb) 220 Body Mass Index 40.2 Body Surface Area 2 Note: ab Last Documented: On 01/18/2024 1:36PM ; [facility] Results Includes: Results discussed during this encounter No Results Recorded For Specified Dates History of Present Illness Includes: History of Present Illness from this encounter GUEVAAR Khan is a 78 year old female. - Allergy list reviewed - Problem list reviewed - Medication list reviewed - - Review of medications documented Social History Description Last Updated Tobacco non-user 05/17/2023 Last Documented On 4 1:36PM ; [facility] Not exercising regularly 08/16/2019 Last Documented On 4 1:36PM ; [facility], [facility] Smoking Status Unknown Medical History Includes: Medical History addressed during this encounter Description Last Updated Arthritic joint problems 08/16/2019 Last Documented On 4 1:36PM ; [facility] Intermittent hypertension , Gout, dyslip idemia 05/03/2016 Last Documented On 4 1:36PM ; [facility], [facility] A recent immunization for pneumococcal p neumonia 05/03/2016 Last Documented On 4 1:36PM ; [facility] left ankle sx 05/03/2016 Last Documented On 4 1:36PM ; [facility] Family History Includes: Family History addressed during this encounter Description Last Updated Family history of hypertension Last Documented On 4 1:36PM ; [facility], [facility] Maternal history of hyperten daniela / paternal, sororal, fraternal history as well 05/03/2016 Last Documented On 4 1:36PM ; [facility] stroke/seizure 05/03/2016 Last Documented On 4 1:36PM ; [facility], [facility] Paternal history of family history of ca ncer 05/03/2016 Last Documented On 4 1:36PM ; [facility] Review of Systems Includes: Review of Systems [...] Time Check-Out Time Diagnosis Post Op [facility] 4 1:38PM 2:22PM Overweight Insurance Includes: Active Insurance Policies Plan Name Member ID Group # Subscriber Relationship Effect tuyet Dates 1 - Medicare Part B [facility] [id number] Anastasiia Benoitp Self 09/04/2009 - Unknown 2 - [facility] Indemnity [id number] Anastasiia Eduardo [facility] Self 09/04/2015 - Unknown Clinical Notes Includes: Clinical Notes from this encounter * Progress note Date Encounter Last Documented by 01/18/2024 Post Op Last documented on 01/18/2024; 2:23 PM, Endy Blevins PA-C; [facility] Active Problems & Conditions - Joint Pain [...] as directed 0 days, 0 refills - [place]-3 Fish Oil 500 MG Oral Capsule, conventional [...]
--- OUTSIDE RECORDS SUMMARY | 2024-12-19 09:59 | XMS_ITS ---
Author Organization [facility] , [facility] Address [address] [place] [address] Phone Care Team Providers Care Tailor Women'S Garment Alteration Name Role Phone Andres Whitt MD Unavailable + [phone] Dominga Allen APRN Unavailable Torrie vailable Problems Includes: Active, inactive, and resolved Problems All Visits Onset Date Resolved Date Provider Condition S tatus Joint Pain in the Right Knee 11/14/2023 Meli EPPS Active Last Documented On 4 11:04AM ; [facility], [facility] Joint Pain in Both Knees 11/29/2016 Isaias Rogers Jatinder soraida DPM Inactive Last Documented On 3 10:03PM ; [facility], [facility] Pain in the Left Foot 05/03/2016 Isaias Rogers Katelyn DPM Active Last Documented On 6 10:39AM ; [facility], [facility] Pain in the Left Lower Leg Near the Ankle 05/03/2016 Isaias S Katelyn DPM Active Last Documented On 6 10:39AM ; [facility], [facility] Plan of Treatment Findings Encounter Date Patient screened for future fall risk: documentation of any fall with injury in past year Post Op with Endy Blevins PA-C 02/29/2024 Last Documented On 4 12:42PM ; [facility], [facility] Patient screened for future fall risk: documentation of any fall with injury in past year Post Op with Endy Blevins PA-C 01/18/2024 Last Documented On 4 2:23PM ; [facility], [facility] Referrals To Diagnosis Consult with Vascular Note: [...] weight Last Documented On 6 10:50AM ; [facility] Medical Equipment - Implanted Devices Includes: Current and historical Devices No Medical Equipment Recorded Medications Includes: Current and historical Medications Current Medications (continue as prescribed) [place]-3 Fish Oil 500 MG Oral Capsule, conventional 08/2024 Provider: Diagnosis: Last Documented On 11:08AM By Padmini Corey ; [facility] MiraLax 17 GM/SCOOP Oral Powder 11/14/2023 Provider: Diagnosis: Last Documented On 4 11:08AM By Padmini Corey ; [facility] Furosemide 20 MG Oral Tablet 11/14/2023 Provider: Diagnosis: Last Documented On 4 11:06AM By Padmini Corey ; [facility] EQL Vitamin D3 50 MCG (2000 UT) Oral Capsule, conventi onal 11/14/2023 Provider: Diagnosis: Last Documented On 4 11:07AM By Padmini Corey ; [facility] Active-Ketoprofen 5% External Cream 10/18/2023 Provi sierra: Diagnosis: Last Documented On 4 3:09PM By Kailyn Olivo ; [facility] Yue Aspirin 325 MG Oral Tablet 05/17/2023 Provider : Diagnosis: Last Documented On 3 1:50PM By Jennifer Yi ; [facility] Allopurinol 300 MG Oral Tablet 05/15/2023 Provider: Dominga Allen APRN Diagnosis: Last Documented On 3 10:04PM By Jennifer Yi ; [facility] HYDROcodone-Acetaminophen 5-325 MG Oral Tablet 023 Provider: SYLVIA OCHOA MD Diagnosis: Last Documented On 3 10:04PM By Jennifer Yi ; [facility] Losartan Potassium 25 MG Oral Tablet 02/28/2023 Prov ider: Dominga Allen APRN Diagnosis: Last Documented On 4 3:08PM By Kailyn Olivo ; [facility], [facility] Past Medications on file traMADol HCl 50 MG Oral Tablet 12/01/2023 - 12/06/2023 Provider: Andres carrillo MD Diagnosis: 1-2 po q 4-6h Last Documented On 4 11:26AM By José Miguel Whitt ; [facility] Eliquis 2.5 MG Oral Tablet 12/01/2023 - 03/02/2024 Provider: Andres carrillo MD Diagnosis: twice a day Last Documented On 4 11:26AM By José Miguel Whitt ; [facility] Meloxicam 15 MG Oral Tablet 12/01/2023 - 12/31/2023 Provider: Andres carrillo MD Diagnosis: once a day Last Documented On 11:26AM By José Miguel Whitt ; [facility] oxyCODONE HCl 5 MG Oral Tablet 12/01/2023 - 12/06/2023 Provider: Andres carrillo MD Diagnosis: 1-2 po q 4-6h Last Documented On 11:26AM By José Miguel Whitt ; [facility] Cefadroxil 500 MG Oral Capsule 12/01/2023 - 12/04/2023 Provider: Andres carrillo MD Diagnosis: twice a day Last Documented On 11:26AM By José Miguel Whitt ; [facility] Acetaminophen 500 MG Oral Tablet 12/01/2023 - 12/31/2023 Provider: Andres Whitt MD Diagnosis: 2 three times a day Last Documented On 11:26AM By José Miguel Whitt ; [facility] Colace 100 MG Oral Capsule 12/01/2023 - 02/29/2024 Provider: Andres carrillo MD Diagnosis: 1-2 tabs daily Last Documented On 11:26AM By José Miguel Whitt ; [facility] Ondansetron HCl 4 MG Oral Tablet 12/01/2023 - 12/06/2023 Provider: Andres Whitt MD Diagnosis: [id number] Last Documented On 11:26AM By José Miguel Whitt ; [facility] Tranexamic Acid 650 MG Oral Tablet 12/01/2023 - 12/05/2023 Provider: Andres carrillo MD Diagnosis: as directed TAKE 3 TABLETS O NE TIME A DAY BEGINNING THE EVENING OF SURGERY FOR FOUR DAYS Last Documented On 11:26AM By José Miguel Whitt ; [facility] Furosemide 20 MG Oral Tablet 05/15/2023 - 11/14/2023 Provider: Dominga nichols APRN Diagnosis: Last Documented On 11:05AM By Padmini Corey ; [facility] Losartan Potassium 25 MG Oral Tablet 02/28/2023 - 10/18/2023 Provider: Dominga nichols APRN Diagnosis: Last Documented On 4 3:09PM By Kailyn Olivo ; [facility] Animi-3/Vitamin D 1 MG Oral Capsule 08/16/2019 - 05/16 Provider: Diagnosis: Last Documented On 3 10:03PM By Jennifer Yi ; [facility] GaviLAX Oral Powder 08/16/2019 - 05/16/2023 Provider: Diagnosis: Last Documented On 3 10:03PM By Jennifer Yi ; [facility] Losartan Potassium 100 MG Oral Tablet 08/16/2019 - 08/2023 Provider: Diagnosis: Last Documented On 3 10:03PM By Jennifer Yi ; [facility] Acetaminophen 325 MG Oral Capsule 08/16/2019 - 023 Provider: Diagnosis: Last Documented On 3 10:03PM By Jennifer Yi ; [facility] Furosemide 20 MG Oral Tablet 08/16/2019 - 05/16/2023 P roscoeder: Diagnosis: Last Documented On 3 10:03PM By Jennifer Yi ; [facility] EQL Fish Oil 1000 MG Oral Capsule 08/16/2019 - 023 Provider: Diagnosis: Last Documented On 3 10:04PM By Jennifer Yi ; [facility] Yue Advanced Aspirin Ex St 500 MG Oral Tablet 08/16/2019 - 05/16/2023 Provider: Diagnosis: Last Documented On 3 10:03PM By Jennifer Yi ; [facility] Allopurinol 300 MG Oral Tablet 07/09/2019 - 05/16/2023 Provider: Diagnosis: Last Documented On 3 10:03PM By Jennifer Yi ; [facility] Percocet 7.5-325 MG Tablet 05/10/2016 - 08/16/2019 Pro vider: Isaias Zepeda DPM Diagnosis: 1-2 po q 4-6h Last Documented On 9 1:27PM By Britni Ashby ; [facility] Percocet 7.5-325 MG Tablet 05/04/2016 - 08/16/2019 Pro vider: Isaias Zepeda DPM Diagnosis: 1-2 po q 4-6h Last Documented On 9 1:27PM By Britni Ashby ; [facility] Vitamin D3 1000 UNIT Capsule, conventional 05/03/2016 - 08/01/2016 Provider: Diagnosis: Last Documented On 6 10:24AM By December Lionel ; [facility] Calcium 250 MG Capsule, conventional 05/03/2016 - 07/06 Provider: Diagnosis: Last Documented On 6 10:24AM By Li Lionel ; [facility] Newcomb 7.5-325 MG Tablet 05/03/2016 - 08/01/2016 Provid er: Diagnosis: Last Documented On 6 10:24AM By December Lionel ; [facility] Lasix 40 MG Tablet 05/03/2016 - 08/01/2016 Provider: Diagnosis: Last Documented On 6 10:24AM By December Lionel ; [facility] Aspirin 325 MG Tablet 05/03/2016 - 08/01/2016 Provider : Diagnosis: Last Documented On 6 10:23AM By December Lionel ; [facility] Losartan Potassium 100 MG Tablet 05/03/2016 - 08/16/20 19 Provider: Diagnosis: Last Documented On 9 1:27PM By Britni Ashby ; [facility] Allopurinol 300 MG Tablet 05/03/2016 - 08/01/2016 Prov ider: Diagnosis: Last Documented On 6 10:24AM By December Lionel ; [facility] Fish Oil 1000 MG Capsule, conventional 05/03/2016 - Provider: Diagnosis: Last Documented On 6 10:24AM By December Lionel ; [facility] Medications Administered Includes: Administered Medications in patient's chart No Administered Medications Recorded Vital Signs Includes: Vital Signs from 12/20/2023 through 12/19/2024 Vital Name 02/29/2024 10:23A 01/18/2024 01:36P 12/20 03:13P Height (in) 62 62 62 Weight (lb) 220 220 220 Body Mass Index 40.2 40.2 40.2 Body Surface Area 2 2 2 Note: as ab tm Last Documented: On 02/29/2024 10:24A M ; [facility] On 01/18/2024 1:36PM ; [facility] On 12/21/2023 3:13PM ; [facility] Results Includes: Results from 12/20/2023 through 12/19/2024 No Results Recorded For Specified Dates History of Present Illness History of Present Illness not supported for this document type No History of Present Illness Recorded Social History Description Last Updated Tobacco non-user 05/17/2023 Last Documented On 3 2:21PM ; [facility] No recent change in diet 05/17/2023 Last Documented On 3 2:21PM ; [facility] Not a current smoker. 05/17/2023 Last Documented On 3 2:21PM ; [facility] Not exercising regularly 08/16/2019 Last Documented On 9 2:04PM ; [facility] No caffeine use 05/03/2016 Last Documented On 6 5:23PM ; [facility] No recent change in diet 05/03/2016 Last Documented On 6 5:23PM ; [facility] Not a current smoker 05/03/2016 Last Documented On 6 5:23PM ; [facility] Not using alcohol 05/03/2016 Last Documented On 6 5:23PM ; [facility] Not using drugs 05/03/2016 Last Documented On 6 5:23PM ; [facility] No tobacco use 05/03/2016 Last Documented On 6 5:23PM ; [facility] Smoking status : Never smoker 05/03/2016 Last Documented On 6 5:23PM ; [facility] Procedures and Surgical History Includes: Procedures from 12/20/2023 through 12/19/2024 Procedures Code Diagnosis Performing Provider Service Location Service Date Home Health Certification [id number] Unilateral primary osteoarthritis, right knee Andres Whitt MD [facility] Home Health 01/22/2024 Last Documented On 4 2:49PM ; [facility] X-RAY EXAM OF KNEE 3 VIEWS (RIGHT) [id number] Unilateral primary osteoarthritis, right knee, Presence of right artificial knee joint Endy Blevins PA-C [facility] 12/21/2023 Last Documented On 4 2:11PM ; [facility] Medical History Includes: Medical History in patient's chart Description Last Updated Arthritic joint problems 08/16/2019 Last Documented On 9 2:04PM ; [facility] Intermittent hypertension , Gout, dyslip idemia 05/03/2016 Last Documented On 6 5:23PM ; [facility] A recent immunization for pneumococcal p neumonia 05/03/2016 Last Documented On 6 5:23PM ; [facility] left ankle sx 05/03/2016 Last Documented On 6 5:23PM ; [facility] Family History Includes: Family History in patient's chart Description Last Updated Family history of hypertension 9 Last Documented On 9 2:04PM ; [facility] Maternal history of hyperten daniela / paternal, sororal, fraternal history as well 05/03/2016 Last Documented On 6 5:23PM ; [facility] stroke/seizure 05/03/2016 Last Documented On 6 5:23PM ; [facility] Paternal history of family history of ca ncer 05/03/2016 Last Documented On 6 5:23PM ; [facility] Review of Systems Review of Systems not [...] Patient Last Documented On 6 10:51AM ; [facility] Allergies Includes: Active, inactive, and resolved Allergies No Known Allergies Encounters Includes: Encounters from 12/20/2023 through 12/19/2024 Encounter Provider Location Date Check-In Time Check-Out Time Diagnosis Post Op Endy Blevins PA-C [facility] 024 10:23AM 11:23AM Overweight [Patient Encounter] Andres Whitt MD [facility] Home Health 024 01/18/2024 2:48PM 01/18/2024 11:59PM Post Op Endy Blevins PA-C [facility] 024 1:38PM 2:22PM Overweight Post Op Endy Blevins PA-C [facility] 024 2:07PM 3:16PM Insurance Includes: Active Insurance Policies Plan Name Member ID Group # Subscriber Relationship Effect tuyet Dates 1 - Medicare Part B [facility] [id number] Anastasiia Khan Self 09/04/2009 - Unknown 2 - [facility] Indemnity [id number] Anastasiia Khan Self 09/04/2015 - Unknown Clinical Notes Includes: Signed Clinical Notes starting from 08/18/2022 * Progress note Date Encounter Last Documented by 02/29/2024 Post Op Last documented on 02/29/2024; 12:42 PM, Endy Blevins PA-C; [facility] Active Problems & Conditions - Joint [...] as directed 0 days, 0 refills - [place]-3 Fish Oil 500 MG Oral Capsule, conventional [...] on 01/18/2024; 2:23 PM, Endy Blevins PA-C; [facility] Active Problems & Conditions - Joint [...] as directed 0 days, 0 refills - [place]-3 Fish Oil 500 MG Oral Capsule, conventional [...] on 12/21/2023; 3:19 PM, Endy Blevins PA-C; [facility] Physical Findings Incision well healed without [...]
--- OUTSIDE RECORDS SUMMARY | 2024-12-19 09:59 | XMS_ITS | Clinical Summary ---
Author Organization [facility] Address [address] [place] [address] Phone Care Team Providers Care Lactation Specialist Name Role Phone Andres Whitt MD Unavailable + [phone] Dominga Allen APRN Unavailable Torrie vailable Reason for Visit and Chief Complaint [Patient Encounter] Problems Includes: Problems addressed during this encounter and other active Problems All Visits Onset Date Resolved Date Provider Condition S tatus Joint Pain in the Right Knee 11/14/2023 Meli EPPS Active Last Documented On 4 11:04AM ; [facility] Pain in the Left Foot 05/03/2016 Isaias Zepeda DPM Active Last Documented On 6 10:39AM ; [facility] Pain in the Left Lower Leg Near the Ankle 05/03/2016 Isaias Zepeda DPM Active Last Documented On 6 10:39AM ; [facility] Plan of Treatment No Plan of Treatment Recorded Assessments Includes: Assessments from this encounter No Assessments Recorded Medical Equipment - Implanted Devices Includes: Current Devices No Medical Equipment Recorded Medications Includes: Medications discussed during this encounter and other current Medications Current Medications (continue as prescribed) [place]-3 Fish Oil 500 MG Oral Capsule, conventional 08/2024 Provider: Diagnosis: Last Documented On 4 11:08AM By Padmini Corey ; [facility] MiraLax 17 GM/SCOOP Oral Powder 11/14/2023 Provider: Diagnosis: Last Documented On 4 11:08AM By Padmini Corey ; [facility] Furosemide 20 MG Oral Tablet 11/14/2023 Provider: Diagnosis: Last Documented On 4 11:06AM By Padmini Corey ; [facility] EQL Vitamin D3 50 MCG (1999 UT) Oral Capsule, conventi onal 11/14/2023 Provider: Diagnosis: Last Documented On 4 11:07AM By Padmini Corey ; [facility] Active-Ketoprofen 5% External Cream 10/18/2023 Provi sierra: Diagnosis: Last Documented On 4 3:09PM By Kailyn Olivo ; [facility] Yeu Aspirin 325 MG Oral Tablet 05/17/2023 Provider : Diagnosis: Last Documented On 3 1:50PM By Jennifer Yi ; [facility] Allopurinol 300 MG Oral Tablet 05/15/2023 Provider: Dominga Allen APRN Diagnosis: Last Documented On 3 10:04PM By Jennifer Yi ; [facility] HYDROcodone-Acetaminophen 5-325 MG Oral Tablet 023 Provider: SYLVIA OCHOA MD Diagnosis: Last Documented On 3 10:04PM By Jennifer Yi ; [facility] Losartan Potassium 25 MG Oral Tablet 02/28/2023 Prov ider: Dominga Allen APRN Diagnosis: Last Documented On 4 3:08PM By Kailyn Olivo ; [facility] Medications Administered Includes: Administered Medications [...] primary osteoarthritis, right knee Andres Whitt MD [facility] 01/22/2024 Last Documented On 4 2:49PM ; [facility] Medical History Includes: Medical History [...] Time Diagnosis [Patient Encounter] Andres Whitt MD [facility] 01/22/20 24 2:48PM 11:59PM Insurance Includes: Active Insurance Policies Plan Name Member ID Group # Subscriber Relationship Effect tuyet Dates 1 - Medicare Part B [facility] [id number] Anastasiia Khan Self 09/04/2009 - Unknown 2 - [facility] Indemnity [id number] Anastasiia Khan Self 09/04/2015 - Unknown Clinical Notes Includes: Clinical Notes from this encounter No Clinical Notes Recorded
--- OUTSIDE RECORDS SUMMARY | 2024-12-19 09:59 | XMS_ITS | Clinical Summary ---
Author Organization [facility] , [facility] Address [address] [place] [address] Phone Care Team Providers Care Greens Picker Name Role Phone Andres Whitt MD Unavailable + [phone] Dominga Allen APRN Unavailable Torrie vailable Reason for Visit and Chief Complaint The Chief Complaint is: 4-6 week po Problems Includes: Problems addressed during this encounter and other active Problems All Visits Onset Date Resolved Date Provider Condition S tatus Joint Pain in the Right Knee 11/14/2023 Meli EPPS Active Last Documented On 4 11:04AM ; [facility] Pain in the Left Foot 05/03/2016 Isaias Zepeda DPM Active Last Documented On 6 10:39AM ; [facility] Pain in the Left Lower Leg Near the Ankle 05/03/2016 Isaias Zepeda DPM Active Last Documented On 6 10:39AM ; [facility], [facility] Plan of Treatment - Patient screened for future fall risk: documentation of any fall with injury in past year - Last Documented On 02/29/2024 12:42PM ; [facility], [facility] Fall Risk Assessment: This patient has been [...] - Last Documented On 02/29/2024 12:42PM ; [facility], [facility] Patient is very pleased with the progress. We discussed she has significantly flat feet ankles bilaterally. This deformity could shorten the life span of her total knee arthroplasty. Recommend referral to Dr. Rangel for evaluation of feet and ankles, consideration of bracing. - Last Documented On 02/29/2024 12:42PM ; [facility], [facility] Instructions to patient Lose weight Last Documented On 4 10:23AM ; [facility], [facility] Assessments Includes: Assessments from this encounter Findings - Overweight - Last Documented On 02/29/2024 12:42PM ; [facility], [facility] 10 weeks status post right TKA - Last Documented On 02/29/2024 12:42PM ; [facility], [facility] Instructions Includes: Instructions from this encounter Instructions to patient Lose weight Last Documented On 4 10:23AM ; [facility], [facility] Medical Equipment - Implanted Devices Includes: Current Devices No Medical Equipment Recorded Medications Includes: Medications discussed during this encounter and other current Medications Current Medications (continue as prescribed) Stanton-3 Fish Oil 500 MG Oral Capsule, conventional 08/2024 Provider: Diagnosis: Last Documented On 4 11:08AM By Padmini Corey ; [facility], [facility] MiraLax 17 GM/SCOOP Oral Powder 11/14/2023 Provider: Diagnosis: Last Documented On 4 11:08AM By Padmini Corey ; [facility], [facility] Furosemide 20 MG Oral Tablet 11/14/2023 Provider: Diagnosis: Last Documented On 4 11:06AM By Padmini Corey ; [facility], [facility] EQL Vitamin D3 50 MCG (1999 UT) Oral Capsule, conventi onal 11/14/2023 Provider: Diagnosis: Last Documented On 4 11:07AM By Padmini Corey ; [facility], [facility] Active-Ketoprofen 5% External Cream 10/18/2023 Provi sierra: Diagnosis: Last Documented On 4 3:09PM By Kailyn Olivo ; [facility], [facility] Yue Aspirin 325 MG Oral Tablet 05/17/2023 Provider : Diagnosis: Last Documented On 3 1:50PM By Jennifer Yi ; [facility], [facility] Allopurinol 300 MG Oral Tablet 05/15/2023 Provider: Dominga Allen APRN Diagnosis: Last Documented On 3 10:04PM By Jennifer Yi ; [facility] HYDROcodone-Acetaminophen 5-325 MG Oral Tablet 023 Provider: SYLVIA OCHOA MD Diagnosis: Last Documented On 3 10:04PM By Jennifer Yi ; [facility] Losartan Potassium 25 MG Oral Tablet 02/28/2023 Prov ider: Dominga Allen APRN Diagnosis: Last Documented On 4 3:08PM By Kailyn Olivo ; [facility] Past Medications on file traMADol HCl 50 MG Oral Tablet 12/01/2023 - 12/06/2023 Provider: Andres carrillo MD Diagnosis: 1-2 po q 4-6h Last Documented On 4 11:26AM By José Miguel Whitt ; [facility] Eliquis 2.5 MG Oral Tablet 12/01/2023 - 03/02/2024 Provider: Andres carrillo MD Diagnosis: twice a day Last Documented On 4 11:26AM By José Miguel Whitt ; [facility] Meloxicam 15 MG Oral Tablet 12/01/2023 - 12/31/2023 Provider: Andres carrillo MD Diagnosis: once a day Last Documented On 4 11:26AM By José Miguel Whitt ; [facility] oxyCODONE HCl 5 MG Oral Tablet 12/01/2023 - 12/06/2023 Provider: Andres carrillo MD Diagnosis: 1-2 po q 4-6h Last Documented On 4 11:26AM By José Miguel Whitt ; [facility] Cefadroxil 500 MG Oral Capsule 12/01/2023 - 12/04/2023 Provider: Andres carrillo MD Diagnosis: twice a day Last Documented On 4 11:26AM By José Miguel Whitt ; [facility] Acetaminophen 500 MG Oral Tablet 12/01/2023 - 12/31/2023 Provider: Andres Whitt MD Diagnosis: 2 three times a day Last Documented On 4 11:26AM By José Miguel Whitt ; [facility], [facility] Colace 100 MG Oral Capsule 12/01/2023 - 02/29/2024 Provider: Andres carrillo MD Diagnosis: 1-2 tabs daily Last Documented On 4 11:26AM By José Miguel Whitt ; [facility], [facility] Ondansetron HCl 4 MG Oral Tablet 12/01/2023 - 12/06/2023 Provider: Andres Whitt MD Diagnosis: [id number] Last Documented On 4 11:26AM By José Miguel Whitt ; [facility], [facility] Tranexamic Acid 650 MG Oral Tablet 12/01/2023 - 12/05/2023 Provider: Andres carrillo MD Diagnosis: as directed TAKE 3 TABLETS O NE TIME A DAY BEGINNING THE EVENING OF SURGERY FOR FOUR DAYS Last Documented On 4 11:26AM By José Miguel Whitt ; [facility], [facility] Medications Administered Includes: Administered Medications from this encounter No Administered Medications Recorded Vital Signs Includes: Vital Signs from this encounter Vital Name 02/29/2024 10:23A Height (in) 62 Weight (lb) 220 Body Mass Index 40.2 Body Surface Area 2 Note: as Last Documented: On 02/29/2024 10:24A M ; [facility] Results Includes: Results discussed during this encounter [...] 05/17/2023 Last Documented On 4 10:23AM ; [facility], [facility] Not exercising regularly 08/16/2019 Last Documented On 4 10:23AM ; [facility], [facility] Smoking Status Unknown Medical History Includes: Medical History addressed during this encounter Description Last Updated Arthritic joint problems 08/16/2019 Last Documented On 4 10:23AM ; [facility] Intermittent hypertension , Gout, dyslip idemia 05/03/2016 Last Documented On 4 10:23AM ; [facility] A recent immunization for pneumococcal p neumonia 05/03/2016 Last Documented On 4 10:23AM ; [facility], [facility] left ankle sx 05/03/2016 Last Documented On 4 10:23AM ; [facility], [facility] Family History Includes: Family History addressed during this encounter Description Last Updated Family history of hypertension 9 Last Documented On 4 10:23AM ; [facility], [facility] Maternal history of hyperten daniela / paternal, sororal, fraternal history as well 05/03/2016 Last Documented On 4 10:23AM ; [facility], [facility] stroke/seizure 05/03/2016 Last Documented On 4 10:23AM ; [facility], [facility] Paternal history of family history of ca ncer 05/03/2016 Last Documented On 4 10:23AM ; [facility], [facility] Review of Systems Includes: Review of Systems [...] Time Check-Out Time Diagnosis [facility] 4 10:23AM 11:23AM Overweight Insurance Includes: Active Insurance Policies Plan Name Member ID Group # Subscriber Relationship Effect tuyet Dates 1 - Medicare Part [facility] [id number] Anastasiia Khan Self 09/04/2009 - Unknown 2 - [facility] [id number] Anastasiia L Erin Self 09/04/2015 - Unknown Clinical Notes Includes: Clinical Notes from this encounter * Progress note Date Encounter Last Documented by 02/29/2024 Post Op Last documented on 02/29/2024; 12:42 PM, Endy Blevins PA-C; [facility], [facility] Active Problems & Conditions - Joint Pain [...] Oral Tablet 90 days, 0 refills - Yeu Aspirin 325 MG Oral Tablet 0 days, [...] as directed 0 days, 0 refills - Stanton-3 Fish Oil 500 MG Oral Capsule, conventional [...]
== END 2024-12-19 23:59 | disposition home or self-care (01) ==
LOC: RT 09:56
PROVIDERS: PCP Nurse Practitioner Family; Visit Provider Nurse Practitioner Family
DX: I73.9 Peripheral vascular disease, unspecified (principal); R09.89 Other specified symptoms and signs involving the circulatory and respiratory systems
CPT/HCPCS: 93923

== ENCOUNTER 2025-01-01 15:22 | Outpatient (CLI) | payer MEDICARE, SELFPAY ==
--- OUTSIDE RECORDS SUMMARY | 2025-01-01 15:25 | XMS_ITS | Clinical Summary ---
Author Organization [facility] , [facility] Address [address] [place] [address] Phone Care Team Providers Care Service Dispatcher Name Role Phone Jose Eduardo MUNOZ, Andres Acevedo Unavailable U navailable Tiffany MCDONALD, Dominga Yoon Unavailable Torrie vailable Reason for Visit and Chief Complaint Polar Care Problems Includes: Problems addressed during this encounter and other active Problems All Visits Onset Date Resolved Date Provider Condition S tatus Joint Pain in the Right Knee 11/14/2023 Meli EPPS Active Last Documented On 4 11:04AM ; [facility], [facility] Pain in the Left Foot 05/03/2016 Isaias Zepeda DPM Active Last Documented On 6 10:39AM ; [facility], [facility] Pain in the Left Lower Leg Near the Ankle 05/03/2016 Isaias Zepeda DPM Active Last Documented On 6 10:39AM ; [facility], [facility] Plan of Treatment No Plan of Treatment Recorded Assessments Includes: Assessments from this encounter No Assessments Recorded Medical Equipment - Implanted Devices Includes: Current Devices No Medical Equipment Recorded Medications Includes: Medications discussed during this encounter and other current Medications Current Medications (continue as prescribed) [place]-3 Fish Oil 500 MG Oral Capsule, conventional 08/2024 Provider: Diagnosis: Last Documented On 4 11:08AM By Padmini Corey ; [facility] MiraLax 17 GM/SCOOP Oral Powder 11/14/2023 Provider: Diagnosis: Last Documented On 4 11:08AM By Padmini Corey ; [facility] Furosemide 20 MG Oral Tablet 11/14/2023 Provider: Diagnosis: Last Documented On 4 11:06AM By Padmini Corey ; [facility] EQL Vitamin D3 50 MCG (1999 [place]) Oral Capsule, heenati onal 11/14/2023 Provider: Diagnosis: Last Documented On 4 11:07AM By Padmini Corey ; [facility] Active-Ketoprofen 5% External Cream 10/18/2023 Provi sierra: Diagnosis: Last Documented On 4 3:09PM By Kailyn Olivo ; [facility] Yue Aspirin 325 MG Oral Tablet 05/17/2023 Provider : Diagnosis: Last Documented On 3 1:50PM By Jennifer Yi ; [facility] Allopurinol 300 MG Oral Tablet 05/15/2023 Provider: Dominga Allen APRN Diagnosis: Last Documented On 3 10:04PM By Jennifer Yi ; [facility] HYDROcodone-Acetaminophen 5-325 MG Oral Tablet 023 Provider: SYLVIA OCHOA MD Diagnosis: Last Documented On 3 10:04PM By Jennifer Yi ; [facility] Losartan Potassium 25 MG Oral Tablet 02/28/2023 Prov ider: Dominga Allen APRN Diagnosis: Last Documented On 4 3:08PM By Kailyn Olivo ; [facility], [facility] Medications Administered Includes: Administered Medications from this encounter No Administered Medications Recorded Vital Signs Includes: Vital Signs from this encounter Vital Name 12/21/2023 03:13P Height (in) 62 Weight (lb) 220 Body Mass Index 40.2 Body Surface Area 2 Note: tm Last Documented: On 12/21/2023 3:13PM ; [facility] Results Includes: Results discussed during [...] - Medicare Part B [facility] [id number] Anastasiia Khan Self 09/04/2009 - Unknown 2 - [facility] Indemnity [id number] Anastasiia Khan Self 09/04/2015 - Unknown Clinical Notes Includes: Clinical Notes from this encounter No Clinical Notes Recorded
--- OUTSIDE RECORDS SUMMARY | 2025-01-01 15:25 | XMS_ITS | Clinical Summary ---
Author Organization [facility] , [facility] Address [address] [place] [address] Phone Care Team Providers Care Inspector Ball Points Name Role Phone Andres Whitt MD Unavailable + [phone] Dominga Allen APRN Unavailable Torrie vailable Reason for Visit and Chief Complaint The Chief Complaint is: 4-6 week po Problems Includes: Problems addressed during this encounter and other active Problems All Visits Onset Date Resolved Date Provider Condition S tatus Joint Pain in the Right Knee 11/14/2023 Meli EPPS Active Last Documented On 4 11:04AM ; [facility] Pain in the Left Foot 05/03/2016 Isaias Zepeda DPM Active Last Documented On 6 10:39AM ; [facility] Pain in the Left Lower Leg Near the Ankle 05/03/2016 Isaias Zepeda DPM Active Last Documented On 6 10:39AM ; [facility], [facility] Plan of Treatment - Patient screened for future fall risk: documentation of any fall with injury in past year - Last Documented On 02/29/2024 12:42PM ; [facility], [facility] Fall Risk Assessment: This patient [...] - Last Documented On 02/29/2024 12:42PM ; [facility], [facility] Patient is very pleased with the progress. We discussed she has significantly flat feet ankles bilaterally. This deformity could shorten the life span of her total knee arthroplasty. Recommend referral to Dr. Rangel for evaluation of feet and ankles, consideration of bracing. - Last Documented On 02/29/2024 12:42PM ; [facility], [facility] Instructions to patient Lose weight Last Documented On 4 10:23AM ; [facility], [facility] Assessments Includes: Assessments from this encounter Findings - Overweight - Last Documented On 02/29/2024 12:42PM ; [facility], [facility] 10 weeks status post right TKA - Last Documented On 02/29/2024 12:42PM ; [facility], [facility] Instructions Includes: Instructions from this encounter Instructions to patient Lose weight Last Documented On 4 10:23AM ; [facility], [facility] Medical Equipment - Implanted Devices Includes: Current Devices No Medical Equipment Recorded Medications Includes: Medications discussed during this encounter and other current Medications Current Medications (continue as prescribed) Rich[place]-3 Fish Oil 500 MG Oral Capsule, conventional 08/2024 Provider: Diagnosis: Last Documented On 4 11:08AM By Padmini Corey ; [facility], [facility] MiraLax 17 GM/SCOOP Oral Powder 11/14/2023 Provider: Diagnosis: Last Documented On 4 11:08AM By Padmini Corey ; [facility], [facility] Furosemide 20 MG Oral Tablet 11/14/2023 Provider: Diagnosis: Last Documented On 4 11:06AM By Padmini Corey ; [facility], [facility] EQL Vitamin D3 50 MCG (1999 [place]) Oral Capsule, conventi onal 11/14/2023 Provider: Diagnosis: Last Documented On 4 11:07AM By Padmini Corey ; [facility], [facility] Active-Ketoprofen 5% External Cream 10/18/2023 Provi sierra: Diagnosis: Last Documented On 4 3:09PM By Kailyn Olivo ; [facility], [facility] Yue Aspirin 325 MG Oral Tablet 05/17/2023 Provider : Diagnosis: Last Documented On 3 1:50PM By Jennifer Yi ; [facility], [facility] Allopurinol 300 MG Oral Tablet 05/15/2023 Provider: Dominga Allen APRN Diagnosis: Last Documented On 3 10:04PM By Jennifer Yi ; [facility] HYDROcodone-Acetaminophen 5-325 MG Oral Tablet 023 Provider: SYLVIA OCHOA MD Diagnosis: Last Documented On 3 10:04PM By Jennifer Yi ; [facility] Losartan Potassium 25 MG Oral Tablet 02/28/2023 Prov ider: Dominga Allen APRN Diagnosis: Last Documented On 4 3:08PM By Kailyn Olivo ; [facility] Past Medications on file traMADol HCl 50 MG Oral Tablet 12/01/2023 - 12/06/2023 Provider: Andres carrillo MD Diagnosis: 1-2 po q 4-6h Last Documented On 4 11:26AM By José Miguel Whitt ; [facility] Eliquis 2.5 MG Oral Tablet 12/01/2023 - 03/02/2024 Provider: Andres carrillo MD Diagnosis: twice a day Last Documented On 4 11:26AM By José Miguel Whitt ; [facility] Meloxicam 15 MG Oral Tablet 12/01/2023 - 12/31/2023 Provider: Andres carrillo MD Diagnosis: once a day Last Documented On 4 11:26AM By José Miguel Whitt ; [facility] oxyCODONE HCl 5 MG Oral Tablet 12/01/2023 - 12/06/2023 Provider: Andres carrillo MD Diagnosis: 1-2 po q 4-6h Last Documented On 4 11:26AM By José Miguel Whitt ; [facility] Cefadroxil 500 MG Oral Capsule 12/01/2023 - 12/04/2023 Provider: Andres carrillo MD Diagnosis: twice a day Last Documented On 4 11:26AM By José Miguel Whitt ; [facility] Acetaminophen 500 MG Oral Tablet 12/01/2023 - 12/31/2023 Provider: Andres Whitt MD Diagnosis: 2 three times a day Last Documented On 4 11:26AM By José Miguel Whitt ; [facility], [facility] Colace 100 MG Oral Capsule 12/01/2023 - 02/29/2024 Provider: Andres carrillo MD Diagnosis: 1-2 tabs daily Last Documented On 4 11:26AM By José Miguel Whitt ; [facility], [facility] Ondansetron HCl 4 MG Oral Tablet 12/01/2023 - 12/06/2023 Provider: Andres Whitt MD Diagnosis: [id number] Last Documented On 4 11:26AM By José Miguel Whitt ; [facility], [facility] Tranexamic Acid 650 MG Oral Tablet 12/01/2023 - 12/05/2023 Provider: Andres carrillo MD Diagnosis: as directed TAKE 3 TABLETS O NE TIME A DAY BEGINNING THE EVENING OF SURGERY FOR FOUR DAYS Last Documented On 4 11:26AM By José Miguel Whitt ; [facility], [facility] Medications Administered Includes: Administered Medications from this encounter No Administered Medications Recorded Vital Signs Includes: Vital Signs from this encounter Vital Name 02/29/2024 10:23A Height (in) 62 Weight (lb) 220 Body Mass Index 40.2 Body Surface Area 2 Note: as Last Documented: On 02/29/2024 10:24A M ; [facility] Results Includes: Results discussed during [...] 05/17/2023 Last Documented On 4 10:23AM ; [facility], [facility] Not exercising regularly 08/16/2019 Last Documented On 4 10:23AM ; [facility], [facility] Smoking Status Unknown Medical History Includes: Medical History addressed during this encounter Description Last Updated Arthritic joint problems 08/16/2019 Last Documented On 4 10:23AM ; [facility] Intermittent hypertension , Gout, dyslip idemia 05/03/2016 Last Documented On 4 10:23AM ; [facility] A recent immunization for pneumococcal p neumonia 05/03/2016 Last Documented On 4 10:23AM ; [facility], [facility] left ankle sx 05/03/2016 Last Documented On 4 10:23AM ; [facility], [facility] Family History Includes: Family History addressed during this encounter Description Last Updated Family history of hypertension 9 Last Documented On 4 10:23AM ; [facility], [facility] Maternal history of hyperten daniela / paternal, sororal, fraternal history as well 05/03/2016 Last Documented On 4 10:23AM ; [facility], [facility] stroke/seizure 05/03/2016 Last Documented On 4 10:23AM ; [facility], [facility] Paternal history of family history of ca ncer 05/03/2016 Last Documented On 4 10:23AM ; [facility], [facility] Review of Systems Includes: Review [...] Diagnosis [facility] 4 10:23AM 11:23AM Overweight Insurance Includes: Active Insurance Policies Plan Name Member ID Group # Subscriber Relationship Effect tuyet Dates 1 - Medicare Part [facility] [id number] Anastasiia Khan Self 09/04/2009 - Unknown 2 - [facility] [id number] Anastasiia L Erin Self 09/04/2015 - Unknown Clinical Notes Includes: Clinical Notes from this encounter * Progress note Date Encounter Last Documented by 02/29/2024 Post Op Last documented on 02/29/2024; 12:42 PM, Endy Blevins PA-C; [facility], [facility] Active Problems & Conditions - [...] as directed 0 days, 0 refills - [place]-3 Fish Oil 500 MG Oral Capsule, conventional [...]
--- OUTSIDE RECORDS SUMMARY | 2025-01-01 15:25 | XMS_ITS | Clinical Summary ---
Author Organization [facility] , [facility] Address [address] [place] [address] Phone Care Team Providers Care Component Assembler Supervisor Name Role Phone Andres Whitt MD Unavailable + [phone] Dominga Allen APRN Unavailable Torrie vailable Reason for Visit and Chief Complaint Post Op Problems Includes: Problems addressed during this encounter and other active Problems All Visits Onset Date Resolved Date Provider Condition S tatus Joint Pain in the Right Knee 11/14/2023 Meli EPPS Active Last Documented On 4 11:04AM ; [facility] Pain in the Left Foot 05/03/2016 Isaias Zepeda DPM Active Last Documented On 6 10:39AM ; [facility] Pain in the Left Lower Leg Near the Ankle 05/03/2016 Isaias Zepeda DPM Active Last Documented On 6 10:39AM ; [facility], [facility] Plan of Treatment - Patient screened for future fall risk: documentation of any fall with injury in past year - Last Documented On 01/18/2024 2:23PM ; [facility] Fall Risk Assessment: This patient has been [...] - Last Documented On 01/18/2024 2:23PM ; [facility] Overall the patient is pleased with the progress, we discussed the importance of continued strengthening in patients with increasing activities and we will plan for follow-up 4-6 weeks for three-month interval exam - Last Documented On 01/18/2024 2:23PM ; [facility] Pending Tests Order Diagnosis Results Due Ordering P roingris Therapy - Physical Therapy Knee Overweight 01/18/24 Endy Blevins PA-C Last Documented On 4 2:22PM ; [facility] Instructions to patient Lose weight Last Documented On 4 1:36PM ; [facility] Assessments Includes: Assessments from this encounter Findings - Overweight - Last Documented On 01/18/2024 2:23PM ; [facility] 6 weeks status post right TKA - Last Documented On 01/18/2024 2:23PM ; [facility] Instructions Includes: Instructions from this encounter Instructions to patient Lose weight Last Documented On 4 1:36PM ; [facility] Medical Equipment - Implanted Devices Includes: Current Devices No Medical Equipment Recorded Medications Includes: Medications discussed during this encounter and other current Medications Current Medications (continue as prescribed) [place]-3 Fish Oil 500 MG Oral Capsule, conventional 08/2024 Provider: Diagnosis: Last Documented On 4 11:08AM By Padmini Corey ; [facility] MiraLax 17 GM/SCOOP Oral Powder 11/14/2023 Provider: Diagnosis: Last Documented On 4 11:08AM By Padmini Corey ; [facility] Furosemide 20 MG Oral Tablet 11/14/2023 Provider: Diagnosis: Last Documented On 4 11:06AM By Padmini Corey ; [facility] EQL Vitamin D3 50 MCG (2000 UT) Oral Capsule, conventi onal 11/14/2023 Provider: Diagnosis: Last Documented On 4 11:07AM By Padmini Corey ; [facility] Active-Ketoprofen 5% External Cream 10/18/2023 Provi sierra: Diagnosis: Last Documented On 4 3:09PM By Kailyn Olivo ; [facility] Yue Aspirin 325 MG Oral Tablet 05/17/2023 Provider : Diagnosis: Last Documented On 3 1:50PM By Jennifer Yi ; [facility] Allopurinol 300 MG Oral Tablet 05/15/2023 Provider: Dominga Allen APRN Diagnosis: Last Documented On 3 10:04PM By Jennifer Yi ; [facility] HYDROcodone-Acetaminophen 5-325 MG Oral Tablet 023 Provider: SYLVIA OCHOA MD Diagnosis: Last Documented On 3 10:04PM By Jennifer Yi ; [facility] Losartan Potassium 25 MG Oral Tablet 02/28/2023 Prov ider: Dominga Allen APRN Diagnosis: Last Documented On 4 3:08PM By Kailyn Olivo ; [facility] Past Medications on file traMADol HCl 50 MG Oral Tablet 12/01/2023 - 12/06/2023 Provider: Andres carrillo MD Diagnosis: 1-2 po q 4-6h Last Documented On 4 11:26AM By José Miguel Whitt ; [facility] Eliquis 2.5 MG Oral Tablet 12/01/2023 - 03/02/2024 Provider: Andres carrillo MD Diagnosis: twice a day Last Documented On 4 11:26AM By José Miguel Whitt ; [facility] Meloxicam 15 MG Oral Tablet 12/01/2023 - 12/31/2023 Provider: Andres carrillo MD Diagnosis: once a day Last Documented On 4 11:26AM By José Miguel Whitt ; [facility] oxyCODONE HCl 5 MG Oral Tablet 12/01/2023 - 12/06/2023 Provider: Andres carrillo MD Diagnosis: 1-2 po q 4-6h Last Documented On 4 11:26AM By José Miguel Whitt ; [facility] Cefadroxil 500 MG Oral Capsule 12/01/2023 - 12/04/2023 Provider: Andres carrillo MD Diagnosis: twice a day Last Documented On 4 11:26AM By José Miguel Whitt ; [facility] Acetaminophen 500 MG Oral Tablet 12/01/2023 - 12/31/2023 Provider: Andres Whitt MD Diagnosis: 2 three times a day Last Documented On 4 11:26AM By José Miguel Whitt ; [facility] Colace 100 MG Oral Capsule 12/01/2023 - 02/29/2024 Provider: Andres carrillo MD Diagnosis: 1-2 tabs daily Last Documented On 4 11:26AM By José Miguel Whitt ; [facility] Ondansetron HCl 4 MG Oral Tablet 12/01/2023 - 12/06/2023 Provider: Andres Whitt MD Diagnosis: [id number] Last Documented On 4 11:26AM By José Miguel Whitt ; [facility] Tranexamic Acid 650 MG Oral Tablet 12/01/2023 - 12/05/2023 Provider: Andres carrillo MD Diagnosis: as directed TAKE 3 TABLETS O NE TIME A DAY BEGINNING THE EVENING OF SURGERY FOR FOUR DAYS Last Documented On 4 11:26AM By José Miguel Whitt ; [facility] Medications Administered Includes: Administered Medications from this encounter No Administered Medications Recorded Vital Signs Includes: Vital Signs from this encounter Vital Name 01/18/2024 01:36P Height (in) 62 Weight (lb) 220 Body Mass Index 40.2 Body Surface Area 2 Note: ab Last Documented: On 01/18/2024 1:36PM ; [facility] Results Includes: Results discussed during this encounter [...] Documented On 4 1:36PM ; [facility] Not exercising regularly 08/16/2019 Last Documented On 4 1:36PM ; [facility] Smoking Status Unknown Medical History Includes: Medical History addressed during this encounter Description Last Updated Arthritic joint problems 08/16/2019 Last Documented On 4 1:36PM ; [facility] Intermittent hypertension , Gout, dyslip idemia 05/03/2016 Last Documented On 4 1:36PM ; [facility] A recent immunization for pneumococcal p neumonia 05/03/2016 Last Documented On 4 1:36PM ; [facility] left ankle sx 05/03/2016 Last Documented On 4 1:36PM ; [facility] Family History Includes: Family History addressed during this encounter Description Last Updated Family history of hypertension Last Documented On 4 1:36PM ; [facility] Maternal history of hyperten daniela / paternal, sororal, fraternal history as well 05/03/2016 Last Documented On 4 1:36PM ; [facility] stroke/seizure 05/03/2016 Last Documented On 4 1:36PM ; [facility] Paternal history of family history of ca ncer 05/03/2016 Last Documented On 4 1:36PM ; [facility] Review of Systems Includes: Review of Systems [...] Time Check-Out Time Diagnosis Post Op [facility] 4 1:38PM 2:22PM Overweight Insurance Includes: Active Insurance Policies Plan Name Member ID Group # Subscriber Relationship Effect tuyet Dates 1 - Medicare Part B [facility] [id number] Anastasiia Benoitp Self 09/04/2009 - Unknown 2 - [facility] Indemnity [id number] Anastasiia Eduardo [facility] Self 09/04/2015 - Unknown Clinical Notes Includes: Clinical Notes from this encounter * Progress note Date Encounter Last Documented by 01/18/2024 Post Op Last documented on 01/18/2024; 2:23 PM, Endy Blevins PA-C; [facility] Active Problems & [...] as directed 0 days, 0 refills - [place]-3 Fish Oil 500 MG Oral Capsule, [...]
--- OUTSIDE RECORDS SUMMARY | 2025-01-01 15:25 | XMS_ITS | Clinical Summary ---
Author Organization [facility] Address [address] [place] [address] Phone Care Team Providers Care Associate Professor Of Management Name Role Phone Andres Whitt MD Unavailable + [phone] Dominga Allen APRN Unavailable Torrie vailable Reason for Visit and Chief Complaint [Patient Encounter] Problems Includes: Problems addressed during this encounter and other active Problems All Visits Onset Date Resolved Date Provider Condition S tatus Joint Pain in the Right Knee 11/14/2023 Meli EPPS Active Last Documented On 4 11:04AM ; [facility], [facility] Pain in the Left Foot 05/03/2016 Isaias Zepeda DPM Active Last Documented On 6 10:39AM ; [facility], [facility] Pain in the Left Lower Leg Near the Ankle 05/03/2016 Isaias Zepeda DPM Active Last Documented On 6 10:39AM ; [facility], [facility] Plan of Treatment No Plan of Treatment Recorded Assessments Includes: Assessments from this encounter No Assessments Recorded Medical Equipment - Implanted Devices Includes: Current Devices No Medical Equipment Recorded Medications Includes: Medications discussed during this encounter and other current Medications Current Medications (continue as prescribed) [place]-3 Fish Oil 500 MG Oral Capsule, conventional 08/2024 Provider: Diagnosis: Last Documented On 4 11:08AM By Padmini Corey ; [facility] MiraLax 17 GM/SCOOP Oral Powder 11/14/2023 Provider: Diagnosis: Last Documented On 4 11:08AM By Padmini Corey ; [facility] Furosemide 20 MG Oral Tablet 11/14/2023 Provider: Diagnosis: Last Documented On 4 11:06AM By Padmini Corey ; [facility] EQL Vitamin D3 50 MCG (1999 UT) Oral Capsule, conventi onal 11/14/2023 Provider: Diagnosis: Last Documented On 4 11:07AM By Padmini Corey ; [facility] Active-Ketoprofen 5% External Cream 10/18/2023 Provi sierra: Diagnosis: Last Documented On 4 3:09PM By Kailyn Olivo ; [facility] Yue Aspirin 325 MG Oral Tablet 05/17/2023 Provider : Diagnosis: Last Documented On 3 1:50PM By Jennifer Yi ; [facility] Allopurinol 300 MG Oral Tablet 05/15/2023 Provider: Dominga Allen APRN Diagnosis: Last Documented On 3 10:04PM By Jennifer Yi ; [facility] HYDROcodone-Acetaminophen 5-325 MG Oral Tablet 023 Provider: SYLVIA OCHOA MD Diagnosis: Last Documented On 3 10:04PM By Jennifer Yi ; [facility] Losartan Potassium 25 MG Oral Tablet 02/28/2023 Prov ider: Dominga Allen APRN Diagnosis: Last Documented On 4 3:08PM By Kailyn Olivo ; [facility] Medications Administered Includes: Administered [...] primary osteoarthritis, right knee Andres Whitt MD [facility] 01/22/2024 Last Documented On 4 2:49PM ; [facility] Medical History Includes: Medical [...] Time Diagnosis [Patient Encounter] Andres Whitt MD [facility] 01/22/20 24 2:48PM 11:59PM Insurance Includes: Active Insurance Policies Plan Name Member ID Group # Subscriber Relationship Effect tuyet Dates 1 - Medicare Part B [facility] [id number] Anastasiia Khan Self 09/04/2009 - Unknown 2 - [facility] Indemnity [id number] Anastasiia Khan Self 09/04/2015 - Unknown Clinical Notes Includes: Clinical Notes from this encounter No Clinical Notes Recorded
--- OUTSIDE RECORDS SUMMARY | 2025-01-01 15:25 | XMS_ITS | Clinical Summary ---
Author Organization [facility] Address [address] [place] [address] Phone Care Team Providers Care Spectrographic Analyst Name Role Phone Andres Whitt MD Unavailable + [phone] Dominga Allen APRN Unavailable Torrie vailable Reason for Visit and Chief Complaint Post Op Problems Includes: Problems addressed during this encounter and other active Problems All Visits Onset Date Resolved Date Provider Condition S tatus Joint Pain in the Right Knee 11/14/2023 Meli EPPS Active Last Documented On 4 11:04AM ; [facility] Pain in the Left Foot 05/03/2016 Isaias Zepeda DPM Active Last Documented On 6 10:39AM ; [facility] Pain in the Left Lower Leg Near the Ankle 05/03/2016 Isaias Zepeda DPM Active Last Documented On 6 10:39AM ; [facility] Plan of Treatment Overall the patient is pleased with the progress, we discussed the importance of following postop protocols closely as she is still at risk for permanent knee stiffness, dissatisfaction. We will plan for follow-up 4 weeks - Last Documented On 12/21/2023 3:19PM ; [facility] Pending Tests Order Diagnosis Results Due Ordering P rovider Therapy - Physical Therapy Knee 12/21/23 Endy Blevins PA-C Last Documented On 4 3:18PM ; [facility] Assessments Includes: Assessments from this encounter Findings Two weeks status post right TKA - Last Documented On 12/21/2023 3:19PM ; [facility] Medical Equipment - Implanted Devices Includes: Current Devices No Medical Equipment Recorded Medications Includes: Medications discussed during this encounter and other current Medications Current Medications (continue as prescribed) [place]-3 Fish Oil 500 MG Oral Capsule, conventional 08/2024 Provider: Diagnosis: Last Documented On 4 11:08AM By Padmini Corey ; [facility], [facility] MiraLax 17 GM/SCOOP Oral Powder 11/14/2023 Provider: Diagnosis: Last Documented On 4 11:08AM By Padmini Corey ; [facility] Furosemide 20 MG Oral Tablet 11/14/2023 Provider: Diagnosis: Last Documented On 4 11:06AM By Padmini Corey ; [facility], [facility] EQL Vitamin D3 50 MCG (1999) Oral Capsule, conventi onal 11/14/2023 Provider: Diagnosis: Last Documented On 4 11:07AM By Padmini Corey ; [facility], [facility] Active-Ketoprofen 5% External Cream 10/18/2023 Provi sierra: Diagnosis: Last Documented On 4 3:09PM By Kailyn Olivo ; [facility], [facility] Yue Aspirin 325 MG Oral Tablet 05/17/2023 Provider : Diagnosis: Last Documented On 3 1:50PM By Jennifer Yi ; [facility], [facility] Allopurinol 300 MG Oral Tablet 05/15/2023 Provider: Dominga Allen APRN Diagnosis: Last Documented On 3 10:04PM By Jennifer Yi ; [facility], [facility] HYDROcodone-Acetaminophen 5-325 MG Oral Tablet 023 Provider: SYLVIA OCHOA MD Diagnosis: Last Documented On 3 10:04PM By Jennifer Yi ; [facility], [facility] Losartan Potassium 25 MG Oral Tablet 02/28/2023 Prov ider: Dominga Allen APRN Diagnosis: Last Documented On 4 3:08PM By Kailyn Olivo ; [facility], [facility] Medications Administered Includes: Administered Medications [...] Time Check- Out Time Diagnosis Post Op Enyd Blevins PA-C [facility] 4 2:07PM 3:16PM Insurance Includes: Active Insurance Policies Plan Name Member ID Group # Subscriber Relationship Effect tuyet Dates 1 - Medicare Part B [facility] [id number] Anastasiia Eduardo Erin Self 09/04/2009 - Unknown 2 - [facility] Indemnity [id number] Anastasiia L Erin Self 09/04/2015 - Unknown Clinical Notes Includes: Clinical Notes from this encounter * Progress note Date Encounter Last Documented by 12/21/2023 Post Op Last documented on 12/21/2023; 3:19 PM, Endy Blevins PA-C; [facility], [facility] Physical Findings Incision well healed [...]
--- OUTSIDE RECORDS SUMMARY | 2025-01-01 15:25 | XMS_ITS ---
Care Plan - [facility], [facility] Created on: January 01, 2025 Anastasiia Khan : 1945 Sex: Female Author Organization [facility], [facility] Address [address] [place] [address] Phone Care Team Providers Care Demand Generator Manager Name Role Phone Jose Eduardo MUNOZ, Andres Acevedo Unavailable + [phone] Dominga Aleln APRN Unavailable Torrie vailable
--- OUTSIDE RECORDS SUMMARY | 2025-01-01 15:25 | XMS_ITS ---
Author Organization [facility] Address [address] [address] Phone Care Team Providers Care Payroll And Benefits Coordinator Name Role Phone Andres Whitt MD Unavailable + [phone] Dominga Aleln APRN Unavailable Torrie vailable Problems Includes: Active, inactive, and resolved Problems All Visits Onset Date Resolved Date Provider Condition S tatus Joint Pain in the Right Knee 11/14/2023 Meli EPPS Active Last Documented On 4 11:04AM ; [facility], [facility] Joint Pain in Both Knees 11/29/2016 Isaias Rogers Jatinder soraida DPM Inactive Last Documented On 3 10:03PM ; [facility], [facility] Pain in the Left Foot 05/03/2016 Isaias Rogers Katelyn DPM Active Last Documented On 6 10:39AM ; [facility], [facility] Pain in the Left Lower Leg Near the Ankle 05/03/2016 Isaias S Katelyn DPM Active Last Documented On 6 10:39AM ; [facility], [facility] Plan of Treatment Findings Encounter Date Patient screened for future fall risk: documentation of any fall with injury in past year Post Op with Endy Blevins PA-C 02/29/2024 Last Documented On 4 12:42PM ; [facility], [facility] Patient screened for future fall risk: documentation of any fall with injury in past year Post Op with Endy Blevins PA-C 01/18/2024 Last Documented On 4 2:23PM ; [facility], [facility] Referrals To Diagnosis Consult with Vascular [...] weight Last Documented On 6 10:50AM ; [facility] Medical Equipment - Implanted Devices Includes: Current and historical Devices No Medical Equipment Recorded Medications Includes: Current and historical Medications Current Medications (continue as prescribed) [place]-3 Fish Oil 500 MG Oral Capsule, conventional 08/2024 Provider: Diagnosis: Last Documented On 11:08AM By Padmini Corey ; [facility] MiraLax 17 GM/SCOOP Oral Powder 11/14/2023 Provider: Diagnosis: Last Documented On 4 11:08AM By Padmini Corey ; [facility] Furosemide 20 MG Oral Tablet 11/14/2023 Provider: Diagnosis: Last Documented On 4 11:06AM By Padmini Corey ; [facility] EQL Vitamin D3 50 MCG (2000 UT) Oral Capsule, conventi onal 11/14/2023 Provider: Diagnosis: Last Documented On 4 11:07AM By Padmini Corey ; [facility] Active-Ketoprofen 5% External Cream 10/18/2023 Provi sierra: Diagnosis: Last Documented On 4 3:09PM By Kailyn Olivo ; [facility] Yue Aspirin 325 MG Oral Tablet 05/17/2023 Provider : Diagnosis: Last Documented On 3 1:50PM By Jennifer Yi ; [facility] Allopurinol 300 MG Oral Tablet 05/15/2023 Provider: Dominga Allen APRN Diagnosis: Last Documented On 3 10:04PM By Jennifer Yi ; [facility] HYDROcodone-Acetaminophen 5-325 MG Oral Tablet 023 Provider: SYLVIA OCHOA MD Diagnosis: Last Documented On 3 10:04PM By Jennifer Yi ; [facility] Losartan Potassium 25 MG Oral Tablet 02/28/2023 Prov ider: Dominga Allen APRN Diagnosis: Last Documented On 4 3:08PM By Kailyn Olivo ; [facility], [facility] Past Medications on file traMADol HCl 50 MG Oral Tablet 12/01/2023 - 12/06/2023 Provider: Andres carrillo MD Diagnosis: 1-2 po q 4-6h Last Documented On 4 11:26AM By José Miguel Whitt ; [facility] Eliquis 2.5 MG Oral Tablet 12/01/2023 - 03/02/2024 Provider: Andres carrillo MD Diagnosis: twice a day Last Documented On 4 11:26AM By José Miguel Whitt ; [facility] Meloxicam 15 MG Oral Tablet 12/01/2023 - 12/31/2023 Provider: Andres carrillo MD Diagnosis: once a day Last Documented On 11:26AM By José Miguel Whitt ; [facility] oxyCODONE HCl 5 MG Oral Tablet 12/01/2023 - 12/06/2023 Provider: Andres carrillo MD Diagnosis: 1-2 po q 4-6h Last Documented On 11:26AM By José Miguel Whitt ; [facility] Cefadroxil 500 MG Oral Capsule 12/01/2023 - 12/04/2023 Provider: Andres carrillo MD Diagnosis: twice a day Last Documented On 11:26AM By José Miguel Whitt ; [facility] Acetaminophen 500 MG Oral Tablet 12/01/2023 - 12/31/2023 Provider: Andres Whitt MD Diagnosis: 2 three times a day Last Documented On 11:26AM By José Miguel Whitt ; [facility] Colace 100 MG Oral Capsule 12/01/2023 - 02/29/2024 Provider: Andres carrillo MD Diagnosis: 1-2 tabs daily Last Documented On 11:26AM By José Miguel Whitt ; [facility] Ondansetron HCl 4 MG Oral Tablet 12/01/2023 - 12/06/2023 Provider: Andres Whitt MD Diagnosis: [id number] Last Documented On 11:26AM By José Miguel Whitt ; [facility] Tranexamic Acid 650 MG Oral Tablet 12/01/2023 - 12/05/2023 Provider: Andres carrillo MD Diagnosis: as directed TAKE 3 TABLETS O NE TIME A DAY BEGINNING THE EVENING OF SURGERY FOR FOUR DAYS Last Documented On 11:26AM By José Miguel Whitt ; [facility] Furosemide 20 MG Oral Tablet 05/15/2023 - 11/14/2023 Provider: Dominga nichols APRN Diagnosis: Last Documented On 11:05AM By Padmini Corey ; [facility] Losartan Potassium 25 MG Oral Tablet 02/28/2023 - 10/18/2023 Provider: Dominga nichols APRN Diagnosis: Last Documented On 4 3:09PM By Kailyn Olivo ; [facility], [facility] Animi-3/Vitamin D 1 MG Oral Capsule 08/16/2019 - 05/16 Provider: Diagnosis: Last Documented On 3 10:03PM By Jennifer Yi ; [facility], [facility] GaviLAX Oral Powder 08/16/2019 - 05/16/2023 Provider: Diagnosis: Last Documented On 3 10:03PM By Jennifer Yi ; [facility] Losartan Potassium 100 MG Oral Tablet 08/16/2019 - 08/2023 Provider: Diagnosis: Last Documented On 3 10:03PM By Jennifer Yi ; [facility], [facility] Acetaminophen 325 MG Oral Capsule 08/16/2019 - 023 Provider: Diagnosis: Last Documented On 3 10:03PM By Jennifer Yi ; [facility], [facility] Furosemide 20 MG Oral Tablet 08/16/2019 - 05/16/2023 P roscoeder: Diagnosis: Last Documented On 3 10:03PM By Jennifer Yi ; [facility], [facility] EQL Fish Oil 1000 MG Oral Capsule 08/16/2019 - 023 Provider: Diagnosis: Last Documented On 3 10:04PM By Jennifer Yi ; [facility], [facility] Yue Advanced Aspirin Ex St 500 MG Oral Tablet 08/16/2019 - 05/16/2023 Provider: Diagnosis: Last Documented On 3 10:03PM By Jennifer Yi ; [facility], [facility] Allopurinol 300 MG Oral Tablet 07/09/2019 - 05/16/2023 Provider: Diagnosis: Last Documented On 3 10:03PM By Jennifer Yi ; [facility], [facility] Percocet 7.5-325 MG Tablet 05/10/2016 - 08/16/2019 Pro vider: Isaias Zepeda DPM Diagnosis: 1-2 po q 4-6h Last Documented On 9 1:27PM By Britni Ashby ; [facility] Percocet 7.5-325 MG Tablet [...] Li Lionel ; [facility] Viburnum 7.5-325 MG Tablet 05/03/2016 - 08/01/2016 Provid [...] By Britni Ashby ; [facility], [facility] Allopurinol 300 MG Tablet 05/03/2016 - 08/01/2016 Prov ider: Diagnosis: Last Documented On 6 10:24AM By December Lionel ; [facility] Fish Oil 1000 MG Capsule, conventional 05/03/2016 - Provider: Diagnosis: Last Documented On 6 10:24AM By December Lionel ; [facility], [facility] Medications Administered Includes: Administered Medications in patient's chart No Administered Medications Recorded Vital Signs Includes: Vital Signs from 01/02/2024 through 01/01/2025 Vital Name 02/29/2024 10:23A 01/18/2024 01: 36P Height (in) 62 62 Weight (lb) 220 220 Body Mass Index 40.2 40.2 Body Surface Area 2 2 Note: as ab Last Documented: On 02/29/2024 10:24A M ; [facility] On 01/18/2024 1:36PM ; [facility] Results Includes: Results from 01/02/2024 through 01/01/2025 No Results Recorded For Specified Dates History of Present Illness History of Present Illness not supported for this document type No History of Present Illness Recorded Social History Description Last Updated Tobacco non-user 05/17/2023 Last Documented On 3 2:21PM ; [facility], [facility] No recent change in diet 05/17/2023 Last Documented On 3 2:21PM ; [facility], [facility] Not a current smoker. 05/17/2023 Last Documented On 3 2:21PM ; [facility], [facility] Not exercising regularly 08/16/2019 Last Documented On 9 2:04PM ; [facility], [facility] No caffeine use 05/03/2016 Last Documented On 6 5:23PM ; [facility], [facility] No recent change in diet 05/03/2016 Last Documented On 6 5:23PM ; [facility] Not a current smoker 05/03/2016 Last Documented On 6 5:23PM ; [facility] Not using alcohol 05/03/2016 Last Documented On 6 5:23PM ; [facility], [facility] Not using drugs 05/03/2016 Last Documented On 6 5:23PM ; [facility] No tobacco use 05/03/2016 Last Documented On 6 5:23PM ; [facility], [facility] Smoking status : Never smoker 05/03/2016 Last Documented On 6 5:23PM ; [facility] Procedures and Surgical History Includes: Procedures from 01/02/2024 through 01/01/2025 Procedures Code Diagnosis Performing Provider Service Location Service Date Home Health Certification [id number] Unilateral primary osteoarthritis, right knee Andres Whitt MD [facility] 01/22/2024 Last Documented On 4 2:49PM ; [facility], [facility] Medical History Includes: Medical History in patient's chart Description Last Updated Arthritic joint problems 08/16/2019 Last Documented On 9 2:04PM ; [facility], [facility] Intermittent hypertension , Gout, dyslip idemia 05/03/2016 Last Documented On 6 5:23PM ; [facility], [facility] A recent immunization for pneumococcal p neumonia 05/03/2016 Last Documented On 6 5:23PM ; [facility], [facility] left ankle sx 05/03/2016 Last Documented On 6 5:23PM ; [facility], [facility] Family History Includes: Family History in patient's chart Description Last Updated Family history of hypertension 9 Last Documented On 9 2:04PM ; [facility], [facility] Maternal history of hyperten daniela / paternal, sororal, fraternal history as well 05/03/2016 Last Documented On 6 5:23PM ; [facility], [facility] stroke/seizure 05/03/2016 Last Documented On 6 5:23PM ; [facility], [facility] Paternal history of family history of ca ncer 05/03/2016 Last Documented On 6 5:23PM ; [facility], [facility] Review of Systems Review of Systems [...] Patient Last Documented On 6 10:51AM ; [facility], [facility] Allergies Includes: Active, inactive, and resolved Allergies No Known Allergies Encounters Includes: Encounters from 01/02/2024 through 01/01/2025 Encounter Provider Location Date Check-In Time Check-Out Time Diagnosis Post Op Endy Blevins PA-C [facility] 024 10:23AM 11:23AM Overweight [Patient Encounter] Andres Whitt MD [facility] 024 01/18/2024 2:48PM 01/18/2024 11:59PM Post Op Endy Blevins PA-C [facility] 024 1:38PM 2:22PM Overweight Insurance Includes: Active Insurance Policies Plan Name Member ID Group # Subscriber Relationship Effect tuyet Dates 1 - Medicare Part B [facility] [id number] Anastasiia Khan Self 09/04/2009 - Unknown 2 - [facility] Indemnity [id number] Anastasiia Khan Self 09/04/2015 - Unknown Clinical Notes Includes: Signed Clinical Notes starting from 08/18/2022 * Progress note Date Encounter Last Documented by 02/29/2024 Post Op Last documented on 02/29/2024; 12:42 PM, Endy Blevins PA-C; [facility], [facility] Active Problems & Conditions - Joint [...] as directed 0 days, 0 refills - [place]-3 Fish Oil 500 MG Oral Capsule, conventional [...] on 01/18/2024; 2:23 PM, Endy Blevins PA-C; [facility] Active Problems & Conditions - Joint [...] as directed 0 days, 0 refills - [place]-3 Fish Oil 500 MG Oral Capsule, conventional [...]
[2025-01-01 16:51] LABS: Basophils % 0.3 % (0.1-2.0); Eosinophils # 0.8 Kmm3 (0.0-0.4); Eosinophils % 10.6 % (0.1-12.0); Hematocrit 44.7 % (37.0-47.0); Hemoglobin 14.6 g/dL (12.2-16.2); Lymphocytes # 0.6 K/mm3 (0.7-4.5); Lymphocytes % 8.6 % (10-50); Mean Corpuscular HGB Conc 32.7 g/dL (31.8-35.4); Mean Corpuscular Hemoglobin 29.9 pg (27.0-31.2); Mean Corpuscular Volume 91.4 fl (81-99); Mean Platelet Volume 11.4 fl (7.4-10.4); Monocytes # 0.7 K/mm3 (0.1-1.0); Monocytes % 9.2 % (1.7-9.3); Neutrophils # 5.2 K/mm3 (1.8-7.8); Nucleated Red Blood Cells # 0 10^3/uL; Nucleated Red Blood Cells % 0 %; Platelet Count 177 K/mm3 (142-424); Red Blood Count 4.89 M/mm3 (4.20-5.40); Red Cell Distribution Width-SD 47.3 fL; White Blood Count 7.3 K/mm3 (4.8-10.8)
[2025-01-01 17:08] LABS: Alanine Aminotransferase 15 U/L (12-78); Albumin Level 4.1 g/dl (3.5-5.0); Albumin/Globulin Ratio 1.6 (1.1-1.8); Alkaline Phosphatase 106 U/L (38-126); Anion Gap 10.4 mEq/L (5-15); Aspartate Amino Transferase 26 U/L (14-36); Blood Urea Nitrogen 21 mg/dl (7-17); Calcium 9.3 mg/dl (8.4-10.2); Carbon Dioxide 27 mmol/L (22.0-30.0); Chloride 106 mmol/L (98-107); Estimated Glomerular Filt Rate 43 ml/min (>60); GFR (African American) 52 ML/MIN (>60); Globulin 2.5 g/dL (1.3-3.2); Glucose 92 mg/dl (74-100); Potassium 4.4 mmoL/L (3.5-5.1); Sodium 139 mmol/L (136-145); Total Protein,Serum 6.6 g/dl (6.3-8.2)
[2025-01-01 17:13] LABS: C-Reactive Protein 31.4 mg/L (0-4)
[2025-01-01 17:18] LABS: Erythrocyte Sedimentation Rate 14 mm/hr (0-30)
[2025-01-01 17:26] LABS: Hemoglobin A1C 5.1 % (4.0-6.0)
== END 2025-01-01 23:59 | disposition home or self-care (01) ==
LOC: LAB 15:36
PROVIDERS: PCP Nurse Practitioner Family; Visit Provider Nurse Practitioner
DX: L89.893 Pressure ulcer of other site, stage 3 (principal); E11.621 Type 2 diabetes mellitus with foot ulcer; L97.519 Non-pressure chronic ulcer of other part of right foot with unspecified severity
CPT/HCPCS: 36415; 80053; 83036; 85025; 85651; 86140; 87070; 87077; 87186; 87205

== ENCOUNTER 2025-02-10 12:59 | Outpatient (CLI) | payer MEDICARE, SELFPAY ==
--- NOTE | 2025-02-10 13:10 | XR_ITS ---
FINAL REPORT CLINICAL HISTORY: SCREENING COMPARISON: 09/19/2022 FINDINGS: Using L1-4, the bone mineral density of the spine is 1.225 g/cm2, corresponding to T-score of 1.6, within normal limits but likely falsely elevated secondary to hypertrophic changes. Previously this was 1.268 with a T-score of 2.0. Using the left forearm, the bone mineral density of 1/3 is 0.535 g/cm2, corresponding to a T-score of -2.7, consistent with osteoporosis. Using the right hip, the bone mineral density of the total hip is 0.703 g/cm2, corresponding to a T-score of -2.0, consistent with osteopenia. Previously this was 0.756 with a T-score of -1.5. FRAX 10 year fracture risk is 12% for a hip fracture and 21% for a major osteoporotic fracture. NOTE: T-score: Standard deviation compared with peak bone mass of young adult mean. *Following the recommendations of the International Society of Bone densitometry, classification of hip BMD is based on the lower of two T-scores; total hip or femoral neck. IMPRESSION: Diminished bone mineral density consistent with osteoporosis. Reviewed, Interpreted and Dictated by Tito Barraza MD Transcribed by Yissel Mcnamara Authenticated and [facility]
--- OUTSIDE RECORDS SUMMARY | 2025-02-10 13:17 | XMS_ITS | Encounter Summary ---
Author Organization [facility] Address [address] [place] [address] Care Team Providers Care Supervisor Finishing Room Name Role Phone Unavailable Primary Care Provider Unavailabl e Encounter Details Date Type Department Care Team (Late st Contact Info) Description 09/08/2019 Transcribed Document [facility] [place] [facility] [place] [address] ProviderKalyani MD [facility] [place] [address] Social History Tobacco Use Types Packs/Day Years Used Date Smoking Tobacco: Never Assessed Comments Unknown Sex and Gender Information Value Date Recorded Sex Assigned at Female 03/01/2022 7:56 PM CDT Legal Sex Female 7:56 PM CDT Gender Identity Female 03/01/2022 7:56 PM CDT Sexual Orientation Not on file documented as of this encounter Miscellaneous Notes * Cerner Conversion Note - Historical ProviderMD - 09/08/2019 9:24 AM SALES SUPPORT COORDINATOR Stroke/Warfarin Instructions Entered On: 09/08/2019 9:24 EST Performed On: 09/08/2019 9:24 EST by MODESTA COCHRAN RN Stroke/Warfarin Instructions Stroke/TIA Discharge Ins : N/A Warfarin Discharge Ins : N/A MODESTA COCHRAN RN - 09/08/2019 9:24 EST documented in this encounter Plan of Treatment Not on file documented as of this encounter Visit Diagnoses Not on filedocumented in this encounter
--- OUTSIDE RECORDS SUMMARY | 2025-02-10 13:17 | XMS_ITS | Encounter Summary ---
Author Organization [employer] [facility] Address [address] [place] [id number] Care Team Providers Care Apartment House Manager Name Role Phone Unavailable Primary Care Provider Cindy lopez Encounter Details Date Type Department Care Team (Late st Contact Info) Description 09/06/2019 Transcribed Document [facility] [place] [facility] [place] [address] ProviderKalyani MD [address] [place] [id number] Social History Tobacco Use Types Packs/Day [...] Cerner Conversion Note - Historical ProviderMD - 09/06/2019 2:36 PM WORKERS 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 Pain Assessment Entered On: 09/07/2019 22:47 EST Performed On: 09/07/2019 19:35 EST by Mireya Teixeira RN Intervention Information: acetaminophen-HYDROcodone Performed by MODESTA COCHRAN RN on 09/07/2019 18:35:00 EST acetaminophen-HYDROcodone,1Tab Oral,Pain (Moderate 4-6) Pain Assessment Pain Assessment : Follow-up assessment Pain Scale Goal : 4 Pain Scale Used : 0-10 Scale Mireya Teixeira RN - 09/07/2019 22:47 EST Pain Scale Intensity : 1 Mireya Teixeira RN - 09/07/2019 22:47 EST Image 4 - Images currently included in the form version of this document have not been included in the text rendition version of the form. documented in this encounter Plan of Treatment Not on file documented as of this encounter Visit Diagnoses Not on filedocumented in this encounter
--- OUTSIDE RECORDS SUMMARY | 2025-02-10 13:17 | XMS_ITS | Encounter Summary ---
Author Organization [employer] Address [address] [place] [address] Care Team Providers Care Skiing Teacher Name Role Phone Unavailable Primary Care Provider Unavailabl e Encounter Details Date Type Department Care Team (Late st Contact Info) Description 09/08/2019 Transcribed Document [facility] [place] [address] ProviderKalyani MD [address] [place] [address] Social History Tobacco Use Types Packs/Day Years Used Date Smoking Tobacco: Never Assessed Comments Unknown Sex and Gender Information Value Date Recorded Sex Assigned at Female 03/01/2022 7:56 PM CDT Legal Sex Female 7:56 PM CDT Gender Identity Female 03/01/2022 7:56 PM CDT Sexual Orientation Not on file documented as of this encounter Miscellaneous Notes * Cerner Conversion Note - Kalyani ProviderMD - 09/08/2019 9:38 AM 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 [facility] [place] [address] KEAYNA OWENS :1945 Visit Time:09/06/2019 Your Visit Summary Your Care Team Admitting Physician - TSERING NOVAK MD Attending Physician - TSERING NOVAK MD Primary Care Physician - ANDRÉS PADILLA NP-FAM Referring Physician - ANDRÉS PADILLA NP-FAM MENES, KEITH, MD PHY, NOT LISTED Your Diagnosis Peripheral vascular disease, unspecified, Peripheral vascular disease, unspecified Discharge Vitals Temperature 36.7 ??C Heart Rate (Monitored) 55 Respiratory Rate 16 Blood Pressure 126/84 What to do next Instructions From Your Care Team PLEASE CALL FOR FOLLOW UP APPT WITH DR NOVAK YOU CAN CONTINUE GLUCERNA THREE TIMES A DAY WITH MEALS WHICH HELPS WITH WOUND HEALING. ABLE TO PURCHASE OVER THE COUNTER AT LOCAL FOOD STORES Discharge Follow Up Instructions: F/U Faustino 1 week for wound vac change. Please bring supplies to follow-up visit. Follow-Up Appointments Follow Up with TSERING NOVAK MD When Within 1 week Comments Call for follow up appointment Where: [place] [id number]- Follow Up with TSERING NOVAK MD When In 1 week Where: [place] [address]- Medications What How Much When Instructions Next Dose acetaminophen-HYDROcodone ([place] 7.5 mg-325 mg oral tablet) 1 Tablet(s) Oral Every 4 Hours as needed for for pain allopurinol (allopurinol 300 mg oral tablet) 1 Tablet(s) Oral Every Day aspirin (Yue Aspirin 325 mg oral tablet) 1 Tablet(s) Oral Every Day cholecalciferol (Vitamin D3 1000 intl units oral capsule) 2 Capsule(s) Oral Every Day furosemide (Lasix 40 mg oral tablet) 1 Tablet(s) Oral Every Day losartan (losartan 100 mg oral tablet) 1 Tablet(s) Oral Every Day omega-3 polyunsaturated fatty acids (Fish Oil 1000 mg oral capsule) 2 Capsule(s) Oral Every Day Take your medications faithfully. Do NOT skip medication. Do NOT stop taking medications without the direction of a physician. Carry a list of your medications with you at all times, and take this medication list with you to your first follow up visit. Report any side effects. Avoid herbal remedies unless discussed with your physician. As part of your treatment plan, your physician may have prescribed a limited course of a controlled substance. This medication may be given to help people with moderate or severe pain or for other medical conditions, but there are risks involved with treatment. Common side effects may include nausea, constipation, drowsiness, sweating, itching, dry mouth, and rash. More serious side effects may include cognitive and motor impairment, like problems with thinking, concentrating, alertness, and movement (e.g. slowed reflexes), and driving and operating heavy machinery can be dangerous. It is important for you to talk to your physician if you have these side effects or questions. These controlled substances can produce physical dependence and be habit-forming if taken for an extended period of time, which means that the body has gotten used to them and may experience withdrawal symptoms if they are abruptly stopped. Withdrawal symptoms can include runny nose, sweating, goose bumps, diarrhea, abdominal cramping, rapid heartbeat, difficulty sleeping, and nervousness. Please dispose of unused and medications per your retail pharmacy guidance. Allergies No Known Allergies No Known Medication Allergies Immunizations This Visit No Immunizations [employer] Hematoma A hematoma is a collection of blood under the skin, in an organ, in a body space, in a joint space, or in other tissue. The blood can thicken (clot) to form a lump that you can see and feel. The lump is often firm and may become sore and tender. Most hematomas get better in a few days to weeks. However, some hematomas may be serious and require medical care. Hematomas can range from very small to very large. What are the causes? This condition is caused by: ??? A blunt or penetrating injury. ??? A leakage from a blood vessel under the skin. This leak happens on its own (is spontaneous) and is more likely to occur in older people, especially those who take blood thinners. ??? Some medical procedures including surgeries, such as oral surgery, face lifts, and surgeries that involve the joints. ??? Some medical conditions that cause bleeding or bruising problems. There may be multiple hematomas that appear in different areas of the body. What are the signs or symptoms? Symptoms of this condition can depend on where the hematoma is located. Common symptoms of a hematoma under the skin include: ??? A firm lump on the body. ??? Pain and tenderness in the area. ??? Bruising. Blue, dark blue, purple-red, or yellowish skin (discoloration) may appear at the site of the hematoma if the hematoma is close to the surface of the skin. For hematomas in deeper tissues or body spaces, symptoms may be less obvious. A collection of blood in the stomach (intra-abdominal hematoma) may cause pain in the abdomen, weakness, fainting, and shortness of breath. A collection of blood in the head (intracranial hematoma) may cause a headache or symptoms such as weakness, trouble speaking or understanding, or a change in consciousness. How is this diagnosed? This condition is diagnosed based on: ??? Your medical history. ??? A physical exam. ??? Imaging tests, such as an ultrasonogram or CT scan. These may be needed if your health care provider suspects a hematoma in deeper tissues or body spaces. ??? Blood tests. These may be needed if your health care provider believes that the hematoma is caused by a medical condition. How is this treated? This condition usually does not need treatment because many hematomas go away on their own over time. However, large hematomas, or those that may affect vital organs, may need surgical drainage or monitoring. If the hematoma is caused by a medical condition, medicines may be prescribed. Follow these instructions at home: Managing pain, stiffness, and swelling ??? If directed, apply ice to the affected area: ? Put ice in a plastic bag. ? Place a towel between your skin and the bag. ? Leave the ice on for 20 minutes, 2???3 times a day for the first couple of days. ??? After applying ice for a couple of days, your health care provider may recommend that you apply warm compresses to the affected area instead. Do this as told by your health care provider. Remove the heat if your skin turns bright red. This is especially important if you are unable to feel pain, heat, or cold. You may have a greater risk of getting burned ??? Raise (elevate) the affected area above the level of your heart while you are sitting or lying down. ??? Wrap the affected area with an elastic bandage, if told by your health care provider. The bandage applies pressure (compression) to the area, which may help to reduce swelling and help the hematoma heal. Make sure the bandage is not wrapped too tight. ??? If your hematoma is on a leg or foot (lower extremity) and is painful, your health care provider may recommend crutches. Use them as told by your health care provider. General instructions ??? Take [id number] and prescription medicines only as told by your health care provider. ??? Keep all follow-up visits as told by your health care provider. This is important. Contact a health care provider if: ??? You have a fever. ??? The swelling or discoloration gets worse. ??? You develop more hematomas. Get help right away if: ??? Your pain is worse or your pain is not controlled with medicine. ??? Your skin over the hematoma breaks or starts bleeding. ??? Your hematoma is in your chest or abdomen and you have weakness, shortness of breath, or a change in consciousness. ??? You have a hematoma on your scalp caused by a fall or injury and you have a headache that gets worse, trouble speaking or understanding, weakness, or a change in alertness or consciousness. Summary ??? A hematoma is a collection of blood under the skin, in an organ, in a body space, in a joint space, or in other tissue. ??? This condition usually does not need treatment because many hematomas go away on their own over time. ??? Large hematomas, or those that may affect vital organs, may need surgical drainage or monitoring. If the hematoma is caused by a medical condition, medicines may be prescribed. This information is not intended to replace advice given to you by your health care provider. Make sure you discuss any questions you have with your health care provider. Document Released: 04/04/2005 Document Revised: 09/23/2017 Document Reviewed: 09/23/2017 [employer] Patient Education ?? 2019 [employer]. Emergency Awareness and Preventative Care STROKE is an EMERGENCY Every Minute Counts Act FAST and Check for these signs: FACE Does the face look uneven? ARM Does one arm drift down? SPEECH Does their speech sound strange? TIME Call at any sign of stroke Stroke Risk Factors Atrial Fibrillation (irregular heartbeat) Diabetes Family history of stroke Heart Disease Heavy alcohol use High Blood Pressure High Cholesterol Physical inactivity and obesity Smoking Cigarette Smoking The facts are clear, cigarette smoking will shorten your life. Smoking can cause many illnesses along the way. As a healthcare provider, we recommend that you stop smoking. Assistance with quitting is available by contacting 1-614-AIMV-NOW. This is a free resource providing counseling, support, and referral. Or you may contact your personal physician. National Suicide Prevention Lifeline: The National Suicide Prevention Lifeline is a national network of local crisis centers that provides free and confidential emotional support to people in suicidal crisis or emotional distress 24 hours a day, 7 days a week. Don't Wait! Stop a Heart Attack Before it Starts What is a heart attack? A heart attack is damage or to a part of the heart from severely decreased or lack of blood flow to the heart. Over time, arteries can become narrow from the buildup of fat and cholesterol, which is called plaque. The plaque can rupture causing a blood clot to form. When the blood clot forms, the artery can become severely narrowed or completely blocked, causing a heart attack. Heart attack is the leading cause of in the [place]. 85% of muscle damage occurs within the first 2 hours. Delay in the recognition of heart attack symptoms increases the chances of . Know the early symptoms of a heart attack: Nausea Feeling of fullness in chest Jaw Pain Pain that travels down one or both arms Fatigue/being tired Anxiety Back Pain Chest pressure, squeezing, or discomfort Shortness of breath Sweating, or a cold sweat Feeling of impending doom There are unusual signs of a heart attack, too! Women, the elderly, and diabetics may present with atypical symptoms: Fainting/dizziness Weakness Confusion Risk Factors for a Heart Attack Some heart disease risk factors, such as age and family history, cannot be changed. Others, like smoking and lack of exercise, can be changed. Smoking High Cholesterol High Blood Pressure Family History Obesity Age Gender (Males are at higher risk) Lack of Exercise Diabetes Diet Stress Excessive Alcohol Intake If you or someone you know is experiencing the signs and symptoms of a heart attack, DON???T DELAY. Call immediately and seek help. If someone collapses, perform CPR! Do not attempt to drive if you are having symptoms of heart attack. Hands-Only CPR Why Hands-Only CPR? Hands-Only CPR has been shown to be as effective as conventional CPR for cardiac arrests that occur outside of a hospital. Survival depends on immediately receiving CPR from someone nearby. How do you perform Hands-Only CPR? There are two easy steps: Call if you see a teen or adult collapse Push hard and fast in the center of the chest at a beat of 100 beats per minute. Save a life! 4 WAYS TO GET AHEAD OF SEPSIS SEPSIS is a MEDICAL EMERGENCY. Time matters! Infections put you and your family at risk for a life-threatening condition called sepsis. Sepsis is the body's extreme response to an infection. It is life-threatening, and without timely treatment, sepsis can rapidly lead to tissue damage, organ failure, and . Sepsis happens when an infection you already have-in your skin, lungs, urinary tract or somewhere else-triggers a chain reaction throughout your body. 1 PREVENT INFECTIONS Take good care of chronic conditions. Talk to your doctor about getting the recommended vaccines. 2 PRACTICE GOOD HYGIENE Wash your hands frequently. Keep cuts or open sores clean and covered until they are healed. 3 KNOW THE SYMPTOMS Confusion or disorientation Shortness of breath High heart rate Fever, shivering, or feeling very cold Extreme pain or discomfort Clammy or sweaty skin 4 ACT FAST Get medical care IMMEDIATELY if you suspect sepsis or if you have an infection that is not getting better or is getting worse. To learn more about sepsis and how to prevent infections, visit www.cdc.gov/sepsis. Test Results Laboratory or Other Results This Visit (last charted value for your 09/06/2019 visit) Hematology 09/08/2019 7:14 AM WBC: 8.8 K/uL -- Normal range between ( 4.5 and 10.5 ) RBC: 4.38 Million/uL -- Normal range between ( 3.93 and 5.22 ) Hct: 40.6 % -- Normal range between ( 34.1 and 44.9 ) Hgb: 12.9 g/dL -- Normal range between ( 11.2 and 15.7 ) Platelet Count: 188 K/uL -- Normal range between ( 163 and 369 ) MCH: 29.5 pg -- Normal range between ( 25.6 and 32.2 ) MCHC: 31.8 Gram/dL -- Normal range between ( 32.2 and 36.5 ) MCV: 92.7 fL -- Normal range between ( 79.0 and 94.8 ) Slide Review: No Eos %: 4.7 % -- Normal range between ( 0.0 and 7.0 ) [place] #: 0.68 K/uL -- Normal range between ( 0.16 and 1.00 ) Eos #: 0.41 x10(3)/uL -- Normal range between ( 0.00 and 0.80 ) [place] %: 7.7 % -- Normal range between ( 3.0 and 9.0 ) Baso %: 0.5 % -- Normal range between ( 0.0 and 1.5 ) Baso #: 0.04 x10(3)/uL -- Normal range between ( 0.00 and 0.20 ) RDW: 14.2 % -- Normal range between ( 11.7 and 14.9 ) Neut %: 52.4 % -- Normal range between ( 34.0 and 71.0 ) Neut #: 4.61 K/uL -- Normal range between ( 1.56 and 6.13 ) Lymph %: 34.2 % -- Normal range between ( 19.3 and 53.1 ) Lymph #: 3.00 x10(3)/uL -- Normal range between ( 1.00 and 3.90 ) MPV: 11.9 fL -- Normal range between ( 9.4 and 12.4 ) IG#: 0.04 x10(3)/uL -- Normal range between ( 0.00 and 0.05 ) IG%: 0.50 % -- Normal range between ( 0.00 and 0.60 ) General Chemistry 09/08/2019 7:14 AM Creatinine Level: 1.00 mg/dL -- Normal range between ( 0.55 and 1.02 ) Sodium Level: 140 mmol/L -- Normal range between ( 136 and 146 ) Potassium Level: 4.1 mmol/L -- Normal range between ( 3.5 and 5.1 ) Chloride Level: 111 mmol/L -- Normal range between ( 102 and 112 ) Carbon Dioxide Level: 27 mmol/L -- Normal range between ( 21 and 32 ) Anion Gap: 6 -- Normal range between ( 9 and 20 ) Bun/Creatinine: 32.0 -- Normal range between ( 8.0 and 20.0 ) Calcium Level: 9.0 mg/dL -- Normal range between ( 8.4 and 10.1 ) eGFR : >60 mL/min/1.73m2 eGFR NonAfrican: 54 mL/min/1.73m2 Glucose Level: 88 mg/dL -- Normal range between ( 74 and 106 ) Blood Urea Nitrogen: 32 mg/dL -- Normal range between ( 7 and 22 ) 09/06/2019 10:30 AM Potassium POC: 4.2 mmol/L -- Normal range between ( 3.5 and 4.9 ) :Potassium Level POC: :Potassium Level POC 09/06/2019 10:25 AM Calcium Ionized: 1.13 mmol/L -- Normal range between ( 1.12 and 1.32 ) Magnesium Level: 2.3 mg/dL -- Normal range between ( 1.5 and 2.4 ) Phosphorus: 3.3 mg/dL -- Normal range between ( 2.5 and 4.9 ) Coagulation 09/06/2019 10:25 AM INR: 1.0 -- Normal range between ( 0.9 and 1.1 ) PT: 10.7 Second(s) -- Normal range between ( 9.6 and 12.0 ) Protein & Immunoglobulin Studies 09/06/2019 10:25 AM Prealbumin: 26.6 mg/dL -- Normal range between ( 20.0 and 40.0 ) Patient Name:GRACIELA, KEYANA LAN I have received and understand this information and was given the opportunity to ask questions. Patient/Foundry Patternmaker Name: Patient/Foundry Patternmaker Signature: Relationship to Patient: Clinician/Hospital Foundry Patternmaker Signature: Date: Electronically signed by Alyssa, Jignesh Conversion Windows Deployment Technician Shweta at 12/18/2022 11:22 PM CDT documented in this encounter Plan of Treatment Not on file documented as of this encounter Visit Diagnoses Not on filedocumented in this encounter
--- OUTSIDE RECORDS SUMMARY | 2025-02-10 13:17 | XMS_ITS | Encounter Summary ---
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 Crystal Molder Details Entered On: 09/08/2019 1:17 EST Performed On: 09/08/2019 2:00 EST by Mireya Teixeira RN Order Details Transport Mode Order Detail : Wheelchair Isolation Precautions Order Detail : Standard Precautions Order Detail : N/A IV Order Detail : 1 Oxygen Order Detail : 0 Nurse Collect Order Detail : 0 Lift/Transfer : Minimal Central Line Order Detail : No Room Service : Appropriate Arterial Line : No Mireya Teixeira RN - 09/08/2019 1:17 EST documented in this encounter Plan of Treatment Not on file documented as of this encounter Visit Diagnoses Not on filedocumented in this encounter
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
--- OUTSIDE RECORDS SUMMARY | 2025-02-10 13:17 | XMS_ITS | Encounter Summary ---
Author Organization [employer] Address [address] [place] [address] Care Team Providers Care Customer Sales Consultant Name Role Phone Unavailable Primary Care Provider Unavailabl e Encounter Details Date Type Department Care Team (Late st Contact Info) Description 09/08/2019 Transcribed Document [facility] [place] Family Medicine [facility] [place] [address] ProviderKalyani MD [address] [place] [address] Social History Tobacco Use Types Packs/Day [...] - Historical ProviderMD - 09/08/2019 9:24 AM ICU STAFF NURSE Nursing Discharge Summary Entered On: 09/08/2019 9:25 EST Performed On: 09/08/2019 9:24 EST by MODESTA COCHRAN, rn case mgr Documentation Patient Disposition, General : Discharge Discharge To : Home with ambulatory/outpatient follow-up Mode Of Departure, General Discharge : Wheelchair Accompanied By, Discharge : Son IV Discontinued : Yes Medications Given to Patient : Yes Personal Belongings With Patient : Yes Prescriptions Given to Patient : No Discharge Instructions Reviewed With, Opportunity For Questions Given : Patient Patient Education Completed : Yes Teaching Method : Explanation, Printed materials Teaching Evaluation : Verbalizes understanding Education Comment : POC, meds, safety, pain mgmt, home health MODESTA COCHRAN, RN - 09/08/2019 9:24 EST Electronically signed by Alyssa [facility] Conversion Household Personal Assistant Cerner at 12/18/2022 11:22 PM CDT documented in this encounter Plan of Treatment Not on file documented as of this encounter Visit Diagnoses Not on filedocumented in this encounter
--- OUTSIDE RECORDS SUMMARY | 2025-02-10 13:17 | XMS_ITS | Encounter Summary ---
Author Organization [employer] Address [address] [place] [address] Care Team Providers Care Wind Farm Operations Manager Name Role Phone Unavailable Primary Care Provider Unavailabl e Encounter Details Date Type Department Care Team (Late st Contact Info) Description 09/07/2019 Transcribed Document [facility] Radiology [address] [place] [address] Darrel Healy MD [address] [place], [place] [id number] Social History Tobacco Use Types Packs/Day Years Used Date Smoking Tobacco: Never Assessed Comments Unknown Sex and Gender Information Value Date Recorded Sex Assigned at Female 03/01/2022 7:56 PM CDT Legal Sex Female 7:56 PM CDT Gender Identity Female 03/01/2022 7:56 PM CDT Sexual Orientation Not on file documented as of this encounter Miscellaneous Notes * Cerner Conversion Note - Darrel Healy MD - 09/07/2019 9:50 AM EST Patient: KEYANA OWENS Age: 73 years Sex: Female : 1945 Associated Diagnoses: None Author: DARREL HEALY MD-INT Subjective Chief complaint. And tolerating a wound VAC and debridement yesterday by Dr. Kirk Pleitez with vascular surgery. No fevers or chills. No chest pain palpitations. Patient states that she lives with her sister who is 80 years old and the niece. Patient previously worked at the [employer] in [facility] the [facility]. 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 No nausea vomiting. No diarrhea constipation. Tolerating the wound VAC without difficulty. Review of Systems Constitutional: Decreased activity, No fever, No chills. Respiratory: No shortness of breath, No cough. Cardiovascular: No chest pain, No palpitations. Gastrointestinal: No nausea, No vomiting, No diarrhea, No constipation. Genitourinary: No dysuria. Integumentary: Left anterior crowe debridement with wound VAC in place. Neurologic: Alert and oriented X4, No confusion. Psychiatric: No anxiety, No depression. Health Status Allergies: Allergic Reactions (Selected) No Known Allergies No Known Medication Allergies, Allergies (2) Active Reaction No Known Allergies None Documented No Known Medication Allergies None Documented Problem list: Medical Hematoma / SNOMED CT 7941599063 / Confirmed injury left lower leg History of obstructive sleep apnea / IMO 80669019 / Confirmed Lower back pain / SNOMED CT 885709732 / Confirmed, Active Problems (9) Arthritis - knees Gout Hematoma History of obstructive sleep apnea Hypertension Left ankle pain Lower back pain Lower extremity edema Snores Current medications: (Selected) Inpatient Medications Ordered Colace: 100 mg, Oral, BID Dulcolax Laxative: 5 mg, Oral, Daily, PRN: Constipation DuoNeb 0.5 mg-2.5 mg/3 mL inhalation solution: 3 mL, Nebulized Inhalation, RT_Q6H, PRN: Shortness of Breath Fish Oil: 2,000 mg, Oral, Daily Lactated Ringers Injection intravenous solution 1,000 mL: 20 mL/Hr, IntraVENous Lopressor: 5 mg, IV Push, 1-Time, PRN: Hypertension Lovenox: 40 mg, SubCutaneous, Daily MiraLax: 17 Gram, Oral, Daily, PRN: Constipation Afton 7.5 mg-325 mg oral tablet: 1 Tab, Oral, Q4H, PRN: Pain (Moderate 4-6) Normal Saline Flush: 10 mL, Flush, Q12H Normal Saline Flush: 10 mL, IntraVENous, See Comment, PRN: IV Use Phenergan: 12.5 mg, IV Push, Q6H, PRN: Nausea Protonix: 40 mg, Oral, AC Breakfast Sodium Chloride 0.9% intravenous solution 1,000 mL: 50 mL/Hr, IntraVENous Tylenol: 650 mg, Oral, 1-Time, PRN: Temperature Tylenol: 650 mg, Oral, Q4H, PRN: Pain (Mild 1-3) Zofran: 4 mg, IV Push, Q4H, PRN: Nausea allopurinol: 300 mg, Oral, Daily aspirin: 81 mg, Oral, Daily cholecalciferol: 2,000 Units, Oral, Daily losartan: 100 mg, Oral, Daily melatonin: 3 mg, Oral, At Bedtime, PRN: Insomnia morphine: 2 mg, IV Push, Q1H, PRN: Pain (Severe 7-10) Documented Medications Documented Yue Aspirin 325 mg oral tablet: 1 Tab, Oral, Daily Fish Oil 1000 mg oral capsule: 2 Cap, Oral, Daily Lasix 40 mg oral tablet: 1 Tab, Oral, Daily [place] 7.5 mg-325 mg oral tablet: 1 Tab, Oral, Q4H, PRN: for pain, 0 Refill(s) Vitamin D3 1000 intl units oral capsule: 2 Cap, Oral, Daily allopurinol 300 mg oral tablet: 1 Tab, Oral, Daily losartan 100 mg oral tablet: 1 Tab, Oral, Daily, Home Medications (7) Active allopurinol 300 mg oral tablet 300 mg = 1 Tab, Oral, Daily Yue Aspirin 325 mg oral tablet 325 mg = 1 Tab, Oral, Daily Fish Oil 1000 mg oral capsule 2,000 mg = 2 Cap, Oral, Daily Lasix 40 mg oral tablet 40 mg = 1 Tab, Oral, Daily losartan 100 mg oral tablet 100 mg = 1 Tab, Oral, Daily [place] 7.5 mg-325 mg oral tablet 1 Tab, PRN, Oral, Q4H Vitamin D3 1000 intl units oral capsule 2,000 Int Units = 2 Cap, Oral, Daily , Medications (23) Active Scheduled: (9) #NaCl 0.9% *FLUSH* inj 10 mL 10 mL, Flush, Q12H allopurinol 300 mg tab 300 mg 1 Tab, Oral, Daily aspirin EC 81 mg tab 81 mg 1 Tab, Oral, Daily cholecalciferol 1,000 unit tab 2,000 Units 2 Tab, Oral, Daily docusate sodium 100 mg cap 100 mg 1 Cap, Oral, BID enoxaparin 40 mg/0.4 mL inj 40 mg 0.4 mL, SubCutaneous, Daily losartan 50 mg tab 100 mg 2 Tab, Oral, Daily omega-3 fish oil 1,000 mg cap 2,000 mg 2 Cap, Oral, Daily pantoprazole EC 40 mg tab 40 mg 1 Tab, Oral, AC Breakfast Continuous: (2) lactated ringers 1,000 mL 1,000 mL, IntraVENous, 20 mL/Hr NaCl 0.9% 1,000 mL 1,000 mL, IntraVENous, 50 mL/Hr PRN: (12) #NaCl 0.9% *FLUSH* inj 10 mL 10 mL, IntraVENous, See Comment acetaminophen 325 mg tab 650 mg 2 Tab, Oral, 1-Time acetaminophen 325 mg tab 650 mg 2 Tab, Oral, Q4H acetaminophen/HYDROcodone 325/7.5 mg tab 1 Tab, Oral, Q4H albuterol-ipratropium inh 3 mL 3 mL, Nebulized Inhalation, RT_Q6H bisacodyl EC 5 mg tab 5 mg 1 Tab, Oral, Daily melatonin 3 mg tab 3 mg 1 Tab, Oral, At Bedtime metoprolol 5 mg/5 mL inj 5 mg 5 mL, IV Push, 1-Time morphine 2 mg/1 ml inj 2 mg 1 mL, IV Push, Q1H ondansetron 4 mg/2 mL inj 4 mg 2 mL, IV Push, Q4H polyethylene glycol 3350 pwd 17 g pkt 17 Gram 1 Packet, Oral, Daily promethazine 25 mg/1 mL inj 12.5 mg 0.5 mL, IV Push, Q6H Objective VS/Measurements Vitals Signs (last 24 hrs) Last Charted Minimum Maximum Temp 97.6 (SEP 07 14:18) 97.6 (SEP 07 14:18) 98.1 (SEP 06 18:29) Mon HR 71 (SEP 07 14:18) 56 (SEP 07 06:09) 102 (SEP 07 09:51) Resp Rate 16 (SEP 07 14:18) 16 (SEP 07 06:09) 18 (SEP 06 18:29) SBP 135 (SEP 07 14:18) 106 (SEP 07 09:51) 135 (SEP 07 02:38) DBP 66 (SEP 07 14:18) L 49 (SEP 07 09:51) 70 (SEP 06 18:29) MAP 89 (SEP 07 14:18) 68 (SEP 07 09:51) 89 (SEP 07 14:18) SpO2 L 93 (SEP 07 14:18) L 93 (SEP 06 18:29) 95 (SEP 07 02:38) Physical Examination VS/Measurements Vitals Signs (last 24 hrs) Last Charted Minimum Maximum Temp 97.6 (SEP 07 14:18) 97.6 (SEP 07 14:18) 98.1 (SEP 06 18:29) Mon HR 71 (SEP 07 14:18) 56 (SEP 07 06:09) 102 (SEP 07 09:51) Resp Rate 16 (SEP 07 14:18) 16 (SEP 07 06:09) 18 (SEP 06 18:29) SBP 135 (SEP 07 14:18) 106 (SEP 07 09:51) 135 (SEP 07 02:38) DBP 66 (SEP 07 14:18) L 49 (SEP 07 09:51) 70 (SEP 06 18:29) MAP 89 (SEP 07 14:18) 68 (SEP 07 09:51) 89 (SEP 07 14:18) SpO2 L 93 (SEP 07 14:18) L 93 (SEP 06 18:29) 95 (SEP 07 02:38) , Measurements from flowsheet : Measurements 09/06/2019 14:49 EST Height Source Measured Height Entry Format [place] Height/Length, AU[place] (ft) 5 ft Height/Length [place] 6 Inch CLINICALHEIGHT 167.64 cm [place] Body Weight 59 kg Weight Source Standing scale Weight Entry Format [place] Weight [place] lb 262.8 lb CLINICALWEIGHT 119.45 kg Body Surface Area (BSA) 2.25 m2 Body Mass Index 42.5 kg/m2 >HHI 09/06/2019 9:48 EST Height Source Not Done: Completed and previously documented (Not Done) Height Entry Format Not Done: Completed and previously documented (Not Done) Weight Source Not Done: Completed and previously documented (Not Done) General: Alert and oriented, Mild distress, Obesity debility 73-year-old white female. Eye: Pupils are equal, round and reactive to light, Extraocular movements are intact. HENT: Normocephalic, Normal hearing. Neck: Supple, No jugular venous distention. Respiratory: Lungs are clear to auscultation, Breath sounds are equal. Cardiovascular: Normal rate, Regular rhythm. Gastrointestinal: Soft, Non-tender, Normal bowel sounds. Genitourinary: No costovertebral angle tenderness. Lymphatics: No lymphadenopathy neck, axilla, groin. Musculoskeletal: Normal range of motion. Integumentary: Dry, Left anterior leg debridement wound VAC in place.. Neurologic: Alert, Oriented. Psychiatric: Cooperative, Appropriate mood & affect. Review / Management Results review: Labs (Last four charted values) WBC H 11.0 (SEP 07) 8.8 (SEP 06) HB 12.9 (SEP 07) 14.5 (SEP 06) HCT 39.5 (SEP 07) 44.2 (SEP 06) Plt 216 (SEP 07) 212 (SEP 06) Na 141 (SEP 07) 142 (SEP 06) K 4.0 (SEP 07) 4.0 (SEP 06) Cl 109 (SEP 07) 112 (SEP 06) CO2 26 (SEP 07) 26 (SEP 06) BUN H 25 (SEP 07) H 26 (SEP 06) Cr H 1.10 (SEP 07) H 1.10 (SEP 06) Glu R H 111 (SEP 07) 105 (SEP 06) Ca 9.0 (SEP 07) 9.4 (SEP 06) PT 10.7 (SEP 06) INR 1.0 (SEP 06) . Impression and Plan PVD Left lower extremity wound status post wound vac pain management -Afton 7.5 mg by mouth every 6 when necessary Acute renal failure encourage oral intake avoid nephrotoxins hold lasix monitor -Any 1.1 down to 1.1 Gout continue allopurinol BEHTN continue home meds with holding parameters monitor -Losartan 100 mg daily. CM consult for home health and wound vac management September 07. 35 minutes spent on the follow-up this really unfortunate 73-year-old obese white female with history of hypertension peripheral vascular disease left anterior leg wound. Wound VAC is in place. It yesterday afternoon. White blood cell count increased from 8 up to 11. We'll keep a very close eye currently not on antibiotics at least I can't see the wound with a wound VAC. Usually changed every couple days or so. Hopefully can be changed tomorrow looks clean that she could possibly be discharged but does need to be okay with vascular surgery. Recheck a CBC and BMP in the morning. Dragon dictation system used. Computer program makes numerous spelling grammar mistakes. If you have any questions or concerns do not hesitate call Dr. Darrel Schwartz at cell phone number [phone]. documented in this encounter Plan of Treatment Not on file documented as of this encounter Visit Diagnoses Not on filedocumented in this encounter
--- OUTSIDE RECORDS SUMMARY | 2025-02-10 13:17 | XMS_ITS | Encounter Summary ---
Author Organization [employer] Address [address] [place] [address] Care Team Providers Care Plasterer Spray Gun Name Role Phone Unavailable Primary Care Provider Unavailabl e Encounter Details Date Type Department Care Team (Late st Contact Info) Description 09/06/2019 Transcribed Document [facility] [place] [address] ProviderKalyani MD [address] [place] [address] Social History Tobacco Use Types [...] Conversion Note - Historical ProviderMD - 09/06/2019 4:35 PM VP CLINICAL Initial Discharge Planning Entered On: 09/06/2019 16:38 EST Performed On: 09/06/2019 16:35 EST by Yesica Ford RN-Notched Blade Loader Initial Assessment I Previously Documented Living Environment : No qualifying data available. Living Situation : Home Patient Lives With : Sibling(s) Is the Patient a Caregiver at Home? : No Emergency Contact #1 : tee Emergency Contact #1 Emergency Contact #1 Relationship : rafita Emergency Contact #2 : dwain Emergency Contact #2 Emergency Contact #2 Relationship : son Enter Doctors Name : dr schaefer Does Patient have PCP Listed? : Yes Patient's Home Caregiver Name/Relationship : tee Patient's Home Caregiver Medical Durable Power of Sound Cutter Name : no Yesica Ford, RN-Notched Blade Loader - 09/06/2019 16:35 EST Initial Assessment II Sensory and Motor Deficits : None Current Home Treatments and Equipment : None Yesica Ford RN-Notched Blade Loader - 09/06/2019 16:35 EST Discharge Needs I Anticipated Discharge Date : 09/07/2019 EST Anticipated Discharge To, CM : Home with home health Current Home Treatment/Equipment : Current Home Treatment/Equipment No qualifying data available. Post Acute/Home Treatments : None Documentation Status Complete : Yes Yesica Ford RN-Notched Blade Loader - 09/06/2019 16:35 EST Discharge Needs II Professional Skilled Services : Professional Skilled Services No qualifying data available. Services and Community Resources : Home Health Needs Assistance with Transportation : No Discharge Options Discussed with Patient : Home Health Yesica Ford RN-Notched Blade Loader - 09/06/2019 16:35 EST Narrative Note Narrative Note : cm spoke to patient about cm role in discharge. patient can in for surgery on left extremity by dr woodson. cm to set up wound vac and hh. cm in contact with rula morgan for addt orders. cm gave hh list to patient . she will pick tomorrow. cm notified [employer] rep and faxed packet to [facility] at end of day. choice and IM need to be signed. family will transport home. DCP: home with hh and wound vac Yesica Ford RN-Notched Blade Loader - 09/06/2019 16:35 EST documented in this encounter Plan of Treatment Not on file documented as of this encounter Visit Diagnoses Not on filedocumented in this encounter
--- OUTSIDE RECORDS SUMMARY | 2025-02-10 13:17 | XMS_ITS | Encounter Summary ---
Author Organization [employer] Address [address] [place] [address] Care Team Providers Care Nature Photographer Name Role Phone Unavailable Primary Care Provider Unavailabl e Encounter Details Date Type Department Care Team (Late st Contact Info) Description 09/05/2019 Transcribed Document [facility] Family [facility] [place] [address] ProviderKalyani MD [address] [place] [address] Social History Tobacco Use Types Packs/Day [...] Cerner Conversion Note - Historical ProviderMD - 09/05/2019 2:04 PM PEOPLESOFT PAT Adult Entered On: 09/05/2019 14:08 EST Performed On: 09/05/2019 14:04 EST by DIMITRI VÁSQUEZ RN Height and Weight, Clinical Dosing Height Source : Measured Height Entry Format : [place] Height, Feet : 5 ft(Converted to: 152 cm, 60 Inch) Height, Inches : 6 Inch(Converted to: 0 ft 6 Inch, 15.24 cm) Clinical Height : 167.64 cm Weight Source : Standing scale Weight Entry Format : [place] Clinical Dosing Weight : 119.45 kg Weight, Pounds : 262.8 lb Body Surface Area (BSA) : 2.25 m2 Body Mass Index : 42.5 kg/m2 (>HHI) [place] Body Weight : 59 kg DIMITRI VÁSQUEZ RN - 09/06/2019 10:23 EST Health Histories Smoking Status : Never (less than 100 in lifetime; none in last 30 days) Smokeless Tobacco Status : Never DIMITRI VÁSQUEZ RN - 09/05/2019 14:04 EST Social History (As Of: 09/06/2019 10:24:44 EST) Tobacco: Smoking Status Never smoker. (Last Updated: 05/05/2016 08:44:36 EDT by ALEN GRIGSBY, RN) Alcohol: Alcohol Use History No. Use in Last 12 Months: No. (Last Updated: 09/05/2019 14:03:39 EST by DIMITRI VÁSQUEZ RN) Substance Abuse: Drug Use Hx: No. Use in Last 12 Months: No. (Last Updated: 09/05/2019 14:03:48 EST by DIMITRI VÁSQUEZ RN) Infectious Disease History Infectious Disease History : Chicken pox/Shingles, Measles, Mumps Fever/Chills Last 48 Hours : No Travel To Regions with Travel Advisories : No Travel Outside [place] Within Last 30 Days : No Contact With Traveler to Advisory Region : No Tuberculosis Symptoms : None DIMITRI VÁSQUEZ RN - 09/05/2019 14:04 EST Anesthesia/Transfusion History Family History of Anesthesia Reaction : Prior transfusion without reaction Blood Transfusion Acceptable to Patient : Yes Transfusion History : Prior anesthesia without reaction Family History of Anesthesia Reaction : None DIMITRI VÁSQUEZ RN - 09/05/2019 14:04 EST Functional Assessment Functional ADL Evaluation Index EBN Bathing : Independent (2) Dressing : Independent (2) Toileting : Independent (2) Transferring Bed or Chair : Independent (2) Continence : Independent (2) Feeding : Independent (2) DIMITRI VÁSQUEZ RN - 09/05/2019 14:04 EST ADL Index Score : 12 DIMITRI VÁSQUEZ RN - 09/05/2019 14:04 EST Advance Directive Patient has Advance Directive *Q : No, patient refuses Advance Directive information DIMITRI VÁSQUEZ RN - 09/05/2019 14:04 EST [place] Suicide Severity Rating Scale (C-SSRS) CSSRS Past Month Wish to be : No CSSRS Past Month Suicidal Thoughts : No CSSRS Lifetime Suicide Behavior : No Suicide Severity Rating Score : 0 Suicide Severity Rating : No Additional Care Required at this time DIMITRI VÁSQUEZ RN - 09/05/2019 14:04 EST Psychosocial History Do You Have a History of the Following? : Patient denies history Currently in Unsafe Situation : No DIMITRI VÁSQUEZ RN - 09/05/2019 14:04 EST General Info Patient Arrival Date/Time : 09/06/2019 10:01 EST Emergency Contact #1 DIMITRI VÁSQUEZ RN - 09/06/2019 10:23 EST Arrived From : Home Mode of Arrival on Unit : Ambulatory Legal Guardian : Son Support Person/Pt Rep Name : Jessi Villa - Dragan Want Family/Rep/Phys Notified of Admit : No Emergency Contact #1 : jessi Emergency Contact #1 Relationship : conynereyda Emergency Contact #2 : dwain Emergency Contact #2 Emergency Contact #2 Relationship : son Primary Language : Yemeni Preferred Communication Mode : Verbal Communication Barrier : None DIMITRI VÁSQUEZ RN - 09/05/2019 14:04 EST Gagandeep Scale Gagandeep Sensory Perception : Slightly limited Gagandeep Moisture : Rarely moist Gagandeep Activity : Walks occasionally Gagandeep Mobility : Slightly limited Gagandeep Nutrition : Adequate Gagandeep Friction and Shear : No apparent problem Gagandeep Score : 19 DIMITRI VÁSQUEZ RN - 09/05/2019 14:04 EST Sleep Apnea Risk Assmt BiPAP/CPAP Ordered for Home Use : Yes Hx of Obstructive Sleep Apnea Diagnosis : Yes BiPAP/CPAP Used at Home : Yes Age over 50 Years Old : Yes Gender Male : No DIMITRI VÁSQUEZ RN - 09/05/2019 14:04 EST documented in this encounter Plan of Treatment Not on file documented as of this encounter Visit Diagnoses Not on filedocumented in this encounter
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
--- OUTSIDE RECORDS SUMMARY | 2025-02-10 13:17 | XMS_ITS | Encounter Summary ---
Author Organization [employer] Address [address] [place] [address] Care Team Providers Care Service Crew Supervisor Name Role Phone Unavailable Primary Care Provider Unavailabl e Encounter Details Date Type Department Care Team (Late st Contact Info) Description 10/23/2019 Transcribed Document [facility] [place] Family Medicine [facility] [place] [address] ProviderKalyani MD [address] [place] [address] Social History Tobacco Use Types [...] Conversion Note - Kalyani ProviderMD - 10/23/2019 11:18 AM [employer] RE[employer]UE OFFICER ANDRÉS PADILLA, [address] [place] [address] Re: KEYANA OWENS Date of Visit: 10/23/2019 Dear ANDRÉS PADILLA Thank you for allowing me to participate in the care of KEYANA OWENS. Please see her accompanying wound clinic note from the [facility] visit on 10/23/2019. This Document is confidential and intended solely for the use of the individual or entity to which it is addressed. If you are not the named addressee, please disregard and do not disseminate, distribute or copy this information. If you are the intended recipient any disclosure of this information and its contents is strictly prohibited. Sincerely, TSERING [facility] [address] [place] [address]. [address] [place], [place] [address] The following document(s) were included in the letter: October 23, 2019 10:58:30 EST - (10/23/2019) Wound clinic consult documented in this encounter Plan of Treatment Not on file documented as of this encounter Visit Diagnoses Not on filedocumented in this encounter
--- OUTSIDE RECORDS SUMMARY | 2025-02-10 13:17 | XMS_ITS | Encounter Summary ---
Author Organization [employer] Address [address] [place] [address] Care Team Providers Care Hospital Admissions Officer Name Role Phone Unavailable Primary Care Provider Unavailabl e Encounter Details Date Type Department Care Team (Late st Contact Info) Description 09/07/2019 Transcribed Document [facility] Family Medicine [facility] [place] [address] ProviderKalyani MD [address] [place] [address] Social History Tobacco Use Types Packs/Day [...] Cerner Conversion Note - Historical ProviderMD - 09/07/2019 4:00 AM PRINT LINE SUPERVISOR Height and Weight, Routine Entered On: 09/07/2019 20:37 EST Performed On: 09/07/2019 4:00 EST by [facility]ika [facility]ubanks [facility] Height and Weight, Routine Routine Weight Source : Standing scale Routine Weight Entry Format : Cocke Routine Weight, Pounds : 267 lb Routine Weight, Ounces : 9 oz Routine Weight Calculation : 121.62 kg Height Source : Measured Height Entry Format : Cocke Height, Feet : 5 ft Height, Inches : 6 Inch Clinical Height : 167.64 cm Body Surface Area (BSA), Routine : 2.27 m2 Body Mass Index (BMI), Routine : 43.28 kg/m2 Tamika Eubanks Care Asst-Health Unit Coord - 09/07/2019 20:37 EST documented in this encounter Plan of Treatment Not on file documented as of this encounter Visit Diagnoses Not on filedocumented in this encounter
--- OUTSIDE RECORDS SUMMARY | 2025-02-10 13:17 | XMS_ITS | Encounter Summary ---
Author Organization [employer] Address [address] [place] [address] Care Team Providers Care Adult And Pediatric Neurologist Name Role Phone Unavailable Primary Care Provider Unavailabl e Encounter Details Date Type Department Care Team (Late st Contact Info) Description 09/06/2019 Transcribed Document [facility] [place] Family Medicine [facility] [place] [address] ProviderKalyani MD [address] [place] [address] Social History Tobacco Use Types Packs/Day [...] Cerner Conversion Note - Kalyani ProviderMD - 09/06/2019 2:39 PM DRAFTER PATENT Patient: KEYANA OWENS Age: 73 years Sex: Female : 1945 Associated Diagnoses: None Author: PATRICIA TESFAYE MD Chief Complaint medical management after wound vac placement History of Present Illness Patient is a morbidly obese 73 year old female with past medical history of HTN, PVD. she underwent left lower extremity wound vac placement today without complication vascular surgery recommend that its okay to discharge from their perspective if she gets home health and wound vac management set up by manager of case. resting cofmortably no acute complain Review of Systems Constitutional: No fever. Eye: No visual disturbances. Ear/Nose/Mouth/Throat: No sore throat. Respiratory: No shortness of breath. Cardiovascular: No chest pain, No palpitations. Gastrointestinal: No nausea. Genitourinary: No dysuria. Hematology/Lymphatics: No bleeding tendency. Endocrine: No cold intolerance. Immunologic: No malaise. Musculoskeletal: No back pain. Integumentary: No rash. Neurologic: Alert and oriented X4. Psychiatric: No anxiety. Health Status Allergies: Allergies (2) Active Reaction No Known Allergies None Documented No Known Medication Allergies None Documented Current medications: Home Medications (7) Active allopurinol 300 mg [...] 100 mg = 1 Tab, Oral, Daily Hornbrook 7.5 mg-325 mg oral tablet 1 Tab, PRN, Oral, Q4H Vitamin D3 1000 intl units oral capsule 2,000 Int Units = 2 Cap, Oral, Daily Problem list: Active Problems (9) Arthritis - knees Gout Hematoma History of obstructive sleep apnea Hypertension Left ankle pain Lower back pain Lower extremity edema Snores Histories Family History: No family history items have been selected or recorded., HTN Procedure history: ORIF Left Ankle. Colonoscopy. Social History Social & Psychosocial Habits Alcohol 09/05/2019 Alcohol Use History, Social Habits No Alcohol Use in Last Twelve Months No Substance Abuse 09/05/2019 Recreational Drug Use History No Recreational Drug Use Last 12 Months No Tobacco 05/05/2016 Smoking Status Never smoker . Physical Examination VS/Measurements Vitals Signs (last 24 hrs) Last Charted Minimum Maximum Temp 98.3 (SEP 06 14:10) 97.6 (SEP 06 13:55) 98.3 (SEP 06 14:10) Apical HR 65 (SEP 06 10:00) 65 (SEP 06 10:00) 65 (SEP 06 10:00) Mon HR 57 (SEP 06 14:30) 57 (SEP 06 14:30) 70 (SEP 06 14:05) Resp Rate 16 (SEP 06 14:30) 16 (SEP 06 14:30) H 26 (SEP 06 14:15) SBP 124 (SEP 06 14:30) 124 (SEP 06 14:30) H 147 (SEP 06 13:55) DBP L 56 (SEP 06 14:30) L 55 (SEP 06 14:10) 68 (SEP 06 14:20) MAP 84 (SEP 06 14:30) 84 (SEP 06 14:30) 97 (SEP 06 14:20) SpO2 94 (SEP 06 14:30) L 92 (SEP 06 14:10) 99 (SEP 06 13:55) General: Alert and oriented, No acute distress, morbidly obese. Eye: Pupils are equal, round and reactive to light, Extraocular movements are intact, Normal conjunctiva. HENT: Normocephalic, Oral mucosa is moist. Neck: Supple, Non-tender, No jugular venous distention, No lymphadenopathy. Respiratory: clear but diminshed at the bases. Cardiovascular: Normal rate, Regular rhythm, No murmur, Good pulses equal in all extremities, No edema. Gastrointestinal: Soft, Non-tender, Non-distended, Normal bowel sounds, No organomegaly. Genitourinary: No costovertebral angle tenderness. Lymphatics: No lymphadenopathy neck, axilla, groin. Musculoskeletal: LLE wound vac in place. Integumentary: Warm, Dry, Intact, No pallor. Neurologic: Alert, Oriented, Normal motor function, No focal deficits, Cranial Nerves II-XII are grossly intact. Psychiatric: Cooperative, Appropriate mood & affect. Review / Management Results review: Labs (Last four charted values) WBC 8.8 (SEP 06) HB 14.5 (SEP 06) HCT 44.2 (SEP 06) Plt 212 (SEP 06) Na 142 (SEP 06) K 4.0 (SEP 06) Cl 112 (SEP 06) CO2 26 (SEP 06) BUN H 26 (SEP 06) Cr H 1.10 (SEP 06) Glu R 105 (SEP 06) Ca 9.4 (SEP 06) PT 10.7 (SEP 06) INR 1.0 (SEP 06) , SEP 06 10:25 142 112 H 26 / 105 4.0 26 H 1.10 \ SEP 06 10:25 \ 14.5 / 8.8 212 / 44.2 \. Radiology results No Radiology Results Found Impression and Plan PVD Left lower extremity wound status post wound vac pain management Can be discharged as soon as home health has been set up Acute renal failure encourage oral intake avoid nephrotoxins hold lasix monitor Gout continue allopurinol BEHTN continue home meds with holding parameters monitor CM consult for home health and wound vac management VTE Prophylaxis - Medical Enoxaparin 40 mg, SubCutaneous, Inj, Daily, Routine, Start 09/06/19 13:46:00 EST (GLADYS PALOMARES PA-C) Sequential Compression Device Start: 09/06/19 14:37:00 EST, Bilateral, Length: Knee High, While patient is in bed, Continuous Order (PATRICIA TESFAYE) Sequential Compression Device Start: 09/06/19 13:46:00 EST, Bilateral, Length: Knee High, While in Bed, to nonoperative leg ONLY, Continuous Order (GLADYS PALOMARES PA-C) Home Medications (7) Active allopurinol 300 mg [...] 100 mg = 1 Tab, Oral, Daily Hornbrook 7.5 mg-325 mg oral tablet 1 Tab, PRN, Oral, Q4H Vitamin D3 1000 intl units oral capsule 2,000 Int Units = 2 Cap, Oral, Daily discussed with vascular surgery time spent 41 minutes Electronically signed by Marlon Shah Conversion Aerospace Physiological Technician Cerner at 12/18/2022 11:03 PM CDT documented in this encounter Plan of Treatment Not on file documented as of this encounter Visit Diagnoses Not on filedocumented in this encounter
--- OUTSIDE RECORDS SUMMARY | 2025-02-10 13:17 | XMS_ITS | Encounter Summary ---
Author Organization [employer] Address [address] [place] [address] Care Team Providers Care Batch Attendant Name Role Phone Unavailable Primary Care Provider Unavailabl e Encounter Details Date Type Department Care Team (Late st Contact Info) Description 09/06/2019 Transcribed Document [facility] [place] [address] ProviderKalyani MD [address] [place] [address] Social History Tobacco Use Types Packs/Day [...] Conversion Note - Kalyani ProviderMD - 09/06/2019 1:32 PM GROUP CHIEF OPERATOR [facility] Main OR IntraOp Summary Primary Physician: TSERING NOVAK MD Finalized Date/Time: 09/08/19 11:21:38 Pt. Name: KEYANA OWENS /Sex: 1945 Female Med Rec #: [id number] Physician: TSERING NOVAK MD Financial #: [id number] Pt. Type: O Room/Bed: [facility]/ Admit/Disch: 09/06/19 19:19:00 - 09/08/19 11:16:00 Institution: [facility] IntraOp Case Attendance Entry 1 Entry 2 Entry 3 Case Attendee TSERING NOVAK MD [place], Hazel, Barbara Garcia, Chuck Tender Role Performed Surgeon/Proceduralist, Salesperson Driver, First Scrub, First First Time In 09/06/19 13:17:00 09/06/19 13:17:00 09/06/19 13:17:00 Time Out 09/06/19 13:52:00 09/06/19 13:52:00 09/06/19 13:52:00 Procedure Wound Debridement Lower Wound Debridement Lower Wound Debridement Lower Extremity(Left) Extremity(Left) Extremity(Left) Other Attendee Superficial Wound Closed By: Last Modified By: Chelsea De La Cruz, Chelsea Mcmillan, Chelsea Mcmillan, RN 09/06/19 14:10:39 09/06/19 14:10:39 09/06/19 14:10:39 Entry 4 Entry 5 Case Attendee PARIS SEGUNDO APRN, [place], DALE ALAN, MIG TIG WELDER-ANS MD-ANS Role Performed MIG TIG WELDER/Nurse Energy Project Manager Anesthesiologist of Record Time In 09/06/19 13:17:00 09/06/19 13:17:00 Time Out 09/06/19 13:52:00 09/06/19 13:52:00 Procedure Wound Debridement Lower Wound Debridement Lower Extremity(Left) Extremity(Left) Other Attendee Superficial Wound Closed By: Last Modified By: Chelsea De La Cruz, Chelsea Mcmillan, NAPOLEON 09/06/19 14:10:39 09/06/19 14:10:39 [facility] IntraOp Case Attendance Audit 09/06/19 14:10:39 Procurement Analyst: ENIO Modifier: LAFAVEHM 1 <+> Time Out 1 <*> Procedure Wound Debridement Lower Extremity(Left) 2 <+> Time In 2 <+> Time Out 2 <*> Procedure Wound Debridement Lower Extremity(Left) 3 <+> Time In 3 <+> Time Out 3 <*> Procedure Wound Debridement Lower Extremity(Left) 4 <+> Time In 4 <+> Time Out 4 <*> Procedure Wound Debridement Lower Extremity(Left) 5 <+> Time In 5 <+> Time Out 5 <*> Procedure Wound Debridement Lower Extremity(Left) 09/06/19 13:45:14 Procurement Analyst: ENIO Modifier: LAFAVEHM <+> 2 Case Attendee <+> 2 Role Performed <+> 2 Procedure <+> 3 Case Attendee <+> 3 Role Performed <+> 3 Procedure <+> 4 Case Attendee <+> 4 Role Performed <+> 4 Procedure <+> 5 Case Attendee <+> 5 Role Performed <+> 5 Procedure [facility] IntraOp Case Times Entry 1 Patient In Room Time 09/06/19 13:17:00 Out Room Time 09/06/19 13:52:00 Anesthesia Start Time 09/06/19 13:17:00 Stop Time 09/06/19 13:52:00 Surgery / Procedure Times Start Time 09/06/19 13:32:00 Stop Time 09/06/19 13:46:00 Last Modified By: Chelsea De La Cruz RN 09/06/19 13:56:08 [facility] IntraOp Case Times Audit 09/06/19 13:56:08 Procurement Analyst: LAFAVEHM Modifier: LAFAVEHM <+> 1 Out Room Time <+> 1 Stop Time 09/06/19 13:47:04 Procurement Analyst: LAFAVEHM Modifier: LAFAVEHM <+> 1 Stop Time [facility] IntraOp Cautery Entry 1 ESU Identification Cautery Type Monopolar ESU ID Number [id number] ID Type Hospital Number Cautery Settings Cut Setting 30 Coag Setting 30 ESU Grounding Pad Ground Pad Type Adult Grounding Pad Site Right thigh Grounding Pad Chelsea De La Cruz RN Applied By Grounding Pad Site Warm, dry and intact Skin Condition Before Cautery Grounding Pad Site Unchanged Skin Condition After Cautery Last Modified By: Chelsea De La Cruz RN 09/06/19 13:45:48 [facility] IntraOp Communication Entry 1 Communication To Family/Significant other Communication By Chelsea De La Cruz RN Date and Time 09/06/19 13:01:00 Last Modified By: Chelsea De La Cruz RN 09/06/19 13:46:09 [facility] IntraOp Counts Verification Entry 1 Procedure Wound Debridement Lower Extremity(Left) Count Info Count Type Sponge, Sharps, Miscellaneous Counts Verification Baseline/pre-procedure Sequence Counts Performed By Count Performed By Barbara Servin (Scrub) Chuck Tender Count Performed By Chelsea De La Cruz RN (RN) Last Modified By: Chelsea De La Cruz RN 09/06/19 13:47:21 [facility] IntraOp Counts Final Entry 1 Procedure Wound Debridement Lower Extremity(Left) Final Count Info Count Type Sponge, Sharps, Miscellaneous Counts Verification Skin Closure/end of Sequence procedure Count Results Correct, surgeon notified Counts Performed By Count Performed By Barbara Servin (Scrub) Chuck Tender Count Performed By Chelsea De La Cruz RN (RN) Last Modified By: Chelsea De La Cruz RN 09/06/19 13:48:27 [facility] IntraOp Departure from OR Entry 1 Integumentary Assessment Transfer/Handoff Transfer to PACU Phase I Handoff Method Bedside/Face to face, Phone call, Online nursing summary Post-op Transport Stretcher/Gurney Via Patient Transport PARIS SEGUNDO APRN, Accompanied by VIMAL-Jono PETERS Hazel, RN Last Modified By: Chelsea De La Cruz RN 09/06/19 14:00:03 [facility] IntraOp Dressing and Packing Entry 1 Type Packing Location OPSITE Wound Dressing Item Other Applied By TSERING NOVAK MD Other Comments WOUND VAC Last Modified By: Chelsea De La Cruz RN 09/06/19 14:00:39 [facility] IntraOp Fire Risk Assessment Entry 1 Fire Info Surgical Site or 0- No Incision Above the Xyphoid Open O2 Source 0- No (Mask or Cannula) Available Ignition 1- Yes (ESU, Laser, Light Source) Fire Risk 1 Assessment Score Fire Score Fire Risk Yes Assessment Complete Fire Risk Chelsea De La Cruz RN Assessment Verified By Fire Risk 09/06/19 13:17:00 Assessment Verified Date/Time Fire Risk Standard Fire Yes Safety Precautions Followed Last Modified By: Chelsea De La Cruz RN 09/06/19 14:01:03 [facility] IntraOp General Case Telephone Operator Chief 1 Case Information OR OR 06 [facility] Case Level 1 Room Verified Yes Wound Class II - Clean-Contaminated Specialty SN Anesthesia Anesthesia Type General ASA Class 3 Diagnosis Preop Diagnosis LEFT LOWER LEG HEMATOMA Postop Same As Preop Yes Postop Diagnosis LEFT LOWER LEG HEMATOMA Last Modified By: Chelsea De La Cruz RN 09/06/19 14:03:31 [facility] IntraOp General Case Data Audit 09/06/19 14:03:31 Procurement Analyst: ENIO Modifier: ENIO <+> 1 Specialty [facility] IntraOp Intraoperative Assessment Entry 1 Handoff Method Online nursing summary Valid History / Yes Physical in Chart Preoperative Yes Checklist Reviewed/Evaluated Allergies Reviewed Yes Patient is Latex No Sensitive Isolation Not applicable Precautions Noted Level of WDL Consciousness (WDL = Alert, Oriented to Person, Place, and Time) Skin Assessment No Verified Present Upon IVs Arrival to OR Last Modified By: Chelsea De La Cruz RN 09/06/19 14:02:40 [facility] IntraOp Intraoperative Equipment Entry 1 Type Monitoring Equipment Equipment Lesli Suction System Intraop Monitoring Antiembolic Devices Scopes Photo/Video Documentation Last Modified By: Chelsea De La Cruz RN 09/06/19 14:02:48 [facility] IntraOp Medication Admin Entry 1 Medication/Irrigant .9%NaCl Route of IRRIGATION Administration Dose Administered By TSERING NOVAK MD Procedure Irrigation Irrigant Volume In 1000 mL Last Modified By: Chelsea De La Cruz RN 09/06/19 14:03:16 [facility] IntraOp Patient Positioning Entry 1 Procedure Wound Debridement Lower Extremity(Left) Body Position Supine Left Arm Position Resting at side Right Arm Position Resting at side Left Leg Position Uncrossed, parallel Right Leg Position Uncrossed, parallel Feet Uncrossed Yes Pressure Points Yes Checked Positioning Devices Head Rest, Safety Strap, Thighs Device Position FOAM LOWER LEG PROP Positioned By TSERING NOVAK MD, Chelsea De La Cruz RN Position Verified Positioning Yes Verified by Anesthesia Positioning Yes Verified by Surgeon Last Modified By: Chelsea De La Cruz RN 09/06/19 14:04:39 [facility] IntraOp Sign In Entry 1 Patient, Site, Yes Procedure Identified Surgical Consent Yes Confirmed Relevant Surgical No, unable to assess - Documents Available Emergent case Surgical Site Yes Marked by person performing procedure Anesthesia Machine Yes Check Completed Medication Checks Yes Completed Allergies Yes Airway Difficult Yes Airway/Aspiration Risk Difficult Yes Airway/Aspiration Intervention Equipment Available Blood Loss Risk No Blood Loss No Intervention Equipment Prepared and Ready Blood Identifiers Not applicable Verified Per Policy Hypothermia Risk Yes Warming Measures Yes Taken Last Modified By: Chelsea De La Cruz RN 09/06/19 14:05:13 [facility] IntraOp Sign Out Entry 1 RN Confirmation Surgical Yes Procedure(s) Identified Instrument, Sponge Yes and Sharps Counts Correct/Documented Equipment Problems N/A Documented Specimen Labeled N/A Correctly Urinary Catheter N/A Documented in IView Herrera Patient Yes Recovery Concerns Reviewed with Anesthesia Provider, Surgeon and RN Herrera Patient Yes Management Concerns Reviewed with Anesthesia Provider, Surgeon and RN Safety Checklist Yes Elements Complete? RN Sign Out Chelsea De La Cruz RN Signature RN Sign Out 09/06/19 13:50:00 Signature Date/Time Plan of Care Outcome - Fire Risk OUTCOME STATEMENT: Goal met Patient is free from injury related to surgical fire Plan of Care Outcome - Pt Positioning OUTCOME STATEMENT: Goal met Absence of signs and symptoms of positioning injury. Plan of Care Outcome - Skin Prep OUTCOME STATEMENT: Goal met Intraoperative care is consistent with measures to prevent infection Plan of Care Outcome - Xray/Images OUTCOME STATEMENT: N/A Absence of observable signs or symptoms of radiation injury Plan of Care Outcome - Counts OUTCOME STATEMENT: Goal met Absence of signs and symptoms of injury related to extraneous objects Last Modified By: Chelsea De La Cruz RN 09/06/19 14:05:49 [facility] IntraOp Skin Prep Entry 1 Procedure Wound Debridement Lower Extremity(Left) Prescribed Yes Pre-Surgical Prep Completed Prep Area LEFT LOWE LEG THROUGH TOES Intraop Prep Prep Agents DuraPrep Prep by Chelsea De La Cruz RN Hair Removal Methods No hair removal performed Last Modified By: Chelsea De La Cruz RN 09/06/19 14:06:40 [facility] IntraOp Surgical Procedures Entry 1 Procedure Wound Debridement Lower Extremity Modifiers Left Additional (LT LOWER EXTREMITY Procedure WOUND DEBRIDEMENT WITH Description WOUND VAC PLACEMNT) Primary Procedure Yes Primary Surgeon TSERING NOVAK MD Start 09/06/19 13:32:00 Stop 09/06/19 13:46:00 Anesthesia Type General Specialty SN Vascular Wound Class II - Clean-Contaminated Last Modified By: Chelsea De La Cruz RN 09/06/19 14:06:55 [facility] IntraOP Time Out Entry 1 Procedure to be Wound Debridement Lower Performed Extremity(Left) Time Out Time Out Pause Time 09/06/19 13:31:00 All activity Yes suspended (unless life threatening emergency) Team Verbally Correct patient Confirms Information identity, Correct side and site are marked, Consent form is present and accurate, Agreement on the procedure to be done, Correct patient position, Relevant images/results properly labeled/appropriately displayed, Confirm antibiotics have been administered, Confirm the skin prep has dried, Confirm prosthesis/implant/devic e is present, Performed in location of procedure after prepped/draped Antibiotic Yes Prophylaxis Administered Or In Progress Within the Last 60 Minutes Beta Jaun N/A Administered Venous N/A Thromboembolism Prophylaxis Required Anticipated Critical Events Surgeon None expected, Special equipment need Anesthesia Provider None expected Nursing Assures Sterility of instruments, Implant Availability Essential Imaging N/A Labeled and Displayed Last Modified By: Chelsea De La Cruz RN 09/06/19 14:09:33 Case Comments <None> Finalized By: KAYLEY CARSON Document Signatures Signed By: Chelsea De La Cruz RN 09/06/19 14:10 KAYLEY CARSON 09/08/19 11:21 Unfinalized History Date/Time Username Reason for Unfinalizing Freetext Reason for Unfinalizing 09/08/19 11:20 WATTSDR Correct Billing documented in this encounter Plan of Treatment Not on file documented as of this encounter Visit Diagnoses Not on filedocumented in this encounter
--- OUTSIDE RECORDS SUMMARY | 2025-02-10 13:17 | XMS_ITS | Encounter Summary ---
Author Organization [employer] Address [address] [place] [address] Care Team Providers Care Production Support Developer Name Role Phone Unavailable Primary Care Provider Unavailabl e Encounter Details Date Type Department Care Team (Late st Contact Info) Description 09/08/2019 Transcribed Document [facility] [place] [facility] [place] [address] ProviderKalyani MD [address] [place] [address] Social History Tobacco Use Types Packs/Day [...] Conversion Note - Kalyani ProviderMD - 09/08/2019 9:27 AM FORMULATION TECHNICIAN [facility] [place] [address] KEYANA OWENS :1945 Visit Time:09/06/2019 Your Visit Summary [...] up appointment Where: [place] [address]- Follow Up with TSERING NOVAK MD When In 1 week Where: [place] [address]- Medications What How Much When Instructions Next Dose acetaminophen-HYDROcodone ([place] 7.5 mg-325 mg oral tablet) 1 Tablet(s) [...] health care provider. General instructions ??? Take hffw-nxk-vkxcqgm and prescription medicines only as told by [...] 04/04/2005 Document Revised: 09/23/2017 Document Reviewed: 09/23/2017 [employer] Interactive Patient Education ?? 2019 Z[employer]ptr. Emergency Awareness and Preventative Care STROKE is [...] Assistance with quitting is available by contacting 2-479-CFLR-NOW. This is a free resource providing counseling, [...] range between ( 0.0 and 7.0 ) [place] #: 0.68 K/uL -- Normal range between ( 0.16 and 1.00 ) [place] #: 0.41 x10(3)/uL -- Normal range between ( 0.00 and 0.80 ) [place] %: 7.7 % -- Normal range between [...] was given the opportunity to ask questions. Patient/Hand Pleater Name: Patient/Hand Pleater Signature: Relationship to Patient: Clinician/Hospital Hand Pleater Signature: Date: documented in this encounter Plan of Treatment Not on file documented as of this encounter Visit Diagnoses Not on filedocumented in this encounter
--- OUTSIDE RECORDS SUMMARY | 2025-02-10 13:17 | XMS_ITS | Encounter Summary ---
Author Organization [employer] Address [address] [place] [address] Care Team Providers Care Technical Services Consultant Name Role Phone Unavailable Primary Care Provider Cindy lopez Encounter Details Date Type Department Care Team (Late st Contact Info) Description 09/08/2019 Transcribed Document [facility] [place] [facility] [place] [address] ProviderKalyani MD [facility] [place] [address] Social History Tobacco Use Types [...] Conversion Note - Historical ProviderMD - 09/08/2019 5:00 AM LOCKSTITCH SHOULDER JOINER Chart Check - Review Order Profile Entered On: 09/08/2019 4:44 EST Performed On: 09/08/2019 5:00 EST by Mireya Teixeira RN Chart Check Powerplans Initiated/Discontinued as Appropriate : Yes All Active Orders Reviewed : Yes Mireya Teixeira RN - 09/08/2019 4:44 EST Electronically signed by Marlon Shah Conversion Certified Pest Control Technician Cerner at 12/18/2022 11:26 PM CDT documented in this encounter Plan of Treatment Not on file documented as of this encounter Visit Diagnoses Not on filedocumented in this encounter
--- OUTSIDE RECORDS SUMMARY | 2025-02-10 13:17 | XMS_ITS | Encounter Summary ---
Author Organization [employer] Address [address] [place] [address] Care Team Providers Care Park Activities Coordinator Name Role Phone Unavailable Primary Care Provider Unavailabl e Encounter Details Date Type Department Care Team (Late st Contact Info) Description 09/08/2019 Transcribed Document [facility] [place] [facility] [place] [address] ProviderKalyani MD [address] [place] [address] Social History Tobacco Use Types [...] - Historical ProviderMD - 09/08/2019 9:24 AM SPLINE ROLLING MACHINE JOB SETTER Patient Education Materials Follows: Hematoma A hematoma is a collection of [...] Leave the ice on for 20 minutes, 2?3 times a day for the first couple [...] health care provider. General instructions ??? Take nlor-gfe-xatpyom and prescription medicines only as told by [...] 04/04/2005 Document Revised: 09/23/2017 Document Reviewed: 09/23/2017 [employer] Interactive Patient Education ? 2019 [employer] documented in this encounter Plan of Treatment Not on file documented as of this encounter Visit Diagnoses Not on filedocumented in this encounter
--- OUTSIDE RECORDS SUMMARY | 2025-02-10 13:17 | XMS_ITS | Encounter Summary ---
Author Organization [employer] Address [address] [place] [address] Care Team Providers Care Electronic Court Recorder Name Role Phone Unavailable Primary Care Provider Unavailabl e Encounter Details Date Type Department Care Team (Late st Contact Info) Description 09/06/2019 Transcribed Document [facility] [place] [facility] [place] [address] ProviderKalyani MD [address] [place] [address] Social History Tobacco Use Types Packs/Day [...] - Kalyani ProviderMD - 09/06/2019 1:32 PM SHOW HOST/HOSTESS [facility] Main OR PACU Summary Primary Physician: TSERING NOVAK MD Finalized Date/Time: 09/06/19 14:37:32 Pt. Name: KEYANA OWENS /Sex: 1945 Female Med Rec #: [id number] Physician: TSERING NOVAK MD Financial #: [id number] Pt. Type: I Room/Bed: ASA/4 Admit/Disch: 09/06/19 09:54:00 - Institution: [facility] Main OR PACU I Case Times Entry 1 In PACU I 09/06/19 13:55:00 Ready for PACU 09/06/19 14:35:00 Discharge Discharge from PACU 09/06/19 14:35:00 I Last Modified By: MONIK GAONAPOLEON 09/06/19 14:37:28 [facility] Main OR PACU I Case Times Audit 09/06/19 14:37:28 [employer] Reading Teacher: [id number] Modifier: [id number] <+> 1 Ready for PACU Discharge <+> 1 Discharge from PACU I Finalized By: MONIK GAO RN Document Signatures Signed By: MONIK GAO RN 09/06/19 14:37 Electronically signed by Alyssa [facility] Conversion Roast Master Cerner at 12/18/2022 11:02 PM CDT documented in this encounter Plan of Treatment Not on file documented as of this encounter Visit Diagnoses Not on filedocumented in this encounter
--- OUTSIDE RECORDS SUMMARY | 2025-02-10 13:17 | XMS_ITS | Encounter Summary ---
Author Organization [employer] [facility] [employer] Address [address] [place] [address] Care Team Providers Care Airport Attendant Name Role Phone Unavailable Primary Care Provider Cindy lopez Encounter Details Date Type Department Care Team (Late st Contact Info) Description 09/07/2019 Transcribed Document [facility] [place] [facility] [place] [address] ProviderKalyani MD [facility] [place] [address] Social History Tobacco Use Types [...] Conversion Note - Historical ProviderMD - 09/07/2019 2:00 AM FORMULATOR COMPOUNDER Laundry Laborer Details Entered On: 09/07/2019 1:02 EST Performed On: 09/07/2019 2:00 EST by Mireya Teixeira RN Order Details Transport Mode Order Detail : Wheelchair Isolation Precautions Order Detail : Standard Precautions Order Detail : N/A IV Order Detail : 1 Oxygen Order Detail : 0 Nurse Collect Order Detail : 0 Lift/Transfer : Minimal Central Line Order Detail : No Room Service : Appropriate Arterial Line : No Mireya Teixeira RN - 09/07/2019 1:02 EST documented in this encounter Plan of Treatment Not on file documented as of this encounter Visit Diagnoses Not on filedocumented in this encounter
--- OUTSIDE RECORDS SUMMARY | 2025-02-10 13:17 | XMS_ITS | Encounter Summary ---
Author Organization [employer] Address [address] [place] [address] Care Team Providers Care Director Medicare Sales Name Role Phone Unavailable Primary Care Provider Unavailabl e Encounter Details Date Type Department Care Team (Late st Contact Info) Description 09/07/2019 Transcribed Document [facility] [place] [facility] [place] [address] ProviderKalyani MD [facility] [place] [address] Social History Tobacco Use Types [...] Conversion Note - Historical ProviderMD - 09/07/2019 10:52 AM COOPERATIVE EDUCATION COORDINATOR UM Authorization Entered On: 09/07/2019 10:52 EST Performed On: 09/07/2019 10:52 EST by CLEVELAND BHAKTA RN-Utilization Review Primary Insurance Authorization Authorization and Policy Numbers : Insurance 1 Health Plan: MEDICARE Policy Number: [id number] Authorization Number: NO AUTH REQ Insurance 2 Health Plan: GENERIC COMMERCIAL Policy Number: [id number] Authorization Number: NO AUTH REQ Insurance Primary Name : MEDICARE Policy Number: [id number] Authorized Service Begin Date-Primary : 09/06/2019 EST Historical Authorization Comments-Primary : No Authorization Comments Found CLEVELAND BHAKTA RN-Utilization Review - 09/07/2019 10:52 EST Electronically signed by Alyssa [facility] Conversion Bus Cleaner Cerner at 12/18/2022 11:21 PM CDT documented in this encounter Plan of Treatment Not on file documented as of this encounter Visit Diagnoses Not on filedocumented in this encounter
--- OUTSIDE RECORDS SUMMARY | 2025-02-10 13:17 | XMS_ITS | Clinical Summary ---
Author Organization [facility] Address [address] [place] [address] Care Team Providers Care Ceramic Engineer Name Role Phone Dominga Allen HARRY Primary Care Provider [phone]- [phone] Allergies No known active allergies Medications allopurinol (Zyloprim) 300 MG tablet Take 300 mg by mouth 1 (one) time each day. Active nitroglycerin (Nitrostat) 0.[address] 0.4 mg under the tongue every 5 (five) minutes if needed for chest pain. Active omega-3 (Fish Oil) 1000 MG capsule Take 1,000 mg by mouth 2 (two) times a day with meals. Active acetaminophen (Tylenol) 500 MG tablet Take 1,000 mg by mouth every 6 (six) hours if needed. Active Folic Acid-Cholecalci ferol (CHOLECAL DF PO) Take 125 mcg by mouth 1 (one) time each day. Active HYDROcodone-yudelka taminophen ([place]) 5-325 MG tablet 5 mg of hydrocodone. prn Active furosemide (Lasix) 20 MG tablet Take by mouth. Active polyethylene glycol (Miralax) 17 g packet Take 17 g by mouth 1 (one) time each day. Active ondansetron (Zofran) 4 MG tablet Take 4 mg by mouth every 8 (eight) hours if needed for nausea or vomiting. Active Active Problems Problem Noted Date Diagnosed Date Left displaced femoral neck fracture 11/15/2022 Morbid obesity with body mass index (BMI) of 40. 0 or higher 11/15/2022 Closed fracture of left distal femur 11/14/2022 Overview (11/15/2022): Added automatically from request for surgery [id number] Social History Tobacco Use Types Packs/Day Years Used Date Smoking Tobacco: Never Smokeless Tobacco: Never Alcohol Use Standard Drinks/Week Comments Not Currently 0 (1 standard drink = 0.6 oz pur e alcohol) PHQ-2 Answer Date Recorded Patient Health Questionnaire-2 Score 0 12/09/2022 PHQ-2A Answer Date Recorded Patient Health Questionnaire-2 Score 0 12/09/2022 Comments Unknown Sex and Gender Information Value Date Recorded Sex Assigned at Not on file Legal Sex Female 8:19 PM EDT Gender Identity Not on file Sexual Orientation Not on file Last Filed Vital Signs Vital Sign Reading Time Taken Comments Blood Pressure 145/72 05/15/2023 9:31 AM EDT Pulse 66 05/15/2023 9:31 AM EDT Temperature 36.7 C (98 F) 05/15/2023 9:31 AM EDT Respiratory Rate 16 11/17/2022 3:07 PM EDT Oxygen Saturation 97% 05/15/2023 9:31 AM EDT Inhaled Oxygen Concentration - - Weight 102 kg (225 lb) 05/15/2023 9:31 AM EDT Height 157.5 cm (5' 2 ) 05/15/2023 9:31 AM EDT Body Mass Index 41.15 05/15/2023 9:31 AM EDT Plan of Treatment Health Maintenance Due Date Last Done Comments [facility]-Bone Density Scan 1945 [facility]-Medicare Annual Wellness (AWV) 1945 [facility]-Infant/Child/Adol SDOH Screenings 1945 [facility]- SDOH Screenings 1962 [facility]-Adult SDOH Screenings 1962 [facility]-DTaP,Tdap,and Td Vaccines (1 - Tdap) 1963 [facility]-Pneumococcal Vaccine: 50+ Years (1 of 1 - PCV) 1994 [facility]-Zoster Vaccines (1 of 2) 1994 [facility]-RSV Vaccine: 60+ Years or (1 - 1-dose 75+ series) 2019 [facility]-Depression Screening 12/10/2023 12/09/2022 [id number]-75 Vaccine (5 - season) 2024 07/05/2022, 02/04/2022, 07/10/2021, Additional history exists [facility]-Influenza Vaccine (Season Ended) 2025 [facility]-Obesity Intervention Completed 023, 02/13/2023, 01/02/2023, Additional history exists HPV Vaccines Aged Out No longer eligi ble based on patient's age to complete this topic [facility]-HIB Vaccines Aged Out No longer e ligible based on patient's age to complete this topic [facility]-Hepatitis A Vaccines Aged Out No longer eligible based on patient's age to complete this topic [facility]-IPV Vaccines Aged Out No longer e ligible based on patient's age to complete this topic [facility]-Rotavirus Vaccines Aged Out No lo nger eligible based on patient's age to complete this topic Medical Devices Implanted Type Area Swing Grinder Device Identifier Shelf Expiration Date Model / Serial / Lot Screw Screw Left: Ankle Screw 3.5mm Bone T10 Full Thread L34mm - [id number] Implanted:Qty: 1 on 11/16/2022 by Dallin Shin MD at [facility] Left: Femur [employer] ([facility])-[id number] 11/16/2023 [id number] / / Nail Femoral Retro T2 Alpha 13mm X 380mm - [id number] Implanted:Qty: 1 on 11/16/2022 by Dallin Shin MD at [facility] Left: Femur [employer] ([facility])-[id number] 09/03/2032 [id number] / / Screw Locking Adv T2 T2 D5xl80 - [id number] Implanted:Qty: 1 on 11/16/2022 by Dallin Shin MD at [facility] Left: Femur [employer] ([facility])-[id number] 8 05/04/2032 [id number] / / Screw Locking Adv T2 T2 D5xl75 - [id number] Implanted:Qty: 1 on 11/16/2022 by Dallin Shin MD at [facility] Left: Femur [employer] ([facility])-[id number] 8 09/03/2032 [id number] / / Screw Locking Adv T2 T2 D5xl65 - [id number] Implanted:Qty: 1 on 11/16/2022 by Dallin Shin MD at [facility] Left: Femur [employer] ([employer])-[id number] 07/04/2032 [id number] / / Screw Locking T2 D5x37.5 - [id number] Implanted:Qty: 2 on 11/16/2022 by Dallin Shin MD at [facility] Left: Femur [employer] ([employer])-[id number] 8 06/03/2032 [id number] / / Cap T2 Scn Fully Threaded End - [id number] Implanted:Qty: 1 on 11/16/2022 by Dallin Shin MD at [facility] Left: Femur [employer] ([employer])-[id number] 08/03/2027 [id number] / / Screw 3.5mm Bone T10 Full Thread L36mm - [id number] Implanted:Qty: 2 on 11/16/2022 by Dallin Shin MD at [facility] Left: Femur [employer] ([employer])-[id number] 11/17/2023 [id number] / / Screw 3.5mm Bone T10 Full Thread L40mm - [id number] Implanted:Qty: 1 on 11/16/2022 by Dallin Shin MD at [facility] Left: Femur [employer] ([employer])-[id number] 8 11/16/2023 [id number] / / Insurance MEDICARE GENERIC COMMERCIAL Advance Directives * Full Code (Latest Code Status on File) Date Activated Date Inactivated Comments 11/16/2022 11:05 AM 11/18/2022 9:29 PM Question Answer Comments Patient has decision-making capacity? Yes * Full Code Date Activated Date Inactivated Comments 11/15/2022 2:58 AM 11/16/2022 11:05 AM Question Answer Comments Patient has decision-making capacity? Yes Care Teams Ceramic Engineer Relationship Specialty Start Date End Date Dominga Allen APRN [address] [facility] [address] [facility] [address] [place], [place] [address] PCP - General 11/10/22
--- OUTSIDE RECORDS SUMMARY | 2025-02-10 13:17 | XMS_ITS | Encounter Summary ---
Author Organization [facility] Address [address] [place] [address] Care Team Providers Care Helicopter Dispatcher Name Role Phone Unavailable Primary Care Provider Unavailabl e Encounter Details Date Type Department Care Team (Late st Contact Info) Description 09/08/2019 Transcribed Document [facility] [place] Family Medicine [facility] [place] [address] ProviderKalyani MD [address] [place] [address] Social History Tobacco Use Types Packs/Day [...] Conversion Note - Historical ProviderMD - 09/08/2019 4:00 AM MANUAL ARTS THERAPIST Height and Weight, Routine Entered On: 09/08/2019 6:32 EST Performed On: 09/08/2019 4:00 EST by Tamika Eubanks Care AsstHealth Unit Coord Height and Weight, Routine Routine Weight Source : Standing scale Routine Weight Entry Format : [place] Routine Weight, Pounds : 267 lb Routine Weight, Ounces : 9 oz Routine Weight Calculation : 121.62 kg Height Source : Measured Height Entry Format : [place] Height, Feet : 5 ft Height, Inches : 6 Inch Clinical Height : 167.64 cm Body Surface Area (BSA), Routine : 2.27 m2 Body Mass Index (BMI), Routine : 43.28 kg/m2 Tamika Eubanks Care Asst-Health Unit Coord - 09/08/2019 6:31 EST documented in this encounter Plan of Treatment Not on file documented as of this encounter Visit Diagnoses Not on filedocumented in this encounter
--- OUTSIDE RECORDS SUMMARY | 2025-02-10 13:17 | XMS_ITS | Encounter Summary ---
Author Organization [employer] Address [address] [place] [address] Care Team Providers Care Optical Engineering Manager Name Role Phone Unavailable Primary Care Provider Unavailabl e Encounter Details Date Type Department Care Team (Late st Contact Info) Description 09/08/2019 Transcribed Document [facility] [place] [facility] [place] [address] ProviderKalyani MD [facility] [place] [address] Social History Tobacco Use Types [...] Conversion Note - Historical ProviderMD - 09/08/2019 12:25 PM CIVIL ENGINEERING PROFESSIONAL Final Discharge Planning Entered On: 09/08/2019 12:26 EST Performed On: 09/08/2019 12:25 EST by ASHLY BEE RN-Care Management Final Discharge Planning Discharge Arrangements : Patient Post-Acute Information Patient Name: KEYANA OWENS Gender: Female : [birth year] Age: 73 Years [place] Referral(s): Service: Organization: Business Address: Phone Number: Home Care Physician Services [facility] [address] , [address], [place], [address] Transportation Needs : Family/Friend Is Patient High/Moderate Readmission Risk? : No Patient/Family Notified of Plan : Yes Is Patient Ready for Discharge? : Yes Physician Notified Patient is Ready for Discharge? : Yes Discharge To Care Management : Home Health Services (Related/SOC within 3 days)-06 ASHLY BEE, RN-Care Management - 09/08/2019 12:25 EST Final Narrative Note Final Narrative Note : Wound vac delivered [facility] to [facility] along w/[facility] arranged per pt request and ready for discharge. ORders to be released today w/family to transport ASHLY BEE RN-Care Management - 09/08/2019 12:25 EST Electronically signed by [facility] Conversion Surveying Technician Cerner at 12/18/2022 11:15 PM CDT documented in this encounter Plan of Treatment Not on file documented as of this encounter Visit Diagnoses Not on filedocumented in this encounter
--- OUTSIDE RECORDS SUMMARY | 2025-02-10 13:18 | XMS_ITS | Encounter Summary ---
Author Organization [employer] Address [address] [place] [address] Care Team Providers Care Photographic Equipment Assembler Name Role Phone Unavailable Primary Care Provider Cindy lopez Encounter Details Date Type Department Care Team (Late st Contact Info) Description 09/07/2019 Transcribed Document [facility] [place] [facility] [place] [address] ProviderKalyani MD [facility] [address] Social History Tobacco Use Types [...] Conversion Note - Historical ProviderMD - 09/07/2019 5:00 AM SENIOR LIVING ADVISOR Chart Check - Review Order Profile Entered On: 09/07/2019 3:22 EST Performed On: 09/07/2019 5:00 EST by Mireya Teixeira RN Chart Check Powerplans Initiated/Discontinued as Appropriate : Yes All Active Orders Reviewed : Yes Mireya Teixeira RN - 09/07/2019 3:22 EST documented in this encounter Plan of Treatment Not on file documented as of this encounter Visit Diagnoses Not on filedocumented in this encounter
--- OUTSIDE RECORDS SUMMARY | 2025-02-10 13:18 | XMS_ITS | Encounter Summary ---
Author Organization [employer] Address [address] [place] [address] Care Team Providers Care Gas Analyst Name Role Phone Unavailable Primary Care Provider Cindy lopez Encounter Details Date Type Department Care Team (Late st Contact Info) Description 09/06/2019 Transcribed Document [facility] [place] [facility] [place] [address] ProviderKalyani MD [address] [place] [address] Social History Tobacco Use Types Packs/Day [...] Conversion Note - Historical ProviderMD - 09/06/2019 1:46 PM BOX BRANDER Pain Assessment Entered On: 09/07/2019 0:43 EST Performed On: 09/07/2019 0:43 EST by Mireya Teixeira RN Intervention Information: morphine Performed by Mireya Teixeira RN on 09/07/2019 00:13:00 EST morphine,2mg IV Push,Forearm Left,Pain (Severe 7-10) Pain Assessment Pain Assessment : Follow-up assessment Pain Scale Goal : 4 Pain Scale Used : 0-10 Scale Mireya Teixeira RN - 09/07/2019 0:43 EST Pain Scale Intensity : 7 Mireya Teixeira RN - 09/07/2019 0:43 EST Image 4 - Images currently included in the form version of this document have not been included in the text rendition version of the form. Electronically signed by Marlon Shah Conversion Partition Making Machine Operator Cerner at 12/18/2022 11:20 PM CDT documented in this encounter Plan of Treatment Not on file documented as of this encounter Visit Diagnoses Not on filedocumented in this encounter
--- OUTSIDE RECORDS SUMMARY | 2025-02-10 13:18 | XMS_ITS | Clinical Summary ---
Author Organization [employer] Address [address] [place] [address] Care Team Providers Care Shellfish Processing Machine Tender Name Role Phone Unavailable Primary Care Provider Unavailabl e Social History Tobacco Use Types Packs/Day Years Used Date Smoking Tobacco: Never Assessed Comments Unknown Sex and Gender Information Value Date Recorded Sex Assigned at Female 03/01/2022 7:56 PM CDT Legal Sex Female 7:56 PM CDT Gender Identity Female 03/01/2022 7:56 PM CDT Sexual Orientation Not on file Plan of Treatment Not on file
--- OUTSIDE RECORDS SUMMARY | 2025-02-10 13:18 | XMS_ITS | Encounter Summary ---
Author Organization [employer] Address [address] [place] [address] Care Team Providers Care Commercial Internship Name Role Phone Unavailable Primary Care Provider Unavailabl e Encounter Details Date Type Department Care Team (Late st Contact Info) Description 11/13/2019 Transcribed Document [facility] [place] Family Medicine [facility] [address] ProviderKalyani MD [address] [place] [address] Social History Tobacco Use Types Packs/Day [...] Cerner Conversion Note - Historical ProviderMD - 11/13/2019 10:05 AM CDT DATE OF CONSULTATION: 11/13/2019 A 74-year-old female suffered an impact injury to her anterolateral left mid calf creating a substantial subcutaneous hematoma. This required surgical evacuation and then it took a while to get the cavity to fill in. The patient had been using negative pressure wound therapy until it essentially quit draining. Then, she has been using a topical dressing. The patient indicates there has been no drainage at all for at least a week. Examination reveals over the left anterior compartment of the calf, an indented scar, which is however completely epithelialized. There is generalized mild edema in the left lower extremity compared to the right, but very little pitting. At this time, the patient will be discharged from [facility]. She is advised to use moisturizer from toes to knees daily and to wear a double Tubigrip until the swelling is better. Certainly to return if there is any suggestion of breakdown or complication in the area. /[id number] MD CELESTINA Hilton III/MARIANNE / CELESTINA / RODERICK /[id number] Electronically signed by Alyssa, [facility] Conversion Laborer [employer] Cerner at 12/18/2022 11:04 PM CDT documented in this encounter Plan of Treatment Not on file documented as of this encounter Visit Diagnoses Not on filedocumented in this encounter
--- OUTSIDE RECORDS SUMMARY | 2025-02-10 13:18 | XMS_ITS | Referral Summary ---
Author Organization [employer] Address [address] [place] [address] Care Team Providers Care Fishing Line Winding Machine Operator Name Role Phone Unavailable Primary Care Provider [...]
--- OUTSIDE RECORDS SUMMARY | 2025-02-10 13:18 | XMS_ITS | Encounter Summary ---
Author Organization [employer] Address [address] [place] [address] Care Team Providers Care Security Engineer Name Role Phone Unavailable Primary Care Provider Unavailabl e Encounter Details Date Type Department Care Team (Late st Contact Info) Description 09/06/2019 Transcribed Document [facility] [place] Family Medicine [facility] [place] [address] ProviderKalyani MD [address] [place] [address] Social History Tobacco Use Types Packs/Day [...] Conversion Note - Kalyani ProviderMD - 09/06/2019 1:54 PM JUKEBOX OPERATOR Patient: KEYANA OWENS Age: 73 Years Sex: Female : 1945 Indication for Surgery 73 year old lady [...] matter. No evidence of infection. Wound measures [id number] with undermining 44mm medially, 57mm superiorly, 45mm [...] Proc - Start Time:09/06/2019 13:59:20(EST) (09/06/2019 13:59:20EST) documented in this encounter Plan of Treatment Not on file documented as of this encounter Visit Diagnoses Not on filedocumented in this encounter
--- OUTSIDE RECORDS SUMMARY | 2025-02-10 13:18 | XMS_ITS | Encounter Summary ---
Author Organization [employer] Address [address] [place] [address] Care Team Providers Care Manager Beauty Name Role Phone Unavailable Primary Care Provider Unavailabl e Encounter Details Date Type Department Care Team (Late st Contact Info) Description 09/06/2019 Transcribed Document [facility] [place] Family Medicine [address] [place] [address] ProviderKalyani MD [address] [place] [address] Social History Tobacco Use [...] Conversion Note - Historical ProviderMD - 09/06/2019 5:00 PM ALLIANCE MANAGER Chart Check - Review Order Profile Entered On: 09/06/2019 17:25 EST Performed On: 09/06/2019 17:00 EST by CYNDI RODRIGUEZ RN Chart Check Powerplans Initiated/Discontinued as Appropriate : Yes All Active Orders Reviewed : Yes CYNDI RODRIGUEZ RN - 09/06/2019 17:25 EST documented in this encounter Plan of Treatment Not on file documented as of this encounter Visit Diagnoses Not on filedocumented in this encounter
--- OUTSIDE RECORDS SUMMARY | 2025-02-10 13:18 | XMS_ITS | Encounter Summary ---
Author Organization [employer] Address [address] [place] [address] Care Team Providers Care Barrow Worker Name Role Phone Unavailable Primary Care Provider Unavailabl e Encounter Details Date Type Department Care Team (Late st Contact Info) Description 09/07/2019 Transcribed Document [facility] [place] Family [place] [facility] [place] [address] ProviderKalyani MD [facility] [place] [address] Social History Tobacco Use Types [...] Conversion Note - Historical ProviderMD - 09/07/2019 8:20 PM MARKING DEVICES ASSEMBLER Patient: KEYANA OWENS Age: 73 Years Sex: Female : 1945 Subjective Pain controlled Intake & Output Intake & Output Totals Last 24 Hours (7a-7a) Intake (19 Events) Medications (334.75 mL) Oral Intake (290 mL) Surgical Services Intake (400 mL) Output (0 Events) No output events found in the last 24 hours. Input Total: 1024.75 mL Output Total: 0 mL Balance: 1024.75 mL Vital Signs T: 36.7 ??C TMIN: 36.4 ??C TMAX: 36.9 ??C HR: 64(Monitored) RR: 18 BP: 144/76 SpO2: 93% Physical Exam LLE: wound vac on, good seal, no drainage VTE Risk Total Score VTE Prophylaxis - Surgical Aspirin 81 mg, Oral, EC Tab, Daily, Routine, Start 09/06/19 14:38:00 EST (PATRICIA TESFAYE) Enoxaparin 40 mg, SubCutaneous, Inj, Daily, Routine, Start 09/07/19 9:00:00 EST (GLADYS PALOMARES PA-C) Sequential Compression Device Start: 09/06/19 14:37:00 EST, Bilateral, Length: Knee High, While patient is in bed, Continuous Order (PATRICIA TESFAYE) Sequential Compression Device Start: 09/06/19 13:46:00 EST, Bilateral, Length: Knee High, While in Bed, to nonoperative leg ONLY, Continuous Order (GLADYS PALOMARES PA-C) Assessment/Plan Patient doing well s/p LLE debridement - home health set up - switch to po pain meds - home tomorrow Peripheral vascular disease, unspecified I73.9, Peripheral vascular disease, unspecified I73.9 Medications Inpatient allopurinol, 300 mg= 1 Tab, Oral, Daily aspirin, 81 mg= 1 Tab, Oral, Daily cholecalciferol, 2000 Units= 2 Tab, Oral, Daily Colace, 100 mg= 1 Cap, Oral, BID Dulcolax Laxative, 5 mg= 1 Tab, Oral, Daily, PRN DuoNeb 0.5 mg-2.5 mg/3 mL inhalation solution, 3 mL, Nebulized Inhalation , RT_Q6H, PRN Fish Oil, 2000 mg= 2 Cap, Oral, Daily Lactated Ringers Injection intravenous solution 1,000 mL, 1000 mL, IntraVENous Lopressor, 5 mg= 5 mL, IV Push, 1-Time, PRN losartan, 100 mg= 2 Tab, Oral, Daily Lovenox, 40 mg= 0.4 mL, SubCutaneous, Daily melatonin, 3 mg= 1 Tab, Oral, At Bedtime, PRN MiraLax, 17 Gram= 1 Packet, Oral, Daily, PRN morphine, 2 mg= 1 mL, IV Push, Q1H, PRN Hamlin 7.5 mg-325 mg oral tablet, 1 Tab, Oral, Q4H, PRN Normal Saline Flush, 10 mL, Flush, Q12H Normal Saline Flush, 10 mL, IntraVENous, See Comment, PRN Phenergan, 12.5 mg= 0.5 mL, IV Push, Q6H, PRN Protonix, 40 mg= 1 Tab, Oral, AC Breakfast Sodium Chloride 0.9% intravenous solution 1,000 mL, 1000 mL, IntraVENous Tylenol, 650 mg= 2 Tab, Oral, 1-Time, PRN Tylenol, 650 mg= 2 Tab, Oral, Q4H, PRN Zofran, 4 mg= 2 mL, IV Push, Q4H, PRN Home allopurinol 300 mg oral tablet, 300 mg= 1 Tab, Oral, Daily Yue Aspirin 325 mg oral tablet, 325 mg= 1 Tab, Oral, Daily Fish Oil 1000 mg oral capsule, 2000 mg= 2 Cap, Oral, Daily Lasix 40 mg oral tablet, 40 mg= 1 Tab, Oral, Daily losartan 100 mg oral tablet, 100 mg= 1 Tab, Oral, Daily Hamlin 7.5 mg-325 mg oral tablet, 1 Tab, Oral, Q4H, PRN Vitamin D3 1000 intl units oral capsule, 2000 Int Units= 2 Cap, Oral, Daily Labs Results SEP 07 06:48 141 109 H 25 / H 111 4.0 26 H 1.10 \ SEP 07 06:48 \ 12.9 / H 11.0 216 / 39.5 \ Anion Gap: 10 Calcium Level: 9 mg/dL Imaging Results (Last 24 Hours) No Radiology Results Found Problem List/Past Medical History Ongoing Arthritis - knees Gout Hematoma History of obstructive sleep apnea Hypertension Left ankle pain Lower back pain Lower extremity edema Snores Historical No qualifying data Procedure/Surgical History Colonoscopy, ORIF Left Ankle. Allergies No Known Allergies No Known Medication Allergies documented in this encounter Plan of Treatment Not on file documented as of this encounter Visit Diagnoses Not on filedocumented in this encounter
--- OUTSIDE RECORDS SUMMARY | 2025-02-10 13:18 | XMS_ITS | Encounter Summary ---
Author Organization [employer] Address [address] [place] [address] Care Team Providers Care Lockstitch Binder Name Role Phone Unavailable Primary Care Provider Unavailabl e Encounter Details Date Type Department Care Team (Late st Contact Info) Description 09/07/2019 Transcribed Document [facility] [place] [facility] [place] [address] ProviderKalyani MD [facility] [place] [address] Social History Tobacco Use Types [...] Conversion Note - Historical ProviderMD - 09/07/2019 3:21 PM SIDING INSTALLER On Going Discharge Planning Entered On: 09/07/2019 15:24 EST Performed On: 09/07/2019 15:21 EST by ASHLY BEE RN-Care Management Care Management Progress Note Discharge Arrangements : Patient Post-Acute Information Patient Name: KEYANA OWENS Gender: Female : [birth year] Age: 73 Years [place] Referral(s): Service: Organization: Business Address: Phone Number: Home Care Physician Services [facility] [address] , [address], [place], [address] Discharge Options Discussed with Patient : Home Health ASHLY BEE RN-Care Management - 09/07/2019 15:21 EST Narrative Progress Note Narrative Progress Note : Pt w/plans of home w/hh upon discharge. [facility] arranged w/this agency being sister HH to [facility], pt first choice. Also, arrangements for wound vac completed and vac to be delivered prior to discharge. No additional needs to be met, and pt ready for discharge from cm standpoint ASHLY BEE, RN-Care Management - 09/07/2019 15:21 EST Electronically signed by [facility], [facility] Conversion Client Consultant Cerner at 12/18/2022 11:15 PM CDT documented in this encounter Plan of Treatment Not on file documented as of this encounter Visit Diagnoses Not on filedocumented in this encounter
--- OUTSIDE RECORDS SUMMARY | 2025-02-10 13:18 | XMS_ITS | Encounter Summary ---
Author Organization [employer] Address [address] [place] [address] Care Team Providers Care Kosher Inspector Name Role Phone Unavailable Primary Care Provider Unavailabl e Encounter Details Date Type Department Care Team (Late st Contact Info) Description 09/06/2019 Transcribed Document [facility] [place] Family Medicine [facility] [place] [address] ProviderKalyani MD [address] [place] [address] Social History Tobacco Use Types [...] Conversion Note - Historical ProviderMD - 09/06/2019 2:04 PM QUALITY REVIEW TRAINER ANDRÉS PADILLA, [address] [place] [address] Re: KEYANA GRACIELA Date of Visit: 09/06/2019 Dear ANDRÉS PADILLA Thank you for allowing me to participate in KEYANA's care. Please see the accompanying operative note from her 09/06/2019 procedure at [facility]. This Document is confidential and intended solely for the use of the individual or entity to which it is addressed. If you are not the named addressee, please disregard and do not disseminate, distribute or copy this information. If you are the intended recipient any disclosure of this information and its contents is strictly prohibited. Sincerely, TSERING [facility] [address] [place] [address] The following document(s) were included in the letter: September 06, 2019 13:54:07 EST - (09/06/2019) Surgical op note Electronically signed by Alyssa, [facility] Conversion Epic [employer] Cerner at 12/18/2022 11:14 PM CDT documented in this encounter Plan of Treatment Not on file documented as of this encounter Visit Diagnoses Not on filedocumented in this encounter
--- OUTSIDE RECORDS SUMMARY | 2025-02-10 13:18 | XMS_ITS | Encounter Summary ---
Author Organization [employer] Address [address] [place] [address] Care Team Providers Care Translator Interpreter Name Role Phone Unavailable Primary Care Provider Unavailabl e Encounter Details Date Type Department Care Team (Late st Contact Info) Description 09/06/2019 Transcribed Document [facility] [place] [facility] [place] [address] ProviderKalyani MD [facility] [place] [address] Social History Tobacco Use Types Packs/Day Years Used Date Smoking Tobacco: Never Assessed Comments Unknown Sex and Gender Information Value Date Recorded Sex Assigned at Female 03/01/2022 7:56 PM CDT Legal Sex Female 7:56 PM CDT Gender Identity Female 03/01/2022 7:56 PM CDT Sexual Orientation Not on file documented as of this encounter Miscellaneous Notes * Cerner Conversion Note - Historical Provider, - 09/06/2019 2:49 PM CANDY BAR ATTENDANT Admission History, Adult Entered On: 09/06/2019 14:53 EST Performed On: 09/06/2019 14:49 EST by Mallory Mancera RN Advance Directive Patient has Advance Directive *Q : No, patient refuses Advance Directive information Mallory Mancera RN - 09/06/2019 14:49 EST Anesthesia/Transfusion History Family History of Anesthesia Reaction : Prior transfusion without reaction Blood Transfusion Acceptable to Patient : Yes Transfusion History : Prior anesthesia without reaction Family History of Anesthesia Reaction : None Mallory Mancera RN - 09/06/2019 14:49 EST Anticipated Discharge Needs Discharge To, Anticipated : Home Anticipated Discharge Needs at This Time : Outpatient follow-up Mallory Mancera RN - 09/06/2019 14:49 EST Education Topics, Admission Orientation DCP GENERIC CODE Advance Directives : Verbalizes understanding Allergy Band Applied : Verbalizes understanding Assessment/Vital Signs : Verbalizes understanding Bed Control : Verbalizes understanding Call Light : Verbalizes understanding Confidentiality : Verbalizes understanding Diet/Room Service : Verbalizes understanding Fall Prevention : Verbalizes understanding Hand Hygiene : Verbalizes understanding Healthcare Provider Visit : Verbalizes understanding ID Band Applied : Verbalizes understanding Isolation Precautions : Verbalizes understanding Orientation to Room/Bathroom : Verbalizes understanding Patient Bill of Rights : Verbalizes understanding Patient Rights/Responsibilities : Verbalizes understanding Patient Safety : Verbalizes understanding Personal Privacy Code : Verbalizes understanding Rapid Response Initiated by Patient/Family : Verbalizes understanding Rounding : Verbalizes understanding Siderails use/risks : Verbalizes understanding Skin Precautions : Verbalizes understanding Smoking Policy : Verbalizes understanding Telemetry Monitoring : Verbalizes understanding Television/Phone : Verbalizes understanding Visiting Policy : Verbalizes understanding Mallory Mancera RN - 09/06/2019 14:49 EST Functional Assessment Living Situation : Home Patient Lives With : Sibling(s) Persons Assisting Patient at Home : Sibling(s) Current Daily Living Assistance : None Mobility Assistance Prior to Admission : Use of assistive devices HOOKS Hx Falls Immediate/Within 3 Months : No Current Home Treatments : None Mallory Mancera RN - 09/06/2019 14:49 EST General Info Arrived From : Home Mode of Arrival on Unit : Ambulatory Legal Guardian : Son Support Person/Pt Rep Name : Jessi Archibald Contact Password : Cynthia Mendes Family/Rep/Phys Notified of Admit : No Emergency Contact #1 : jessi Emergency Contact #1 Emergency Contact #1 Relationship : rafita Emergency Contact #2 : dwain Emergency Contact #2 Emergency Contact #2 Relationship : son Primary Language : Uzbek Preferred Communication Mode : Verbal Communication Barrier : None Mallory Mancera RN - 09/06/2019 14:49 EST Fall Risk Scales ABCs Fall Injury Risk Identification : Surgery ABC Fall Injury Risk : Moderate to high injury risk HOOKS Hx Falls Immediate/Within 3 Months : No Hooks Secondary Diagnosis : No HOOKS Use of Ambulatory Aid : Crutches/Cane/Walker HOOKS IV Therapy or IV Access : Yes Hooks Gait/Transferring : Weak Hooks Mental Status : Oriented to own ability Hooks Fall Risk Score : 45 HOOKS Fall Scale Risk Level : 25-45 Medium Risk [place] Fall Interventions : Adequate lighting, Assistive devices within reach, Bed in low position, Call device within reach, Fall prevention handout/education per facility policy, Frequent orientation to call device, Frequent orientation to surroundings, Hourly comfort/safety rounds, Non-slip footwear, Personal items within reach, Reinforced to call for assistance before getting out of bed, Room free of clutter/spills, Wheels locked, Wires/Cords secured Mallory Mancera RN - 09/06/2019 14:49 EST Fall Risk Education Grid Alarms : Verbalizes understanding Assistive Equipment Use : Verbalizes understanding Bed Height/Stabilization : Verbalizes understanding Call light use : Verbalizes understanding Door Open : Verbalizes understanding Environmental Management : Verbalizes understanding Eyeglasses Use : Verbalizes understanding Fall Community Resources : Verbalizes understanding Fall Contract/Letter : Verbalizes understanding Fall Prevention in the Home : Verbalizes understanding Fall Prevention Protocol : Verbalizes understanding Hearing Aid Use : Verbalizes understanding Home Risk Assessment : Verbalizes understanding Need Constant Observation : Verbalizes understanding Night Light Use : Verbalizes understanding Nonskid Footwear Use : Verbalizes understanding Notification of Staff When Leaving : Verbalizes understanding Orthostatic Hypotension Precautions : Verbalizes understanding Personal Article Availability : Verbalizes understanding Prevention Responsibility Family : Verbalizes understanding Prevention Responsibility Patient : Verbalizes understanding Risk Alert Methods : Verbalizes understanding Risk Factors : Verbalizes understanding Safety Aids : Verbalizes understanding Siderails use/risks : Verbalizes understanding Special Assistive Devices : Verbalizes understanding Staff Responsiveness : Verbalizes understanding Symptom Identification & Action Plan *Q : Verbalizes understanding Symptom Reporting : Verbalizes understanding Toileting Schedule : Verbalizes understanding Transfer/Mobility Techniques : Verbalizes understanding Urinal/Bedpan Availability : Verbalizes understanding Wait for Assistance : Verbalizes understanding Wheelchair Safety : Verbalizes understanding Mallory Mancera RN - 09/06/2019 14:49 EST Health Histories Smoking Status : Never (less than 100 in lifetime; none in last 30 days) Smokeless Tobacco Status : Never Mallory Mancera RN - 09/06/2019 14:49 EST Social History (As Of: 09/06/2019 14:53:49 EST) Tobacco: Smoking Status Never smoker. (Last Updated: 05/05/2016 08:44:36 EDT by ALEN GRIGSBY, RN) Alcohol: Alcohol Use History No. Use in Last 12 Months: No. (Last Updated: 09/05/2019 14:03:39 EST by DIMITRI VÁSQUEZ RN) Substance Abuse: Drug Use Hx: No. Use in Last 12 Months: No. (Last Updated: 09/05/2019 14:03:48 EST by DIMITRI VÁSQUEZ RN) Height and Weight, Clinical Dosing Height Source : Measured Height Entry Format : [place] Height, Feet : 5 ft(Converted to: 152 cm, 60 Inch) Height, Inches : 6 Inch(Converted to: 0 ft 6 Inch, 15.24 cm) Clinical Height : 167.64 cm Weight Source : Standing scale Weight Entry Format : [place] Clinical Dosing Weight : 119.45 kg Weight, Pounds : 262.8 lb Body Surface Area (BSA) : 2.25 m2 Body Mass Index : 42.5 kg/m2 (>HHI) [place] Body Weight : 59 kg Mallory Mancera RN - 09/06/2019 14:49 EST Infectious Disease History Infectious Disease History : Chicken pox/Shingles, Measles, Mumps Fever/Chills Last 48 Hours : No Travel To Regions with Travel Advisories : No Travel Outside [place] Within Last 30 Days : No Contact With Traveler to Advisory Region : No Tuberculosis Symptoms : None Mallory Mancera RN - 09/06/2019 14:49 EST Tetanus Immunization Status Previous Tetanus Immunizations : No qualifying data available. Tetanus Immunization : Less than 5 years Mallory Mancera RN - 09/06/2019 14:49 EST Influenza Vaccine Asmt, Adult Previous Vaccines from Immunization Schedule : No qualifying data available. Influenza Immunization, Current Season : No Inactivated Flu Vaccine Contraindications : No contraindications to inactivated influenza vaccine Transplant Workup/Recent Transplant : No Order for Influenza Vaccine : Declined Vaccination Mallory Mancera RN - 09/06/2019 14:49 EST Pneumococcal Vaccine Previous Vaccines from Immunization Schedule : No qualifying data available. Pneumonia Immunization Received : Yes Mallory Mancera RN - 09/06/2019 14:49 EST Order Details Isolation Precautions Order Detail : Standard Precautions Order Detail : N/A IV Order Detail : 1 Oxygen Order Detail : 0 Nurse Collect Order Detail : 0 Lift/Transfer : Minimal Central Line Order Detail : No Room Service : Appropriate Arterial Line : No Mallory Mancera RN - 09/06/2019 14:49 EST Nutrition History Feeding Ability : Independent Adaptive Feeding Equipment : None Adaptive Feeding Equipment : Regular Eating Poorly Due to Decreased Appetite : No Unplanned Weight Loss in Past 3-6 Months : No Malnutrition Screening Tool Total(mal) : 0 Malnutrition Screening Tool Risk Level : Patient not at risk Mallory Mancera RN - 09/06/2019 14:49 EST Kite Suicide Severity Rating Scale (C-SSRS) CSSRS Past Month Wish to be : No CSSRS Past Month Suicidal Thoughts : No CSSRS Lifetime Suicide Behavior : No Suicide Severity Rating Score : 0 Suicide Severity Rating : No Additional Care Required at this time Mallory Mancera RN - 09/06/2019 14:49 EST Psychosocial History Do You Have a History of the Following? : Patient denies history Currently in Unsafe Situation : No Mallory Mancera RN - 09/06/2019 14:49 EST Sleep Apnea Risk Assmt BiPAP/CPAP Ordered for Home Use : Yes Hx of Obstructive Sleep Apnea Diagnosis : Yes BiPAP/CPAP Used at Home : Yes Age over 50 Years Old : Yes Gender Male : No Mallory Mancera RN - 09/06/2019 14:49 EST Valuables and Belongings Valuables and Belongings : Clothing, Personal devices, Personal items, No jewelry, No personal devices, No assistive devices, No respiratory devices, No medications Clothing : Common streetwear Clothing Disposition : Bedside, With patient Personal Device Disposition : Bedside, With patient Personal Devices : Glasses Personal Items : Cell phone Personal Items Disposition : Bedside, With patient Mallory Mancera RN - 09/06/2019 14:49 EST documented in this encounter Plan of Treatment Not on file documented as of this encounter Visit Diagnoses Not on filedocumented in this encounter
--- OUTSIDE RECORDS SUMMARY | 2025-02-10 13:18 | XMS_ITS | Encounter Summary ---
Author Organization [employer] Address [address] [place] [address] Care Team Providers Care Waterworks Pump Station Operator Name Role Phone Unavailable Primary Care Provider Unavailabl e Encounter Details Date Type Department Care Team (Late st Contact Info) Description 09/06/2019 Transcribed Document [facility] [place] Family Medicine [facility] [place] [address] ProviderKalyani MD [address] [place] [address] Social History Tobacco Use Types Packs/Day [...] Conversion Note - Kalyani ProviderMD - 09/06/2019 1:15 PM UTILIZATION MANAGEMENT MANAGER [facility] Main OR Preop Summary Primary Physician: TSERING NOVAK MD Finalized Date/Time: 09/06/19 13:36:52 Pt. Name: KEYANA OWENS /Sex: 1945 Female Med Rec #: [id number] Physician: TSERING NOVAK MD Financial #: [id number] Pt. Type: I Room/Bed: ASA/4 Admit/Disch: 09/06/19 09:54:00 - Institution: [facility] PreOp Case Times Entry 1 In Preop 09/06/19 10:01:00 Ready for Holding n/a Room Patient Ready for 09/06/19 10:37:00 Surgery Patient Out of Preop 09/06/19 13:14:00 Patient Out of n/a Holding Room Last Modified By: DIMITRI VÁSQUEZ RN 09/06/19 13:36:50 [facility] PreOp Case Times Audit 09/06/19 13:36:50 Gate Watchman: ROMULO Modifier: ROMULO <+> 1 Patient Out of Preop Finalized By: DIMITRI VÁSQUEZ, RN Document Signatures Signed By: DIMITRI VÁSQUEZ RN 09/06/19 13:36 Electronically signed by Alyssa [facility] Conversion Assembly Room Supervisor Cerner at 12/18/2022 11:16 PM CDT documented in this encounter Plan of Treatment Not on file documented as of this encounter Visit Diagnoses Not on filedocumented in this encounter
== END 2025-02-10 23:59 | disposition home or self-care (01) ==
LOC: RAD 12:59
PROVIDERS: PCP Nurse Practitioner Family; Visit Provider Nurse Practitioner Family
DX: M81.0 Age-related osteoporosis without current pathological fracture (principal); Z13.9 Encounter for screening, unspecified; Z78.0 Asymptomatic menopausal state
CPT/HCPCS: 77080

== ENCOUNTER 2025-04-28 11:45 | Outpatient (CLI) | payer MEDICARE, SELFPAY ==
--- OUTSIDE RECORDS SUMMARY | 2025-04-30 12:00 | XMS_ITS | Encounter Summary ---
Author Organization [employer] ([place], [place], [place], [place]) Address [address] [place] [address] Care Team Providers Care Foxing Painter Name Role Phone Unavailable Primary Care Provider Unavailabl e Encounter Details Date Type Department Care Team (Late st Contact Info) Description 09/08/2019 Transcribed Document [facility] [place] Family Medicine [address] [place] [address] ProviderKalyani MD [address] [place] [address] Social History Tobacco Use Types [...] - Historical ProviderMD - 09/08/2019 4:00 AM PEST CONTROL WORKER HELPER Height and Weight, Routine Entered On: 09/08/2019 6:32 EST Performed On: 09/08/2019 4:00 EST by Tamika Eubanks Care Asst-Health Unit Coord Height and Weight, Routine Routine Weight Source : Standing scale Routine Weight Entry Format : Esmeralda Routine Weight, Pounds : 267 lb Routine Weight, Ounces : 9 oz Routine Weight Calculation : 121.62 kg Height Source : Measured Height Entry Format : Esmeralda Height, Feet : 5 ft Height, Inches [...]
--- OUTSIDE RECORDS SUMMARY | 2025-04-30 12:00 | XMS_ITS | Encounter Summary ---
Author Organization [employer] ([place], [place], [place], [place]) Address [address] [place] [address] Care Team Providers Care Stitch Bonding Machine Tender Helper Name Role Phone Unavailable Primary Care Provider Unavailabl e Encounter Details Date Type Department Care Team (Late st Contact Info) Description 09/08/2019 Transcribed Document [facility] [place] [address] [place] [address] ProviderKalyani MD [address] [place] [address] Social History Tobacco Use Types [...] - Historical ProviderMD - 09/08/2019 9:24 AM HR INTERNSHIP Stroke/Warfarin Instructions Entered On: 09/08/2019 9:24 EST Performed On: 09/08/2019 9:24 EST by MODESTA COCHRAN, RN Stroke/Warfarin Instructions Stroke/TIA Discharge Ins : N/A Warfarin Discharge Ins : N/A MODESTA COCHRAN RN - 09/08/2019 9:24 EST Electronically signed by Marlon Shah Conversion Orthotic Finish Grinding Technician Cerner at 12/18/2022 11:16 PM CDT documented in this encounter Plan of Treatment Not on file documented as of this encounter Visit Diagnoses Not on filedocumented in this encounter
--- OUTSIDE RECORDS SUMMARY | 2025-04-30 12:00 | XMS_ITS | Encounter Summary ---
Author Organization [employer] ([place], [place], [place], [place]) Address [address] [place] [address] Care Team Providers Care Town Planner Name Role Phone Unavailable Primary Care Provider Unavailabl e Encounter Details Date Type Department Care Team (Late st Contact Info) Description 09/08/2019 Transcribed Document [facility] [place] Family Medicine [address] [place] [address] ProviderKalyani MD [address] [place] [address] Social History Tobacco Use Types [...] - Kalyani ProviderMD - 09/08/2019 9:27 AM COMPUTER SUPPORT SPECIALIST [facility] [place] [address] KEYANA OWENS :1945 Visit Time:09/06/2019 Your Visit Summary Your Care Team Admitting Physician - TSERING NOVAK MD Attending Physician - TSERING NOVAK MD Primary Care Physician - ANDRÉS PADILLA NP-FAM Referring Physician - ANDRÉS PADILLA NP-FAM MENES, KEITH, MD Y, NOT LISTED Your Diagnosis Peripheral vascular disease, [...] follow up appointment [facility] [place] [address]- Follow Up with TSERING NOVAK MD When In 1 week Where: [place] [address]- Medications What How Much When Instructions Next Dose acetaminophen-HYDROcodone ([place] 7.5 mg-325 mg oral tablet) 1 Tablet(s) [...] health care provider. General instructions ??? Take solc-rgc-htblrue and prescription medicines only as told by [...] 04/04/2005 Document Revised: 09/23/2017 Document Reviewed: 09/23/2017 [employer] Interactive Patient Education ?? 2019 [employer]. Emergency Awareness and Preventative Care STROKE is [...] Assistance with quitting is available by contacting 1-090-AFDC-NOW. This is a free resource providing counseling, [...] range between ( 0.0 and 7.0 ) [place] #: 0.68 K/uL -- Normal range between ( 0.16 and 1.00 ) Eos #: 0.41 x10(3)/uL -- Normal range between ( 0.00 and 0.80 ) [place] %: 7.7 % -- Normal range between [...] 20.0 and 40.0 ) Patient Name:GRACIELA, KEYANA ANGELA I have received and understand this information and was given the opportunity to ask questions. Patient/Bacteriology Teacher Name: Patient/Bacteriology Teacher Signature: Relationship to Patient: Clinician/Hospital Bacteriology Teacher Signature: Date: documented in this encounter Plan of Treatment Not on file documented as of this encounter Visit Diagnoses Not on filedocumented in this encounter
--- OUTSIDE RECORDS SUMMARY | 2025-04-30 12:00 | XMS_ITS | Encounter Summary ---
Author Organization [employer] ([place], [place], [place], [place]) Address [address] [place] [address] Care Team Providers Care Manager Casino Name Role Phone Unavailable Primary Care Provider Unavailabl e Encounter Details Date Type Department Care Team (Late st Contact Info) Description 09/06/2019 Transcribed Document [facility] [place] Family Medicine [address] [place] [address] ProviderKalyani MD [address] [place] [address] Social History Tobacco Use Types [...] - Kalyani ProviderMD - 09/06/2019 2:39 PM REQUIREMENTS MANAGER Patient: KEYANA OWENS Age: 73 years Sex: [...] and wound vac management set up by medical case manager. resting cofmortably no acute complain Review of [...] 100 mg = 1 Tab, Oral, Daily [place] 7.5 mg-325 mg oral tablet 1 Tab, [...] 100 mg = 1 Tab, Oral, Daily [place] 7.5 mg-325 mg oral tablet 1 Tab, PRN, Oral, Q4H Vitamin D3 1000 intl units oral capsule 2,000 Int Units = 2 Cap, Oral, Daily discussed with vascular surgery time spent 41 minutes documented in this encounter Plan of Treatment Not on file documented as of this encounter Visit Diagnoses Not on filedocumented in this encounter
--- OUTSIDE RECORDS SUMMARY | 2025-04-30 12:00 | XMS_ITS | Encounter Summary ---
Author Organization [employer] ([place], [place], [place], [place]) Address [address] [place] [address] Care Team Providers Care Data Support Specialist Name Role Phone Unavailable Primary Care Provider Unavailabl e Encounter Details Date Type Department Care Team (Late st Contact Info) Description 10/23/2019 Transcribed Document [facility] [place] [address] [place] [address] ProviderKalyani MD [address] [place] [address] Social History Tobacco Use Types [...] - Kalyani ProviderMD - 10/23/2019 11:18 AM PAPER AND PRINTS RESTORER ANDRÉS PADILLA, [address] [place] [address] Re: KEYANA OWENS Date of Visit: 10/23/2019 Dear ANDRÉS PADILLA Thank you for allowing me to participate in the care of KEYANA OWENS. Please see her accompanying wound clinic note from the [facility] visit on 10/23/2019. This Document is confidential and intended solely for the use of the individual or entity to which it is addressed. If you are not the named addressee, please disregard and do not disseminate, distribute or copy this information. If you are the intended recipient any disclosure of this information and its contents is strictly prohibited. Sincerely, TSERING NOVAK [facility] [address] [place] [address] [address] [place] [address] The following document(s) were included in the letter: October 23, 2019 10:58:30 EST - (10/23/2019) Wound clinic consult documented in this encounter Plan of Treatment Not on file documented as of this encounter Visit Diagnoses Not on filedocumented in this encounter
--- OUTSIDE RECORDS SUMMARY | 2025-04-30 12:00 | XMS_ITS | Encounter Summary ---
Author Organization [employer] ([place], [place], [place], [place]) Address [address] [place] [address] Care Team Providers Care Principal Engineer Name Role Phone Unavailable Primary Care Provider Unavailabl e Encounter Details Date Type Department Care Team (Late st Contact Info) Description 10/23/2019 Transcribed Document [facility] [place] Family Medicine [facility] [place] [address] ProviderKalyani MD [address] [place] [address] Social History Tobacco Use Types [...] - Kalyani ProviderMD - 10/23/2019 10:58 AM SENIOR RESEARCH EXECUTIVE Patient: KEYANA OWENS Age: 74 Years Sex: [...] intact, sensorium intact, motor intact Measurements LLE [id number], intraoperatively [id number] with undermining 44mm medially, 57mm superiorly, 45mm [...] tablet, 100 mg= 1 Tab, Oral, Daily [place] 7.5 mg-325 mg oral tablet, 1 Tab, [...]
--- OUTSIDE RECORDS SUMMARY | 2025-04-30 12:00 | XMS_ITS | Encounter Summary ---
Author Organization [employer] ([place], [place], [place], [place]) Address [address] [place] [address] Care Team Providers Care Shirt Line Operator Name Role Phone Unavailable Primary Care Provider Unavailabl e Encounter Details Date Type Department Care Team (Late st Contact Info) Description 09/08/2019 Transcribed Document [facility] [place] [address] [place] [address] ProviderKalyani MD [address] [place] [address] Social History Tobacco Use Types [...] - Historical ProviderMD - 09/08/2019 12:25 PM SOLID TIRE FINISHER Final Discharge Planning Entered On: 09/08/2019 12:26 EST Performed On: 09/08/2019 12:25 EST by ASHLY BEE RN-Care Management Final Discharge Planning Discharge Arrangements : Patient Post-Acute Information Patient Name: KEYANA OWENS Gender: Female : [birth year] Age: 73 Years [place] Referral(s): Service: Organization: Business Address: Phone Number: Home Care Physician Services [facility] [address] , [address], [place], [address] Transportation Needs : Family/Friend Is Patient High/Moderate Readmission Risk? : No Patient/Family Notified of Plan : Yes Is Patient Ready for Discharge? : Yes Physician Notified Patient is Ready for Discharge? : Yes Discharge To Care Management : Home Health Services (Related/SOC within 3 days)-06 ASHLY BEE RN-Care Management - 09/08/2019 12:25 EST Final Narrative Note Final Narrative Note : Wound vac delivered from [facility] to [facility] along w/[facility] arranged per pt request and ready for discharge. ORders to be released today w/family to transport ASHLY BEE RN-Care Management - 09/08/2019 12:25 EST Electronically signed by Alyssa [facility] Conversion Lap Machine Tender Cerner at 12/18/2022 11:15 PM CDT documented in this encounter Plan of Treatment Not on file documented as of this encounter Visit Diagnoses Not on filedocumented in this encounter
--- OUTSIDE RECORDS SUMMARY | 2025-04-30 12:00 | XMS_ITS | Encounter Summary ---
Author Organization [employer] ([place], [place], [place], [place]) Address [address] [place] [address] Care Team Providers Care Ski Lift Mechanic Name Role Phone Unavailable Primary Care Provider Unavailpreston e Encounter Details Date Type Department Care Team (Late st Contact Info) Description 09/08/2019 Transcribed Document [facility] [place] Family Medicine [address] [place] [address] ProviderKalyani MD [address] [place] [address] Social History Tobacco Use Types [...] - Historical ProviderMD - 09/08/2019 2:00 AM COREMAKER FLOOR Gas Cutter Details Entered On: 09/08/2019 1:17 EST Performed [...]
--- OUTSIDE RECORDS SUMMARY | 2025-04-30 12:00 | XMS_ITS | Encounter Summary ---
Author Organization [employer] ([place], [place], [place], [place]) Address [address] [place] [address] Care Team Providers Care Marketing Team Lead Name Role Phone Unavailable Primary Care Provider Unavailabl e Encounter Details Date Type Department Care Team (Late st Contact Info) Description 09/05/2019 Transcribed Document [facility] [place] [address] [place] [address] ProviderKalyani MD [address] [place] [address] Social History Tobacco Use Types [...] - Historical ProviderMD - 09/05/2019 2:04 PM ACO COORDINATOR PAT Adult Entered On: 09/05/2019 14:08 EST Performed On: 09/05/2019 14:04 EST by DIMITRI VÁSQUEZ RN Height and Weight, Clinical Dosing Height Source : Measured Height Entry Format : [place] Height, Feet : 5 ft(Converted to: 152 cm, 60 Inch) Height, Inches : 6 Inch(Converted to: 0 ft 6 Inch, 15.24 cm) Clinical Height : 167.64 cm Weight Source : Standing scale Weight Entry Format : [place] Clinical Dosing Weight : 119.45 kg Weight, Pounds : 262.8 lb Body Surface Area (BSA) : 2.25 m2 Body Mass Index : 42.5 kg/m2 (>HHI) [place] Body Weight : 59 kg DIMITRI VÁSQUEZ [...] DIMITRI VÁSQUEZ RN - 09/05/2019 14:04 EST [place] Suicide Severity Rating Scale (C-SSRS) CSSRS Past [...] : 09/06/2019 10:01 EST Emergency Contact #1 DIIMTRI VÁSQUEZ RN - 09/06/2019 10:23 EST Arrived [...] #2 Relationship : son Primary Language : Chadian Preferred Communication Mode : Verbal Communication Barrier [...]
--- OUTSIDE RECORDS SUMMARY | 2025-04-30 12:00 | XMS_ITS | Encounter Summary ---
Author Organization [employer] ([place], [place], [place], [place]) Address [address] [place] [address] Care Team Providers Care Test Clerk Name Role Phone Unavailable Primary Care Provider Unavailabl e Encounter Details Date Type Department Care Team (Late st Contact Info) Description 09/08/2019 Transcribed Document [facility] Radiology [address] [place] [address] Darrel Healy MD [address] [place] [address] [address] [id number] Social History Tobacco Use Types Packs/Day Years [...] Conversion Note - Darrel Healy MD - 09/08/2019 1:35 PM EST Patient: KEYANA OWENS Age: 73 Years Sex: Female : 1945 Admit Date 09/06/2019 19:19 Discharge Date 09/08/2019 11:16 Primary Care Provider ANDRÉS PADILLA NP-[facility] Discharge Diagnosis Traumatic hematoma of left lower [...] wound vac management set up by manager compliance. resting cofmortably no acute complaications Hospital Course [...] matter. No evidence of infection. Wound measures [id number] with undermining 44mm medially, 57mm superiorly, 45mm [...] wound status post wound vac pain management -[place] 7.5 mg by mouth every 6 when [...] 100 mg = 1 Tab, Oral, Daily [place] 7.5 mg-325 mg oral tablet 1 Tab, PRN, Oral, Q4H Vitamin D3 1000 intl units oral capsule 2,000 Int Units = 2 Cap, Oral, Daily Code Status Start: 09/06/19 14:37:00 EST, Full Code, Continuous Order Condition on Discharge Stable home with son Activity: Advance as tolerated obviously protect the wound VAC Consulting Physicians ASHLY MOLINA MD-ANS DARREL HEALY MD-INT DEBBIE MARTINEZ MD Current Diet Order [...]
--- OUTSIDE RECORDS SUMMARY | 2025-04-30 12:00 | XMS_ITS | Encounter Summary ---
Author Organization [employer] ([place], [place], [place], [place]) Address [address] [place] [address] Care Team Providers Care Freight Associate Name Role Phone Unavailable Primary Care Provider Unavailabl e Encounter Details Date Type Department Care Team (Late st Contact Info) Description 09/06/2019 Transcribed Document [facility] [place] [address] [place] [address] ProviderKalyani MD [address] [place] [address] Social History Tobacco Use Types [...] - Kalyani ProviderMD - 09/06/2019 1:32 PM CHESTNUT TANNER [facility] Main OR PACU Summary Primary Physician: TSERING NOVAK MD Finalized Date/Time: 09/06/19 14:37:32 Pt. Name: KEYANA OWENS /Sex: 1945 Female Med Rec #: [id number] Physician: TSERING NOVAK MD Financial #: [id number] Pt. Type: I Room/Bed: ASA/4 Admit/Disch: 09/06/19 09:54:00 - Institution: [facility] Main OR PACU I Case Times Entry 1 In PACU I 09/06/19 13:55:00 Ready for PACU 09/06/19 14:35:00 Discharge Discharge from PACU 09/06/19 14:35:00 I Last Modified By: MONIK GAO RN 09/06/19 14:37:28 [facility] Main OR PACU I Case Times Audit 09/06/19 14:37:28 Radio Director: [id number] Modifier: [id number] <+> 1 Ready for PACU Discharge <+> 1 Discharge from PACU I Finalized By: MONIK GAO, RN Document Signatures Signed By: MONIK GAO RN 09/06/19 14:37 Electronically signed by Alyssa [facility] Conversion Assembler Trim Cerner at 12/18/2022 11:02 PM CDT documented in this encounter Plan of Treatment Not on file documented as of this encounter Visit Diagnoses Not on filedocumented in this encounter
--- OUTSIDE RECORDS SUMMARY | 2025-04-30 12:00 | XMS_ITS | Encounter Summary ---
Author Organization [employer] ([place], [place], [place], [place]) Address [address] [place] [address] Care Team Providers Care Fire Operations Forester Name Role Phone Unavailable Primary Care Provider Unavailabl e Encounter Details Date Type Department Care Team (Late st Contact Info) Description 09/07/2019 Transcribed Document [facility] [address] [place] [address] ProviderKalyani MD [address] [place] [address] Social History Tobacco Use Types [...] - Historical ProviderMD - 09/07/2019 4:00 AM HAND STONE POLISHER Height and Weight, Routine Entered On: 09/07/2019 20:37 EST Performed On: 09/07/2019 4:00 EST by Tamika Eubanks Care Asst-Health Unit Coord Height and Weight, Routine Routine Weight Source : Standing scale Routine Weight Entry Format : [place] Routine Weight, Pounds : 267 lb Routine Weight, Ounces : 9 oz Routine Weight Calculation : 121.62 kg Height Source : Measured Height Entry Format : [place] Height, Feet : 5 ft Height, Inches : 6 Inch Clinical Height : 167.64 cm Body Surface Area (BSA), Routine : 2.27 m2 Body Mass Index (BMI), Routine : 43.28 kg/m2 Tamika Ebuanks Care Asst-Health Unit Coord - 09/07/2019 20:37 EST documented in this encounter Plan of Treatment Not on file documented as of this encounter Visit Diagnoses Not on filedocumented in this encounter
--- OUTSIDE RECORDS SUMMARY | 2025-04-30 12:00 | XMS_ITS | Encounter Summary ---
Author Organization [employer] ([place], [place], [place], [place]) Address [address] [place] [address] Care Team Providers Care Field Irrigation Worker Name Role Phone Unavailable Primary Care Provider Unavailpreston e Encounter Details Date Type Department Care Team (Late st Contact Info) Description 09/08/2019 Transcribed Document [facility] [place] Family Medicine [address] [place] [address] ProviderKalyani MD [address] [place] [address] Social History Tobacco Use Types [...] - Historical ProviderMD - 09/08/2019 5:00 AM SWITCH ENGINEER Chart Check - Review Order Profile Entered On: 09/08/2019 4:44 EST Performed On: 09/08/2019 5:00 EST by Mireya Teixeira RN Chart Check Powerplans Initiated/Discontinued as Appropriate : Yes All Active Orders Reviewed : Yes Mireya Teixeira RN - 09/08/2019 4:44 EST Electronically signed by Marlon Shah Conversion Division Human Resources Manager Cerner at 12/18/2022 11:26 PM CDT documented in this encounter Plan of Treatment Not on file documented as of this encounter Visit Diagnoses Not on filedocumented in this encounter
--- OUTSIDE RECORDS SUMMARY | 2025-04-30 12:00 | XMS_ITS | Encounter Summary ---
Author Organization [employer] ([place], [place], [place], [place]) Address [address] [place] [address] Care Team Providers Care Polysomnographic Tech Name Role Phone Unavailable Primary Care Provider Unavailabl e Encounter Details Date Type Department Care Team (Late st Contact Info) Description 09/07/2019 Transcribed Document [facility] [place] [address] [place] [address] ProviderKalyani MD [address] [place] [address] Social History Tobacco Use Types [...] - Historical ProviderMD - 09/07/2019 10:52 AM VISION TEACHER UM Authorization Entered On: 09/07/2019 10:52 EST Performed On: 09/07/2019 10:52 EST by CLEVELAND BHAKTA RN-Utilization Review Primary Insurance Authorization Authorization and Policy Numbers : Insurance 1 Health Plan: MEDICARE Policy Number: [id number] Authorization Number: NO AUTH REQ Insurance 2 Health Plan: GENERIC COMMERCIAL Policy Number: [id number] Authorization Number: NO AUTH REQ Insurance Primary Name : MEDICARE Policy Number: [id number] Authorized Service Begin Date-Primary : 09/06/2019 EST Historical Authorization Comments-Primary : No Authorization Comments Found CLEVELAND BHAKTA, RN-Utilization Review - 09/07/2019 10:52 EST Electronically signed by Alyssa [facility] Conversion Social Sciences Professor Shweta at 12/18/2022 11:21 PM CDT documented in this encounter Plan of Treatment Not on file documented as of this encounter Visit Diagnoses Not on filedocumented in this encounter
--- OUTSIDE RECORDS SUMMARY | 2025-04-30 12:00 | XMS_ITS | Encounter Summary ---
Author Organization [employer] ([place], [place], [place], [place]) Address [address] [place] [address] Care Team Providers Care Opal Polisher Name Role Phone Unavailable Primary Care Provider Unavailabl e Encounter Details Date Type Department Care Team (Late st Contact Info) Description 09/06/2019 Transcribed Document [facility] [place] [address] [place] [address] ProviderKalyani MD [address] [place] [address] Social History Tobacco Use Types [...] - Kalyani ProviderMD - 09/06/2019 1:32 PM GROUND MIXER [facility] Main OR IntraOp Summary Primary Physician: TSERING NOVAK MD Finalized Date/Time: 09/08/19 11:21:38 Pt. Name: KEYANA OWENS REILLY /Sex: 1945 Female Med Rec #: [id number] Physician: TSERING NOVAK MD Financial #: [id number] Pt. Type: O Room/Bed: [facility] Admit/Disch: 09/06/19 19:19:00 - 09/08/19 11:16:00 Institution: [facility] IntraOp Case Attendance Entry 1 Entry 2 Entry 3 Case Attendee TSERING NOVAK MD [place], Hazel, RN Barbara Servin, Cream Hauler Role Performed Surgeon/Proceduralist, Doffer, First Scrub, First First Time In 09/06/19 13:17:00 09/06/19 13:17:00 09/06/19 13:17:00 Time Out 09/06/19 13:52:00 09/06/19 13:52:00 09/06/19 13:52:00 Procedure Wound Debridement Lower Wound Debridement Lower Wound Debridement Lower Extremity(Left) Extremity(Left) Extremity(Left) Other Attendee Superficial Wound Closed By: Last Modified By: Chelsea De La Cruz, Chelsea Mcmillan, RN Chelsea De La Cruz, NAPOLEON 09/06/19 14:10:39 09/06/19 14:10:39 09/06/19 14:10:39 Entry 4 Entry 5 Case Attendee PARIS SEGUNDO APRN, LINDY ZHENG, SLUBBER HAND-ANS MD-ANS Role Performed SLUBBER HAND/Nurse Graphic Technician Anesthesiologist of Record Time In 09/06/19 13:17:00 09/06/19 13:17:00 Time Out 09/06/19 13:52:00 09/06/19 13:52:00 Procedure Wound Debridement Lower Wound Debridement Lower Extremity(Left) Extremity(Left) Other Attendee Superficial Wound Closed By: Last Modified By: Chelsea De La Cruz, Chelsea Mcmillan, NAPOLEON 09/06/19 14:10:39 09/06/19 14:10:39 [facility] IntraOp Case Attendance Audit 09/06/19 14:10:39 Mall Manager: ENIO Modifier: LAFAVEHM 1 <+> Time Out [...] Procedure Wound Debridement Lower Extremity(Left) 09/06/19 13:45:14 Mall Manager: EMIHM Modifier: LAFAVEHM <+> 2 Case Attendee <+> 2 Role Performed <+> 2 Procedure <+> 3 Case Attendee <+> 3 Role Performed <+> 3 Procedure <+> 4 Case Attendee <+> 4 Role Performed <+> 4 Procedure <+> 5 Case Attendee <+> 5 Role Performed <+> 5 Procedure [facility] IntraOp Case Times Entry 1 Patient In Room Time 09/06/19 13:17:00 Out Room Time 09/06/19 13:52:00 Anesthesia Start Time 09/06/19 13:17:00 Stop Time 09/06/19 13:52:00 Surgery / Procedure Times Start Time 09/06/19 13:32:00 Stop Time 09/06/19 13:46:00 Last Modified By: Chelsea De La Cruz RN 09/06/19 13:56:08 [facility] IntraOp Case Times Audit 09/06/19 13:56:08 Mall Manager: LAFAVEHM Modifier: LAFAVEHM <+> 1 Out Room Time <+> 1 Stop Time 09/06/19 13:47:04 Mall Manager: LAFAVEHM Modifier: LAFAVEHM <+> 1 Stop Time [facility] IntraOp Cautery Entry 1 ESU Identification Cautery Type Monopolar ESU ID Number [id number] ID Type Hospital Number Cautery Settings Cut Setting 30 Coag Setting 30 ESU Grounding Pad Ground Pad Type Adult Grounding Pad Site Right thigh Grounding Pad Chelsea De La Cruz RN Applied By Grounding Pad Site Warm, dry and intact Skin Condition Before Cautery Grounding Pad Site Unchanged Skin Condition After Cautery Last Modified By: Chelsea De La Cruz RN 09/06/19 13:45:48 [facility] IntraOp Communication Entry 1 Communication To Family/Significant other Communication By Chelsea De La Cruz RN Date and Time 09/06/19 13:01:00 Last Modified By: Chelsea De La Cruz RN 09/06/19 13:46:09 [facility] IntraOp Counts Verification Entry 1 Procedure Wound Debridement Lower Extremity(Left) Count Info Count Type Sponge, Sharps, Miscellaneous Counts Verification Baseline/pre-procedure Sequence Counts Performed By Count Performed By Barbara Servin (Scrub) Cream Hauler Count Performed By Chelsea De La Cruz RN (RN) Last Modified By: Chelsea De La Cruz RN 09/06/19 13:47:21 [facility] IntraOp Counts Final Entry 1 Procedure Wound Debridement Lower Extremity(Left) Final Count Info Count Type Sponge, Sharps, Miscellaneous Counts Verification Skin Closure/end of Sequence procedure Count Results Correct, surgeon notified Counts Performed By Count Performed By Barbara Servin (Scrub) Cream Hauler Count Performed By Chelsea De La Cruz RN (RN) Last Modified By: Chelsea De La Cruz RN 09/06/19 13:48:27 [facility] IntraOp Departure from OR Entry 1 Integumentary Assessment Transfer/Handoff Transfer to PACU Phase I Handoff Method Bedside/Face to face, Phone call, Online nursing summary Post-op Transport Stretcher/Gurney Via Patient Transport PARIS SEGUNDO APRN, Accompanied by Jono GALDAMEZ Hazel, RN Last Modified By: Chelsea De La Cruz RN 09/06/19 14:00:03 [facility] IntraOp Dressing and Packing Entry 1 Type Packing Location OPSITE Wound Dressing Item Other Applied By TSERING NOVAK MD Other Comments WOUND VAC Last Modified By: Chelsea De La Cruz RN 09/06/19 14:00:39 [facility] IntraOp Fire Risk Assessment Entry 1 [...] Chelsea De La Cruz RN 09/06/19 14:01:03 [facility] IntraOp General Case Production Control Coordinator 1 Case Information OR OR 06 [facility] Case Level 1 Room Verified Yes Wound Class II - Clean-Contaminated Specialty SN Anesthesia Anesthesia Type General ASA Class 3 Diagnosis Preop Diagnosis LEFT LOWER LEG HEMATOMA Postop Same As Preop Yes Postop Diagnosis LEFT LOWER LEG HEMATOMA Last Modified By: Chelsea De La Cruz RN 09/06/19 14:03:31 [facility] IntraOp General Case Data Audit 09/06/19 14:03:31 Mall Manager: ENIO Modifier: ENIO <+> 1 Specialty [facility] IntraOp Intraoperative Assessment Entry 1 Handoff [...] Chelsea De La Cruz RN 09/06/19 14:02:40 [facility] IntraOp Intraoperative Equipment Entry 1 Type Monitoring Equipment Equipment Lesli Suction System Intraop Monitoring Antiembolic Devices Scopes Photo/Video Documentation Last Modified By: Chelsea De La Cruz RN 09/06/19 14:02:48 [facility] IntraOp Medication Admin Entry 1 Medication/Irrigant .9%NaCl Route of IRRIGATION Administration Dose Administered By TSERING NOVAK MD Procedure Irrigation Irrigant Volume In 1000 mL Last Modified By: Chelsea De La Cruz RN 09/06/19 14:03:16 [facility] IntraOp Patient Positioning Entry 1 Procedure [...] By TSERING NOVAK MD, Chelsea De La Cruz, NAPOLEON Position Verified Positioning Yes Verified by Anesthesia Positioning Yes Verified by Surgeon Last Modified By: Chelsea De La Cruz RN 09/06/19 14:04:39 [facility] IntraOp Sign In Entry 1 Patient, [...] Chelsea De La Cruz RN 09/06/19 14:05:13 [facility] IntraOp Sign Out Entry 1 RN [...] Chelsea De La Cruz RN 09/06/19 14:05:49 [facility] IntraOp Skin Prep Entry 1 Procedure Wound Debridement Lower Extremity(Left) Prescribed Yes Pre-Surgical Prep Completed Prep Area LEFT LOWE LEG THROUGH TOES Intraop Prep Prep Agents DuraPrep Prep by Chelsea De La Cruz RN Hair Removal Methods No hair removal performed Last Modified By: Chelsea De La Cruz RN 09/06/19 14:06:40 [facility] IntraOp Surgical Procedures Entry 1 Procedure Wound Debridement Lower Extremity Modifiers Left Additional (LT LOWER EXTREMITY Procedure WOUND DEBRIDEMENT WITH Description WOUND VAC PLACEMNT) Primary Procedure Yes Primary Surgeon TSERING NOVAK MD Start 09/06/19 13:32:00 Stop 09/06/19 13:46:00 Anesthesia Type General Specialty SN Vascular Wound Class II - Clean-Contaminated Last Modified By: Chelsea De La Cruz RN 09/06/19 14:06:55 [facility] IntraOP Time Out Entry 1 Procedure [...] Unfinalizing Freetext Reason for Unfinalizing 09/08/19 11:20 WATVENESSADR Correct Billing documented in this encounter Plan of Treatment Not on file documented as of this encounter Visit Diagnoses Not on filedocumented in this encounter
--- OUTSIDE RECORDS SUMMARY | 2025-04-30 12:00 | XMS_ITS | Encounter Summary ---
Author Organization [employer] ([place], [place], [place], [place]) Address [address] [place] [address] Care Team Providers Care Freight Elevator Operator Name Role Phone Unavailable Primary Care Provider Unavailabl e Encounter Details Date Type Department Care Team (Late st Contact Info) Description 09/08/2019 Transcribed Document [facility] [place] Family Medicine [address] [place] [address] ProviderKalyani MD [address] [place] [address] Social History Tobacco Use Types [...] - Kalyani ProviderMD - 09/08/2019 9:38 AM HAT SPRAYER [facility] [place] [address] KEYANA OWENS :1945 Visit Time:09/06/2019 Your [...] follow up appointment [facility] [place] [address]- Follow Up with TSERING NOVAK MD When In 1 week Where: [place] [address]- Medications What How Much When Instructions Next Dose acetaminophen-HYDROcodone (Howe 7.5 mg-325 mg oral tablet) 1 Tablet(s) [...] health care provider. General instructions ??? Take fpjp-svm-nuukiqu and prescription medicines only as told by [...] 04/04/2005 Document Revised: 09/23/2017 Document Reviewed: 09/23/2017 [employer] Interactive Patient Education ?? 2019 Expert Medical Navigation. Emergency Awareness and Preventative Care STROKE is [...] Assistance with quitting is available by contacting 8-948-LRLK-NOW. This is a free resource providing counseling, [...] range between ( 0.0 and 7.0 ) [place] #: 0.68 K/uL -- Normal range between ( 0.16 and 1.00 ) Eos #: 0.41 x10(3)/uL -- Normal range between ( 0.00 and 0.80 ) [place] %: 7.7 % -- Normal range between [...] was given the opportunity to ask questions. Patient/Secretary Receptionist Name: Patient/Secretary Receptionist Signature: Relationship to Patient: Clinician/Hospital Secretary Receptionist Signature: Date: documented in this encounter Plan of Treatment Not on file documented as of this encounter Visit Diagnoses Not on filedocumented in this encounter
--- OUTSIDE RECORDS SUMMARY | 2025-04-30 12:00 | XMS_ITS | Encounter Summary ---
Author Organization [employer] ([place], [place], [place], [place]) Address [address] [place] [address] Care Team Providers Care It Architecture Analyst Name Role Phone Unavailable Primary Care Provider Unavailabl e Encounter Details Date Type Department Care Team (Late st Contact Info) Description 09/08/2019 Transcribed Document [facility] [place] [address] [place] [address] ProviderKalyani MD [address] [place] [address] Social History Tobacco Use Types [...] Conversion Note - Kalyani ProviderMD - 09/08/2019 9:24 AM NATURE PHOTOGRAPHER Patient Education Materials Follows: Hematoma A hematoma [...] health care provider. General instructions ??? Take xhnr-lml-ydarhbe and prescription medicines only as told by [...] 04/04/2005 Document Revised: 09/23/2017 Document Reviewed: 09/23/2017 [employer] Interactive Patient Education ? 2019 [employer]. documented in this encounter Plan of Treatment Not on file documented as of this encounter Visit Diagnoses Not on filedocumented in this encounter
--- OUTSIDE RECORDS SUMMARY | 2025-04-30 12:00 | XMS_ITS | Encounter Summary ---
Author Organization [employer] ([place], [place], [place], [place]) Address [address] [place] [address] Care Team Providers Care Machine Bender Name Role Phone Unavailable Primary Care Provider Unavailabl e Encounter Details Date Type Department Care Team (Late st Contact Info) Description 09/08/2019 Transcribed Document [facility] [place] [address] [place] [address] ProviderKalyani MD [address] [place] [address] Social History Tobacco Use Types [...] - Historical ProviderMD - 09/08/2019 9:24 AM TREE SURGEON Nursing Discharge Summary Entered On: 09/08/2019 9:25 EST Performed On: 09/08/2019 9:24 EST by MODESTA COCHRAN, last picker Documentation Patient Disposition, General : Discharge Discharge [...] 09/08/2019 9:24 EST Electronically signed by [facility] Conversion Press Service Reader Cerner at 12/18/2022 11:22 PM CDT documented in this encounter Plan of Treatment Not on file documented as of this encounter Visit Diagnoses Not on filedocumented in this encounter
--- OUTSIDE RECORDS SUMMARY | 2025-04-30 12:00 | XMS_ITS | Encounter Summary ---
Author Organization [employer] ([place], [place], [place], [place]) Address [address] [place] [address] Care Team Providers Care Helpdesk Technician Name Role Phone Unavailable Primary Care Provider Unavailpreston e Encounter Details Date Type Department Care Team (Late st Contact Info) Description 09/06/2019 Transcribed Document [facility] [place] [address] [place] [address] ProviderKalyani MD [address] [place] [address] Social History Tobacco Use Types [...] - Historical ProviderMD - 09/06/2019 2:36 PM CHILDREN'S COUNSELOR Pain Assessment Entered On: 09/07/2019 22:47 EST [...]
--- OUTSIDE RECORDS SUMMARY | 2025-04-30 12:00 | XMS_ITS | Clinical Summary ---
Author Organization [facility] Address [address] [place] [address] Care Team Providers Care Laundry Machine Operator Name Role Phone Dominga Allen HARRY Primary Care Provider [phone] Allergies No known active allergies Medications allopurinol [...] (one) time each day. Active HYDROcodone-yudelka taminophen ([place]) 5-325 MG tablet 5 mg of hydrocodone. [...] (11/15/2022): Added automatically from request for surgery [id number] Social History Tobacco Use Types Packs/Day Years [...] Last Done Comments [facility]-Bone Density Scan 1945 [facility]-Medicare Annual Wellness (AWV) 1945 [facility]-Infant/Child/Adol SDOH Screenings 1945 [facility]- SDOH Screenings 1962 [facility]-Adult SDOH Screenings 1962 [facility]-DTaP,Tdap,and Td Vaccines (1 - Tdap) 1963 [facility]-Pneumococcal Vaccine: 50+ Years (1 of 1 - PCV) 1994 [facility]-Zoster Vaccines (1 of 2) 1994 [facility]-RSV Vaccine: 60+ Years or (1 - 1-dose 75+ series) 2019 [facility]-Depression Screening 12/10/2023 12/09/2022 [id number]-[id number] Vaccine (5 - season) 2024 07/05/2022, 02/04/2022, 07/10/2021, Additional history exists [facility]-Influenza Vaccine (#1) 2025 [facility]-Obesity Intervention Completed 023, 02/13/2023, 01/02/2023, [...] this topic Medical Devices Implanted Type Area Jira Developer Device Identifier Shelf Expiration Date Model / Serial / Lot Screw Screw Left: Ankle Screw 3.5mm Bone T10 Full Thread L34mm - [id number] Implanted:Qty: 1 on 11/16/2022 by Dallin Shin MD at [facility] Left: Femur [employer] ([facility])-[id number] 11/16/2023 [id number] / / Nail Femoral Retro T2 Alpha 13mm X 380mm - [id number] Implanted:Qty: 1 on 11/16/2022 by Dallin Shin MD at [facility] Left: Femur [employer] ([facility][id number] 09/03/2032 [id number] / / Screw Locking Adv T2 T2 D5xl80 - [id number] Implanted:Qty: 1 on 11/16/2022 by Dallin Shin MD at [facility] Left: Femur [employer] ([facility])-[id number] 05/04/2032 [id number] / / Screw Locking Adv T2 T2 D5xl75 - [id number] Implanted:Qty: 1 on 11/16/2022 by Dallin Shin MD at [facility] Left: Femur [employer] ([facility])-[id number] 09/03/2032 2361-5075S / / Screw Locking Adv T2 T2 D5xl65 - [id number] Implanted:Qty: 1 on 11/16/2022 by Dallin Shin MD at [facility] Left: Femur [employer] ([employer])-[id number] 07/04/2032 [id number] / / Screw Locking T2 D5x37.5 - [id number] Implanted:Qty: 2 on 11/16/2022 by Dallin Shin MD at [facility] Left: Femur [employer] ([employer])-[id number] 06/03/2032 [id number] / / Cap T2 Scn Fully Threaded End - [id number] Implanted:Qty: 1 on 11/16/2022 by Dallin Shin MD at [facility] Left: Femur [employer] ([employer])-[id number] 08/03/2027 [id number] / / Screw 3.5mm Bone T10 Full Thread L36mm - [id number] Implanted:Qty: 2 on 11/16/2022 by Dallin Shin MD at [facility] Left: Femur [employer] ([employer])-[id number] 11/17/2023 [id number] / / Screw 3.5mm Bone T10 Full Thread L40mm - [id number] Implanted:Qty: 1 on 11/16/2022 by Dallin Shin MD at [facility] Left: Femur [employer] ([employer])-[id number] 8 11/16/2023 [id number] / / Insurance MEDICARE GENERIC COMMERCIAL Advance Directives * Full Code (Latest Code Status on File) Date Activated Date Inactivated Comments 11/16/2022 11:05 AM 11/18/2022 9:29 PM Question Answer Comments Patient has decision-making capacity? Yes * Full Code Date Activated Date Inactivated Comments 11/15/2022 2:58 AM 11/16/2022 11:05 AM Question Answer Comments Patient has decision-making capacity? Yes Care Teams Laundry Machine Operator Relationship Specialty Start Date End Date Dominga Allen APRN [address] [facility] [address] [facility] [address] [place], [place] [address] PCP - General 11/10/22
--- OUTSIDE RECORDS SUMMARY | 2025-04-30 12:00 | XMS_ITS | Encounter Summary ---
Author Organization [employer] ([place], [place], [place], [place]) Address [address] [place] [address] Care Team Providers Care Chinese Teacher Name Role Phone Unavailable Primary Care Provider Unavailabl e Encounter Details Date Type Department Care Team (Late st Contact Info) Description 09/06/2019 Transcribed Document [facility] [place] [address] [place] [address] ProviderKalyani MD [address] [place] [address] Social History Tobacco Use Types [...] - Historical ProviderMD - 09/06/2019 4:35 PM FIGURE REFINISHER AND REPAIRER Initial Discharge Planning Entered On: 09/06/2019 16:38 EST Performed On: 09/06/2019 16:35 EST by Yesica Ford, RN-Diesel Engine Assembler Initial Assessment I Previously Documented Living Environment [...] Patient's Home Caregiver Medical Durable Power of Blanching Machine Operator Name : no Yesica Ford RN-Diesel Engine Assembler - 09/06/2019 16:35 EST Initial Assessment II Sensory and Motor Deficits : None Current Home Treatments and Equipment : None Yesica Ford RN-Diesel Engine Assembler - 09/06/2019 16:35 EST Discharge Needs I Anticipated Discharge Date : 09/07/2019 EST Anticipated Discharge To, CM : Home with home health Current Home Treatment/Equipment : Current Home Treatment/Equipment No qualifying data available. Post Acute/Home Treatments : None Documentation Status Complete : Yes Yesica Ford RN-Diesel Engine Assembler - 09/06/2019 16:35 EST Discharge Needs II Professional Skilled Services : Professional Skilled Services No qualifying data available. Services and Community Resources : Home Health Needs Assistance with Transportation : No Discharge Options Discussed with Patient : Home Health Yesica Ford RN-Diesel Engine Assembler - 09/06/2019 16:35 EST Narrative Note Narrative [...] notified [facility] rep [facility]. choice and IM need to be signed. family will transport home. DCP: home with hh and wound vac Yesica Ford RN-Diesel Engine Assembler - 09/06/2019 16:35 EST Electronically signed by Marlon Shah Conversion Sales Representative Education Courses Cerner at 12/18/2022 11:08 PM CDT documented in this encounter Plan of Treatment Not on file documented as of this encounter Visit Diagnoses Not on filedocumented in this encounter
--- OUTSIDE RECORDS SUMMARY | 2025-04-30 12:00 | XMS_ITS | Encounter Summary ---
Author Organization [employer] ([place], [place], [place], [place]) Address [address] [place] [address] Care Team Providers Care Employee Benefits Insurance Agent Name Role Phone Unavailable Primary Care Provider Unavailpreston e Encounter Details Date Type Department Care Team (Late st Contact Info) Description 09/07/2019 Transcribed Document [facility] [place] Medicine [address] [place] [address] ProviderKalyani MD [address] [place] [address] Social History Tobacco Use Types [...] - Historical ProviderMD - 09/07/2019 2:00 AM SITE LEASING AGENT Tube Mill Operator Details Entered On: 09/07/2019 1:02 EST Performed [...]
--- OUTSIDE RECORDS SUMMARY | 2025-04-30 12:00 | XMS_ITS | Encounter Summary ---
Author Organization [employer] ([place], [place], [place], [place]) Address [address] [place] [address] Care Team Providers Care Lead Radiologic Technologist Name Role Phone Unavailable Primary Care Provider Unavailabl e Encounter Details Date Type Department Care Team (Late st Contact Info) Description 09/07/2019 Transcribed Document [facility] Radiology [address] [place] [address] Darrel Healy MD [address] [place], [place] [id number] Social History Tobacco Use Types Packs/Day Years [...] the niece. Patient previously worked at the [employer] in [facility] the [employer]. 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 and she worked at a [employer] for little bit that) and then she worked at [employer] but apparently she fell and had a [...] Problem list: Medical Hematoma / SNOMED CT 7265086795 / Confirmed injury left lower leg History of obstructive sleep apnea / IMO 29660724 / Confirmed Lower back pain / SNOMED CT 105654718 / Confirmed, Active Problems (9) Arthritis - [...] MiraLax: 17 Gram, Oral, Daily, PRN: Constipation [place] 7.5 mg-325 mg oral tablet: 1 Tab, [...] mg oral tablet: 1 Tab, Oral, Daily [place] 7.5 mg-325 mg oral tablet: 1 Tab, [...] 100 mg = 1 Tab, Oral, Daily [place] 7.5 mg-325 mg oral tablet 1 Tab, [...] EST Height Source Measured Height Entry Format [place] Height/Length, LUXEMBOURGER (ft) 5 ft Height/Length LUXEMBOURGER 6 Inch CLINICALHEIGHT 167.64 cm [place] Body Weight 59 kg Weight Source Standing scale Weight Entry Format [place] Weight Egyptian lb 262.8 lb CLINICALWEIGHT 119.45 kg Body [...] wound status post wound vac pain management -[place] 7.5 mg by mouth every 6 when [...] a CBC and BMP in the morning. ebindle dictation system used. Computer program makes numerous spelling grammar mistakes. If you have any questions or concerns do not hesitate call Dr. Darrel Schwartz at cell phone number [phone]. documented in this encounter Plan of Treatment Not on file documented as of this encounter Visit Diagnoses Not on filedocumented in this encounter
--- OUTSIDE RECORDS SUMMARY | 2025-04-30 12:01 | XMS_ITS | Encounter Summary ---
Author Organization [employer] ([place], [place], [place], [place]) Address [address] [place] [address] Care Team Providers Care Customer Engineer Name Role Phone Unavailable Primary Care Provider Unavailabl e Encounter Details Date Type Department Care Team (Late st Contact Info) Description 09/06/2019 Transcribed Document [facility] [place] [facility] [place] [address] ProviderKalyani MD [address] [place] [address] Social History Tobacco Use Types [...] - Kalyani ProviderMD - 09/06/2019 1:54 PM PHARMACY CLERK Patient: KEYANA OWENS Age: 73 Years Sex: [...] matter. No evidence of infection. Wound measures [id number] with undermining 44mm medially, 57mm superiorly, 45mm [...]
--- OUTSIDE RECORDS SUMMARY | 2025-04-30 12:01 | XMS_ITS | Encounter Summary ---
Author Organization [employer] ([place], [place], [place], [place]) Address [address] [place] [address] Care Team Providers Care Sql Tech Name Role Phone Unavailable Primary Care Provider Cindy e Encounter Details Date Type Department Care Team (Late st Contact Info) Description 09/06/2019 Transcribed Document [facility] [place] [address] [place] [address] ProviderKalyani MD [address] [place] [address] Social History Tobacco Use Types [...] - Historical ProviderMD - 09/06/2019 1:46 PM SHIPPER AND RECEIVING Pain Assessment Entered On: 09/07/2019 0:43 EST [...]
--- OUTSIDE RECORDS SUMMARY | 2025-04-30 12:01 | XMS_ITS | Encounter Summary ---
Author Organization [employer] ([place], [place], [place], [place]) Address [address] [place] [address] Care Team Providers Care Papeterie Table Assembler Name Role Phone Unavailable Primary Care Provider Unavailabl e Encounter Details Date Type Department Care Team (Late st Contact Info) Description 09/07/2019 Transcribed Document [facility] [place] [address] [place] [address] ProviderKalyani MD [address] [place] [address] Social History Tobacco Use Types [...] - Historical ProviderMD - 09/07/2019 8:20 PM AIR QUALITY CONSULTANT Patient: KEYANA OWENS Age: 73 Years Sex: [...] mg= 1 mL, IV Push, Q1H, PRN [place] 7.5 mg-325 mg oral tablet, 1 Tab, [...] tablet, 100 mg= 1 Tab, Oral, Daily [place] 7.5 mg-325 mg oral tablet, 1 Tab, [...]
--- OUTSIDE RECORDS SUMMARY | 2025-04-30 12:01 | XMS_ITS | Clinical Summary ---
Author Organization [employer] ([place], [place], [place], [place]) Address [address] [place] [address] Care Team Providers Care Pit Boss Name Role Phone Unavailable Primary Care Provider [...]
--- OUTSIDE RECORDS SUMMARY | 2025-04-30 12:01 | XMS_ITS | Encounter Summary ---
Author Organization [employer] ([place], [place], [place], [place]) Address [address] [place] [address] Care Team Providers Care Vp Information Technology Name Role Phone Unavailable Primary Care Provider Unavailabl e Encounter Details Date Type Department Care Team (Late st Contact Info) Description 09/06/[address] [facility] [place] Family Medicine [address] [place] [address] ProviderKalyani MD [address] [place] [address] Social History Tobacco Use Types [...] Conversion Note - Historical ProviderMD - 09/06/2019 2:49 PM MANUFACTURING PRODUCTION MANAGER Admission History, Adult Entered On: 09/06/2019 14:53 [...] #2 Relationship : son Primary Language : [place] Preferred Communication Mode : Verbal Communication Barrier [...] Scale Risk Level : 25-45 Medium Risk Browder Fall Interventions : Adequate lighting, Assistive devices [...] Source : Measured Height Entry Format : [place] Height, Feet : 5 ft(Converted to: 152 cm, 60 Inch) Height, Inches : 6 Inch(Converted to: 0 ft 6 Inch, 15.24 cm) Clinical Height : 167.64 cm Weight Source : Standing scale Weight Entry Format : [place] Clinical Dosing Weight : 119.45 kg Weight, Pounds : 262.8 lb Body Surface Area (BSA) : 2.25 m2 Body Mass Index : 42.5 kg/m2 (>HHI) [place] Body Weight : 59 kg Mallory Mancera [...] Mallory Mancera RN - 09/06/2019 14:49 EST [place] Suicide Severity Rating Scale (C-SSRS) CSSRS Past [...]
--- OUTSIDE RECORDS SUMMARY | 2025-04-30 12:01 | XMS_ITS | Encounter Summary ---
Author Organization [employer] ([place], [place], [place], [place]) Address [address] [place] [address] Care Team Providers Care Clinical Care Manager Name Role Phone Unavailable Primary Care Provider Unavailabl e Encounter Details Date Type Department Care Team (Late st Contact Info) Description 09/06/2019 Transcribed Document [facility] [place] Family Medicine [address] [place] [address] ProviderKalyani MD [address] [place] [address] Social History Tobacco Use Types [...] - Kalyani ProviderMD - 09/06/2019 1:15 PM TOBACCO PACKER [facility] Main OR Preop Summary Primary Physician: TSERING NOVAK MD Finalized Date/Time: 09/06/19 13:36:52 Pt. Name: KEYANA OWENS /Sex: 1945 Female Med Rec #: [id number] Physician: TSERING NOVAK MD Financial #: [id number] Pt. Type: I Room/Bed: ASA/4 Admit/Disch: 09/06/19 09:54:00 - Institution: [facility] PreOp Case Times Entry 1 In Preop 09/06/19 10:01:00 Ready for Holding n/a Room Patient Ready for 09/06/19 10:37:00 Surgery Patient Out of Preop 09/06/19 13:14:00 Patient Out of n/a Holding Room Last Modified By: DIMITRI VÁSQUEZ RN 09/06/19 13:36:50 [facility] PreOp Case Times Audit 09/06/19 13:36:50 Outside Repairer Special: ROMULO Modifier: ROMULO <+> 1 Patient Out of Preop Finalized By: DIMITRI VÁSQUEZ RN Document Signatures Signed By: DIMITRI VÁSQUEZ RN 09/06/19 13:36 Electronically signed by Alyssa [facility] Conversion Sugar Cane Planter Cerner at 12/18/2022 11:16 PM CDT documented in this encounter Plan of Treatment Not on file documented as of this encounter Visit Diagnoses Not on filedocumented in this encounter
--- OUTSIDE RECORDS SUMMARY | 2025-04-30 12:01 | XMS_ITS | Encounter Summary ---
Author Organization [employer] ([place], [place], [place], [place]) Address [address] [place] [address] Care Team Providers Care Collision Technician Name Role Phone Unavailable Primary Care Provider Unavailabl e Encounter Details Date Type Department Care Team (Late st Contact Info) Description 09/06/2019 Transcribed Document [facility] [place] Family Medicine [address] [place] [address] ProviderKalyani MD [address] [place] [address] Social History Tobacco Use Types [...] Conversion Note - Kalyani ProviderMD - 09/06/2019 2:04 PM ALARM SIGNALER ANDRÉS PADILLA, [address] [place] [address] Re: KEYANA GRACIELA Date of Visit: 09/06/2019 Dear ANDRÉS PADILLA Thank you for allowing me to participate in KEYANA's care. Please see the accompanying operative note from her 09/06/2019 procedure at [facility]. This Document is confidential and intended solely for the use of the individual or entity to which it is addressed. If you are not the named addressee, please disregard and do not disseminate, distribute or copy this information. If you are the intended recipient any disclosure of this information and its contents is strictly prohibited. Sincerely, TSERING [facility] [address] [place], [place] [address] The following document(s) were included in the letter: September 06, 2019 13:54:07 EST - (09/06/2019) Surgical op note documented in this encounter Plan of Treatment Not on file documented as of this encounter Visit Diagnoses Not on filedocumented in this encounter
--- OUTSIDE RECORDS SUMMARY | 2025-04-30 12:01 | XMS_ITS | Referral Summary ---
Author Organization [employer] ([place], [place], [place], [place]) Address [address] [place] [address] Care Team Providers Care Weekend Caregiver Name Role Phone Unavailable Primary Care Provider [...]
--- OUTSIDE RECORDS SUMMARY | 2025-04-30 12:01 | XMS_ITS | Encounter Summary ---
Author Organization [employer] ([place], [place], [place], [place]) Address [address] [place] [address] Care Team Providers Care Air Turning Machine Feeder Name Role Phone Unavailable Primary Care Provider Unavailabl e Encounter Details Date Type Department Care Team (Late st Contact Info) Description 09/07/2019 Transcribed Document [facility] [place] [address] [place] [address] ProviderKalyani MD [address] [place] [address] Social History Tobacco Use Types [...] - Historical ProviderMD - 09/07/2019 3:21 PM DRUM BARKER OPERATOR On Going Discharge Planning Entered On: 09/07/2019 15:24 EST Performed On: 09/07/2019 15:21 EST by ASHLY BEE RN-Care Management Care Management Progress Note Discharge Arrangements : Patient Post-Acute Information Patient Name: KEYANA OWENS Gender: Female : [birth year] Age: 73 Years [place] Referral(s): Service: Organization: Business Address: Phone Number: Home Care Physician Services [facility] [address] , [address], [place], [address] Discharge Options Discussed with Patient : Home Health ASHLY BEE RN-Care Management - 09/07/2019 15:21 EST Narrative Progress Note Narrative Progress Note : Pt w/plans of home w/hh upon discharge. [facility] arranged w/this agency being sister HH to [facility], pt first choice. Also, arrangements for wound vac completed and vac to be delivered prior to discharge. No additional needs to be met, and pt ready for discharge from cm standpoint ASHLY BEE, RN-Care Management - 09/07/2019 15:21 EST Electronically signed by [facility] Conversion Vending Machine Host/Hostess Cerner at 12/18/2022 11:15 PM CDT documented in this encounter Plan of Treatment Not on file documented as of this encounter Visit Diagnoses Not on filedocumented in this encounter
--- OUTSIDE RECORDS SUMMARY | 2025-04-30 12:01 | XMS_ITS | Encounter Summary ---
Author Organization [employer] ([place], [place], [place], [place]) Address [address] [place] [address] Care Team Providers Care Technical Sales Engineer Name Role Phone Unavailable Primary Care Provider Unavailpreston e Encounter Details Date Type Department Care Team (Late st Contact Info) Description 09/07/[address] [facility] [place] Family Medicine [address] [place] [address] ProviderKalyani MD [address] [place] [address] Social History Tobacco Use Types [...] - Historical ProviderMD - 09/07/2019 5:00 AM ELECTRIC WELL LOGGING OPERATOR Chart Check - Review Order Profile Entered [...]
--- OUTSIDE RECORDS SUMMARY | 2025-04-30 12:01 | XMS_ITS | Encounter Summary ---
Author Organization [employer] ([place], [place], [place], [place]) Address [address] [place] [address] Care Team Providers Care Courseware Developer Name Role Phone Unavailable Primary Care Provider Unavailabl e Encounter Details Date Type Department Care Team (Late st Contact Info) Description 11/13/2019 Transcribed Document [facility] [place] [facility] [place] [address] ProviderKalyani MD [address] [place] [address] Social History Tobacco Use Types [...] of breakdown or complication in the area. /[id number] MD CELESTINA Hilton III/MARIANNE / CELESTINA / RODERICK /[id number] documented in this encounter Plan of Treatment Not on file documented as of this encounter Visit Diagnoses Not on filedocumented in this encounter
--- OUTSIDE RECORDS SUMMARY | 2025-04-30 12:01 | XMS_ITS | Encounter Summary ---
Author Organization [employer] ([place], [place], [place], [place]) Address [address] [place] [address] Care Team Providers Care Garage Laborer Name Role Phone Unavailable Primary Care Provider Unavailabl e Encounter Details Date Type Department Care Team (Late st Contact Info) Description 09/06/2019 Transcribed Document [facility] [place] [address] [place] [address] ProviderKalyani MD [address] [place] [address] Social History Tobacco Use Types [...] - Historical ProviderMD - 09/06/2019 5:00 PM STOCK UNLOADER Chart Check - Review Order Profile Entered [...]
== END 2025-04-28 23:59 | disposition home or self-care (01) ==
LOC: LAB.DROPOF 04-30 11:58
PROVIDERS: PCP Nurse Practitioner; Visit Provider Nurse Practitioner
DX: L97.519 Non-pressure chronic ulcer of other part of right foot with unspecified severity (principal)
CPT/HCPCS: 87070; 87077; 87205

== ENCOUNTER 2025-06-05 12:11 | Outpatient (CLI) | payer MEDICARE, SELFPAY ==
--- OUTSIDE RECORDS SUMMARY | 2025-06-05 12:14 | XMS_ITS | Clinical Summary ---
Author Organization [facility] Address [address] [place] [address] Care Team Providers Care Dental Appliance Fixer Name Role Phone Domigna Allen HARRY Primary Care Provider [phone]- [phone] Allergies No known active allergies Medications allopurinol [...] (one) time each day. Active HYDROcodone-yudelka taminophen ([place]) 5-325 MG tablet 5 mg of hydrocodone. [...] (11/15/2022): Added automatically from request for surgery [id number] Social History Tobacco Use Types Packs/Day Years [...] Last Done Comments [facility]-Bone Density Scan 1945 [facility]-Medicare Annual Wellness (AWV) 1945 [facility]-Infant/Child/Adol SDOH Screenings 1945 [facility]- SDOH Screenings 1962 [facility]-Adult SDOH Screenings 1962 [facility]-DTaP,Tdap,and Td Vaccines (1 - Tdap) 1963 [facility]-Pneumococcal Vaccine: 50+ Years (1 of 1 - PCV) 1994 [facility]-Zoster Vaccines (1 of 2) 1994 [facility]-RSV Vaccine: 60+ Years or (1 - 1-dose 75+ series) 2019 [facility]-Depression Screening 12/10/2023 12/09/2022 [facility]-WEGGW-17 Vaccine (5 - season) 2025 07/05/2022, 02/04/2022, 07/10/2021, Additional history exists [facility]-Influenza [...] this topic Medical Devices Implanted Type Area Bedspring Assembler Device Identifier Shelf Expiration Date Model / Serial / Lot Screw Screw Left: Ankle Screw 3.5mm Bone T10 Full Thread L34mm - [id number] Implanted:Qty: 1 on 11/16/2022 by Dallin Shin MD at [facility] Left: Femur [employer] ([facility])-[id number] 8 11/16/2023 [id number] / / Nail Femoral Retro T2 Alpha 13mm X 380mm - [id number] Implanted:Qty: 1 on 11/16/2022 by Dallin Shin MD at [facility] Left: Femur [employer] ([facility])-[id number] 09/03/2032 [id number] / / Screw Locking Adv T2 T2 D5xl80 - [id number] Implanted:Qty: 1 on 11/16/2022 by Dallin Shin MD at [facility] Left: Fem[employer] ([facility])-[id number] 8 05/04/2032 [id number] / / Screw Locking Adv T2 T2 D5xl75 - [id number] Implanted:Qty: 1 on 11/16/2022 by Dallin Shin MD at [facility] Left: Femur [employer] ([facility])-[id number] 8 09/03/2032 [id number] / / Screw Locking Adv T2 T2 D5xl65 - [id number] Implanted:Qty: 1 on 11/16/2022 by Dallin Shin MD at [facility] Left: Femur [employer] ([employer])-[id number] 8 07/04/2032 [id number] / / Screw Locking T2 D5x37.5 - [id number] Implanted:Qty: 2 on 11/16/2022 by Dallin Shin MD at [facility] Left: Femur [employer] ([employer])-[id number] 8 06/03/2032 [id number] / / Cap T2 Scn Fully Threaded End - [id number] Implanted:Qty: 1 on 11/16/2022 by Dallin Shin MD at [facility] Left: Fem[employer] ([employer])-[id number] 8 08/03/2027 [id number] / / Screw 3.5mm Bone T10 Full Thread L36mm - [id number] Implanted:Qty: 2 on 11/16/2022 by Dallin Shin MD at [facility] Left: Fem[employer] ([employer])-[id number] 8 11/17/2023 [id number] / / Screw 3.5mm Bone T10 Full Thread L40mm - [id number] Implanted:Qty: 1 on 11/16/2022 by Dallin Shin MD at [facility] Left: Femur [employer] ([employer])-[id number] 8 11/16/2023 [id number] / / Insurance MEDICARE GENERIC COMMERCIAL Advance Directives * Full Code (Latest Code Status on File) Date Activated Date Inactivated Comments 11/16/2022 11:05 AM 11/18/2022 9:29 PM Question Answer Comments Patient has decision-making capacity? Yes * Full Code Date Activated Date Inactivated Comments 11/15/2022 2:58 AM 11/16/2022 11:05 AM Question Answer Comments Patient has decision-making capacity? Yes Care Teams Dental Appliance Fixer Relationship Specialty Start Date End Date Dominga Allen APRN [address] [facility] [facility] [address] [facility] [address] [place], [place] [address] PCP - General 11/10/22
--- NOTE | 2025-06-05 12:15 | XR_ITS ---
FINAL REPORT CLINICAL HISTORY: left wrist pain COMPARISON: None FINDINGS: LEFT WRIST Three views demonstrate no acute fracture or dislocation. 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 The soft tissues are unremarkable. IMPRESSION: Osteoarthritic changes without acute bony abnormality. Reviewed, Interpreted and Dictated by Tito Barraza MD Transcribed by Yissel Mcnamara Authenticated and . [facility]
--- NOTE | 2025-06-05 12:15 | XR_ITS ---
FINAL REPORT CLINICAL HISTORY: right wrist pain COMPARISON: None FINDINGS: RIGHT WRIST Three views demonstrate no acute fracture or dislocation. Marked hypertrophic changes of osteoarthritis at the basilar joint. The soft tissues are unremarkable. IMPRESSION: Osteoarthritic changes without acute bony abnormality. Reviewed, Interpreted and Dictated by Tito Barraza MD Transcribed by Yissel Mcnamara Authenticated and [facility]
== END 2025-06-05 23:59 | disposition home or self-care (01) ==
LOC: RAD 12:12
PROVIDERS: PCP Nurse Practitioner Family; Visit Provider Physician Assistant Surgical
DX: M19.032 Primary osteoarthritis, left wrist (principal); M19.031 Primary osteoarthritis, right wrist
CPT/HCPCS: 73110